=== PATIENT | male | born 1950 | race Hispanic/Latino ===

== ENCOUNTER 2017-11-12 23:36 | Emergency (ER) | payer MEDICAID ==
[2017-11-13 00:55] LABS: Basophils % (Auto) 0.2 % (0.0-1.8); Eosinophils # (Auto) 0.1 K/mm3 (0.0-0.4); Eosinophils % (Auto) 0.5 % (0.0-4.3); Hematocrit 42.4 % (35.5-45.6); Lymphocytes # (Auto) 1.2 K/mm3 (1.2-5.4); Lymphocytes % (Auto) 6.7 % (13.4-35.0); Mean Corpuscular HGB Conc 33 % (32-34); Mean Corpuscular Hemoglobin 28 pg (28-32); Mean Corpuscular Volume 85 fl (84-94); Monocytes # (Auto) 0.8 K/mm3 (0.0-0.8); Monocytes % (Auto) 4.5 % (0.0-7.3); Platelet Count 179 K/mm3 (140-440); Red Blood Count 4.99 M/mm3 (3.65-5.03); Red Cell Distribution Width 16.1 % (13.2-15.2)
[2017-11-13] MEDS ORDERED: PROVENTIL IH ONE (01:08)
[2017-11-13] MEDS ORDERED: ATROVENT IH ONE (01:08)
[2017-11-13] MEDS ORDERED: LASIX IV ONE (01:10)
[2017-11-13] MEDS ORDERED: TORADOL IV ONE (01:11)
[2017-11-13] MEDS ORDERED: ZOFRAN IV ONE (01:11)
[2017-11-13] MEDS ORDERED: MORPHINE IV ONE (01:11)
[2017-11-13 01:19] LABS: Alanine Aminotransferase 33 units/L (7-56); BUN/Creatinine Ratio 18; Blood Urea Nitrogen 22 mg/dL (9-20); Calcium 8.9 mg/dL (8.4-10.2); Hemolysis Index 5
--- NOTE | 2017-11-13 01:57 | XRay Report ---
FINAL REPORT PROCEDURE: XR CHEST 1V AP TECHNIQUE: Chest radiograph anteroposterior view. CPT 76719 HISTORY: sob COMPARISON: No prior studies are available for comparison. FINDINGS: Heart: Normal. Mediastinum/Vessels: Normal. Lungs/Pleural space: There is suboptimal inspiration. There is pulmonary vascular congestion. There are no infiltrates, effusions or pneumothoraces.. Bony thorax: No acute osseous abnormality. Life support devices: Pacemaker lead is in proper position.. IMPRESSION: The heart size is normal. There is suboptimal inspiration. There is pulmonary vascular congestion. There are no infiltrates, effusions or pneumothoraces..
--- NOTE | 2017-11-13 02:17 | Emergency Department Report ---
ED Abdominal Pain HPI - General Chief Complaint: Abdominal Pain Stated Complaint: AVRIL/ABD PAIN Time Seen by Provider: 11/13/17 00:46 Source: patient, family (daughter), EMS Mode of arrival: Stretcher Limitations: Physical Limitation - History of Present Illness Initial Comments: 67 YO MORBIDLY OBESE MALE WITH C/O ACUTE DYSPNEA AND ABDOMINAL PAIN THAT BEGAN AT 11PM 11/12/17. HIS ABDOMINAL PAIN IS RELATED TO A HERNIA AND HIS SURGEON WANTS TO DO AN EXPLORATORY LAP TO DETERMINE WHAT TRULY IS GOING ON IN HIS ABDOMEN. PT IS ON FACE MASK AND IN RESPIRATORY DISTRESS. HE AND H/O MORBID OBESITY, COPD, ABDOMINAL HERNIA,CHF,ARTHRITIS,CVA,HTN,ANXIETY,DEPRESSION,SLEEP APNEA,RENAL DISEASE,PROSTATE, RIGHT KNEE. HE IS ALSO UNABLE TO WALK OR STAND. MD Complaint: abdominal pain -: Sudden Location: diffuse Migration to: no migration Severity scale (0 -10): 8 Consistency: constant Worsens With: movement, other (PALPATION) Associated Symptoms: denies other symptoms - Related Data Home Medications Medication Instructions Recorded Confirmed Last Taken Cholecalciferol (Vitamin D3) 1,000 unit PO 11/13/17 Unknown [Vitamin D3] Docusate Sodium [Colace CAP] 11/13/17 Unknown Ferrous Sulfate [Feosol] 325 mg PO BID 11/13/17 11/13/17 Unknown HYDROcodone/APAP 5-325 [Parker 1 each PO Q6HR PRN 11/13/17 11/13/17 Unknown 5/325] Ibuprofen [Motrin] 800 mg PO Q8HR PRN 11/13/17 11/13/17 Unknown Lisinopril [Zestril TAB] 40 mg PO QDAY 11/13/17 11/13/17 Unknown Loratadine [Allergy Relief] 10 mg PO 11/13/17 Unknown Norvasc 11/13/17 Unknown Polyethylene Glycol 3350 [Clearlax] 11/13/17 Unknown Sertraline [Zoloft] 11/13/17 Unknown Vitamin C 11/13/17 Unknown Allergies Allergy/AdvReac Type Severity Reaction Status Date / Time No Known Allergies Allergy Unverified 11/13/17 00:30 ED Review of Systems ROS: Stated complaint: AVRIL/ABD PAIN Other details as noted in HPI Constitutional: denies: chills, fever Eyes: denies: eye pain, eye discharge, vision change ENT: denies: ear pain, throat pain Respiratory: shortness of breath. denies: cough, wheezing Cardiovascular: denies: chest pain, palpitations Endocrine: no symptoms reported Gastrointestinal: denies: abdominal pain, nausea, diarrhea Genitourinary: denies: urgency, dysuria Musculoskeletal: denies: back pain, joint swelling, arthralgia Skin: denies: rash, lesions Neurological: denies: headache, weakness, paresthesias Psychiatric: denies: anxiety, depression Hematological/Lymphatic: denies: easy bleeding, easy bruising ED Past Medical Hx - Past Medical History Previous Medical History?: Yes Hx Hypertension: Yes Hx CVA: Yes Hx Congestive Heart Failure: Yes Hx Arthritis: Yes Hx Psychiatric Treatment: Yes (anxiety, depression) Hx COPD: Yes Additional medical history: Sleep apnea, Kidney disease, Prostate disease - Surgical History Past Surgical History?: Yes Additional Surgical History: Right knee - Social History Smoking Status: Former Smoker Substance Use Type: None - Medications Home Medications: Home Medications Medication Instructions Recorded Confirmed Last Taken Type Cholecalciferol (Vitamin D3) 1,000 unit PO 11/13/17 Unknown History [Vitamin D3] Docusate Sodium [Colace CAP] 11/13/17 Unknown History Ferrous Sulfate [Feosol] 325 mg PO BID 11/13/17 11/13/17 Unknown History HYDROcodone/APAP 5-325 [Parker 1 each PO Q6HR PRN 11/13/17 11/13/17 Unknown History 5/325] Ibuprofen [Motrin] 800 mg PO Q8HR PRN 11/13/17 11/13/17 Unknown History Lisinopril [Zestril TAB] 40 mg PO QDAY 11/13/17 11/13/17 Unknown History Loratadine [Allergy Relief] 10 mg PO 11/13/17 Unknown History Norvasc 11/13/17 Unknown History Polyethylene Glycol 3350 [Clearlax] 11/13/17 Unknown History Sertraline [Zoloft] 11/13/17 Unknown History Vitamin C 11/13/17 Unknown History ED Physical Exam - General Limitations: Physical Limitation (PT IS MORBIDLY OBESE THUS PHYSICAL EXAM IS LIMITED) General appearance: alert, in distress (ERSPIRATORY) - Head Head exam: Present: atraumatic, normocephalic - Eye Eye exam: Present: normal appearance, EOMI - ENT ENT exam: Present: mucous membranes moist - Neck Neck exam: Present: normal inspection, full ROM - Respiratory Respiratory exam: Present: wheezes (BILATERAL), accessory muscle use - Cardiovascular Cardiovascular Exam: Present: regular rate, normal rhythm - GI/Abdominal GI/Abdominal exam: Present: soft, tenderness (DIFFUSE) - Rectal Rectal exam: Present: deferred - External exam: Present: normal external exam - Extremities Exam Extremities exam: Present: pedal edema, other - Back Exam Back exam: Present: normal inspection, full ROM - Neurological Exam Neurological exam: Present: alert, oriented X3, CN II-XII intact - Psychiatric Psychiatric exam: Present: normal affect, normal mood - Skin Skin exam: Present: warm, dry, intact, normal color ED Course Vital Signs 11/13/17 11/13/17 11/13/17 00:24 01:24 01:30 Temperature 98.7 F Pulse Rate 97 H 108 H Pulse Rate [ Bilateral] Respiratory 21 20 31 H Rate Respiratory Rate [Bilateral ] Blood Pressure 144/100 145/77 O2 Sat by Pulse 92 94 Oximetry 11/13/17 11/13/17 01:39 05:06 Temperature Pulse Rate 88 Pulse Rate [ 104 H Bilateral] Respiratory 20 Rate Respiratory 25 H Rate [Bilateral ] Blood Pressure 97/46 O2 Sat by Pulse 94 Oximetry - Reevaluation(s) Reevaluation #1: 11/13/17 07:[address] SCAN. WE NEED MANY PEOPLE TO LIFT HIM INTO THE SCANNER , WELL THE SLOWNESS OF GETTING CT'S DONE TONIGHT. HE IS HAVING CRAMPS IN HIS HANDS Reevaluation #2: 11/13/17 07:[address] OF ABD/PELVIS Reevaluation #3: 11/13/17 07:56 PLEASE DO NOT GIVE 30ML/KG OF FLUID, HE IS A CHF PT AND I DO NOT WANT HIM OVERLOADED ED Medical Decision Making - Lab Data Result diagrams: 11/13/17 00:43 11/13/17 00:43 - Radiology Data Radiology results: report reviewed (CXR: PULMONARY VASCULAR CONGESTION) - Medical Decision Making PT IS STILL WAITING FOR CT OF ABDOMEN TO BE DONE. CT ORDERED AT O1:11 AND STILL NOT DONE. PT IS NOT HAVING MUSCLE CRAMPS IN HIS HANDS AND HIS PRESSURE IS DROPPING A LITTLE. WILL BOLUS. PT CANNOT WALK OR STAND FOR ABDOMINAL XRAY BECAUSE OF HIS MORBID OBESITY AND LEG AND FOOT PROBLEMS 0752 PT IS NOW IN THE SCANNER. HIS CARE HAS BEEN TURNED OVER TO DR WELLS WHO WILL FOLLOW UP ON THE CT OF ABDOMENT AND IF THE CT IS NEGATIVE , HE WILL ADMIT THE PT TO THE HOSPITAL FOR UTI,COPD. Critical care attestation.: If time is entered above; I have spent that time in minutes in the direct care of this critically ill patient, excluding procedure time. ED Disposition Clinical Impression: Acute exacerbation of COPD with asthma UTI (urinary tract infection) Qualifiers: Urinary tract infection type: acute cystitis Hematuria presence: with hematuria Qualified Code(s): N30.01 - Acute cystitis with hematuria Abdominal pain Qualifiers: Abdominal location: unspecified location Qualified Code(s): R10.9 - Unspecified abdominal pain Disposition: 09 OP ADMIT IP TO THIS HOSP Is pt being admited?: Yes Does the pt Need Aspirin: No Condition: Critical Instructions: Asthma (ED) Referrals: PASQUALE DOBBINS MD [Primary Care Provider] - 3-5 Days Time of Disposition: 07:49 (DR WELLS WILL FOLLOW )
[2017-11-13 02:24] LABS: Creatine Kinase MB 1.2 ng/mL (0.0-4.0)
[2017-11-13 03:24] LABS: Amorphous Crystals,Urine Few; Bacteria,Urine 1+ /HPF (Negative); Bilirubin,Urine NEG (Negative); Blood,Urine NEG (Negative); Color,Urine Yellow (Yellow); Mucus,Urine FEW /HPF; Nitrite,Urine NEG (Negative); Protein,Urine <15 mg/dL mg/dL (Negative)
[2017-11-13] MEDS ORDERED: NACL ONE (04:54)
[2017-11-13] MEDS ORDERED: NACL 0.9% 250ML 250 ML IV ONE (06:39)
[2017-11-13] MEDS ORDERED: LEVAQUIN 750MG/150ML 750 MG/150 ML BAG IV ONE (06:39)
[2017-11-13] MEDS ORDERED: NACL 0.9% 500 ML 500 ML ONE (06:40)
[2017-11-13] MEDS ORDERED: NACL 0.9% 1000 ML 1,000 ML IV ONE (06:54)
[2017-11-13] MEDS ORDERED: VITAMIN B-1 200 MG in NACL 0.9% 50 ML IV ONE (07:53)
--- NOTE | 2017-11-13 08:30 | Cat Scan Report ---
FINAL REPORT EXAM: CT ABDOMEN PELVIS W CON HISTORY: abd pain TECHNIQUE: CT abdomen and pelvis performed. Images extend from diaphragm to pubic symphysis. Images were obtained after the administration of IV contrast. No oral contrast was administered. Coronal and sagittal reformatted images were obtained. PRIORS: None. FINDINGS: Note that the patient is high obliques in the scanner. Patient's abdominal pannus extends towards the right side and is partially excluded from the field of view. This includes portions of the right colon . There is an elongated calculus in the proximal right ureter measuring 21 x 9 x 7 mm. This causes [id number] right hydronephrosis. There are multiple additional right intrarenal calculi on the right, most are also very oblong in shape. There is a small left intrarenal calculus. There is fatty infiltration of the liver. There is splenomegaly measuring 18 cm largest dimension. There are aortoiliac atherosclerotic calcifications. There is no abdominal aortic aneurysm. There is no evidence of intestinal obstruction. The appendix is normal. There is no free intraperitoneal air. There are no abnormal fluid collections seen. There is a Harding catheter in the bladder. There are small inguinal hernias bilaterally which contain only fat. IMPRESSION: There is an elongated obstructing calculus in proximal right ureter measuring 21 x 9 x 7 mm. This causes mild to moderate right hydronephrosis. There are additional nonobstructing similar oblong right intrarenal calculi. There is a small nonobstructing left intrarenal calculus. Fatty liver. Patient's abdominal pannus extends to the right side and is partially excluded from field of view.
[2017-11-13 08:57] LABS: Calcium 8.7 mg/dL (8.4-10.2)
[2017-11-13] MEDS ORDERED: SUBLIMAZE IV ONE ×2 (10:44→11:00)
--- NOTE | 2017-11-13 11:09 | Emergency Department Report ---
Blank Doc - Documentation Documentation: I was asked by my colleague, Dr. Craig, to follow-up on the patient's CT scan results. The plan was going to be that the patient would require admission anyways for a COPD exacerbation but if there is something on the CT scan of the abdomen and pelvis that needs intervention, then I would take care of it. The CT results came back showing a 2 cm right proximal ureter stone with mild-to- moderate hydronephrosis. On top of that, the patient had repeat metabolic panel showing that there is now some renal insufficiency and mild hyperkalemia. It is possible that the acute kidney injury may be secondary to medications given during his ED stay, but it is also possible that it is secondary to his large kidney stone. The issue at hand is that we do not have urology correction officer today and the patient may need stenting or some type of acute intervention. If it was just the COPD exacerbation, the patient would be kept at our facility. I spoke with [facility]. First I spoke with the urologist, Dr. Wells, who agrees that the patient needs urological consultation and possibly a stent placed either today or tomorrow. Since the patient has the COPD exacerbation, he will not be admitted to the urology service and will need medicine or the hospitalist service. The patient also may need stepdown unit or ICU for his COPD as he is currently on BiPAP. However it has been set up so that the patient will go ER to ER to [place] [facility]. Both Dr. Craig's chart and my note, as well as all the patient's labs and imaging will be sent with the patient. The patient is aware of the lab and imaging results as well as the plan for transfer and he understands and agrees.
[2017-11-13] MEDS ORDERED: ASCORBIC ACID 1,500 MG in NACL 0.9% 50 ML IV SCH (12:00)
--- NOTE | 2017-11-13 13:10 | Emergency Department Report ---
HPI - General Chief Complaint: Abdominal Pain Time Seen by Provider: 11/13/17 00:46 - HPI HPI: This is a 67-year-old male presents to the emergency department from his [facility] via EMS with complaint of shortness of breath and abdominal pain that started last night. He has a past medical history of COPD, abdominal hernia, CVA, hypertension, obstructive sleep apnea, renal insufficiency, CHF. He presented via EMS from home with a nonrebreather on secondary to some hypoxia. His abdominal pain is lower to mid abdomen and bilateral. He had some nausea and vomiting last night but denies any current nausea. He denies any fever, back pain, dysuria or discharge.. The patient has morbid obesity and is nonambulatory at baseline. He is not oxygen dependent at home. This patient was originally signed out to me to follow the CT scan results and if negative, to admit him for UTI and COPD exacerbation. However CT scan results came back showing a large right-sided obstructive kidney stone in the ureter that will need a urology consult, which we do not have. On top of that, the patient has required attention regarding his COPD exacerbation and placed on BiPAP and titration of settings. ED Past Medical Hx - Past Medical History Previous Medical History?: Yes Hx Hypertension: Yes Hx CVA: Yes Hx Congestive Heart Failure: Yes Hx Arthritis: Yes Hx Psychiatric Treatment: Yes (anxiety, depression) Hx COPD: Yes Additional medical history: Sleep apnea, Kidney disease, Prostate disease - Surgical History Past Surgical History?: Yes Additional Surgical History: Right knee - Social History Smoking Status: Former Smoker Substance Use Type: None - Medications Home Medications: Home Medications Medication Instructions Recorded Confirmed Last Taken Type Cholecalciferol (Vitamin D3) 1,000 unit PO 11/13/17 Unknown History [Vitamin D3] Docusate Sodium [Colace CAP] 11/13/17 Unknown History Ferrous Sulfate [Feosol] 325 mg PO BID 11/13/17 11/13/17 Unknown History HYDROcodone/APAP 5-325 [[place] 1 each PO Q6HR PRN 11/13/17 11/13/17 Unknown History 5/325] Ibuprofen [Motrin] 800 mg PO Q8HR PRN 11/13/17 11/13/17 Unknown History Lisinopril [Zestril TAB] 40 mg PO QDAY 11/13/17 11/13/17 Unknown History Loratadine [Allergy Relief] 10 mg PO 11/13/17 Unknown History Norvasc 11/13/17 Unknown History Polyethylene Glycol 3350 [Clearlax] 11/13/17 Unknown History Sertraline [Zoloft] 11/13/17 Unknown History Vitamin C 11/13/17 Unknown History ED Review of Systems ROS: Stated complaint: AVRIL/ABD PAIN Other details as noted in HPI Constitutional: denies: chills, fever Eyes: denies: eye pain, eye discharge, vision change ENT: denies: ear pain, throat pain Respiratory: shortness of breath. denies: cough, wheezing Cardiovascular: denies: chest pain, palpitations Endocrine: no symptoms reported Gastrointestinal: abdominal pain, nausea, vomiting Genitourinary: denies: urgency, dysuria Musculoskeletal: denies: back pain, joint swelling, arthralgia Skin: denies: rash, lesions Neurological: denies: headache, weakness, paresthesias Psychiatric: denies: anxiety, depression Hematological/Lymphatic: denies: easy bleeding, easy bruising Physical Exam - Physical Exam Vital Signs: Vital Signs 11/13/17 11/13/17 11/13/17 00:24 01:24 01:30 Temperature 98.7 F Pulse Rate 97 H 108 H Pulse Rate [ Bilateral] Respiratory 21 20 31 H Rate Respiratory Rate [Bilateral ] Blood Pressure 144/100 145/77 Blood Pressure [Left] O2 Sat by Pulse 92 94 Oximetry 11/13/17 11/13/17 11/13/17 01:39 03:23 03:30 Temperature Pulse Rate 103 H 105 H Pulse Rate [ 104 H Bilateral] Respiratory 26 H 28 H Rate Respiratory 25 H Rate [Bilateral ] Blood Pressure 116/51 116/51 Blood Pressure [Left] O2 Sat by Pulse 95 93 Oximetry 11/13/17 11/13/17 11/13/17 03:45 04:00 04:15 Temperature Pulse Rate 101 H 98 H 96 H Pulse Rate [ Bilateral] Respiratory 27 H 24 21 Rate Respiratory Rate [Bilateral ] Blood Pressure 108/45 108/45 95/50 Blood Pressure [Left] O2 Sat by Pulse 93 93 94 Oximetry 11/13/17 11/13/17 11/13/17 04:30 04:45 05:00 Temperature Pulse Rate 92 H 93 H 90 Pulse Rate [ Bilateral] Respiratory 23 25 H 25 H Rate Respiratory Rate [Bilateral ] Blood Pressure 95/50 99/52 105/48 Blood Pressure [Left] O2 Sat by Pulse 93 96 93 Oximetry 11/13/17 11/13/17 11/13/17 05:06 05:15 05:30 Temperature Pulse Rate 88 87 87 Pulse Rate [ Bilateral] Respiratory 20 24 12 Rate Respiratory Rate [Bilateral ] Blood Pressure 97/46 95/45 95/45 Blood Pressure [Left] O2 Sat by Pulse 94 94 93 Oximetry 11/13/17 11/13/17 11/13/17 05:45 06:00 06:16 Temperature Pulse Rate 85 82 83 Pulse Rate [ Bilateral] Respiratory 13 22 22 Rate Respiratory Rate [Bilateral ] Blood Pressure 84/42 84/42 86/39 Blood Pressure [Left] O2 Sat by Pulse 92 91 93 Oximetry 11/13/17 11/13/17 11/13/17 07:23 07:30 10:15 Temperature 100.7 F H Pulse Rate 82 78 76 Pulse Rate [ Bilateral] Respiratory 9 L 17 20 Rate Respiratory Rate [Bilateral ] Blood Pressure 84/29 104/40 Blood Pressure 110/48 [Left] O2 Sat by Pulse 94 92 88 Oximetry 11/13/17 11/13/17 10:16 12:19 Temperature Pulse Rate 77 Pulse Rate [ Bilateral] Respiratory 24 23 Rate Respiratory Rate [Bilateral ] Blood Pressure 128/61 Blood Pressure [Left] O2 Sat by Pulse 91 94 Oximetry Physical Exam: GENERAL: The patient is well-developed well-nourished. HENT: Normocephalic. Atraumatic. Patient has moist mucous membranes. EYES: Extraocular motions are intact. Pupils equal reactive to light bilaterally. NECK: Supple. Trachea is midline. CHEST/LUNGS: coarse breath sounds. There is tachypnea with some accessory muscle use. This improves on bipap. HEART/CARDIOVASCULAR: Regular. There is mild tachycardia. There is no murmur. ABDOMEN: Abdomen is soft. There is some lower abdominal tenderness to palpation. No guarding rebound tenderness. Patient has normal bowel sounds. Morbidly obese habitus. SKIN: Skin is warm and dry. NEURO: The patient is awake, alert, and oriented. The patient is cooperative. The patient has no focal neurologic deficits. The patient has normal speech. MUSCULOSKELETAL: There is no tenderness or deformity. There is no evidence of acute injury. ED Course Vital Signs 11/13/17 11/13/17 11/13/17 00:24 01:24 01:30 Temperature 98.7 F Pulse Rate 97 H 108 H Pulse Rate [ Bilateral] Respiratory 21 20 31 H Rate Respiratory Rate [Bilateral ] Blood Pressure 144/100 145/77 Blood Pressure [Left] O2 Sat by Pulse 92 94 Oximetry 11/13/17 11/13/17 11/13/17 01:39 03:23 03:30 Temperature Pulse Rate 103 H 105 H Pulse Rate [ 104 H Bilateral] Respiratory 26 H 28 H Rate Respiratory 25 H Rate [Bilateral ] Blood Pressure 116/51 116/51 Blood Pressure [Left] O2 Sat by Pulse 95 93 Oximetry 11/13/17 11/13/17 11/13/17 03:45 04:00 04:15 Temperature Pulse Rate 101 H 98 H 96 H Pulse Rate [ Bilateral] Respiratory 27 H 24 21 Rate Respiratory Rate [Bilateral ] Blood Pressure 108/45 108/45 95/50 Blood Pressure [Left] O2 Sat by Pulse 93 93 94 Oximetry 11/13/17 11/13/17 11/13/17 04:30 04:45 05:00 Temperature Pulse Rate 92 H 93 H 90 Pulse Rate [ Bilateral] Respiratory 23 25 H 25 H Rate Respiratory Rate [Bilateral ] Blood Pressure 95/50 99/52 105/48 Blood Pressure [Left] O2 Sat by Pulse 93 96 93 Oximetry 11/13/17 11/13/17 11/13/17 05:06 05:15 05:30 Temperature Pulse Rate 88 87 87 Pulse Rate [ Bilateral] Respiratory 20 24 12 Rate Respiratory Rate [Bilateral ] Blood Pressure 97/46 95/45 95/45 Blood Pressure [Left] O2 Sat by Pulse 94 94 93 Oximetry 11/13/17 11/13/17 11/13/17 05:45 06:00 06:16 Temperature Pulse Rate 85 82 83 Pulse Rate [ Bilateral] Respiratory 13 22 22 Rate Respiratory Rate [Bilateral ] Blood Pressure 84/42 84/42 86/39 Blood Pressure [Left] O2 Sat by Pulse 92 91 93 Oximetry 11/13/17 11/13/17 11/13/17 07:23 07:30 10:15 Temperature 100.7 F H Pulse Rate 82 78 76 Pulse Rate [ Bilateral] Respiratory 9 L 17 20 Rate Respiratory Rate [Bilateral ] Blood Pressure 84/29 104/40 Blood Pressure 110/48 [Left] O2 Sat by Pulse 94 92 88 Oximetry 11/13/17 11/13/17 10:16 12:19 Temperature Pulse Rate 77 Pulse Rate [ Bilateral] Respiratory 24 23 Rate Respiratory Rate [Bilateral ] Blood Pressure 128/61 Blood Pressure [Left] O2 Sat by Pulse 91 94 Oximetry - ABG Interpretation Ph: [phone] PCO2: 58 PO2: 118 Bicarbonate: 29 Interpretation: respiratory acidosis - EJ/Peripheral Line Arm L Time Out Performed: Yes Indications: nurses unable to establis Skin Cleansed in Sterile Fashion: Yes Size: 20 Dressing Placed: Tegaderm, tape Patient Tolerated Procedure: well ED Medical Decision Making - Lab Data Result diagrams: 11/13/17 00:43 11/13/17 08:27 - EKG Data -: EKG Interpreted by Me EKG shows normal: sinus rhythm, axis, intervals, QRS complexes, ST-T waves Rate: normal - EKG Data When compared to previous EKG there are: previous EKG unavailable Interpretation: normal EKG - Radiology Data Radiology results: report reviewed, image reviewed interpreted by me: Chest x-ray shows some mild cardiomegaly and pulmonary vascular congestion. No overt pleural effusions. No obvious pneumonia. EXAM: CT ABDOMEN PELVIS W CON HISTORY: abd pain TECHNIQUE: CT abdomen and pelvis performed. Images extend from diaphragm to pubic symphysis. Images were obtained after the administration of IV contrast. No oral contrast was administered. Coronal and sagittal reformatted images were obtained. PRIORS: None. FINDINGS: Note that the patient is high obliques in the scanner. Patient's abdominal pannus extends towards the right side and is partially excluded from the field of view. This includes portions of the right colon . There is an elongated calculus in the proximal right ureter measuring 21 x 9 x 7 mm. This causes [id number] right hydronephrosis. There are multiple additional right intrarenal calculi on the right, most are also very oblong in shape. There is a small left intrarenal calculus. There is fatty infiltration of the liver. There is splenomegaly measuring 18 cm largest dimension. There are aortoiliac atherosclerotic calcifications. There is no abdominal aortic aneurysm. There is no evidence of intestinal obstruction. The appendix is normal. There is no free intraperitoneal air. There are no abnormal fluid collections seen. There is a Harding catheter in the bladder. There are small inguinal hernias bilaterally which contain only fat. IMPRESSION: There is an elongated obstructing calculus in proximal right ureter measuring 21 x 9 x 7 mm. This causes mild to moderate right hydronephrosis. There are additional nonobstructing similar oblong right intrarenal calculi. There is a small nonobstructing left intrarenal calculus. Fatty liver. Patient's abdominal pannus extends to the right side and is partially excluded from field of view. Transcribed By: SHELBY Dictated By: DURGA WHITTINGTON MD Electronically Authenticated By: DURGA WHITTINGTON MD Signed Date/Time: 11/13/17 0427 - Medical Decision Making Patient presents with shortness of breath and abdominal pain. Regarding the shortness of breath, it appears to be COPD exacerbation. He has hypercapnia on ABG. This patient was originally signed out to me so I responded to the third ABG that was obtained. It still showed a PCO2 of 57 and the patient was on nonrebreather. He was placed on BiPAP and this was titrated to help blow off some carbon dioxide. While on the BiPAP, he had decreased work of breathing and appeared more stable. Chest x-ray did not show any pneumonia. There may be some pulmonary vascular congestion. Regarding patient's abdominal pain, he has a mild urinary tract infection. Also CT of the abdomen and pelvis with IV contrast came back showing a 2 cm right proximal ureteral stone with [id number] hydronephrosis. For this reason, the patient needed transfer to another facility as we do not have urology today. I spoke with Dr. Wells, urologist at [facility], who agrees that the patient appears to need urology consultation and possibly intervention for this large kidney stone. However secondary to his COPD and/or respiratory distress, the patient will need to go to the medicine service. Being that he is on BiPAP , they consider that he needs either ICU or a stepdown unit. However he will go to the emergency department of [facility] first for further evaluation. I was told by the transfer center that I did not need to do a physician to physician report to the ER doctor who was accepting. All of the labs, charts, imaging, EKG were copied and sent with the patient. - Differential Diagnosis COPD, asthma, PE, nephrolithiasis, appendicitis, cholecystitis Critical Care Time: No ED Disposition Clinical Impression: Acute exacerbation of COPD with asthma, Right nephrolithiasis, Acute kidney injury, Respiratory distress UTI (urinary tract infection) Qualifiers: Urinary tract infection type: acute cystitis Hematuria presence: with hematuria Qualified Code(s): N30.01 - Acute cystitis with hematuria Abdominal pain Qualifiers: Abdominal location: unspecified location Qualified Code(s): R10.9 - Unspecified abdominal pain Hydronephrosis Qualifiers: Hydronephrosis type: with ureteral calculous obstruction Qualified Code(s): N13.2 - Hydronephrosis with renal and ureteral calculous obstruction Leukocytosis Qualifiers: Leukocytosis type: unspecified Qualified Code(s): D72.829 - Elevated white blood cell count, unspecified Disposition: DC/TX-70 ANOTHER TYPE HLTHCARE Is pt being admited?: No Condition: Fair Referrals: PASQUALE DOBBINS MD [Primary Care Provider] - 3-5 Days Time of Disposition: 13:39
[2017-11-13 13:19] VITALS: BP 134/74
[2017-11-13] MEDS ORDERED: FLAGYL 500 MG/100 ML 500 MG/100 ML BAG IV SCH (14:00)
[2017-11-13] MEDS ORDERED: ZOSYN/NS 4.5GM/100ML 4.5 GM/100 ML VIAL IV SCH (14:00)
== END 2017-11-13 13:10 | disposition other institution (70) ==
LOC: ED 23:36
DX: J44.1 Chronic obstructive pulmonary disease with (acute) exacerbation (principal); N39.0 Urinary tract infection, site not specified; I11.0 Hypertensive heart disease with heart failure; I50.9 Heart failure, unspecified; M19.90 Unspecified osteoarthritis, unspecified site; Z86.73 Personal history of transient ischemic attack (TIA), and cerebral infarction without residual deficits; Z87.891 Personal history of nicotine dependence
CPT/HCPCS: 36415; 36556; 71045; 74177; 80048; 80053; 81001; 82140; 82550; 82553; 82803; 83880; 84484; 85025; 85379; 86850; 86900; 86901; 87040; 87086; 87186; 93005; 93010; 96361; 96365; 96375; 99285; J1885; J1940; J1956; J2270; J2405; J2930; J3010; J3411; J7040; Q9967; J2543

== ENCOUNTER 2018-03-29 21:07 | Inpatient (IN) | payer MEDICARE ==
--- NOTE | 2018-03-29 21:30 | Emergency Department Report ---
ED Shortness of Breath HPI - General Chief Complaint: Dyspnea/Respdistress Stated Complaint: AVRIL Time Seen by Provider: 03/29/18 21:23 Source: EMS Mode of arrival: Stretcher Limitations: No Limitations - History of Present Illness Initial Comments: 67-year-old man with chronic comorbidities of morbid obesity, obstructive sleep apnea, COPD secondary to tobacco abuse, inactive tobacco abuse, presents with progressive shortness of breath over the past couple of days. He has not had any fever or chills or diaphoresis, no cough or congestion, but has noticed that his been more difficult to breathe or to perform any of his routine activities. Patient was treated here in October 2017 for similar symptoms, treated with BiPAP, stabilized, but also had a significant kidney stone, and was transferred to [facility] for further care at that time. Patient on BiPAP at time of initial examination, vital signs are stable, blood pressure is 142/66, heart rate 88, respirations are 20, and oxygen saturation 100% on BiPAP. He shows no acute distress, but is tachypneic. Onset/Timin -: days(s) Pain Scale: 0 Known History Of: COPD, congestive heart failure, other Associated Symptoms: denies other symptoms (obstructive sleep apnea, morbid obesity) - Related Data Home Medications Medication Instructions Recorded Confirmed Last Taken Cholecalciferol (Vitamin D3) 1,000 unit PO 11/13/17 Unknown [Vitamin D3] Docusate Sodium [Colace CAP] 11/13/17 Unknown Ferrous Sulfate [Feosol] 325 mg PO BID 11/13/17 11/13/17 Unknown HYDROcodone/APAP 5-325 [[place] 1 each PO Q6HR PRN 11/13/17 11/13/17 Unknown 5/325] Ibuprofen [Motrin] 800 mg PO Q8HR PRN 11/13/17 11/13/17 Unknown Lisinopril [Zestril TAB] 40 mg PO QDAY 11/13/17 11/13/17 Unknown Loratadine [Allergy Relief] 10 mg PO 11/13/17 Unknown Norvasc 11/13/17 Unknown Polyethylene Glycol 3350 [Clearlax] 11/13/17 Unknown Sertraline [Zoloft] 11/13/17 Unknown Vitamin C 11/13/17 Unknown Allergies Allergy/AdvReac Type Severity Reaction Status Date / Time No Known Allergies Allergy Unverified 11/13/17 00:30 ED Review of Systems ROS: Stated complaint: AVRIL Other details as noted in HPI Comment: All other systems reviewed and negative Constitutional: denies: chills, diaphoresis, fever, malaise ENT: denies: ear pain, throat pain Respiratory: shortness of breath, SOB with exertion Cardiovascular: dyspnea on exertion. denies: chest pain, palpitations Endocrine: no symptoms reported Gastrointestinal: denies: abdominal pain, nausea, diarrhea Genitourinary: denies: urgency, dysuria Musculoskeletal: denies: back pain, joint swelling, arthralgia Skin: denies: rash, lesions Neurological: denies: headache, weakness, paresthesias Psychiatric: denies: anxiety, depression Hematological/Lymphatic: denies: easy bleeding, easy bruising ED Past Medical Hx - Past Medical History Hx Hypertension: Yes Hx CVA: Yes Hx Congestive Heart Failure: Yes Hx Arthritis: Yes Hx Psychiatric Treatment: Yes (anxiety, depression) Hx COPD: Yes Additional medical history: Sleep apnea, Kidney disease, Prostate disease - Surgical History Additional Surgical History: Right knee - Social History Smoking Status: Never Smoker - Medications Home Medications: Home Medications Medication Instructions Recorded Confirmed Last Taken Type Cholecalciferol (Vitamin D3) 1,000 unit PO 11/13/17 Unknown History [Vitamin D3] Docusate Sodium [Colace CAP] 11/13/17 Unknown History Ferrous Sulfate [Feosol] 325 mg PO BID 11/13/17 11/13/17 Unknown History HYDROcodone/APAP 5-325 [[place] 1 each PO Q6HR PRN 11/13/17 11/13/17 Unknown History 5/325] Ibuprofen [Motrin] 800 mg PO Q8HR PRN 11/13/17 11/13/17 Unknown History Lisinopril [Zestril TAB] 40 mg PO QDAY 11/13/17 11/13/17 Unknown History Loratadine [Allergy Relief] 10 mg PO 11/13/17 Unknown History Norvasc 11/13/17 Unknown History Polyethylene Glycol 3350 [Clearlax] 11/13/17 Unknown History Sertraline [Zoloft] 11/13/17 Unknown History Vitamin C 11/13/17 Unknown History ED Physical Exam - General Limitations: No Limitations General appearance: lethargic (awake but somewhat lethargic, speaks slowly, but fully appropriate, gives good history), obese - Head Head exam: Present: atraumatic - Eye Eye exam: Present: PERRL, EOMI - ENT ENT exam: Present: normal exam - Neck Neck exam: Present: other (obese, no JVD). Absent: tenderness - Respiratory Respiratory exam: Present: respiratory distress (on BiPAP for ventilatory support, posterior crackles, otherwise relatively clear), rales (primarily posteriorly, but essentially clear), other (poor respiratory effort, requires BiPAP). Absent: wheezes, rhonchi, chest wall tenderness - Cardiovascular Cardiovascular Exam: Present: regular rate. Absent: systolic murmur, diastolic murmur - GI/Abdominal GI/Abdominal exam: Present: soft, other (morbidly obese). Absent: tenderness, guarding, rebound - Rectal Rectal exam: Present: deferred - Extremities Exam Extremities exam: Present: normal inspection. Absent: pedal edema - Neurological Exam Neurological exam: Present: oriented X3, CN II-XII intact. Absent: motor sensory deficit - Psychiatric Psychiatric exam: Present: normal affect, normal mood - Skin Skin exam: Present: warm, dry. Absent: cyanosis, diaphoretic ED Course Vital Signs 03/29/18 03/29/18 03/29/18 21:12 21:16 21:25 Temperature 98.3 F Pulse Rate 87 92 H Pulse Rate [ Bilateral Throughout] Respiratory 22 26 H 26 H Rate Respiratory Rate [Bilateral Throughout] Blood Pressure 141/74 139/69 Blood Pressure [Right] O2 Sat by Pulse 99 Oximetry 03/29/18 03/29/18 03/29/18 22:18 22:22 22:42 Temperature Pulse Rate 3 L Pulse Rate [ 91 H 91 H Bilateral Throughout] Respiratory 3 L Rate Respiratory 24 24 Rate [Bilateral Throughout] Blood Pressure 158/86 Blood Pressure [Right] O2 Sat by Pulse 98 Oximetry 03/29/18 03/29/18 03/30/18 23:07 23:53 00:26 Temperature Pulse Rate 91 H Pulse Rate [ 91 H 86 Bilateral Throughout] Respiratory 18 Rate Respiratory 24 24 Rate [Bilateral Throughout] Blood Pressure Blood Pressure 134/77 [Right] O2 Sat by Pulse Oximetry - Reevaluation(s) Reevaluation #1: 03/30/18 03:44 Patient is napping comfortably at recheck, and is warm and diaphoretic, but temperature check is stable at 98.5 Fahrenheit orally. Blood pressure is 136/71 , pulse rate is 84, oxygen saturation is 97% on BiPAP, at 60% FiO2, 13 cm and 8 cm support. ED Medical Decision Making - Lab Data Result diagrams: 03/29/18 21:25 03/29/18 21:47 - EKG Data EKG shows normal: sinus rhythm, axis (normal QRS axis 49), intervals (normal [place] interval, 171 ms, normal QRS interval, 102 ms, normal QT interval 412 ms corrected.), QRS complexes (normal QRS complex), ST-T waves (normal ST segments and T waves, no significant elevations or depressions) Rate: normal - Radiology Data Radiology results: report reviewed (CT angiography of the chest performed for possible pulmonary embolism, but radiology report shows no central pulmonary emboli, but there appears to be right lower lobe atelectasis, or more likely pneumonia. Incidental note is made of a minor 2.8 cm ascending aortic aneurysm. ) - Medical Decision Making Patient is stable at recheck, but he has been feverish with diaphoresis and warm skin, although last temperature check was stable at 98.5. Nonetheless, with findings on CT scan suggestive of a pneumonia, patient will be treated for an acute right lower lobe pneumonia, but he is stable, does not meet sepsis criteria, as lactic acid is normal at 0.9, vital signs are stable as well. And patient is breathing comfortably, resting comfortably, napping, on BiPAP, at 13 cm and 8 cm, at 60%, with resulting 97% oxygenation. Critical care time in (mins) excluding proc time.: 60 Critical care attestation.: If time is entered above; I have spent that time in minutes in the direct care of this critically ill patient, excluding procedure time. Critical Care Time: 60 minutes of critical care time provided exclusive of any billable procedures, of which there were none ED Disposition Clinical Impression: COPD exacerbation, Morbid obesity Pneumonia Qualifiers: Pneumonia type: due to unspecified organism Laterality: right Lung location: lower lobe of lung Qualified Code(s): J18.1 - Lobar pneumonia, unspecified organism Disposition: OP ADMIT IP TO THIS HOSP Is pt being admited?: Yes Does the pt Need Aspirin: No Condition: Stable Instructions: Bacterial Pneumonia (ED), Chronic Obstructive Pulmonary Disease ( ED) Referrals: PRIMARY CARE, [Primary Care Provider] - 3-5 Days Time of Disposition: 04:29
[2018-03-29] MEDS ORDERED: LASIX IV ONE (21:31)
[2018-03-29 21:41] LABS: Basophils # (Auto) 0.1 K/mm3 (0.0-0.1); Basophils % (Auto) 0.5 % (0.0-1.8); Eosinophils # (Auto) 0.2 K/mm3 (0.0-0.4); Eosinophils % (Auto) 1.4 % (0.0-4.3); Hematocrit 39.9 % (35.5-45.6); Hemoglobin 13.6 gm/dl (11.8-15.2); Lymphocytes # (Auto) 2.1 K/mm3 (1.2-5.4); Lymphocytes % (Auto) 12.7 % (13.4-35.0); Mean Corpuscular HGB Conc 34 % (32-34); Mean Corpuscular Hemoglobin 28 pg (28-32); Mean Corpuscular Volume 81 fl (84-94); Monocytes # (Auto) 1.2 K/mm3 (0.0-0.8); Monocytes % (Auto) 7.4 % (0.0-7.3); Platelet Count 198 K/mm3 (140-440); Red Blood Count 4.91 M/mm3 (3.65-5.03); Red Cell Distribution Width 16.3 % (13.2-15.2)
[2018-03-29] MEDS: PROVENTIL IH ONE ×2 (21:46→23:53)
[2018-03-29] MEDS: ATROVENT IH ONE ×2 (21:46→23:53)
--- NOTE | 2018-03-29 21:59 | XRay Report ---
FINAL REPORT EXAM: XR CHEST 1V AP HISTORY: Shortness of breath TECHNIQUE: upright single view chest PRIORS: Comparison is November 13, 2017 FINDINGS: Cardiac and mediastinal contours are unremarkable. No focal pulmonary infiltrate is identified. No pleural fluid collection seen. Pulmonary vasculature is unremarkable. Pacemaker is present. Lead wires intact. IMPRESSION: Pacemaker. No acute abnormality.
[2018-03-29 22:06] LABS: INR 1.02 (0.87-1.13)
[2018-03-29 22:13] LABS: Creatine Kinase MB < 1.0 ng/mL (0.0-4.0)
[2018-03-29 22:21] LABS: Alanine Aminotransferase 17 units/L (7-56); Albumin 3.7 g/dL (3.9-5); BUN/Creatinine Ratio 16; Blood Urea Nitrogen 16 mg/dL (9-20); Calcium 8.9 mg/dL (8.4-10.2); Hemolysis Index 2
[2018-03-29] MEDS ORDERED: PROVENTIL IH ONE (22:30)
[2018-03-29] MEDS ORDERED: ATROVENT IH ONE (22:30)
[2018-03-30 02:23] LABS: Amorphous Crystals,Urine Few; Bilirubin,Urine NEG (Negative); Blood,Urine NEG (Negative); Color,Urine Straw (Yellow); Hyaline Casts,Urine 3 /LPF; Mucus,Urine FEW /HPF; Protein,Urine <15 mg/dL mg/dL (Negative); RBC,Urine < 1.0 /HPF (0.0-6.0); Urobilinogen,Urine < 2.0 mg/dL (<2.0); WBC,Urine < 1.0 /HPF (0.0-6.0)
--- NOTE | 2018-03-30 02:35 | Cat Scan Report ---
FINAL REPORT EXAM: CT ANGIO CHEST HISTORY: resp distress, elevated d dimer COMPARISON: Chest x-ray from March 29, 2018. TECHNIQUE: Contiguous axial images were obtained. Additional sagittal and coronal reformatted images were obtained. Administration of IV contrast given per institution protocol. Images submitted for interpretation. 100 cc Omnipaque 350. Max intensity projection images. FINDINGS: Mild cardiac enlargement. Prominent pericardial fat pad. Moderate severe coronary artery calcifications. Ascending thoracic aorta measures up to 4 centimeters in diameter borderline dilated. Descending thoracic aorta measures 2.8 centimeters. No acute dissection or rupture. Dilatation of main pulmonary arteries compatible with pulmonary arterial hypertension. Main pulmonary arteries measure up to 3 centimeters. No central pulmonary embolus. Respiratory motion limits evaluation of distal segmental branches. No pathologically enlarged intrathoracic or axillary lymph nodes. Airspace consolidation volume loss right lower lobe concerning for combination of atelectasis and possible pneumonia. No obstructive lesion identified within central tracheobronchial tree. Smaller consolidation medial margin of the left lower lobe. Tiny hiatal hernia. Right adrenal nodule measuring 1.5 x 1.3 centimeters. Internal Hounsfield units 7 compatible with benign adenoma. Fatty infiltration of the liver. IMPRESSION: No central pulmonary embolus. Borderline aneurysmal dilatation of the ascending thoracic aorta. No acute dissection or rupture. Dilatation of main pulmonary arteries compatible with pulmonary arterial hypertension. Airspace consolidation volume loss bilateral lower lobes greater on the right concerning for combination of atelectasis and possible pneumonia. No obstructive lesion identified centrally within the tracheobronchial tree. Benign right adrenal adenoma.
[2018-03-30] MEDS ORDERED: ROCEPHIN/NS 1 GM/50 ML 1 GM/50 ML BAG IV ONE (03:39)
[2018-03-30] MEDS ORDERED: cefTRIAXone 1 GM in NACL 0.9% 20 ML IV ONE (04:00)
[2018-03-30] MEDS ORDERED: ZITHROMAX 500 MG in NACL 0.9% 250ML 250 ML IV ONE (05:00)
[2018-03-30] MEDS ORDERED: ZOFRAN IV PRN (05:09)
[2018-03-30] MEDS ORDERED: TYLENOL PO PRN (05:09)
[2018-03-30] MEDS ORDERED: SODIUM CHLORIDE FLUSH SYRINGE 10 ML IV PRN (05:09)
--- NOTE | 2018-03-30 05:24 | History and Physical Report ---
History of Present Illness Date of examination: 03/30/18 History of present illness: 67-year-old man history of hypertension, COPD, CHF, anxiety, depression, sleep apnea, stroke with right-sided weakness was sent form the [facility] to the emergency room for evaluation of shortness of breath. He also complained of cough productive of white phlegm Review of systems Constitutional: no weight loss, chills Ears, eyes, nose, mouth and throat: no nasal congestion, no nasal discharge, no sinus pressure, no vision change, no red eye. Neck: No neck pain or rigidity. Cardiovascular: no chest pain, palpitations Respiratory+ cough, shortness of breath Gastrointestinal: no abdominal pain, hematochezia Genitourinary : no dysuria, frequency , no hematuria Musculoskeletal: no joint swelling or muscle ache Integumentary: no rash, no pruritis Neurological: no parathesias, no numbness, no focal weakness Endocrine: no cold or heat intolerance, no polyuria or polydipsia Hematologic/Lymphatic: no easy bruising, no easy bleeding, no gland swelling Allergic/Immunologic: no urticaria, no angioedema. PAST MEDICAL HISTORY:hypertension, COPD, CHF, anxiety, depression, sleep apnea, stroke with right-sided weakness PAST SURGICAL HISTORY: Right knee, AICD SOCIAL HISTORY: Denies alcohol, tobacco temperature FAMILY HISTORY: Hypertension Medications and Allergies Allergies Allergy/AdvReac Type Severity Reaction Status Date / Time No Known Allergies Allergy Unverified 11/13/17 00:30 Home Medications Medication Instructions Recorded Confirmed Last Taken Type Cholecalciferol (Vitamin D3) 1,000 unit PO 11/13/17 Unknown History [Vitamin D3] Docusate Sodium [Colace CAP] 11/13/17 Unknown History Ferrous Sulfate [Feosol] 325 mg PO BID 11/13/17 11/13/17 Unknown History HYDROcodone/APAP 5-325 [[place] 1 each PO Q6HR PRN 11/13/17 11/13/17 Unknown History 5/325] Ibuprofen [Motrin] 800 mg PO Q8HR PRN 11/13/17 11/13/17 Unknown History Lisinopril [Zestril TAB] 40 mg PO QDAY 11/13/17 11/13/17 Unknown History Loratadine [Allergy Relief] 10 mg PO 11/13/17 Unknown History Norvasc 11/13/17 Unknown History Polyethylene Glycol 3350 [Clearlax] 11/13/17 Unknown History Sertraline [Zoloft] 11/13/17 Unknown History Vitamin C 11/13/17 Unknown History Active Meds: Active Medications Acetaminophen (Tylenol) 650 mg PO Q4H PRN PRN Reason: Pain MILD(1-3)/Fever >100.5/SANCHEZ Albuterol (Proventil) 2.5 mg IH Q4HRT PRN PRN Reason: Shortness Of Breath Enoxaparin Sodium (Lovenox) 30 mg SUB-Q QDAY YOLY Azithromycin 500 mg/ Sodium (Chloride) 250 mls @ 250 mls/hr IV ONCE ONE Stop: 03/30/18 05:59 Levofloxacin/Dextrose (Levaquin 750mg/150ml) 750 mg in 150 mls @ 100 mls/hr IV Q24H YOLY Ondansetron HCl (Zofran) 4 mg IV Q8H PRN PRN Reason: Nausea And Vomiting Sodium Chloride (Sodium Chloride Flush Syringe 10 Ml) 10 ml IV BID YOLY Sodium Chloride (Sodium Chloride Flush Syringe 10 Ml) 10 ml IV PRN PRN PRN Reason: LINE FLUSH Exam - Physical Exam Narrative exam: Gen. appearance: Patient lying in bed, no apparent distress HEENT: Normocephalic, atraumatic, pupils equally round and reactive to light, extraocular movement intact, and no sclericterus,. No JVD or thyromegaly or nodule,neck supple, no carotid bruit ,mucous membranes moist, no exudate or erythema Heart: S1, S2, regular rate and rhythm Lungs: Decreased breath sounds at bases bilaterally, breathing comfortable Abdomen: Positive bowel sounds, nontender, nondistended, no organomegaly Extremity: No edema, cyanosis, clubbing Skin: No rash, nodules, warm, dry Neuro: Oriented 3, cranial nerves II-12 intact, speech is fluent, motor and sensory intact - Constitutional Vitals: Temp Pulse Resp BP Pulse Ox 98.3 F 77 24 150/79 96 03/29/18 21:16 03/30/18 03:26 03/30/18 03:26 03/30/18 03:26 03/30/18 03:26 Results - Labs CBC & Chem 7: 03/29/18 21:25 03/29/18 21:47 Labs: Abnormal lab results 03/29/18 03/29/18 03/29/18 Range/Units 21:25 21:47 21:47 WBC 16.8 H (4.5-11.0) K/mm3 MCV 81 L (84-94) fl RDW 16.3 H (13.2-15.2) % Lymph % (Auto) 12.7 L (13.4-35.0) % [place] % (Auto) 7.4 H (0.0-7.3) % [place] # 1.2 H (0.0-0.8) K/mm3 Seg Neutrophils % 78.0 H (40.0-70.0) % Seg Neutrophils # 13.1 H (1.8-7.7) K/mm3 D-Dimer 315.75 H (0-234) ng/mlDDU Sodium 136 L (137-145) mmol/L Chloride 93.2 L (98-107) mmol/L Glucose 143 H (75-100) mg/dL Total Creatine Kinase (55-170) units/L Albumin 3.7 L (3.9-5) g/dL 03/29/18 Range/Units 21:47 WBC (4.5-11.0) K/mm3 MCV (84-94) fl RDW (13.2-15.2) % Lymph % (Auto) (13.4-35.0) % [place] % (Auto) (0.0-7.3) % [place] # (0.0-0.8) K/mm3 Seg Neutrophils % (40.0-70.0) % Seg Neutrophils # (1.8-7.7) K/mm3 D-Dimer (0-234) ng/mlDDU Sodium (137-145) mmol/L Chloride (98-107) mmol/L Glucose (75-100) mg/dL Total Creatine Kinase 37 L (55-170) units/L Albumin (3.9-5) g/dL - Imaging and Cardiology EKG: image reviewed Chest x-ray: report reviewed CT scan - chest: report reviewed Assessment and Plan Assessment Community-acquired pneumonia hypertension COPD CHF, stable, anxiety depression sleep apnea stroke with right-sided weakness Plan Admit to medicine, continue BiPAP Start IV Levaquin, follow cultures Continue appropriate outpatient medications DVT prophylaxis
[2018-03-30] MEDS ORDERED: MORPHINE IV PRN (09:58)
[2018-03-30] MEDS: PROVENTIL IH PRN (09:59)
[2018-03-30] MEDS: SODIUM CHLORIDE FLUSH SYRINGE 10 ML IV SCH ×2 (12:11→22:03)
[2018-03-30] MEDS: LOVENOX SUB-Q SCH (12:11)
[2018-03-30] MEDS: DUONEB *Not for PRN Use IH SCH ×4 (13:24→22:19)
--- NOTE | 2018-03-30 14:04 | Event Note ---
Date: 03/30/18 Patient was seen and evaluated this morning, patient is admitted for COPD exacerbation, obesity. Patient does complain shortness of breath and Solu- Medrol and every 4 hours DuoNeb's will follow. Continue treatment per H&P
[2018-03-30] MEDS: HumaLOG SUB-Q SCH (23:30)
[2018-03-31] MEDS: PROVENTIL IH PRN (01:09)
[2018-03-31] MEDS: DUONEB *Not for PRN Use IH SCH ×6 (01:10→21:44)
[2018-03-31] MEDS: LEVAQUIN 750MG/150ML 750 MG/150 ML BAG IV SCH (06:02)
[2018-03-31 07:25] LABS: Basophils % (Auto) 0.1 % (0.0-1.8); Hematocrit 42.5 % (35.5-45.6); Lymphocytes # (Auto) 1.4 K/mm3 (1.2-5.4); Lymphocytes % (Auto) 8.7 % (13.4-35.0); Mean Corpuscular HGB Conc 33 % (32-34); Mean Corpuscular Hemoglobin 27 pg (28-32); Mean Corpuscular Volume 82 fl (84-94); Monocytes # (Auto) 0.4 K/mm3 (0.0-0.8); Monocytes % (Auto) 2.6 % (0.0-7.3); Platelet Count 270 K/mm3 (140-440); Red Blood Count 5.16 M/mm3 (3.65-5.03)
[2018-03-31 07:44] LABS: BUN/Creatinine Ratio 29; Blood Urea Nitrogen 32 mg/dL (9-20); Hemolysis Index 38
[2018-03-31] MEDS: HumaLOG SUB-Q SCH ×4 (08:00→22:51)
[2018-03-31] MEDS: LOVENOX SUB-Q SCH (10:11)
--- NOTE | 2018-03-31 18:03 | Progress Note ---
Assessment and Plan Assessment and plan: 67-year-old man history of hypertension, COPD, CHF, anxiety, depression, sleep apnea, stroke with right-sided weakness was [facility] form the [facility] to the emergency room for evaluation of shortness of breath. He also complained of cough productive of white phlegm. Sepsis, due to bilateral pneumonia, COPD exacerbation - Patient was treated with IV antibiotic, blood culture pending - Still has leukocytosis COPD exacerbation - Patient is on IV Solu-Medrol, antibiotic, no malaise of treatment, oxygen support Sleep apnea - O/P f/u CHF, anxiety, depression, history of stroke - Continue home medications DVT prophylaxis - On heparin Disposition - Continue inpatient care History Interval history: Patient was seen and evaluated this morning, shortness of breath is getting better, still complaining cough. Hospitalist Physical - Physical exam Narrative exam: Not in cardiopulmonary distress. The patient is morbidly obese. Vital signs as documented. Head exam is unremarkable. No scleral icterus . Neck is without jugular venous distension, thyromegaly, or carotid bruits. Lungs are clear to auscultation. Cardiac exam reveals regular rate and Rhythm. First and second heart sounds normal. No murmurs, rubs or gallops. Abdominal exam reveals normal bowel sounds, no masses, no organomegaly and no aortic enlargement. Extremities are nonedematous and both femoral and pedal pulses are normal. BENCH INSPECTOR: Alert and oriented 3. No focal weakness. - Constitutional Vitals: Temp Pulse Resp BP Pulse Ox 97.9 F 69 18 121/49 91 03/31/18 17:00 03/31/18 17:00 03/31/18 17:00 03/31/18 17:00 03/31/18 17:00 Results - Labs CBC & Chem 7: 03/31/18 06:33 03/31/18 06:33 Labs: Laboratory Last Values WBC 16.3 K/mm3 (4.5-11.0) H 03/31/18 06:33 RBC 5.16 M/mm3 (3.65-5.03) H 03/31/18 06:33 Hgb 14.0 gm/dl (11.8-15.2) 03/31/18 06:33 Hct 42.5 % (35.5-45.6) 03/31/18 06:33 MCV 82 fl (84-94) L 03/31/18 06:33 MCH 27 pg (28-32) L 03/31/18 06:33 MCHC 33 % (32-34) 03/31/18 06:33 RDW 16.0 % (13.2-15.2) H 03/31/18 06:33 Plt Count 270 K/mm3 (140-440) 03/31/18 06:33 Lymph % (Auto) 8.7 % (13.4-35.0) L 03/31/18 06:33 [place] % (Auto) 2.6 % (0.0-7.3) 03/31/18 06:33 Eos % (Auto) 0.0 % (0.0-4.3) 03/31/18 06:33 Baso % (Auto) 0.1 % (0.0-1.8) 03/31/18 06:33 Lymph # 1.4 K/mm3 (1.2-5.4) 03/31/18 06:33 [place] # 0.4 K/mm3 (0.0-0.8) 03/31/18 06:33 Eos # 0.0 K/mm3 (0.0-0.4) 03/31/18 06:33 Baso # 0.0 K/mm3 (0.0-0.1) 03/31/18 06:33 Seg Neutrophils % 88.6 % (40.0-70.0) H 03/31/18 06:33 Seg Neutrophils # 14.4 K/mm3 (1.8-7.7) H 03/31/18 06:33 PT 13.9 Sec. (12.2-14.9) 03/29/18 21:47 INR 1.02 (0.87-1.13) 03/29/18 21:47 D-Dimer 315.75 ng/mlDDU (0-234) H 03/29/18 21:47 POC ABG pH 7.370 (7.35-7.45) 03/29/18 22:18 POC ABG pCO2 51.0 (35-45) H 03/29/18 22:18 POC ABG pO2 88 (80-105) 03/29/18 22:18 POC ABG HCO3 29.5 03/29/18 22:18 POC ABG Total CO2 31 03/29/18 22:18 POC ABG O2 Sat 96 03/29/18 22:18 POC ABG Base Excess 4 03/29/18 22:18 FiO2 60 % 03/29/18 22:18 Sodium 140 mmol/L (137-145) 03/31/18 06:33 Potassium 4.4 mmol/L (3.6-5.0) 03/31/18 06:33 Chloride 96.2 mmol/L (98-107) L 03/31/18 06:33 Carbon Dioxide 27 mmol/L (22-30) 03/31/18 06:33 Anion Gap 21 mmol/L 03/31/18 06:33 BUN 32 mg/dL (9-20) H 03/31/18 06:33 Creatinine 1.1 mg/dL (0.8-1.5) 03/31/18 06:33 Estimated GFR > 60 ml/min 03/31/18 06:33 BUN/Creatinine Ratio 29 % 03/31/18 06:33 Glucose 212 mg/dL (75-100) H 03/31/18 06:33 POC Glucose 216 (70-105) H 03/31/18 16:51 Lactic Acid 0.90 mmol/L (0.7-2.0) 03/29/18 21:47 Calcium 9.0 mg/dL (8.4-10.2) 03/31/18 06:33 Magnesium 1.90 mg/dL (1.7-2.3) 03/29/18 21:47 Total Bilirubin 0.80 mg/dL (0.1-1.2) 03/29/18 21:47 AST 16 units/L (5-40) 03/29/18 21:47 ALT 17 units/L (7-56) 03/29/18 21:47 Alkaline Phosphatase 76 units/L (35-129) 03/29/18 21:47 Total Creatine Kinase 37 units/L (55-170) L 03/29/18 21:47 CK-MB (CK-2) < 1.0 ng/mL (0.0-4.0) 03/29/18 21:47 CK-MB (CK-2) Rel Index 2.7 (0-4) 03/29/18 21:47 Troponin T < 0.010 ng/mL (0.00-0.029) 03/29/18 21:47 NT-Pro-B Natriuret Pep 121.4 pg/mL (0-900) 03/29/18 21:47 Total Protein 7.5 g/dL (6.3-8.2) 03/29/18 21:47 Albumin 3.7 g/dL (3.9-5) L 03/29/18 21:47 Albumin/Globulin Ratio 1.0 % 03/29/18 21:47 Urine Color Straw (Yellow) 03/29/18 01:47 Urine Turbidity Clear (Clear) 03/29/18 01:47 Urine pH 5.0 (5.0-7.0) 03/29/18 01:47 Ur Specific [place] 1.006 (1.003-1.030) 03/29/18 01:47 Urine Protein <15 mg/dl mg/dL (Negative) 03/29/18 01:47 Urine Glucose (UA) Neg mg/dL (Negative) 03/29/18 01:47 Urine Ketones Neg mg/dL (Negative) 03/29/18 01:47 Urine Blood Neg (Negative) 03/29/18 01:47 Urine Nitrite Neg (Negative) 03/29/18 01:47 Urine Bilirubin Neg (Negative) 03/29/18 01:47 Urine Urobilinogen < 2.0 mg/dL (<2.0) 03/29/18 01:47 Ur Leukocyte Esterase Neg (Negative) 03/29/18 01:47 Urine WBC (Auto) < 1.0 /HPF (0.0-6.0) 03/29/18 01:47 Urine RBC (Auto) < 1.0 /HPF (0.0-6.0) 03/29/18 01:47 U Epithel Cells (Auto) < 1.0 /HPF (0-13.0) 03/29/18 01:47 Amorphous Crystals Few 03/29/18 01:47 Hyaline Casts 3 /LPF 03/29/18 01:47 Urine Mucus Few /HPF 03/29/18 01:47
[2018-03-31] MEDS ORDERED: HEPARIN SUB-Q SCH (22:00)
[2018-03-31] MEDS: LANTUS SUB-Q SCH (22:53)
[2018-04-01] MEDS: ROBITUSSIN AC PO PRN ×3 (00:48→10:27)
[2018-04-01] MEDS: DUONEB *Not for PRN Use IH SCH ×6 (01:02→20:58)
[2018-04-01] MEDS: LEVAQUIN 750MG/150ML 750 MG/150 ML BAG IV SCH (06:34)
[2018-04-01] MEDS: HumaLOG SUB-Q SCH ×4 (08:00→22:49)
[2018-04-01 09:00] LABS: Hematocrit 40.4 % (35.5-45.6); Hemoglobin 13.8 gm/dl (11.8-15.2); Mean Corpuscular HGB Conc 34 % (32-34); Mean Corpuscular Hemoglobin 28 pg (28-32); Mean Corpuscular Volume 81 fl (84-94); Platelet Count 288 K/mm3 (140-440); Red Cell Distribution Width 15.8 % (13.2-15.2)
[2018-04-01 09:20] LABS: BUN/Creatinine Ratio 40; Blood Urea Nitrogen 44 mg/dL (9-20); Calcium 9.2 mg/dL (8.4-10.2); Hemolysis Index 10
[2018-04-01] MEDS: LOVENOX SUB-Q SCH (09:50)
[2018-04-01] MEDS ORDERED: TUMS PO PRN (10:00)
[2018-04-01 13:17] LABS: Basophils % (Manual) 0 % (0.0-1.8); Eosinophils % (Manual) 0 % (0.0-4.3); Total Cells Counted 100
[2018-04-01] MEDS ORDERED: D50W (25GM) Syringe IV PRN (16:10)
--- NOTE | 2018-04-01 16:12 | Progress Note ---
Assessment and Plan Assessment and plan: 67-year-old man history of hypertension, COPD, CHF, anxiety, depression, sleep apnea, stroke with right-sided weakness was sent form the assisted to the emergency room for evaluation of shortness of breath. He also complained of cough productive of white phlegm. Sepsis, due to bilateral pneumonia, COPD exacerbation - Patient was treated with IV antibiotic, blood culture pending - Still has leukocytosis COPD exacerbation - Patient is on IV Solu-Medrol, antibiotic, no malaise of treatment, oxygen support Sleep apnea - O/P f/u CHF, anxiety, depression, history of stroke - Continue home medications DM type 2 - on lantus and SSI DVT prophylaxis - On heparin Disposition - Continue inpatient care History Interval history: Patient was seen and evaluated this morning, shortness of breath is getting better. Hospitalist Physical - Physical exam Narrative exam: Not in cardiopulmonary distress. The patient is morbidly obese. Vital signs as documented. Head exam is unremarkable. No scleral icterus . Neck is without jugular venous distension, thyromegaly, or carotid bruits. Lungs are clear to auscultation. Cardiac exam reveals regular rate and Rhythm. First and second heart sounds normal. No murmurs, rubs or gallops. Abdominal exam reveals normal bowel sounds, no masses, no organomegaly and no aortic enlargement. Extremities are nonedematous and both femoral and pedal pulses are normal. HYDROLOGY PROFESSOR: Alert and oriented 3. No focal weakness. - Constitutional Vitals: Temp Pulse Resp BP Pulse Ox 98.0 F 67 20 116/66 94 04/01/18 12:55 04/01/18 14:54 04/01/18 14:54 04/01/18 12:55 04/01/18 12:55 Results - Labs CBC & Chem 7: 04/01/18 08:42 04/01/18 08:42 Labs: Laboratory Last Values WBC 18.6 K/mm3 (4.5-11.0) H 04/01/18 08:42 RBC 5.00 M/mm3 (3.65-5.03) 04/01/18 08:42 Hgb 13.8 gm/dl (11.8-15.2) 04/01/18 08:42 Hct 40.4 % (35.5-45.6) 04/01/18 08:42 MCV 81 fl (84-94) L 04/01/18 08:42 MCH 28 pg (28-32) 04/01/18 08:42 MCHC 34 % (32-34) 04/01/18 08:42 RDW 15.8 % (13.2-15.2) H 04/01/18 08:42 Plt Count 288 K/mm3 (140-440) 04/01/18 08:42 Lymph % (Auto) 8.7 % (13.4-35.0) L 03/31/18 06:33 [place] % (Auto) 2.6 % (0.0-7.3) 03/31/18 06:33 Eos % (Auto) 0.0 % (0.0-4.3) 03/31/18 06:33 Baso % (Auto) 0.1 % (0.0-1.8) 03/31/18 06:33 Lymph # 1.4 K/mm3 (1.2-5.4) 03/31/18 06:33 [place] # 0.4 K/mm3 (0.0-0.8) 03/31/18 06:33 Eos # 0.0 K/mm3 (0.0-0.4) 03/31/18 06:33 Baso # 0.0 K/mm3 (0.0-0.1) 03/31/18 06:33 Add Manual Diff Complete 04/01/18 08:42 Total Counted 100 04/01/18 08:42 Seg Neutrophils % Drilling Plant Operator 04/01/18 08:42 Seg Neuts % (Manual) 86.0 % (40.0-70.0) H 04/01/18 08:42 Band Neutrophils % 0 % 04/01/18 08:42 Lymphocytes % (Manual) 11.0 % (13.4-35.0) L 04/01/18 08:42 Reactive Lymphs % (Man) 0 % 04/01/18 08:42 Monocytes % (Manual) 3.0 % (0.0-7.3) 04/01/18 08:42 Eosinophils % (Manual) 0 % (0.0-4.3) 04/01/18 08:42 Basophils % (Manual) 0 % (0.0-1.8) 04/01/18 08:42 Metamyelocytes % 0 % 04/01/18 08:42 Myelocytes % 0 % 04/01/18 08:42 Promyelocytes % 0 % 04/01/18 08:42 Blast Cells % 0 % 04/01/18 08:42 Nucleated RBC % Not Reportable 04/01/18 08:42 Seg Neutrophils # 14.4 K/mm3 (1.8-7.7) H 03/31/18 06:33 Seg Neutrophils # Man 16.0 K/mm3 (1.8-7.7) H 04/01/18 08:42 Band Neutrophils # 0.0 K/mm3 04/01/18 08:42 Lymphocytes # (Manual) 2.0 K/mm3 (1.2-5.4) 04/01/18 08:42 Abs React Lymphs (Man) 0.0 K/mm3 04/01/18 08:42 Monocytes # (Manual) 0.6 K/mm3 (0.0-0.8) 04/01/18 08:42 Eosinophils # (Manual) 0.0 K/mm3 (0.0-0.4) 04/01/18 08:42 Basophils # (Manual) 0.0 K/mm3 (0.0-0.1) 04/01/18 08:42 Metamyelocytes # 0.0 K/mm3 04/01/18 08:42 Myelocytes # 0.0 K/mm3 04/01/18 08:42 Promyelocytes # 0.0 K/mm3 04/01/18 08:42 Blast Cells # 0.0 K/mm3 04/01/18 08:42 WBC Morphology Not Reportable 04/01/18 08:42 Hypersegmented Neuts Not Reportable 04/01/18 08:42 Hyposegmented Neuts Not Reportable 04/01/18 08:42 Hypogranular Neuts Not Reportable 04/01/18 08:42 Smudge Cells Not Reportable 04/01/18 08:42 Toxic Granulation Not Reportable 04/01/18 08:42 Toxic Vacuolation Not Reportable 04/01/18 08:42 Dohle Bodies Not Reportable 04/01/18 08:42 Pelger-Huet Anomaly Not Reportable 04/01/18 08:42 Rosenda Rods Not Reportable 04/01/18 08:42 Platelet Estimate Appears normal 04/01/18 08:42 Clumped Platelets Not Reportable 04/01/18 08:42 Plt Clumps, EDTA Not Reportable 04/01/18 08:42 Large Platelets Not Reportable 04/01/18 08:42 Giant Platelets Not Reportable 04/01/18 08:42 Platelet Satelliting Not Reportable 04/01/18 08:42 Plt Morphology Comment Not Reportable 04/01/18 08:42 RBC Morphology Not Reportable 04/01/18 08:42 Dimorphic RBCs Not Reportable 04/01/18 08:42 Polychromasia Not Reportable 04/01/18 08:42 Hypochromasia Not Reportable 04/01/18 08:42 Poikilocytosis Not Reportable 04/01/18 08:42 Anisocytosis Not Reportable 04/01/18 08:42 Microcytosis Not Reportable 04/01/18 08:42 Macrocytosis Not Reportable 04/01/18 08:42 Spherocytes Not Reportable 04/01/18 08:42 Pappenheimer Bodies Not Reportable 04/01/18 08:42 Sickle Cells Not Reportable 04/01/18 08:42 Target Cells Not Reportable 04/01/18 08:42 Tear Drop Cells Not Reportable 04/01/18 08:42 Ovalocytes Not Reportable 04/01/18 08:42 Helmet Cells Not Reportable 04/01/18 08:42 Fiore-Beverly Bodies Not Reportable 04/01/18 08:42 Closplint Rings Not Reportable 04/01/18 08:42 Leslie Cells Not Reportable 04/01/18 08:42 Bite Cells Not Reportable 04/01/18 08:42 Crenated Cell Not Reportable 04/01/18 08:42 Elliptocytes Not Reportable 04/01/18 08:42 Acanthocytes (Spur) Not Reportable 04/01/18 08:42 Rouleaux Not Reportable 04/01/18 08:42 Hemoglobin C Crystals Not Reportable 04/01/18 08:42 Schistocytes Not Reportable 04/01/18 08:42 Malaria parasites Not Reportable 04/01/18 08:42 Benny Bodies Not Reportable 04/01/18 08:42 Hem Pathologist Commnt No 04/01/18 08:42 PT 13.9 Sec. (12.2-14.9) 03/29/18 21:47 INR 1.02 (0.87-1.13) 03/29/18 21:47 D-Dimer 315.75 ng/mlDDU (0-234) H 03/29/18 21:47 POC ABG pH 7.370 (7.35-7.45) 03/29/18 22:18 POC ABG pCO2 51.0 (35-45) H 03/29/18 22:18 POC ABG pO2 88 (80-105) 03/29/18 22:18 POC ABG HCO3 29.5 03/29/18 22:18 POC ABG Total CO2 31 03/29/18 22:18 POC ABG O2 Sat 96 03/29/18 22:18 POC ABG Base Excess 4 03/29/18 22:18 FiO2 60 % 03/29/18 22:18 Sodium 134 mmol/L (137-145) L 04/01/18 08:42 Potassium 4.3 mmol/L (3.6-5.0) 04/01/18 08:42 Chloride 95.2 mmol/L (98-107) L 04/01/18 08:42 Carbon Dioxide 26 mmol/L (22-30) 04/01/18 08:42 Anion Gap 17 mmol/L 04/01/18 08:42 BUN 44 mg/dL (9-20) H 04/01/18 08:42 Creatinine 1.1 mg/dL (0.8-1.5) 04/01/18 08:42 Estimated GFR > 60 ml/min 04/01/18 08:42 BUN/Creatinine Ratio 40 % 04/01/18 08:42 Glucose 186 mg/dL (75-100) H 04/01/18 08:42 POC Glucose 180 (70-105) H 04/01/18 06:00 Lactic Acid 0.90 mmol/L (0.7-2.0) 03/29/18 21:47 Calcium 9.2 mg/dL (8.4-10.2) 04/01/18 08:42 Magnesium 1.90 mg/dL (1.7-2.3) 03/29/18 21:47 Total Bilirubin 0.80 mg/dL (0.1-1.2) 03/29/18 21:47 AST 16 units/L (5-40) 03/29/18 21:47 ALT 17 units/L (7-56) 03/29/18 21:47 Alkaline Phosphatase 76 units/L (35-129) 03/29/18 21:47 Total Creatine Kinase 37 units/L (55-170) L 03/29/18 21:47 CK-MB (CK-2) < 1.0 ng/mL (0.0-4.0) 03/29/18 21:47 CK-MB (CK-2) Rel Index 2.7 (0-4) 03/29/18 21:47 Troponin T < 0.010 ng/mL (0.00-0.029) 03/29/18 21:47 NT-Pro-B Natriuret Pep 121.4 pg/mL (0-900) 03/29/18 21:47 Total Protein 7.5 g/dL (6.3-8.2) 03/29/18 21:47 Albumin 3.7 g/dL (3.9-5) L 03/29/18 21:47 Albumin/Globulin Ratio 1.0 % 03/29/18 21:47 Urine Color Straw (Yellow) 03/29/18 01:47 Urine Turbidity Clear (Clear) 03/29/18 01:47 Urine pH 5.0 (5.0-7.0) 03/29/18 01:47 Ur Specific [place] 1.006 (1.003-1.030) 03/29/18 01:47 Urine Protein <15 mg/dl mg/dL (Negative) 03/29/18 01:47 Urine Glucose (UA) Neg mg/dL (Negative) 03/29/18 01:47 Urine Ketones Neg mg/dL (Negative) 03/29/18 01:47 Urine Blood Neg (Negative) 03/29/18 01:47 Urine Nitrite Neg (Negative) 03/29/18 01:47 Urine Bilirubin Neg (Negative) 03/29/18 01:47 Urine Urobilinogen < 2.0 mg/dL (<2.0) 03/29/18 01:47 Ur Leukocyte Esterase Neg (Negative) 03/29/18 01:47 Urine WBC (Auto) < 1.0 /HPF (0.0-6.0) 03/29/18 01:47 Urine RBC (Auto) < 1.0 /HPF (0.0-6.0) 03/29/18 01:47 U Epithel Cells (Auto) < 1.0 /HPF (0-13.0) 03/29/18 01:47 Amorphous Crystals Few 03/29/18 01:47 Hyaline Casts 3 /LPF 03/29/18 01:47 Urine Mucus Few /HPF 03/29/18 01:47
[2018-04-01] MEDS: LANTUS SUB-Q SCH (22:48)
[2018-04-01] MEDS: SODIUM CHLORIDE FLUSH SYRINGE 10 ML IV SCH (22:51)
[2018-04-02] MEDS: DUONEB *Not for PRN Use IH SCH ×2 (01:51→08:48)
[2018-04-02] MEDS: LEVAQUIN 750MG/150ML 750 MG/150 ML BAG IV SCH (05:44)
[2018-04-02 08:07] LABS: Hematocrit 39.1 % (35.5-45.6); Hemoglobin 13.4 gm/dl (11.8-15.2); Mean Corpuscular HGB Conc 34 % (32-34); Mean Corpuscular Hemoglobin 28 pg (28-32); Mean Corpuscular Volume 81 fl (84-94); Platelet Count 293 K/mm3 (140-440); Red Blood Count 4.83 M/mm3 (3.65-5.03); Red Cell Distribution Width 15.9 % (13.2-15.2)
[2018-04-02] MEDS: HumaLOG SUB-Q SCH ×2 (08:30→12:00)
[2018-04-02 08:35] LABS: BUN/Creatinine Ratio 41; Blood Urea Nitrogen 45 mg/dL (9-20); Calcium 9.1 mg/dL (8.4-10.2); Hemolysis Index 24
[2018-04-02] MEDS: LOVENOX SUB-Q SCH (09:08)
[2018-04-02 09:59] LABS: Band Neutrophils # (Manual) 1.5 K/mm3; Basophils % (Manual) 0 % (0.0-1.8); Eosinophils % (Manual) 0 % (0.0-4.3); Total Cells Counted 100
[2018-04-02 10:00] LABS: Platelet Estimate Consistent w Auto; RBC Morphology Normal
[2018-04-02] MEDS ORDERED: LEVAQUIN PO SCH (10:00)
--- NOTE | 2018-04-02 10:52 | Discharge Summary ---
Providers - Providers Date of Admission: 03/30/18 05:17 Attending physician: NARDA PONCE MD 04/01/18 09:20 Physical Therapy Evaluation and Treat [CONS] Routine Comment: Reason For Exam: deconditioning Primary care physician: MULTILITH OPERATOR Hospitalization Reason for admission: Acute respiratory failure Condition: Stable Disposition: DC/[place]-03 [facility] Time spent for discharge: 32 minutes - Discharge Diagnoses (1) COPD exacerbation Status: Acute (2) Morbid obesity Status: Chronic (3) Pneumonia Status: Acute Qualifiers: Pneumonia type: due to unspecified organism Laterality: right Lung location: lower lobe of lung Qualified Code(s): J18.1 - Lobar pneumonia, unspecified organism Core Measure Documentation - Palliative Care Palliative Care/ Comfort Measures: Not Applicable - Core Measures Any of the following diagnoses?: none Exam - Physical Exam Narrative exam: Not in cardiopulmonary distress. The patient is morbidly obese. Vital signs as documented. Head exam is unremarkable. No scleral icterus . Neck is without jugular venous distension, thyromegaly, or carotid bruits. Lungs are clear to auscultation. Cardiac exam reveals regular rate and Rhythm. First and second heart sounds normal. No murmurs, rubs or gallops. Abdominal exam reveals normal bowel sounds, no masses, no organomegaly and no aortic enlargement. Extremities are nonedematous and both femoral and pedal pulses are normal. RESEARCH DIRECTOR: Alert and oriented 3. right side d weakness - Constitutional Vitals: Temp Pulse Resp BP Pulse Ox 97.6 F 60 18 132/63 93 04/02/18 04:19 04/02/18 08:55 04/02/18 08:55 04/02/18 04:19 04/02/18 08:57 Plan Activity: advance as tolerated Weight Bearing Status: Weight Bear as Tolerated Diet: low cholesterol, low salt, diabetic Special Instructions: physical therapy Additional Instructions: Follow @[facility] 1-2 weeks Follow up with: PRIMARY CARE, [Primary Care Provider] - 7 Days Prescriptions: Levofloxacin [Levaquin] 750 mg PO QDAY #7 tablet Prednisone [predniSONE 10 mg (6-Day Pack, 21 Tabs)] 10 mg PO .TAPER #1 tab.ds.pk
[2018-04-02 13:25] VITALS: BP 133/67
== END 2018-04-02 12:30 | disposition home or self-care (01) | DRG 871 ==
LOC: ED 21:07 → 4A 03-30 05:17
PROVIDERS: ADMIT Internal Medicine; ATTEND Internal Medicine
PROC: 4A033R1 Measurement of Arterial Saturation, Peripheral, Percutaneous Approach (ICD-10-PCS; principal; 2018-03-29)
PROC: 5A09457 Assistance with Respiratory Ventilation, 24-96 Consecutive Hours, Continuous Positive Airway Pressure (ICD-10-PCS; 2018-03-29)
DX: A41.9 Sepsis, unspecified organism (principal); J18.9 Pneumonia, unspecified organism; J44.1 Chronic obstructive pulmonary disease with (acute) exacerbation; Z68.41 Body mass index [BMI] 40.0-44.9, adult; I69.351 Hemiplegia and hemiparesis following cerebral infarction affecting right dominant side; E66.01 Morbid (severe) obesity due to excess calories; G47.33 Obstructive sleep apnea (adult) (pediatric); F17.200 Nicotine dependence, unspecified, uncomplicated; I11.0 Hypertensive heart disease with heart failure; I50.9 Heart failure, unspecified; M19.90 Unspecified osteoarthritis, unspecified site; F41.9 Anxiety disorder, unspecified; F32.9 Major depressive disorder, single episode, unspecified; Z95.810 Presence of automatic (implantable) cardiac defibrillator; Z87.442 Personal history of urinary calculi; Z79.899 Other long term (current) drug therapy; Z82.49 Family history of ischemic heart disease and other diseases of the circulatory system
CPT/HCPCS: 36415; 71045; 71275; 80048; 80053; 81001; 82140; 82550; 82553; 82803; 82962; 83735; 83880; 84484; 85007; 85025; 85379; 85610; 87040; 93005; 93010; 93306; 94640; 94644; 94660; 94760; J0456; J0696; J1644; J1650; J1815; J1940; J1956; J2930; J7050; Q9967

== ENCOUNTER 2018-04-25 23:44 | Emergency (ER) | payer MEDICARE ==
[2018-04-26] MEDS ORDERED: PROVENTIL IH ONE (00:14)
[2018-04-26] MEDS ORDERED: MAGNESIUM SULFATE 2GM/50ML 2 GM/50 ML BAG IV ONE (00:14)
[2018-04-26] MEDS ORDERED: ATROVENT IH ONE (00:14)
--- NOTE | 2018-04-26 00:15 | Emergency Department Report ---
ED General Adult HPI - General Chief complaint: Dyspnea/Respdistress Stated complaint: SOB Time Seen by Provider: 04/26/18 00:05 Source: patient, EMS (ems notes not available at time of chart dictation), RN notes reviewed, old records reviewed Mode of arrival: Stretcher Limitations: Physical Limitation - History of Present Illness Initial comments: This is a 67-year-old patient who is unknown to this provider previously. Past medical history includes hypertension, COPD, congestive heart failure, anxiety, depression, sleep apnea, stroke, right-sided weakness. The patient was admitted to the hospital March 30 for similar symptoms. He was found to have a COPD exacerbation possible pneumonia, had a CT scan of the chest which was negative for pulmonary embolus. Patient today complains of cough, wheezing, mucus production, shortness of breath. Patient's symptoms are constant. They do not radiate anywhere. He indicates no exacerbating or relieving factors. His mucus is yellow and white. He is not having pain. -: Gradual Consistency: constant Improves with: none Worsens with: none Associated Symptoms: cough, shortness of breath. denies: confusion, chest pain - Related Data Home Medications Medication Instructions Recorded Confirmed Last Taken Amlodipine Besylate [Norvasc] 2.5 mg PO DAILY 11/13/17 03/30/18 Unknown Ascorbic Acid [Vitamin C] 500 mg PO DAILY 11/13/17 03/30/18 Unknown Cholecalciferol (Vitamin D3) 1,000 unit PO DAILY 11/13/17 03/30/18 Unknown [Vitamin D3] Docusate Sodium [Colace CAP] 100 mg PO DAILY 11/13/17 03/30/18 Unknown Ferrous Sulfate [Feosol 325 MG tab] 325 mg PO BID 11/13/17 03/30/18 Unknown Lisinopril [Zestril TAB] 40 mg PO QDAY 11/13/17 03/30/18 1 Day Ago ~03/29/18 Loratadine [Allergy Relief] 10 mg PO DAILY 11/13/17 03/30/18 1 Day Ago ~03/29/18 Sertraline [Zoloft] 100 mg PO DAILY 11/13/17 03/30/18 Unknown Previous Rx's Medication Instructions Recorded Last Taken Type Insulin Glargine [Lantus VIAL] 10 units SUB-Q QHS units 04/02/18 Unknown Rx Levofloxacin [Levaquin] 750 mg PO QDAY #7 tablet 04/02/18 Unknown Rx Lispro Insulin [Humalog] 0 unit SUB-Q ACHS units 04/02/18 Unknown Rx Prednisone [predniSONE 10 mg 10 mg PO .TAPER #1 tab.ds.pk 04/02/18 Unknown Rx (6-Day Pack, 21 Tabs)] Albuterol Sulfate [Proair 90 mcg IH Q4HR PRN #2 aer.pow.ba 04/26/18 Unknown Rx Respiclick] Azithromycin 250 mg PO QDAY #4 tablet 04/26/18 Unknown Rx Ipratropium [place] [Atrovent Hfa] 12.9 gm IH Q4HR #2 hfa.aer.ad 04/26/18 Unknown Rx predniSONE [Deltasone] 40 mg PO QDAY #8 tab 04/26/18 Unknown Rx Allergies Allergy/AdvReac Type Severity Reaction Status Date / Time No Known Allergies Allergy Unverified 11/13/17 00:30 ED Review of Systems ROS: Stated complaint: SOB Other details as noted in HPI Comment: All other systems reviewed and negative Constitutional: denies: fever Respiratory: cough, shortness of breath, wheezing Cardiovascular: denies: chest pain Gastrointestinal: denies: abdominal pain Genitourinary: denies: dysuria ED Past Medical Hx - Past Medical History Previous Medical History?: Yes Hx Hypertension: Yes Hx CVA: Yes Hx Congestive Heart Failure: Yes Hx Arthritis: Yes Hx Psychiatric Treatment: Yes (anxiety, depression) Hx COPD: Yes Additional medical history: Sleep apnea, Kidney disease, Prostate disease, right side paraplegic - Surgical History Past Surgical History?: Yes Hx Internal Defibrillator: Yes Additional Surgical History: Right knee - Social History Smoking Status: Former Smoker Substance Use Type: None - Medications Home Medications: Home Medications Medication Instructions Recorded Confirmed Last Taken Type Amlodipine Besylate [Norvasc] 2.5 mg PO DAILY 11/13/17 03/30/18 Unknown History Ascorbic Acid [Vitamin C] 500 mg PO DAILY 11/13/17 03/30/18 Unknown History Cholecalciferol (Vitamin D3) 1,000 unit PO DAILY 11/13/17 03/30/18 Unknown History [Vitamin D3] Docusate Sodium [Colace CAP] 100 mg PO DAILY 11/13/17 03/30/18 Unknown History Ferrous Sulfate [Feosol 325 MG tab] 325 mg PO BID 11/13/17 03/30/18 Unknown History Lisinopril [Zestril TAB] 40 mg PO QDAY 11/13/17 03/30/18 1 Day Ago History ~03/29/18 Loratadine [Allergy Relief] 10 mg PO DAILY 11/13/17 03/30/18 1 Day Ago History ~03/29/18 Sertraline [Zoloft] 100 mg PO DAILY 11/13/17 03/30/18 Unknown History Insulin Glargine [Lantus VIAL] 10 units SUB-Q QHS units 04/02/18 Unknown Rx Levofloxacin [Levaquin] 750 mg PO QDAY #7 tablet 04/02/18 Unknown Rx Lispro Insulin [Humalog] 0 unit SUB-Q ACHS units 04/02/18 Unknown Rx Prednisone [predniSONE 10 mg 10 mg PO .TAPER #1 tab.ds.pk 04/02/18 Unknown Rx (6-Day Pack, 21 Tabs)] Albuterol Sulfate [Proair 90 mcg IH Q4HR PRN #2 aer.pow.ba 04/26/18 Unknown Rx Respiclick] Azithromycin 250 mg PO QDAY #4 tablet 04/26/18 Unknown Rx Ipratropium [place] [Atrovent Hfa] 12.9 gm IH Q4HR #2 hfa.aer.ad 04/26/18 Unknown Rx predniSONE [Deltasone] 40 mg PO QDAY #8 tab 04/26/18 Unknown Rx ED Physical Exam - General Limitations: Physical Limitation General appearance: alert, in no apparent distress - Head Head exam: Present: atraumatic, normocephalic - Eye Eye exam: Present: normal appearance, EOMI. Absent: conjunctival injection - ENT ENT exam: Present: normal exam, normal orophraynx, mucous membranes moist, normal external ear exam - Neck Neck exam: Present: normal inspection, full ROM - Respiratory Respiratory exam: Present: wheezes, rhonchi. Absent: respiratory distress - Cardiovascular Cardiovascular Exam: Present: regular rate, normal rhythm, normal heart sounds. Absent: bradycardia, tachycardia, irregular rhythm, systolic murmur, diastolic murmur, rubs, gallop - GI/Abdominal GI/Abdominal exam: Present: soft, normal bowel sounds. Absent: distended, tenderness, guarding, rebound, rigid, pulsatile mass - Rectal Rectal exam: Present: deferred - Extremities Exam Extremities exam: Present: normal inspection. Absent: tenderness, pedal edema, calf tenderness - Back Exam Back exam: Present: normal inspection, full ROM. Absent: tenderness, CVA tenderness (R), paraspinal tenderness, vertebral tenderness - Neurological Exam Neurological exam: Present: alert, motor sensory deficit (weakness and right upper extremity, right lower extremity.), other (sensation intact to light touch left upper, left lower extremity, 5 out of 5 strength left upper, left lower extremity) - Psychiatric Psychiatric exam: Present: normal affect, normal mood - Skin Skin exam: Present: warm, dry, intact, normal color. Absent: rash ED Course Vital Signs 04/26/18 04/26/18 04/26/18 00:00 00:01 01:01 Temperature 97.7 F Pulse Rate 83 85 77 Pulse Rate [ Anterior Bilateral Throughout] Respiratory 24 32 H 28 H Rate Respiratory Rate [Anterior Bilateral Throughout] Blood Pressure 136/65 140/64 140/64 Blood Pressure 136/65 [Left] O2 Sat by Pulse 94 94 93 Oximetry 04/26/18 04/26/18 04/26/18 01:11 02:00 03:00 Temperature Pulse Rate 95 H Pulse Rate [ 83 Anterior Bilateral Throughout] Respiratory 24 Rate Respiratory 28 H Rate [Anterior Bilateral Throughout] Blood Pressure 126/65 Blood Pressure 125/68 [Left] O2 Sat by Pulse 97 95 Oximetry ED Medical Decision Making - Lab Data Result diagrams: 04/26/18 00:33 04/26/18 00:33 Vital Signs - 24 hr 04/26/18 04/26/18 00:00 01:11 Temperature 97.7 F Pulse Rate 83 Pulse Rate [ 83 Anterior Bilateral Throughout] Respiratory 24 Rate Respiratory 28 H Rate [Anterior Bilateral Throughout] Blood Pressure 136/65 Blood Pressure 136/65 [Left] O2 Sat by Pulse 94 Oximetry Lab Results 04/26/18 04/26/18 04/26/18 Range/Units 00:33 00:33 00:33 WBC 8.7 (4.5-11.0) K/mm3 RBC 4.67 (3.65-5.03) M/mm3 Hgb 12.8 (11.8-15.2) gm/dl Hct 38.4 (35.5-45.6) % MCV 82 L (84-94) fl MCH 27 L (28-32) pg MCHC 33 (32-34) % RDW 17.2 H (13.2-15.2) % Plt Count 166 (140-440) K/mm3 Lymph % (Auto) 27.4 (13.4-35.0) % [place] % (Auto) 10.2 H (0.0-7.3) % Eos % (Auto) 4.9 H (0.0-4.3) % Baso % (Auto) 0.5 (0.0-1.8) % Lymph # 2.4 (1.2-5.4) K/mm3 [place] # 0.9 H (0.0-0.8) K/mm3 Eos # 0.4 (0.0-0.4) K/mm3 Baso # 0.0 (0.0-0.1) K/mm3 Seg Neutrophils % 57.0 (40.0-70.0) % Seg Neutrophils # 4.9 (1.8-7.7) K/mm3 PT 13.0 (12.2-14.9) Sec. INR 0.94 (0.87-1.13) Sodium 141 (137-145) mmol/L Potassium 4.3 (3.6-5.0) mmol/L Chloride 102.1 (98-107) mmol/L Carbon Dioxide 28 (22-30) mmol/L Anion Gap 15 mmol/L BUN 13 (9-20) mg/dL Creatinine 0.9 (0.8-1.5) mg/dL Estimated GFR > 60 ml/min BUN/Creatinine Ratio 14 % Glucose 157 H (75-100) mg/dL Calcium 9.1 (8.4-10.2) mg/dL Magnesium (1.7-2.3) mg/dL Total Creatine Kinase (55-170) units/L NT-Pro-B Natriuret Pep (0-900) pg/mL 04/26/18 Range/Units 00:33 WBC (4.5-11.0) K/mm3 RBC (3.65-5.03) M/mm3 Hgb (11.8-15.2) gm/dl Hct (35.5-45.6) % MCV (84-94) fl MCH (28-32) pg MCHC (32-34) % RDW (13.2-15.2) % Plt Count (140-440) K/mm3 Lymph % (Auto) (13.4-35.0) % [place] % (Auto) (0.0-7.3) % Eos % (Auto) (0.0-4.3) % Baso % (Auto) (0.0-1.8) % Lymph # (1.2-5.4) K/mm3 [place] # (0.0-0.8) K/mm3 Eos # (0.0-0.4) K/mm3 Baso # (0.0-0.1) K/mm3 Seg Neutrophils % (40.0-70.0) % Seg Neutrophils # (1.8-7.7) K/mm3 PT (12.2-14.9) Sec. INR (0.87-1.13) Sodium (137-145) mmol/L Potassium (3.6-5.0) mmol/L Chloride (98-107) mmol/L Carbon Dioxide (22-30) mmol/L Anion Gap mmol/L BUN (9-20) mg/dL Creatinine (0.8-1.5) mg/dL Estimated GFR ml/min BUN/Creatinine Ratio % Glucose (75-100) mg/dL Calcium (8.4-10.2) mg/dL Magnesium 1.70 (1.7-2.3) mg/dL Total Creatine Kinase 28 L (55-170) units/L NT-Pro-B Natriuret Pep 182.2 (0-900) pg/mL - EKG Data -: EKG Interpreted by Ca - EKG Data 04/26/18 03:02 Motion artifact, sinus, 84 bpm, normal axis, premature ventricular contractions , abnormal EKG, Not a STEMI - Radiology Data Radiology results: report reviewed, image reviewed X-ray of the chest is negative for acute disease, chronic findings noted, left- sided cardiac devices noted - Medical Decision Making Differential diagnosis, including but not limited to: Pneumonia, COPD exacerbation, bronchitis Assessment and plan: 67-year-old male with Known history of COPD, presenting with a complaint of cough, wheezing, mucus production. He has no pain. He is most likely had a bronchitis or COPD exacerbation. He is afebrile with reassuring vital signs and speaking in full sentences. He was given steroids, nebulizers, magnesium, wheezing was unchanged , but he felt improved, and was in no distress. This is most likely an acute exacerbation of his chronic underlying COPD, he can be given nebulized therapy at his retirement, and be treated and observed over there. Patient was recently admitted to this hospital, had an echocardiogram which demonstrated an appropriate ejection fraction and was ruled out for pulmonary embolus as well. In addition, based on the current history and physical, I do not suspect pneumonia. The patient will be discharged at this time, return precautions were reviewed. Critical care attestation.: If time is entered above; I have spent that time in minutes in the direct care of this critically ill patient, excluding procedure time. ED Disposition Clinical Impression: COPD exacerbation Disposition: DC- TO HOME OR SELFCARE Is pt being admited?: No Does the pt Need Aspirin: No Condition: Stable Instructions: Chronic Obstructive Pulmonary Disease (ED) Additional Instructions: Take medications as needed/directed. Follow up with the primary care doctor or wolf hunter within the next 3-5 days for repeat checkup/evaluation. Return to the ER right away with new pain, worsening pain, migration of pain, fevers, chills, lethargy, irritability, projectile vomiting, change in mental status, confusion, inability to tolerate liquid feeds. Referrals: NE HADLEY MD [Primary Care Provider] - 3-5 Days JASON GARSIA MD [Staff Physician] - 3-5 Days
--- NOTE | 2018-04-26 00:46 | XRay Report ---
FINAL REPORT EXAM: XRAY CHEST SINGLE VIEW HISTORY: SOB TECHNIQUE: AP portable view of the chest. PRIORS: 03/29/2018 FINDINGS: There is a left-sided AICD that appears adequately positioned. The cardiomediastinal silhouette appears normal. The lungs are hypo aerated and the lung bases are not well evaluated. Visualized lung jha are clear. The bones and soft tissues are unremarkable. IMPRESSION: Hypo aerated lungs. No evidence of acute cardiopulmonary disease.
[2018-04-26 00:53] LABS: Basophils % (Auto) 0.5 % (0.0-1.8); Eosinophils # (Auto) 0.4 K/mm3 (0.0-0.4); Eosinophils % (Auto) 4.9 % (0.0-4.3); Hematocrit 38.4 % (35.5-45.6); Hemoglobin 12.8 gm/dl (11.8-15.2); Lymphocytes # (Auto) 2.4 K/mm3 (1.2-5.4); Lymphocytes % (Auto) 27.4 % (13.4-35.0); Mean Corpuscular HGB Conc 33 % (32-34); Mean Corpuscular Hemoglobin 27 pg (28-32); Mean Corpuscular Volume 82 fl (84-94); Monocytes # (Auto) 0.9 K/mm3 (0.0-0.8); Monocytes % (Auto) 10.2 % (0.0-7.3); Platelet Count 166 K/mm3 (140-440); Red Blood Count 4.67 M/mm3 (3.65-5.03); Red Cell Distribution Width 17.2 % (13.2-15.2)
[2018-04-26 01:04] LABS: BUN/Creatinine Ratio 14; Blood Urea Nitrogen 13 mg/dL (9-20); Calcium 9.1 mg/dL (8.4-10.2); Hemolysis Index 3
[2018-04-26 01:07] LABS: INR 0.94 (0.87-1.13)
[2018-04-26 03:00] VITALS: BP 125/68
[2018-04-26] MEDS ORDERED: ZITHROMAX PO ONE (03:06)
== END 2018-04-26 04:48 | disposition home or self-care (01) ==
LOC: ED 23:44
DX: J44.1 Chronic obstructive pulmonary disease with (acute) exacerbation (principal); I10 Essential (primary) hypertension; I50.9 Heart failure, unspecified; M19.90 Unspecified osteoarthritis, unspecified site; F41.9 Anxiety disorder, unspecified; F32.9 Major depressive disorder, single episode, unspecified; Z87.891 Personal history of nicotine dependence; Z86.73 Personal history of transient ischemic attack (TIA), and cerebral infarction without residual deficits
CPT/HCPCS: 36415; 71045; 80048; 82550; 83735; 83880; 85025; 85610; 93005; 93010; 94644; 96365; 96375; 99285; J2930; J3475

== ENCOUNTER 2018-11-25 21:51 | Inpatient (IN) | payer MEDICARE ==
[2018-11-25] MEDS ORDERED: MORPHINE IV ONE (22:54)
[2018-11-25] MEDS ORDERED: ZOFRAN IV ONE (22:54)
[2018-11-25] MEDS ORDERED: ASPIRIN PO ONE (22:54)
[2018-11-25 23:23] LABS: Basophils # (Auto) 0.1 K/mm3 (0.0-0.1); Basophils % (Auto) 0.7 % (0.0-1.8); Eosinophils # (Auto) 0.2 K/mm3 (0.0-0.4); Eosinophils % (Auto) 1.7 % (0.0-4.3); Hematocrit 42.8 % (35.5-45.6); Hemoglobin 14.7 gm/dl (11.8-15.2); Lymphocytes # (Auto) 2.9 K/mm3 (1.2-5.4); Lymphocytes % (Auto) 20.1 % (13.4-35.0); Mean Corpuscular HGB Conc 34 % (32-34); Mean Corpuscular Volume 80 fl (84-94); Monocytes # (Auto) 1.1 K/mm3 (0.0-0.8); Monocytes % (Auto) 7.6 % (0.0-7.3); Platelet Count 197 K/mm3 (140-440); Red Blood Count 5.35 M/mm3 (3.65-5.03); Red Cell Distribution Width 16.6 % (13.2-15.2)
--- NOTE | 2018-11-25 23:28 | XRay Report ---
FINAL REPORT EXAM: XR CHEST 1V AP HISTORY: Chest Pain COMPARISON: April 2018 FINDINGS: Frontal view(s) of the chest obtained. Mild cardiac enlargement. Left-sided cardiac defibrillator is in place. Shallow inspiration with crowding of bronchovascular markings. No gross focal consolidation or effusion. No pneumothorax. IMPRESSION: Shallow inspiration. No gross focal consolidation or effusion. Stable cardiac enlargement.
[2018-11-25 23:36] LABS: INR 0.96 (0.87-1.13)
[2018-11-25 23:37] LABS: Partial Thromboplastin Time 25.3 Sec. (24.2-36.6)
[2018-11-25 23:43] LABS: BUN/Creatinine Ratio 20; Blood Urea Nitrogen 16 mg/dL (9-20); Calcium 9.3 mg/dL (8.4-10.2); Hemolysis Index 40
--- NOTE | 2018-11-26 00:19 | Emergency Department Report ---
ED Chest Pain HPI - General Chief Complaint: Arrhythmia/Palpitations Stated Complaint: DEFIBRILLATOR FIRING/CHEST PAIN Time Seen by Provider: 11/25/18 22:53 Source: patient, EMS Mode of arrival: Stretcher Limitations: No Limitations - History of Present Illness Initial Comments: Patient is a 68-year-old male with past history of hypertension stroke and defibrillator that has been intense for the past several years. Patient is coming in secondary to feeling as though his defibrillator fired between 45 times at his [facility]. Patient states felt like a horse kicked him in the chest that he had some brief shortness of breath afterwards. Patient states symptoms are worse when is lying on his left side. Patient denies any nausea vomiting or diaphoresis. Patient still feels some soreness in the chest as a 6 out of 10 in severity. Severity scale (0 -10): 7 - Related Data Home Medications Medication Instructions Recorded Confirmed Last Taken Amlodipine Besylate [Norvasc] 2.5 mg PO DAILY 11/13/17 03/30/18 Unknown Ascorbic Acid [Vitamin C] 500 mg PO DAILY 11/13/17 03/30/18 Unknown Cholecalciferol (Vitamin D3) 1,000 unit PO DAILY 11/13/17 03/30/18 Unknown [Vitamin D3] Docusate Sodium [Colace CAP] 100 mg PO DAILY 11/13/17 03/30/18 Unknown Ferrous Sulfate [Feosol 325 MG tab] 325 mg PO BID 11/13/17 03/30/18 Unknown Lisinopril [Zestril TAB] 40 mg PO QDAY 11/13/17 03/30/18 1 Day Ago ~03/29/18 Loratadine [Allergy Relief] 10 mg PO DAILY 11/13/17 03/30/18 1 Day Ago ~03/29/18 Sertraline [Zoloft] 100 mg PO DAILY 11/13/17 03/30/18 Unknown Previous Rx's Medication Instructions Recorded Last Taken Type Insulin Glargine [Lantus VIAL] 10 units SUB-Q QHS units 04/02/18 Unknown Rx Lispro Insulin [Humalog] 0 unit SUB-Q ACHS units 04/02/18 Unknown Rx Prednisone [predniSONE 10 mg 10 mg PO .TAPER #1 tab.ds.pk 04/02/18 Unknown Rx (6-Day Pack, 21 Tabs)] levoFLOXacin [Levaquin] 750 mg PO QDAY #7 tablet 04/02/18 Unknown Rx Albuterol Sulfate [Proair 90 mcg IH Q4HR PRN #2 aer.pow.ba 04/26/18 Unknown Rx Respiclick] Azithromycin 250 mg PO QDAY #4 tablet 04/26/18 Unknown Rx Ipratropium [place] [Atrovent Hfa] 12.9 gm IH Q4HR #2 hfa.aer.ad 04/26/18 Unknown Rx predniSONE [Deltasone] 40 mg PO QDAY #8 tab 04/26/18 Unknown Rx Allergies Allergy/AdvReac Type Severity Reaction Status Date / Time No Known Allergies Allergy Unverified 11/13/17 00:30 Heart Score - HEART Score History: Moderately suspicious EKG: Non-specific Age: > 65 Risk factors: 1-2 risk factors Troponin: < normal limit HEART Score: 5 ED Review of Systems ROS: Stated complaint: DEFIBRILLATOR FIRING/CHEST PAIN Other details as noted in HPI Comment: All other systems reviewed and negative ED Past Medical Hx - Past Medical History Hx Hypertension: Yes Hx CVA: Yes Hx Congestive Heart Failure: Yes Hx Arthritis: Yes Hx Psychiatric Treatment: Yes (anxiety, depression) Hx COPD: Yes Additional medical history: Sleep apnea, Kidney disease, Prostate disease, right side paraplegic - Surgical History Hx Internal Defibrillator: Yes Additional Surgical History: Right knee - Social History Smoking Status: Never Smoker Substance Use Type: Prescribed - Medications Home Medications: Home Medications Medication Instructions Recorded Confirmed Last Taken Type Amlodipine Besylate [Norvasc] 2.5 mg PO DAILY 11/13/17 03/30/18 Unknown History Ascorbic Acid [Vitamin C] 500 mg PO DAILY 11/13/17 03/30/18 Unknown History Cholecalciferol (Vitamin D3) 1,000 unit PO DAILY 11/13/17 03/30/18 Unknown History [Vitamin D3] Docusate Sodium [Colace CAP] 100 mg PO DAILY 11/13/17 03/30/18 Unknown History Ferrous Sulfate [Feosol 325 MG tab] 325 mg PO BID 11/13/17 03/30/18 Unknown History Lisinopril [Zestril TAB] 40 mg PO QDAY 11/13/17 03/30/18 1 Day Ago History ~03/29/18 Loratadine [Allergy Relief] 10 mg PO DAILY 11/13/17 03/30/18 1 Day Ago History ~03/29/18 Sertraline [Zoloft] 100 mg PO DAILY 11/13/17 03/30/18 Unknown History Insulin Glargine [Lantus VIAL] 10 units SUB-Q QHS units 04/02/18 Unknown Rx Lispro Insulin [Humalog] 0 unit SUB-Q ACHS units 04/02/18 Unknown Rx Prednisone [predniSONE 10 mg 10 mg PO .TAPER #1 tab.ds.pk 04/02/18 Unknown Rx (6-Day Pack, 21 Tabs)] levoFLOXacin [Levaquin] 750 mg PO QDAY #7 tablet 04/02/18 Unknown Rx Albuterol Sulfate [Proair 90 mcg IH Q4HR PRN #2 aer.pow.ba 04/26/18 Unknown Rx Respiclick] Azithromycin 250 mg PO QDAY #4 tablet 04/26/18 Unknown Rx Ipratropium [place] [Atrovent Hfa] 12.9 gm IH Q4HR #2 hfa.aer.ad 04/26/18 Unknown Rx predniSONE [Deltasone] 40 mg PO QDAY #8 tab 04/26/18 Unknown Rx ED Physical Exam - General Limitations: No Limitations General appearance: alert, in no apparent distress - Head Head exam: Present: atraumatic, normocephalic - Eye Eye exam: Present: normal appearance - ENT ENT exam: Present: mucous membranes moist - Neck Neck exam: Present: normal inspection - Respiratory Respiratory exam: Present: normal lung sounds bilaterally. Absent: respiratory distress, wheezes, rales, rhonchi - Cardiovascular Cardiovascular Exam: Present: regular rate, normal rhythm. Absent: systolic murmur, diastolic murmur, rubs, gallop - GI/Abdominal GI/Abdominal exam: Present: soft, normal bowel sounds. Absent: distended, tenderness, guarding, rebound - Rectal Rectal exam: Present: deferred - Extremities Exam Extremities exam: Present: normal inspection - Back Exam Back exam: Present: normal inspection - Neurological Exam Neurological exam: Present: alert, oriented X3 - Psychiatric Psychiatric exam: Present: normal affect, normal mood - Skin Skin exam: Present: warm, dry, intact, normal color. Absent: rash ED Medical Decision Making - Lab Data Result diagrams: 11/25/18 23:04 11/25/18 23:04 Labs 0111/25/18 11/25/18 23:04 23:04 23:04 WBC 14.3 H RBC 5.35 H Hgb 14.7 Hct 42.8 MCV 80 L MCH 28 MCHC 34 RDW 16.6 H Plt Count 197 Lymph % (Auto) 20.1 [place] % (Auto) 7.6 H Eos % (Auto) 1.7 Baso % (Auto) 0.7 Lymph # 2.9 [place] # 1.1 H Eos # 0.2 Baso # 0.1 Seg Neutrophils % 69.9 Seg Neutrophils # 10.0 H PT 13.2 INR 0.96 APTT 25.3 Sodium 138 Potassium 4.8 Chloride 97.3 L Carbon Dioxide 30 Anion Gap 16 BUN 16 Creatinine 0.8 Estimated GFR > 60 BUN/Creatinine Ratio 20 Glucose 142 H Calcium 9.3 Magnesium Troponin T < 0.010 11/25/18 23:04 WBC RBC Hgb Hct MCV MCH MCHC RDW Plt Count Lymph % (Auto) [place] % (Auto) Eos % (Auto) Baso % (Auto) Lymph # [place] # Eos # Baso # Seg Neutrophils % Seg Neutrophils # PT INR APTT Sodium Potassium Chloride Carbon Dioxide Anion Gap BUN Creatinine Estimated GFR BUN/Creatinine Ratio Glucose Calcium Magnesium 2.00 Troponin T - EKG Data -: EKG Interpreted by Me - EKG Data 11/26/18 00:15 EKG shows sinus rhythm with a rate of 80 the axes normal intervals and normal. No ST segment elevations or depressions time of interpretation is 2256 - Radiology Data Radiology results: image reviewed interpreted by me: Chest x-ray is within normal limits - Medical Decision Making Patient is a 68-year-old male who is coming in secondary to his defibrillator firing potentially inappropriately. Did speak with Dr. Oliva with [facility] will see the patient in the morning. Patient is being admitted to the hospitalist service at this time. No elective abnormalities. Found that would explain the patient's defibrillator firing Critical care attestation.: If time is entered above; I have spent that time in minutes in the direct care of this critically ill patient, excluding procedure time. ED Disposition Clinical Impression: Defibrillator discharge Disposition: -09 OP ADMIT IP TO THIS HOSP Is pt being admited?: Yes Does the pt Need Aspirin: No Condition: Stable Referrals: NE HADLEY MD [Primary Care Provider] - 3-5 Days Time of Disposition: 00:19
[2018-11-26] MEDS ORDERED: TYLENOL PO PRN (01:53)
[2018-11-26] MEDS ORDERED: SODIUM CHLORIDE FLUSH SYRINGE 10 ML IV PRN ×2 (01:53)
[2018-11-26] MEDS ORDERED: ZOFRAN IV PRN (01:53)
[2018-11-26] MEDS ORDERED: MORPHINE IV PRN (01:53)
[2018-11-26] MEDS ORDERED: MILK OF MAGNESIA PO PRN (01:53)
[2018-11-26] MEDS ORDERED: NON-FORMULARY (Albuterol Sulfate [Proair Respiclick] 90 MCG) IH PRN (02:29)
[2018-11-26] MEDS ORDERED: PROVENTIL IH PRN (02:39)
--- NOTE | 2018-11-26 03:01 | History and Physical Report ---
History of Present Illness Date of examination: 11/26/18 Date of admission: 11/26/2018 Chief complaint: chest pain, defibrillator discharged History of present illness: Pt is a 68 y/o WM with PMHx of HTN, CHF s/p defibrillator, DM type 2, COPD, LUZ, CVA with left sided hemiplegia, obesity who presents to the ER with c/o defibrillator fired and chest pain. Patient resides in a [facility] nursing facility and states that around 5 pm today, he felt a sharp pain in his chest, it feels like an electrical shock, he denies prior episodes of AICD discharged. He states that the pain continues and repeated several times, its worse when he lyes on the left sides. Pt states that he reported that to the nursing staff who called EMS and he was taking to the ER. Pt states that he has his defibrillator for 5 years, he never experienced this pain before. Pt denies prior VA, he states that the pain was associated with palpitation and SOB, he denies pain when taking a deep breath, denies syncope, denies nausea or vomiting . Pt also reports that he uses 2-3 liters of O2 daily at the skilled nursing. He was evaluated in the ER, his cardiology was consulted and he is admitted for further evaluation and treatment. Past History Past Medical History: acute VA, anemia, CAD, COPD, diabetes, heart failure, hypertension, hyperlipidemia Past Surgical History: Other (AICD implant) Social history: no significant social history, other (livrd in SNF) Family history: no significant family history Medications and Allergies Allergies Allergy/AdvReac Type Severity Reaction Status Date / Time No Known Allergies Allergy Unverified 11/13/17 00:30 Home Medications Medication Instructions Recorded Confirmed Last Taken Type Amlodipine Besylate [Norvasc] 2.5 mg PO DAILY 11/13/17 03/30/18 Unknown History Ascorbic Acid [Vitamin C] 500 mg PO DAILY 11/13/17 03/30/18 Unknown History Cholecalciferol (Vitamin D3) 1,000 unit PO DAILY 11/13/17 03/30/18 Unknown History [Vitamin D3] Docusate Sodium [Colace CAP] 100 mg PO DAILY 11/13/17 03/30/18 Unknown History Ferrous Sulfate [Feosol 325 MG tab] 325 mg PO BID 11/13/17 03/30/18 Unknown History Lisinopril [Zestril TAB] 40 mg PO QDAY 11/13/17 03/30/18 1 Day Ago History ~03/29/18 Loratadine [Allergy Relief] 10 mg PO DAILY 11/13/17 03/30/18 1 Day Ago History ~03/29/18 Sertraline [Zoloft] 100 mg PO DAILY 11/13/17 03/30/18 Unknown History Insulin Glargine [Lantus VIAL] 10 units SUB-Q QHS units 04/02/18 Unknown Rx Lispro Insulin [Humalog] 0 unit SUB-Q ACHS units 04/02/18 Unknown Rx Prednisone [predniSONE 10 mg 10 mg PO .TAPER #1 tab.ds.pk 04/02/18 Unknown Rx (6-Day Pack, 21 Tabs)] levoFLOXacin [Levaquin] 750 mg PO QDAY #7 tablet 04/02/18 Unknown Rx Albuterol Sulfate [Proair 90 mcg IH Q4HR PRN #2 aer.pow.ba 04/26/18 Unknown Rx Respiclick] Azithromycin 250 mg PO QDAY #4 tablet 04/26/18 Unknown Rx Ipratropium [place] [Atrovent Hfa] 12.9 gm IH Q4HR #2 hfa.aer.ad 04/26/18 Unknown Rx predniSONE [Deltasone] 40 mg PO QDAY #8 tab 04/26/18 Unknown Rx Active Meds: Active Medications Acetaminophen (Tylenol) 650 mg PO Q4H PRN PRN Reason: Pain MILD(1-3)/Fever >100.5/SANCHEZ Albuterol (Proventil) 2.5 mg IH Q4HRT PRN PRN Reason: Shortness Of Breath Amlodipine Besylate (Norvasc) 2.5 mg PO DAILY [facility] Ascorbic Acid (Vitamin C) 500 mg PO DAILY [facility] Aspirin (Ecotrin) 325 mg PO QDAY [facility] Atorvastatin Calcium (Lipitor) 40 mg PO QHS [facility] Cholecalciferol (Vitamin D3) 1,000 unit PO DAILY [facility] Docusate Sodium (Colace) 100 mg PO DAILY [facility] Enoxaparin Sodium (Lovenox) 40 mg SUB-Q QDAY [facility] Ferrous Sulfate (Feosol) 325 mg PO BID [facility] Furosemide (Lasix) 40 mg PO QDAY [facility] Insulin Glargine (Lantus) 10 units SUB-Q QHS [facility] Insulin Human Regular (Humulin R) 0 units SUB-Q ACHS YOLY; Protocol Magnesium Hydroxide (Milk Of Magnesia) 30 ml PO Q4H PRN PRN Reason: Constipation Morphine Sulfate (Morphine) 2 mg IV Q4H PRN PRN Reason: Pain, Moderate (4-6) Ondansetron HCl (Zofran) 4 mg IV Q8H PRN PRN Reason: Nausea And Vomiting Sodium Chloride (Sodium Chloride Flush Syringe 10 Ml) 10 ml IV BID YOLY Sodium Chloride (Sodium Chloride Flush Syringe 10 Ml) 10 ml IV PRN PRN PRN Reason: LINE FLUSH Spironolactone (Aldactone) 25 mg PO QDAY [facility] Review of Systems Cardiovascular: chest pain Respiratory: shortness of breath, dyspnea on exertion Exam - Constitutional General appearance: Present: mild distress - EENT Eyes: Present: EOM intact ENT: hearing intact - Neck Neck: Present: normal ROM - Respiratory Respiratory effort: labored Respiratory: bilateral: diminished - Cardiovascular Rhythm: regular (tachycardia) Heart Sounds: Present: S1 & S2 - Extremities Extremities: Full ROM Extremity abnormal: edema (1+edema) Peripheral Pulses: within normal limits - Abdominal General gastrointestinal: Present: non-tender, other (firm, obese) Male genitourinary: Present: deferred - Rectal Rectal Exam: deferred - Integumentary Integumentary: Present: warm, dry - Musculoskeletal Musculoskeletal: generalized weakness - Psychiatric Psychiatric: cooperative - Neurologic Neurologic: moves all extremities, other (left sided weakness) Results - Labs CBC & Chem 7: 11/26/18 03:05 11/26/18 03:05 Labs: Laboratory Last Values WBC 14.3 K/mm3 (4.5-11.0) H 11/25/18 23:04 RBC 5.35 M/mm3 (3.65-5.03) H 11/25/18 23:04 Hgb 14.7 gm/dl (11.8-15.2) 11/25/18 23:04 Hct 42.8 % (35.5-45.6) 11/25/18 23:04 MCV 80 fl (84-94) L 11/25/18 23:04 MCH 28 pg (28-32) 11/25/18 23:04 MCHC 34 % (32-34) 11/25/18 23:04 RDW 16.6 % (13.2-15.2) H 11/25/18 23:04 Plt Count 197 K/mm3 (140-440) 11/25/18 23:04 Lymph % (Auto) 20.1 % (13.4-35.0) 11/25/18 23:04 [place] % (Auto) 7.6 % (0.0-7.3) H 11/25/18 23:04 Eos % (Auto) 1.7 % (0.0-4.3) 11/25/18 23:04 Baso % (Auto) 0.7 % (0.0-1.8) 11/25/18 23:04 Lymph # 2.9 K/mm3 (1.2-5.4) 11/25/18 23:04 [place] # 1.1 K/mm3 (0.0-0.8) H 11/25/18 23:04 Eos # 0.2 K/mm3 (0.0-0.4) 11/25/18 23:04 Baso # 0.1 K/mm3 (0.0-0.1) 11/25/18 23:04 Seg Neutrophils % 69.9 % (40.0-70.0) 11/25/18 23:04 Seg Neutrophils # 10.0 K/mm3 (1.8-7.7) H 11/25/18 23:04 PT 13.2 Sec. (12.2-14.9) 11/25/18 23:04 INR 0.96 (0.87-1.13) 11/25/18 23:04 APTT 25.3 Sec. (24.2-36.6) 11/25/18 23:04 Sodium 138 mmol/L (137-145) 11/25/18 23:04 Potassium 4.8 mmol/L (3.6-5.0) 11/25/18 23:04 Chloride 97.3 mmol/L (98-107) L 11/25/18 23:04 Carbon Dioxide 30 mmol/L (22-30) 11/25/18 23:04 Anion Gap 16 mmol/L 11/25/18 23:04 BUN 16 mg/dL (9-20) 11/25/18 23:04 Creatinine 0.8 mg/dL (0.8-1.5) 11/25/18 23:04 Estimated GFR > 60 ml/min 11/25/18 23:04 BUN/Creatinine Ratio 20 % 11/25/18 23:04 Glucose 142 mg/dL (75-100) H 11/25/18 23:04 Calcium 9.3 mg/dL (8.4-10.2) 11/25/18 23:04 Magnesium 2.00 mg/dL (1.7-2.3) 11/25/18 23:04 Troponin T < 0.010 ng/mL (0.00-0.029) 11/25/18 23:04 Assessment and Plan Assessment and plan: 1. Defibrillator discharged r/o 2. Chest pain r/o ACS 3. CHF s/p defibrillator, EF unknown 4. DM type 2 5. Peripheral neuropathy (due to diabetes) 6. CVA with left hemiplegia 7. LUZ (On CPAP) at night 8. Hypertension 9. Hyperlipidemia 10. Obesity Plan: Admit to [facility] for defibrillator discharged ( chest pain Continue CE Q6hr x2 more Nitro PRN for chest pain Repeat EKG in am Morphine PRN for chest pain Ativan PRN for anxiety/restlessness Resume home meds Consult cardiology for evaluation of defibrilator Stress test in am Further plan per hospital course Pt's condition and plan of care discussed with Advance Directives: Yes VTE prophylaxis?: Chemical Plan of care discussed with patient/family: Yes
[2018-11-26 03:17] LABS: Basophils # (Auto) 0.1 K/mm3 (0.0-0.1); Basophils % (Auto) 0.4 % (0.0-1.8); Eosinophils # (Auto) 0.2 K/mm3 (0.0-0.4); Eosinophils % (Auto) 1.7 % (0.0-4.3); Hematocrit 43.1 % (35.5-45.6); Hemoglobin 14.2 gm/dl (11.8-15.2); Lymphocytes # (Auto) 3.2 K/mm3 (1.2-5.4); Lymphocytes % (Auto) 22.9 % (13.4-35.0); Mean Corpuscular HGB Conc 33 % (32-34); Mean Corpuscular Volume 82 fl (84-94); Monocytes # (Auto) 1.1 K/mm3 (0.0-0.8); Monocytes % (Auto) 7.8 % (0.0-7.3); Platelet Count 181 K/mm3 (140-440); Red Blood Count 5.29 M/mm3 (3.65-5.03); Red Cell Distribution Width 16.8 % (13.2-15.2)
[2018-11-26 03:40] LABS: BUN/Creatinine Ratio 17; Blood Urea Nitrogen 15 mg/dL (9-20); Hemolysis Index 11
[2018-11-26] MEDS: HumuLIN R SUB-Q SCH ×4 (07:57→22:19)
[2018-11-26] MEDS: LOVENOX SUB-Q SCH (11:32)
[2018-11-26] MEDS: VITAMIN C PO SCH (11:32)
[2018-11-26] MEDS: VITAMIN D3 PO SCH (11:32)
[2018-11-26] MEDS: FEOSOL PO SCH ×2 (11:32→22:21)
[2018-11-26] MEDS: COLACE PO SCH (11:32)
[2018-11-26] MEDS: LASIX PO SCH (11:32)
[2018-11-26] MEDS: ALDACTONE PO SCH (11:32)
[2018-11-26] MEDS: NORVASC PO SCH (11:32)
[2018-11-26] MEDS: SODIUM CHLORIDE FLUSH SYRINGE 10 ML IV SCH ×2 (11:38→22:21)
--- NOTE | 2018-11-26 17:03 | Event Note ---
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
[2018-11-26] MEDS ORDERED: NON-FORMULARY (Ipratropium Bromide [Atrovent Hfa] 12.9 GM) IH SCH (18:00)
[2018-11-26] MEDS ORDERED: PNEUMOVAX 23 IM ONE (18:01)
[2018-11-26] MEDS: ZESTRIL PO SCH (18:28)
[2018-11-26] MEDS: HumaLOG SUB-Q SCH (22:18)
[2018-11-26] MEDS: LANTUS SUB-Q SCH (22:20)
[2018-11-27] MEDS: ATROVENT IH SCH ×6 (00:37→21:01)
[2018-11-27] MEDS: HumaLOG SUB-Q SCH ×4 (07:46→22:09)
[2018-11-27] MEDS: HumuLIN R SUB-Q SCH (09:27)
[2018-11-27] MEDS ORDERED: [UNRECOGNIZED DRUG - REMARK] PO SCH (10:00)
[2018-11-27] MEDS: FEOSOL PO SCH ×2 (10:23→22:09)
[2018-11-27] MEDS: ECOTRIN PO SCH (10:23)
[2018-11-27] MEDS: ALDACTONE PO SCH (10:23)
[2018-11-27] MEDS: LASIX PO SCH (10:23)
[2018-11-27] MEDS: VITAMIN D3 PO SCH (10:24)
[2018-11-27] MEDS: CLARITIN PO SCH (10:24)
[2018-11-27] MEDS: VITAMIN C PO SCH (10:24)
[2018-11-27] MEDS: NORVASC PO SCH (10:24)
[2018-11-27] MEDS: ZESTRIL PO SCH (10:24)
[2018-11-27] MEDS: ZOLOFT PO SCH (10:24)
[2018-11-27] MEDS: SODIUM CHLORIDE FLUSH SYRINGE 10 ML IV SCH ×2 (10:24→22:09)
[2018-11-27] MEDS: COLACE PO SCH (10:25)
[2018-11-27] MEDS: LOVENOX SUB-Q SCH (10:25)
--- NOTE | 2018-11-27 14:45 | Consultation ---
Addendum entered and electronically signed by RAKAN VICENTE MD 11/27/18 17:53: 68-year-old man with an indwelling cardiac defibrillator, indication is document ed to be a history of nonischemic cardiomyopathy. [facility], following a CVA and was transported to the emergency room following a reported sensation of foreign ICD discharge. There is no chest pain, no unusual shortness of breath and no palpitations. Echocardiogram here reports left ventricle systolic function well preserved, with ejection fraction of 50-55%, suggesting a resolved cardiomyopathy. Most significantly, ICD interrogation shows no evidence of cardiac tachyarrhythmia or ICD discharge. Recommendations: There is no ICD discharge, no further cardiac workup is indicated, patient is stable for cardiac discharge. Original Note: History of Present Illness Consult date: 11/27/18 Consult reason: other (AICD discharge) History of present illness: Mr Negrete is a 68 year old male with a prior CVA with left side residual. He has a history of dilated nonischemic cardiomyopathy and has a single chamber cardiac defibrillator insitu. Routine interrogations has revealed a normal function device. Follow up echocardiograms has revealed a resolving cardiomyopathy, normal left ventricular systolic function ejection fraction 60-65%. Patient was sent to this hospital with reports of AICD discharge. Cardiac consul tation was requested. Patient denies palpitations, unusual shortness of breath and diaphoresis. There was no syncope. An ICD interrogation today reveals no appropriate or inappropriate discharge. Normal functioning device. Past History Past Surgical History: Other (AICD implant) Social history: other (livrd in SNF) Family history: no significant family history Medications and Allergies Allergies Allergy/AdvReac Type Severity Reaction Status Date / Time No Known Allergies Allergy Unverified 11/13/17 00:30 Home Medications Medication Instructions Recorded Confirmed Last Taken Type Amlodipine Besylate [Norvasc] 2.5 mg PO DAILY 11/13/17 11/26/18 Unknown History Ascorbic Acid [Vitamin C] 500 mg PO DAILY 11/13/17 11/26/18 Unknown History Cholecalciferol (Vitamin D3) 1,000 unit PO DAILY 11/13/17 11/26/18 Unknown H istory [Vitamin D3] Docusate Sodium [Colace CAP] 100 mg PO DAILY 11/13/17 11/26/18 Unknown History Ferrous Sulfate [Feosol 325 MG tab] 325 mg PO BID 11/13/17 11/26/18 Unknown History Lisinopril [Zestril TAB] 40 mg PO QDAY 11/13/17 11/26/18 1 Day Ago History ~03/29/18 Loratadine [Allergy Relief] 10 mg PO DAILY 11/13/17 11/26/18 1 Day Ago History ~03/29/18 Sertraline [Zoloft] 100 mg PO DAILY 11/13/17 11/26/18 Unknown History Insulin Glargine [Lantus VIAL] 10 units SUB-Q QHS units 04/02/18 11/26/18 Unknown Rx Lispro Insulin [Humalog] 0 unit SUB-Q ACHS units 04/02/18 11/26/18 Unknown Rx Prednisone [predniSONE 10 mg 10 mg PO .TAPER #1 tab.ds.pk 04/02/18 11/26/18 Unknown Rx (6-Day Pack, 21 Tabs)] levoFLOXacin [Levaquin] 750 mg PO QDAY #7 tablet 04/02/18 11/26/18 Unknown Rx Albuterol Sulfate [Proair 90 mcg IH Q4HR PRN #2 aer.pow.ba 04/26/18 11/26/18 Unknown Rx Respiclick] Azithromycin 250 mg PO QDAY #4 tablet 04/26/18 11/26/18 Unknown Rx Ipratropium [place] [Atrovent Hfa] 12.9 gm IH Q4HR #2 hfa.aer.ad 04/26/18 11/26/18 Unknown Rx predniSONE [Deltasone] 40 mg PO QDAY #8 tab 04/26/18 11/26/18 Unknown Rx Active Meds: Active Medications Acetaminophen (Tylenol) 650 mg PO Q4H PRN PRN Reason: Pain MILD(1-3)/Fever >100.5/SANCHEZ Albuterol (Proventil) 2.5 mg IH Q4HRT PRN PRN Reason: Shortness Of Breath Amlodipine Besylate (Norvasc) 2.5 mg PO DAILY [facility] Last Admin: 11/27/18 10:24 Dose: 2.5 mg Documented by: Ascorbic Acid (Vitamin C) 500 mg PO DAILY [facility] Last Admin: 11/27/18 10:24 Dose: 500 mg Documented by: Aspirin (Ecotrin) 325 mg PO QDAY [facility] Last Admin: 11/27/18 10:23 Dose: 325 mg Documented by: Atorvastatin Calcium (Lipitor) 40 mg PO QHS [facility] Last Admin: 11/26/18 22:21 Dose: 40 mg Documented by: Cholecalciferol (Vitamin D3) 1,000 unit PO DAILY [facility] Last Admin: 11/27/18 10:24 Dose: 1,000 unit Documented by: Docusate Sodium (Colace) 100 mg PO DAILY [facility] Last Admin: 11/27/18 10:25 Dose: 100 mg Documented by: Enoxaparin Sodium (Lovenox) 40 mg SUB-Q QDAY [facility] Last Admin: 11/27/18 10:25 Dose: 40 mg Documented by: Ferrous Sulfate (Feosol) 325 mg PO BID [facility] Last Admin: 11/27/18 10:23 Dose: 325 mg Documented by: Furosemide (Lasix) 40 mg PO QDAY [facility] Last Admin: 11/27/18 10:23 Dose: 40 mg Documented by: Insulin Glargine (Lantus) 10 units SUB-Q [facility] Last Admin: 11/26/18 22:20 Dose: Not Given Documented by: Insulin Human Lispro (Humalog) 0 unit SUB-Q [facility]; Protocol Last Admin: 11/27/18 12:55 Dose: Not Given Documented by: Ipratropium [place] (Atrovent) 0.5 mg IH Q4HRT [facility] Last Admin: 11/27/18 11:06 Dose: 0.5 mg Documented by: Lisinopril (Zestril) 40 mg PO QDAY [facility] Last Admin: 11/27/18 10:24 Dose: 40 mg Documented by: Loratadine (Claritin) 10 mg PO DAILY [facility] Last Admin: 11/27/18 10:24 Dose: 10 mg Documented by: Magnesium Hydroxide (Milk Of Magnesia) 30 ml PO Q4H PRN PRN Reason: Constipation Morphine Sulfate (Morphine) 2 mg IV Q4H PRN PRN Reason: Pain, Moderate (4-6) Ondansetron HCl (Zofran) 4 mg IV Q8H PRN PRN Reason: Nausea And Vomiting Sertraline HCl (Zoloft) 100 mg PO DAILY [facility] Last Admin: 11/27/18 10:24 Dose: 100 mg Documented by: Sodium Chloride (Sodium Chloride Flush Syringe 10 Ml) 10 ml IV BID [facility] Last Admin: 11/27/18 10:24 Dose: 10 ml Documented by: Sodium Chloride (Sodium Chloride Flush Syringe 10 Ml) 10 ml IV PRN PRN PRN Reason: LINE FLUSH Spironolactone (Aldactone) 25 mg PO QDAY [facility] Last Admin: 11/27/18 10:23 Dose: 25 mg Documented by: Physical Examination Vital Signs BP 107/50 11/26/18 03:31 General appearance: no acute distress HEENT: Positive: PERRL Cardiac: Positive: Reg Rate and Rhythm Lungs: Positive: Decreased Breath Sounds Results 11/26/18 03:05 11/26/18 03:05 Assessment and Plan - Patient Problems (1) Defibrillator discharge Current Visit: Yes Status: Acute Plan to address problem: Suspected AICD discharge An ICD interrogation today reveals no appropriate or inappropriate discharge. Normal functioning device. No further cardiac workup indicated. Stable cardiac tomlinson for discharge today.
--- NOTE | 2018-11-27 16:15 | Progress Note ---
Assessment and Plan Assessment and plan: Pt is a 68 y/o WM from [facility] with a plethora of co-morbidities including chronic hypoxic respiratory failure on 3 liters of O2, HTN, CHF s/p defibrillator, DM type 2, COPD, LUZ, CVA with left sided hemiplegia and obesity who presents to the ER with c/o defibrillator firing and chest pain. . -Defibrillator discharged; await interrogation -Chest pain r/o ACS; stress test pending, consulted Cardiology -CHF s/p defibrillator, chronic systolic heart failure -DM type 2: ada diet, ssi, -Peripheral neuropathy (due to diabetes) -CVA with left hemiplegia - LUZ (On CPAP) at night -Hypertension: continue antihypertensives -Hyperlipidemia; statin -Obesity: legal counsel on weight reduction The nuclear stress test was cancelled per Emmanuel Beth, because the patient's defibrillator has not been interrogated yet. [facility] is consulted for this patient. The status of the exam was relayed to Louise, the attending RN. History Interval history: Patient was seen and examined. Follow-up on current diagnosis of chest pain and icd firing, resolved currently. Overnight uneventful. Patient denies any chest pain, shortness breath, nausea/vomiting or severe headaches. Imaging, nursing note, chart, labs and old chart reviewed. Discussed with patient. Hospitalist Physical - Physical exam Narrative exam: Gen: WDWN, NAD, Awake, Alert, Orientated HEENT: NCAT, EOMI, PERRL, OP Clear Neck: supple, no adenopathy, no thyromegaly, no JVD CVS/Heart: RRR, normal S1S2, pulses present bilaterally Chest/Lungs: CTA B, Symmetrical chest expansion, good air entry bilaterally GI/Abdomen: soft, NTND, good bowel sounds, no guarding or rebound /Bladder: no suprapubic tenderness, no CVA or paraspinal tenderness Extermity/Skin: no c/c/e, no obvious rash MSK: FROM x 4 Neuro: CN 2-12 grossly intact, no new focal deficits Psych: calm - Constitutional Vitals: Temp Pulse Resp BP Pulse Ox 97.3 F L 62 20 116/58 88 11/27/18 15:48 11/27/18 15:48 11/27/18 15:48 11/27/18 15:48 11/27/18 15:48 General appearance: Present: no acute distress Results - Labs CBC & Chem 7: 11/26/18 03:05 11/26/18 03:05 Labs: Laboratory Last Values WBC 14.0 K/mm3 (4.5-11.0) H 11/26/18 03:05 RBC 5.29 M/mm3 (3.65-5.03) H 11/26/18 03:05 Hgb 14.2 gm/dl (11.8-15.2) 11/26/18 03:05 Hct 43.1 % (35.5-45.6) 11/26/18 03:05 MCV 82 fl (84-94) L 11/26/18 03:05 MCH 27 pg (28-32) L 11/26/18 03:05 MCHC 33 % (32-34) 11/26/18 03:05 RDW 16.8 % (13.2-15.2) H 11/26/18 03:05 Plt Count 181 K/mm3 (140-440) 11/26/18 03:05 Lymph % (Auto) 22.9 % (13.4-35.0) 11/26/18 03:05 [place] % (Auto) 7.8 % (0.0-7.3) H 11/26/18 03:05 Eos % (Auto) 1.7 % (0.0-4.3) 11/26/18 03:05 Baso % (Auto) 0.4 % (0.0-1.8) 11/26/18 03:05 Lymph # 3.2 K/mm3 (1.2-5.4) 11/26/18 03:05 [place] # 1.1 K/mm3 (0.0-0.8) H 11/26/18 03:05 Eos # 0.2 K/mm3 (0.0-0.4) 11/26/18 03:05 Baso # 0.1 K/mm3 (0.0-0.1) 11/26/18 03:05 Seg Neutrophils % 67.2 % (40.0-70.0) 11/26/18 03:05 Seg Neutrophils # 9.4 K/mm3 (1.8-7.7) H 11/26/18 03:05 PT 13.2 Sec. (12.2-14.9) 11/25/18 23:04 INR 0.96 (0.87-1.13) 11/25/18 23:04 APTT 25.3 Sec. (24.2-36.6) 11/25/18 23:04 Sodium 138 mmol/L (137-145) 11/26/18 03:05 Potassium 4.6 mmol/L (3.6-5.0) 11/26/18 03:05 Chloride 98.7 mmol/L (98-107) 11/26/18 03:05 Carbon Dioxide 30 mmol/L (22-30) 11/26/18 03:05 Anion Gap 14 mmol/L 11/26/18 03:05 BUN 15 mg/dL (9-20) 11/26/18 03:05 Creatinine 0.9 mg/dL (0.8-1.5) 11/26/18 03:05 Estimated GFR > 60 ml/min 11/26/18 03:05 BUN/Creatinine Ratio 17 % 11/26/18 03:05 Glucose 138 mg/dL (75-100) H 11/26/18 03:05 POC Glucose 143 (70-105) H 11/27/18 12:51 Calcium 9.0 mg/dL (8.4-10.2) 11/26/18 03:05 Magnesium 2.00 mg/dL (1.7-2.3) 11/25/18 23:04 Troponin T < 0.010 ng/mL (0.00-0.029) 11/26/18 16:48
[2018-11-27] MEDS: LANTUS SUB-Q SCH (22:09)
[2018-11-28] MEDS: ATROVENT IH SCH ×5 (03:23→17:58)
[2018-11-28 06:55] LABS: Hematocrit 41.8 % (35.5-45.6); Hemoglobin 14.3 gm/dl (11.8-15.2); Mean Corpuscular HGB Conc 34 % (32-34); Mean Corpuscular Volume 81 fl (84-94); Platelet Count 174 K/mm3 (140-440); Red Blood Count 5.16 M/mm3 (3.65-5.03); Red Cell Distribution Width 16.4 % (13.2-15.2)
[2018-11-28] MEDS: HumaLOG SUB-Q SCH ×3 (07:30→16:30)
[2018-11-28 07:40] LABS: BUN/Creatinine Ratio 23; Blood Urea Nitrogen 23 mg/dL (9-20); Calcium 9.4 mg/dL (8.4-10.2); Hemolysis Index 105
[2018-11-28] MEDS: FEOSOL PO SCH (09:41)
[2018-11-28] MEDS: COLACE PO SCH (09:41)
[2018-11-28] MEDS: ECOTRIN PO SCH (09:42)
[2018-11-28] MEDS: ZOLOFT PO SCH (09:42)
[2018-11-28] MEDS: VITAMIN C PO SCH (09:42)
[2018-11-28] MEDS: CLARITIN PO SCH (09:42)
[2018-11-28] MEDS: VITAMIN D3 PO SCH (09:42)
[2018-11-28] MEDS: LOVENOX SUB-Q SCH (09:43)
[2018-11-28] MEDS: ALDACTONE PO SCH (09:52)
[2018-11-28] MEDS: LASIX PO SCH (09:53)
[2018-11-28] MEDS: NORVASC PO SCH (09:53)
[2018-11-28] MEDS: SODIUM CHLORIDE FLUSH SYRINGE 10 ML IV SCH (09:54)
[2018-11-28] MEDS: ZESTRIL PO SCH (09:54)
--- NOTE | 2018-11-28 10:53 | Progress Note ---
Assessment and Plan Resolving NICMP, LVEF 50-55% s/p AICD Interrogation reveals no arrhythmias or shocks Systemic Hypertension - controlled Morbid obesity Leukocytosis/no fever Recommendations: Continue current management No further cardiac work-up is needed Will sign off Subjective Date of service: 11/28/18 Principal diagnosis: AICD discharge Interval history: No cardiac events overnight Patient is requesting to go home Objective Vital Signs Temp Pulse Pulse Pulse Pulse Resp Resp 11/28/18 09:55 97.8 F 54 L 22 11/28/18 09:54 54 L 11/28/18 09:53 54 L 11/28/18 09:52 54 L 11/28/18 07:00 78 11/28/18 03:26 68 20 11/28/18 03:15 70 20 11/28/18 00:23 98.1 F 75 17 11/27/18 23:29 74 20 11/27/18 22:00 60 18 11/27/18 21:01 70 20 11/27/18 20:50 68 22 11/27/18 20:23 97.8 F 18 11/27/18 16:19 74 69 18 11/27/18 15:48 97.3 F L 62 20 11/27/18 12:52 64 11/27/18 11:09 80 71 20 Resp BP BP Pulse Ox 11/28/18 09:55 102/42 94 11/28/18 09:54 102/42 11/28/18 09:53 102/42 11/28/18 09:52 102/42 11/28/18 07:00 11/28/18 03:26 11/28/18 03:15 11/28/18 00:23 93/58 87 11/27/18 23:29 93 11/27/18 22:00 11/27/18 21:01 11/27/18 20:50 90 11/27/18 20:23 113/53 11/27/18 16:19 18 11/27/18 15:48 116/58 88 11/27/18 12:52 111/59 84 11/27/18 11:09 20 - Physical Examination HEENT: Positive: PERRL Neck: Positive: neck supple Cardiac: Positive: Reg Rate and Rhythm Lungs: Positive: Decreased Breath Sounds Abdomen: Positive: Soft Extremities: Present: +1 Edema - Labs and Meds CBC 11/28/18 Range/Units 06:20 WBC 16.4 H (4.5-11.0) K/mm3 RBC 5.16 H (3.65-5.03) M/mm3 Hgb 14.3 (11.8-15.2) gm/dl Hct 41.8 (35.5-45.6) % Plt Count 174 (140-440) K/mm3 Comprehensive Metabolic Panel 11/28/18 Range/Units 06:20 Sodium 138 (137-145) mmol/L Potassium 4.5 (3.6-5.0) mmol/L Chloride 95.9 L (98-107) mmol/L Carbon Dioxide 27 (22-30) mmol/L BUN 23 H (9-20) mg/dL Creatinine 1.0 (0.8-1.5) mg/dL Glucose 150 H (75-100) mg/dL Calcium 9.4 (8.4-10.2) mg/dL
--- NOTE | 2018-11-28 14:15 | Discharge Summary ---
Providers - Providers Date of Admission: 11/26/18 01:54 Date of discharge: 11/28/18 Attending physician: CAMERON PALACIOS 11/26/18 Consult to Cardiac Rehabilitation [CONS] Routine Reason For Exam: Phase I Primary care physician: NE HADLEY Hospitalization Condition: Stable Hospital course: Pt is a 68 y/o WM from [facility] with a plethora of co-morbidities including chronic hypoxic respiratory failure on 3 liters of O2, HTN, CHF s/p defibrillator, DM type 2, COPD, LUZ, CVA with left sided hemiplegia and obesity who presents to the ER with c/o defibrillator firing and chest pain. 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 Disposition: DC-01 TO HOME OR SELFCARE Time spent for discharge: 37 minutes Core Measure Documentation - Palliative Care Palliative Care/ Comfort Measures: Not Applicable - Core Measures Any of the following diagnoses?: none - VTE Discharge Requirements Deep Vein Thrombosis/Pulmonary Embolism Present on Admission: No Has pt received <5 days of overlap therapy or INR<2.0: No Anticoagulant overlap therapy prescribed at discharge: No Contraindication No Overlap Therapy order at DC: Not Indicated Exam - Physical Exam Narrative exam: Gen: WDWN, NAD, Awake, Alert, Orientated HEENT: NCAT, EOMI, PERRL, OP Clear Neck: supple, no adenopathy, no thyromegaly, no JVD CVS/Heart: RRR, normal S1S2, pulses present bilaterally Chest/Lungs: CTA B, Symmetrical chest expansion, good air entry bilaterally GI/Abdomen: soft, NTND, good bowel sounds, no guarding or rebound /Bladder: no suprapubic tenderness, no CVA or paraspinal tenderness Extermity/Skin: no c/c/e, no obvious rash MSK: FROM x 4 Neuro: CN 2-12 grossly intact, no new focal deficits Psych: calm - Constitutional Vitals: Temp Pulse Resp BP Pulse Ox 97.8 F 68 20 102/42 96 11/28/18 09:55 11/28/18 11:11 11/28/18 11:11 11/28/18 09:55 11/28/18 11:13 Plan Activity: other (no strenous activity until cleared by PCP) Diet: low salt Follow up with: NE HADLEY MD [Primary Care Provider] - 3-5 Days RAKAN VICENTE MD [Staff Physician] - 7 Days Prescriptions: AtorvaSTATin [Lipitor] 40 mg PO QHS #30 tablet Furosemide [Lasix TAB] 40 mg PO QDAY #30 tablet Spironolactone [Aldactone] 25 mg PO QDAY #30 tablet
[2018-11-28 17:45] VITALS: BP 110/56
--- NOTE | 2018-12-03 13:25 | Query- Dyspnea ---
Arabella Marks Wise Date: 12/03/18 [employer]/CDS: [place] Phone#:[phone] Exercise your independent professional judgment when responding to query. Questions asked do not imply a particular answer is desired or expected. We greatly appreciate your clarification on this issue. Clinical Documentation States: Pt is a 68 y/o WM with PMHx of HTN, CHF s/p defibrillator, DM type 2, COPD, LUZ, CVA with left sided hemiplegia, obesity who presents to the ER with c/o defibrillator fired and chest pain. Pt denies prior OH, he states that the pain was associated with palpitation and SOB, he denies pain when taking a deep breath, denies syncope, denies nausea or vomiting . Pt also reports that he uses 2-3 liters of O2 daily at the [facility]. Assessment and plan: Defibrillator discharged r/o Chest pain r/o ACS LUZ (On CPAP) at night Clinical Findings Show: 11/26/18 RR 26 O2 Delivery Nasal canula, NIV/Bi PAP O2 flow 3L O2 sats 90, 84 Please clarify if the patient had any of the following conditions based on the above clinical findings: [ ] Respiratory Failure [x] Acute [ ] Acute on Chronic [ ] Chronic [ ] Respiratory failure due to trauma [ ] Acute Respiratory Distress Syndrome [ ] Other: [ ] Unable to determine [ ] Comment/Explanation: Present on Admission: [x] Yes (Y) [ ] Clinically undeterminable (W) [ ] No (N) Please also document response in your Progress Notes and/or Discharge Summary and indicate if the condition was present on admission. DALE
== END 2018-11-28 17:10 | DRG 205 ==
LOC: ED 21:51 → 4A 11-26 01:54
PROVIDERS: ADMIT Internal Medicine; ATTEND Internal Medicine
PROC: 4B02XTZ Measurement of Cardiac Defibrillator, External Approach (ICD-10-PCS; principal; 2018-11-27)
PROC: 5A09357 Assistance with Respiratory Ventilation, Less than 24 Consecutive Hours, Continuous Positive Airway Pressure (ICD-10-PCS; 2018-11-27)
DX: M94.0 Chondrocostal junction syndrome [Tietze] (principal); J96.00 Acute respiratory failure, unspecified whether with hypoxia or hypercapnia; I50.22 Chronic systolic (congestive) heart failure; I69.354 Hemiplegia and hemiparesis following cerebral infarction affecting left non-dominant side; I42.9 Cardiomyopathy, unspecified; J96.11 Chronic respiratory failure with hypoxia; E78.5 Hyperlipidemia, unspecified; I11.0 Hypertensive heart disease with heart failure; E11.42 Type 2 diabetes mellitus with diabetic polyneuropathy; E66.01 Morbid (severe) obesity due to excess calories; J44.9 Chronic obstructive pulmonary disease, unspecified; G47.33 Obstructive sleep apnea (adult) (pediatric); Z68.36 Body mass index [BMI] 36.0-36.9, adult; Z79.51 Long term (current) use of inhaled steroids; Z79.899 Other long term (current) drug therapy; Z79.4 Long term (current) use of insulin; Z71.3 Dietary counseling and surveillance; Z99.81 Dependence on supplemental oxygen
CPT/HCPCS: 36415; 71045; 80048; 82962; 83735; 84484; 85025; 85027; 85610; 85730; 90732; 93005; 93010; 93306; 94640; 94660; 94760; 96374; 96375; 99285; G0378; A9270-GY; J1650; J1815; J2270; J2405

== ENCOUNTER 2019-12-13 01:25 | Inpatient (IN) | payer MEDICARE ==
[2019-12-13] MEDS ORDERED: ALBUTEROL 2.5 MG/3 ML NEBU IH ONE (01:34)
[2019-12-13] MEDS ORDERED: IPRATROPIUM 0.02% NEBU 2.5 ML IH ONE (01:34)
[2019-12-13] MEDS ORDERED: SODIUM CHLORIDE 0.9% 1000 ML IV SOLN IV ONE (01:44)
[2019-12-13] MEDS ORDERED: CEFEPIME/NS 2 GM/100 ML 2 GM/100 ML BAG IV ONE (01:47)
--- NOTE | 2019-12-13 01:48 | Emergency Department Report ---
ED General Adult HPI - General Chief complaint: Dyspnea/Respdistress Stated complaint: SOB,FLU LIKE SYMPTOMS Time Seen by Provider: 12/13/19 01:32 Source: patient, EMS Mode of arrival: Stretcher Limitations: Physical Limitation - History of Present Illness Initial comments: Patient presents from a local shelter for hypotension, fever, low oxygen le vels. Patient states that he feels ill but cannot give any specifics. Per the shelter the patient's temperature was greater than 101 and he had a blood pressure of 80/50 approximately. Patient denies chest pain, abdominal pain, or headache. -: unknown Severity scale (0 -10): 0 Consistency: constant Improves with: none Worsens with: none Associated Symptoms: denies other symptoms Treatments Prior to Arrival: none - Related Data Home Medications Medication Instructions Recorded Confirmed Last Taken Amlodipine Besylate [Norvasc] 2.5 mg PO DAILY 11/13/17 12/13/19 Unknown Ascorbic Acid [Vitamin C] 500 mg PO DAILY 11/13/17 12/13/19 Unknown Ferrous Sulfate [Feosol 325 MG tab] 325 mg PO BID 11/13/17 12/13/19 Unknown Sertraline [Zoloft] 25 mg PO DAILY 11/13/17 12/13/19 Unknown lisinopriL [Zestril TAB] 40 mg PO QDAY PRN 11/13/17 12/13/19 1 Day Ago ~03/29/18 Acetaminophen [Mapap] 2 tab PO Q12H PRN 12/13/19 12/13/19 Unknown Albuterol Sulfate [Proair 90 mcg IH Q4H PRN 12/13/19 12/13/19 Unknown Respiclick] Aspirin [Aspirin BABY CHEW TAB] 81 mg PO DAILY 12/13/19 12/13/19 Unknown AtorvaSTATin [Lipitor] 40 mg PO QHS 12/13/19 12/13/19 Unknown Cholecalciferol Vit D3 [Vitamin D3 1,000 unit PO QDAY 12/13/19 12/13/19 Unknown 1,000 UNIT TAB] Docusate Sodium [Colace] 100 mg PO BID PRN 12/13/19 12/13/19 Unknown Fluticasone Propionate [Flovent 50 mcg IH Q24H PRN 12/13/19 12/13/19 Unknown Diskus] Furosemide [Lasix] 20 mg PO BID 12/13/19 12/13/19 Unknown Furosemide [Lasix] 20 mg PO QDAY 12/13/19 12/13/19 Unknown Gabapentin [Neurontin] 300 mg PO BID 12/13/19 12/13/19 Unknown Insulin Glargine [Lantus VIAL] 10 unit SUB-Q QHS 12/13/19 12/13/19 Unknown Insulin Lispro [Humalog 100 0 units SQ AC 12/13/19 12/13/19 Unknown UNITS/ML Kwikpen] Ipratropium [Atrovent] 0.5 mg IH Q6HRT PRN 12/13/19 12/13/19 Unknown Polyethylene Glycol 3350 [Miralax 17 gm PO Q24H PRN 12/13/19 12/13/19 Unknown 3350] Sennosides [Senna] 8.6 mg PO HS PRN 12/13/19 12/13/19 Unknown clonazePAM 0.5 mg PO HS 12/13/19 12/13/19 Unknown guaiFENesin [Robitussin] 100 mg PO Q6H PRN 12/13/19 12/13/19 Unknown metFORMIN [Glucophage] 500 mg PO BID 12/13/19 12/13/19 Unknown predniSONE [Deltasone] 20 mg PO QDAY 12/13/19 12/13/19 Unknown traMADoL [Ultram] 50 mg PO Q6HR PRN 12/13/19 12/13/19 Unknown Previous Rx's Medication Instructions Recorded Last Taken Type Acetaminophen [Acetaminophen TAB] 650 mg PO Q4H PRN #15 tablet 11/28/18 Unknown Rx Spironolactone [Aldactone] 25 mg PO QDAY #30 tablet 11/28/18 Unknown Rx Allergies Allergy/AdvReac Type Severity Reaction Status Date / Time No Known Allergies Allergy Unverified 11/13/17 00:30 ED Review of Systems ROS: Stated complaint: SOB,FLU LIKE SYMPTOMS Other details as noted in HPI Comment: All other systems reviewed and negative Constitutional: denies: chills, fever Eyes: denies: eye pain, eye discharge, vision change ENT: denies: ear pain, throat pain Respiratory: denies: cough, shortness of breath, wheezing Cardiovascular: denies: chest pain, palpitations Endocrine: no symptoms reported Gastrointestinal: denies: abdominal pain, nausea, diarrhea Genitourinary: denies: urgency, dysuria Musculoskeletal: denies: back pain, joint swelling, arthralgia Skin: denies: rash, lesions Neurological: denies: headache, weakness, paresthesias Psychiatric: denies: anxiety, depression Hematological/Lymphatic: denies: easy bleeding, easy bruising ED Past Medical Hx - Past Medical History Previous Medical History?: Yes Hx Hypertension: Yes Hx CVA: Yes Hx Congestive Heart Failure: Yes Hx Arthritis: Yes Hx Psychiatric Treatment: Yes (anxiety, depression) Hx COPD: Yes Additional medical history: Sleep apnea, Kidney disease, Prostate disease, right side paraplegic - Surgical History Past Surgical History?: Yes Hx Internal Defibrillator: Yes Additional Surgical History: Right knee - Social History Smoking Status: Former Smoker Substance Use Type: None - Medications Home Medications: Home Medications Medication Instructions Recorded Confirmed Last Taken Type Amlodipine Besylate [Norvasc] 2.5 mg PO DAILY 11/13/17 12/13/19 Unknown History Ascorbic Acid [Vitamin C] 500 mg PO DAILY 11/13/17 12/13/19 Unknown History Ferrous Sulfate [Feosol 325 MG tab] 325 mg PO BID 11/13/17 12/13/19 Unknown History Sertraline [Zoloft] 25 mg PO DAILY 11/13/17 12/13/19 Unknown History lisinopriL [Zestril TAB] 40 mg PO QDAY PRN 11/13/17 12/13/19 1 Day Ago History ~03/29/18 Acetaminophen [Acetaminophen TAB] 650 mg PO Q4H PRN #15 tablet 11/28/18 12/13/19 Unknown Rx Spironolactone [Aldactone] 25 mg PO QDAY #30 tablet 11/28/18 12/13/19 Unknown Rx Acetaminophen [Mapap] 2 tab PO Q12H PRN 12/13/19 12/13/19 Unknown History Albuterol Sulfate [Proair 90 mcg IH Q4H PRN 12/13/19 12/13/19 Unknown History Respiclick] Aspirin [Aspirin BABY CHEW TAB] 81 mg PO DAILY 12/13/19 12/13/19 Unknown History AtorvaSTATin [Lipitor] 40 mg PO QHS 12/13/19 12/13/19 Unknown History Cholecalciferol Vit D3 [Vitamin D3 1,000 unit PO QDAY 12/13/19 12/13/19 Unknown History 1,000 UNIT TAB] Docusate Sodium [Colace] 100 mg PO BID PRN 12/13/19 12/13/19 Unknown History Fluticasone Propionate [Flovent 50 mcg IH Q24H PRN 12/13/19 12/13/19 Unknown History Diskus] Furosemide [Lasix] 20 mg PO BID 12/13/19 12/13/19 Unknown History Furosemide [Lasix] 20 mg PO QDAY 12/13/19 12/13/19 Unknown History Gabapentin [Neurontin] 300 mg PO BID 12/13/19 12/13/19 Unknown History Insulin Glargine [Lantus VIAL] 10 unit SUB-Q QHS 12/13/19 12/13/19 Unknown History Insulin Lispro [Humalog 100 0 units SQ AC 12/13/19 12/13/19 Unknown History UNITS/ML Kwikpen] Ipratropium [Atrovent] 0.5 mg IH Q6HRT PRN 12/13/19 12/13/19 Unknown History Polyethylene Glycol 3350 [Miralax 17 gm PO Q24H PRN 12/13/19 12/13/19 Unknown History 3350] Sennosides [Senna] 8.6 mg PO HS PRN 12/13/19 12/13/19 Unknown History clonazePAM 0.5 mg PO HS 12/13/19 12/13/19 Unknown History guaiFENesin [Robitussin] 100 mg PO Q6H PRN 12/13/19 12/13/19 Unknown History metFORMIN [Glucophage] 500 mg PO BID 12/13/19 12/13/19 Unknown History predniSONE [Deltasone] 20 mg PO QDAY 12/13/19 12/13/19 Unknown History traMADoL [Ultram] 50 mg PO Q6HR PRN 12/13/19 12/13/19 Unknown History ED Physical Exam - General Limitations: Physical Limitation General appearance: alert, in no apparent distress - Head Head exam: Present: atraumatic, normocephalic - Eye Eye exam: Present: normal appearance, PERRL, EOMI - ENT ENT exam: Present: mucous membranes moist - Neck Neck exam: Present: normal inspection - Respiratory Respiratory exam: Present: normal lung sounds bilaterally. Absent: respiratory distress - Cardiovascular Cardiovascular Exam: Present: normal rhythm, tachycardia. Absent: systolic murmur, diastolic murmur, rubs, gallop - GI/Abdominal GI/Abdominal exam: Present: soft, normal bowel sounds. Absent: distended, tenderness - Rectal Rectal exam: Present: deferred - Extremities Exam Extremities exam: Present: normal inspection - Back Exam Back exam: Present: normal inspection - Neurological Exam Neurological exam: Present: alert, oriented X3, CN II-XII intact. Absent: motor sensory deficit - Psychiatric Psychiatric exam: Present: normal affect, normal mood - Skin Skin exam: Present: warm, dry, intact, normal color. Absent: rash ED Course Vital Signs 12/13/19 12/13/19 12/13/19 01:30 01:31 01:32 Temperature 99.8 F H 99.8 F H Pulse Rate 123 H 125 H 125 H Pulse Rate [ Bilateral Throughout] Respiratory 44 H 37 H 37 H Rate Respiratory Rate [Bilateral Throughout] Blood Pressure 96/49 84/42 Blood Pressure 84/42 [Left] O2 Sat by Pulse 93 89 89 Oximetry 12/13/19 12/13/19 12/13/19 01:41 02:00 02:17 Temperature Pulse Rate 124 H Pulse Rate [ 125 H Bilateral Throughout] Respiratory 41 H Rate Respiratory 38 H Rate [Bilateral Throughout] Blood Pressure 96/49 Blood Pressure [Left] O2 Sat by Pulse 92 95 Oximetry 12/13/19 12/13/19 12/13/19 02:31 03:00 03:31 Temperature Pulse Rate 114 H 106 H 103 H Pulse Rate [ Bilateral Throughout] Respiratory 32 H 20 17 Rate Respiratory Rate [Bilateral Throughout] Blood Pressure 96/49 74/23 81/21 Blood Pressure [Left] O2 Sat by Pulse 90 91 94 Oximetry - Central Line Placement Left Femoral Consent Obtained: emergent situation Time Out Performed: Yes Patient Placed on Monitor/Pulse Ox: Yes MD Prep: mask, gown, gloves Central Line Prep: Chlorhexidine scrub Local Anesthesia Used: Lidocaine 1% Amount of Anesthesia Used (mls): 5 Ultrasound Used for Placement: No Central Line Lumen Inserted: triple Bloods Obtained for Lab: No Central Line Position: good blood return, all ports aspirated, flus, sutured in place with 2-0 Dressing Applied: Tegaderm Patient Tolerated Procedure: well Complications: none ED Medical Decision Making - Lab Data Result diagrams: 12/13/19 02:21 12/13/19 02:21 Lab Results 12/13/19 12/13/19 12/13/19 Range/Units 02:21 02:21 02:21 WBC 28.4 H (4.5-11.0) K/mm3 RBC 3.84 (3.65-5.03) M/mm3 Hgb 11.2 L (11.8-15.2) gm/dl Hct 33.8 L (35.5-45.6) % MCV 88 (84-94) fl MCH 29 (28-32) pg MCHC 33 (32-34) % RDW 14.3 (13.2-15.2) % Plt Count 316 (140-440) K/mm3 Add Manual Diff Complete Total Counted 100 Seg Neuts % (Manual) 88.0 H (40.0-70.0) % Band Neutrophils % 0 % Lymphocytes % (Manual) 8.0 L (13.4-35.0) % Reactive Lymphs % (Man) 0 % Monocytes % (Manual) 4.0 (0.0-7.3) % Eosinophils % (Manual) 0 (0.0-4.3) % Basophils % (Manual) 0 (0.0-1.8) % Metamyelocytes % 0 % Myelocytes % 0 % Promyelocytes % 0 % Blast Cells % 0 % Nucleated RBC % Not Reportable Seg Neutrophils # Man 25.0 H (1.8-7.7) K/mm3 Band Neutrophils # 0.0 K/mm3 Lymphocytes # (Manual) 2.3 (1.2-5.4) K/mm3 Abs React Lymphs (Man) 0.0 K/mm3 Monocytes # (Manual) 1.1 H (0.0-0.8) K/mm3 Eosinophils # (Manual) 0.0 (0.0-0.4) K/mm3 Basophils # (Manual) 0.0 (0.0-0.1) K/mm3 Metamyelocytes # 0.0 K/mm3 Myelocytes # 0.0 K/mm3 Promyelocytes # 0.0 K/mm3 Blast Cells # 0.0 K/mm3 WBC Morphology Not Reportable Hypersegmented Neuts Not Reportable Hyposegmented Neuts Not Reportable Hypogranular Neuts Not Reportable Smudge Cells Not Reportable Toxic Granulation Not Reportable Toxic Vacuolation Not Reportable Dohle Bodies Not Reportable Pelger-Huet Anomaly Not Reportable Rosenda Rods Not Reportable Platelet Estimate Consistent w auto Clumped Platelets Not Reportable Plt Clumps, EDTA Not Reportable Large Platelets Not Reportable Giant Platelets Not Reportable Platelet Satelliting Not Reportable Plt Morphology Comment Not Reportable RBC Morphology Not Reportable Dimorphic RBCs Not Reportable Polychromasia Not Reportable Hypochromasia Not Reportable Poikilocytosis Not Reportable Anisocytosis Not Reportable Microcytosis Not Reportable Macrocytosis Not Reportable Spherocytes Not Reportable Pappenheimer Bodies Not Reportable Sickle Cells Not Reportable Target Cells Not Reportable Tear Drop Cells Not Reportable Ovalocytes Not Reportable Helmet Cells Not Reportable [place] [address] Addition Bodies Not Reportable [place] Rings Not Reportable [place] Cells Not Reportable Bite Cells Not Reportable Crenated Cell Not Reportable Elliptocytes Not Reportable Acanthocytes (Spur) Not Reportable Rouleaux Not Reportable Hemoglobin C Crystals Not Reportable Schistocytes Not Reportable Malaria parasites Not Reportable Benny Bodies Not Reportable Hem Pathologist Commnt No APTT 28.6 (24.2-36.6) Sec. ABG pH (7.350-7.450) pH Units ABG pCO2 mm Hg ABG pO2 (80.0-90.0) mm Hg ABG HCO3 (20.0-26.0) mmol/L ABG O2 Saturation (95.0-99.0) % ABG O2 Content (0.0-44) ABG Base Excess (-2.0-3.0) mmol/L ABG Hemoglobin (14.0-18.0) gm/dl ABG Carboxyhemoglobin (0.0-5.0) % ABG Methemoglobin (0.0-1.5) % Oxyhemoglobin (95.0-99.0) % FiO2 % Sodium 135 L (137-145) mmol/L Potassium 6.2 H* (3.6-5.0) mmol/L Chloride 100.9 (98-107) mmol/L Carbon Dioxide 20 L (22-30) mmol/L Anion Gap 20 mmol/L BUN 48 H (9-20) mg/dL Creatinine 2.1 H (0.8-1.5) mg/dL Estimated GFR 31 ml/min BUN/Creatinine Ratio 23 % Glucose 188 H (75-100) mg/dL Lactic Acid (0.7-2.0) mmol/L Calcium 9.0 (8.4-10.2) mg/dL Total Bilirubin 0.30 (0.1-1.2) mg/dL AST 14 (5-40) units/L ALT 13 (7-56) units/L Alkaline Phosphatase 76 (35-129) units/L NT-Pro-B Natriuret Pep (0-900) pg/mL Total Protein 7.5 (6.3-8.2) g/dL Albumin 4.3 (3.9-5) g/dL Albumin/Globulin Ratio 1.3 % 12/13/19 12/13/19 12/13/19 Range/Units 02:21 02:21 04:04 WBC (4.5-11.0) K/mm3 RBC (3.65-5.03) M/mm3 Hgb (11.8-15.2) gm/dl Hct (35.5-45.6) % MCV (84-94) fl MCH (28-32) pg MCHC (32-34) % RDW (13.2-15.2) % Plt Count (140-440) K/mm3 Add Manual Diff Total Counted Seg Neuts % (Manual) (40.0-70.0) % Band Neutrophils % % Lymphocytes % (Manual) (13.4-35.0) % Reactive Lymphs % (Man) % Monocytes % (Manual) (0.0-7.3) % Eosinophils % (Manual) (0.0-4.3) % Basophils % (Manual) (0.0-1.8) % Metamyelocytes % % Myelocytes % % Promyelocytes % % Blast Cells % % Nucleated RBC % Seg Neutrophils # Man (1.8-7.7) K/mm3 Band Neutrophils # K/mm3 Lymphocytes # (Manual) (1.2-5.4) K/mm3 Abs React Lymphs (Man) K/mm3 Monocytes # (Manual) (0.0-0.8) K/mm3 Eosinophils # (Manual) (0.0-0.4) K/mm3 Basophils # (Manual) (0.0-0.1) K/mm3 Metamyelocytes # K/mm3 Myelocytes # K/mm3 Promyelocytes # K/mm3 Blast Cells # K/mm3 WBC Morphology Hypersegmented Neuts Hyposegmented Neuts Hypogranular Neuts Smudge Cells Toxic Granulation Toxic Vacuolation Dohle Bodies Pelger-Huet Anomaly Rosenda Rods Platelet Estimate Clumped Platelets Plt Clumps, EDTA Large Platelets Giant Platelets Platelet Satelliting Plt Morphology Comment RBC Morphology Dimorphic RBCs Polychromasia Hypochromasia Poikilocytosis Anisocytosis Microcytosis Macrocytosis Spherocytes Pappenheimer Bodies Sickle Cells Target Cells Tear Drop Cells Ovalocytes Helmet Cells [address] Addition Bodies [place] Rings [place] Cells Bite Cells Crenated Cell Elliptocytes Acanthocytes (Spur) Rouleaux Hemoglobin C Crystals Schistocytes Malaria parasites Benny Bodies Hem Pathologist Commnt APTT (24.2-36.6) Sec. ABG pH (7.350-7.450) pH Units ABG pCO2 mm Hg ABG pO2 (80.0-90.0) mm Hg ABG HCO3 (20.0-26.0) mmol/L ABG O2 Saturation (95.0-99.0) % ABG O2 Content (0.0-44) ABG Base Excess (-2.0-3.0) mmol/L ABG Hemoglobin (14.0-18.0) gm/dl ABG Carboxyhemoglobin (0.0-5.0) % ABG Methemoglobin (0.0-1.5) % Oxyhemoglobin (95.0-99.0) % FiO2 % Sodium (137-145) mmol/L Potassium 5.8 H (3.6-5.0) mmol/L Chloride (98-107) mmol/L Carbon Dioxide (22-30) mmol/L Anion Gap mmol/L BUN (9-20) mg/dL Creatinine (0.8-1.5) mg/dL Estimated GFR ml/min BUN/Creatinine Ratio % Glucose (75-100) mg/dL Lactic Acid 1.90 (0.7-2.0) mmol/L Calcium (8.4-10.2) mg/dL Total Bilirubin (0.1-1.2) mg/dL AST (5-40) units/L ALT (7-56) units/L Alkaline Phosphatase (35-129) units/L NT-Pro-B Natriuret Pep 482.3 (0-900) pg/mL Total Protein (6.3-8.2) g/dL Albumin (3.9-5) g/dL Albumin/Globulin Ratio % 12/13/19 Range/Units 04:07 WBC (4.5-11.0) K/mm3 RBC (3.65-5.03) M/mm3 Hgb (11.8-15.2) gm/dl Hct (35.5-45.6) % MCV (84-94) fl MCH (28-32) pg MCHC (32-34) % RDW (13.2-15.2) % Plt Count (140-440) K/mm3 Add Manual Diff Total Counted Seg Neuts % (Manual) (40.0-70.0) % Band Neutrophils % % Lymphocytes % (Manual) (13.4-35.0) % Reactive Lymphs % (Man) % Monocytes % (Manual) (0.0-7.3) % Eosinophils % (Manual) (0.0-4.3) % Basophils % (Manual) (0.0-1.8) % Metamyelocytes % % Myelocytes % % Promyelocytes % % Blast Cells % % Nucleated RBC % Seg Neutrophils # Man (1.8-7.7) K/mm3 Band Neutrophils # K/mm3 Lymphocytes # (Manual) (1.2-5.4) K/mm3 Abs React Lymphs (Man) K/mm3 Monocytes # (Manual) (0.0-0.8) K/mm3 Eosinophils # (Manual) (0.0-0.4) K/mm3 Basophils # (Manual) (0.0-0.1) K/mm3 Metamyelocytes # K/mm3 Myelocytes # K/mm3 Promyelocytes # K/mm3 Blast Cells # K/mm3 WBC Morphology Hypersegmented Neuts Hyposegmented Neuts Hypogranular Neuts Smudge Cells Toxic Granulation Toxic Vacuolation Dohle Bodies Pelger-Huet Anomaly Rosenda Rods Platelet Estimate Clumped Platelets Plt Clumps, EDTA Large Platelets Giant Platelets Platelet Satelliting Plt Morphology Comment RBC Morphology Dimorphic RBCs Polychromasia Hypochromasia Poikilocytosis Anisocytosis Microcytosis Macrocytosis Spherocytes Pappenheimer Bodies Sickle Cells Target Cells Tear Drop Cells Ovalocytes Helmet Cells [address] Addition Bodies [place] Rings [place] Cells Bite Cells Crenated Cell Elliptocytes Acanthocytes (Spur) Rouleaux Hemoglobin C Crystals Schistocytes Malaria parasites Benny Bodies Hem Pathologist Commnt APTT (24.2-36.6) Sec. ABG pH 7.325 L (7.350-7.450) pH Units ABG pCO2 40.9 mm Hg ABG pO2 85.5 (80.0-90.0) mm Hg ABG HCO3 20.8 (20.0-26.0) mmol/L ABG O2 Saturation 96.6 (95.0-99.0) % ABG O2 Content 12.9 (0.0-44) ABG Base Excess -4.8 L (-2.0-3.0) mmol/L ABG Hemoglobin 9.6 L (14.0-18.0) gm/dl ABG Carboxyhemoglobin 1.6 (0.0-5.0) % ABG Methemoglobin 0.7 (0.0-1.5) % Oxyhemoglobin 94.5 L (95.0-99.0) % FiO2 36 % Sodium (137-145) mmol/L Potassium (3.6-5.0) mmol/L Chloride (98-107) mmol/L Carbon Dioxide (22-30) mmol/L Anion Gap mmol/L BUN (9-20) mg/dL Creatinine (0.8-1.5) mg/dL Estimated GFR ml/min BUN/Creatinine Ratio % Glucose (75-100) mg/dL Lactic Acid (0.7-2.0) mmol/L Calcium (8.4-10.2) mg/dL Total Bilirubin (0.1-1.2) mg/dL AST (5-40) units/L ALT (7-56) units/L Alkaline Phosphatase (35-129) units/L NT-Pro-B Natriuret Pep (0-900) pg/mL Total Protein (6.3-8.2) g/dL Albumin (3.9-5) g/dL Albumin/Globulin Ratio % - EKG Data -: EKG Interpreted by Tn EKG shows normal: sinus rhythm Rate: normal - Radiology Data Radiology results: report reviewed - Medical Decision Making Septic protocol was initiated with IV antibiotics and fluid bolus Patient's blood pressure was approximately 70/13 initially After IV fluid bolus of 30 mL/kg the blood pressure increased to approximately 80/40 At this time since Debby was placed and Levophed was started Initially a left IJ was tried underneath ultrasound guidance to no avail Chest x-ray will be obtained to evaluate for pneumothorax Critical Care Time: Yes Critical care time in (mins) excluding proc time.: 45 Critical care attestation.: If time is entered above; I have spent that time in minutes in the direct care of this critically ill patient, excluding procedure time. ED Disposition Clinical Impression: Sepsis Disposition: [id number] OP ADMIT IP TO THIS HOSP Is pt being admited?: Yes Does the pt Need Aspirin: No Condition: Fair
--- NOTE | 2019-12-13 02:34 | XRay Report ---
CHEST 1 VIEW INDICATION / CLINICAL INFORMATION: hypotensive. COMPARISON: 11/25/2018 FINDINGS: Patient is rotated SUPPORT DEVICES: AICD appears unchanged HEART / MEDIASTINUM: Unchanged LUNGS / PLEURA: There are low lung volumes bilaterally. No focal infiltrate is seen. No pneumothorax is seen.. No significant pleural effusion is seen ADDITIONAL FINDINGS: No significant additional findings. IMPRESSION: 1. No acute findings. Signer Name: Telly Douglass MD Signed: 12/13/2019 2:30 AM Workstation Name: [id number]
[2019-12-13 02:36] LABS: Hematocrit 33.8 % (35.5-45.6); Hemoglobin 11.2 gm/dl (11.8-15.2); Mean Corpuscular HGB Conc 33 % (32-34); Mean Corpuscular Volume 88 fl (84-94); Platelet Count 316 K/mm3 (140-440); Red Blood Count 3.84 M/mm3 (3.65-5.03); Red Cell Distribution Width 14.3 % (13.2-15.2)
[2019-12-13 02:54] LABS: Albumin 4.3 g/dL (3.9-5)
[2019-12-13] MEDS ORDERED: VANCOMYCIN/NS 1 GM/250 ML 1 GM/250 ML BAG IV ONE (02:54)
[2019-12-13] MEDS ORDERED: VANCOMYCIN 2,000 MG in SODIUM CHLORIDE 0.9% 500 ML 500 ML IV ONE (03:00)
[2019-12-13] MEDS ORDERED: CALCIUM CHLORIDE 1,000 MG/10 ML SYRINGE IV ONE (03:01)
[2019-12-13] MEDS ORDERED: LIDOCAINE (2%) 20 MG/1 ML VIAL 20 ML MDV INFILTRATI ONE ×2 (04:10→04:14)
[2019-12-13 04:13] LABS: ABG Base Excess -4.8 mmol/L (-2.0-3.0); ABG HCO3 20.8 mmol/L (20.0-26.0); ABG Methemoglobin 0.7 % (0.0-1.5); ABG Oxygen Saturation 96.6 % (95.0-99.0); ABG PCO2 40.9 mm Hg; ABG PH 7.325 pH Units (7.350-7.450); ABG PO2 85.5 mm Hg (80.0-90.0)
[2019-12-13 04:30] LABS: Basophils % (Manual) 0 % (0.0-1.8); Eosinophils % (Manual) 0 % (0.0-4.3); Total Cells Counted 100
[2019-12-13 04:31] LABS: Platelet Estimate Consistent w Auto
[2019-12-13] MEDS ORDERED: INSULIN REGULAR, HUMAN 100 UNITS/1 ML IV ONE (04:57)
[2019-12-13] MEDS ORDERED: SODIUM POLYSTYRENE 15 GM/60 ML ORAL LIQD PR ONE (04:57)
[2019-12-13] MEDS ORDERED: SODIUM BICARBONATE 50 MEQ in SODIUM CHLORIDE 0.9% 1000 ML 1,000 ML IV ONE (04:58)
[2019-12-13] MEDS ORDERED: NORepinephrine/NS 4 MG-250 ML 4 MG/250 ML BAG IV SCH ×2 (05:00→14:42)
--- NOTE | 2019-12-13 05:35 | XRay Report ---
CHEST 1 VIEW INDICATION / CLINICAL INFORMATION: central attempt. COMPARISON: None available. FINDINGS: Patient is rotated SUPPORT DEVICES: AICD is noted HEART / MEDIASTINUM: Unchanged LUNGS / PLEURA: The lungs are unchanged in appearance.. No pneumothorax. ADDITIONAL FINDINGS: No significant additional findings. IMPRESSION: 1. No significant change. Signer Name: Telly Douglass MD Signed: 12/13/2019 5:30 AM Workstation Name: [id number]
[2019-12-13] MEDS ORDERED: ACETAMINOPHEN 650 MG RECT SUPP PR PRN (05:49)
[2019-12-13] MEDS ORDERED: ONDANSETRON 4 MG/2 ML INJ IV PRN (05:49)
--- NOTE | 2019-12-13 05:56 | History and Physical Report ---
History of Present Illness History of present illness: 69-year-old man history of hypertension, COPD, CHF, diabetes, hyperlipidemia, BPH,anxiety, depression, sleep apnea, stroke with right-sided weakness was sent form the half-way to the emergency room for evaluation of hypotension and fever. Here in the emergency room he has not been febrile. Patient was given IV fluid without significant improvement in his blood pressure, he was then started on Levophed drip, given vancomycin and cefepime. Patient is unable to give a history stated he does not know why he is here in the hospital, review of system is unobtainable. Old chart reviewed PAST MEDICAL HISTORY:hypertension, COPD, CHF, anxiety, depression, sleep apnea, stroke with right-sided weakness, PAST SURGICAL HISTORY: Right knee, AICD SOCIAL HISTORY: Denies alcohol, tobacco, drugs FAMILY HISTORY: Hypertension Medications and Allergies Allergies Allergy/AdvReac Type Severity Reaction Status Date / Time No Known Allergies Allergy Unverified 11/13/17 00:30 Home Medications Medication Instructions Recorded Confirmed Last Taken Type Amlodipine Besylate [Norvasc] 2.5 mg PO DAILY 11/13/17 12/13/19 Unknown History Ascorbic Acid [Vitamin C] 500 mg PO DAILY 11/13/17 12/13/19 Unknown History Ferrous Sulfate [Feosol 325 MG tab] 325 mg PO BID 11/13/17 12/13/19 Unknown History Sertraline [Zoloft] 25 mg PO DAILY 11/13/17 12/13/19 Unknown History lisinopriL [Zestril TAB] 40 mg PO QDAY PRN 11/13/17 12/13/19 1 Day Ago History ~03/29/18 Acetaminophen [Acetaminophen TAB] 650 mg PO Q4H PRN #15 tablet 11/28/18 12/13/19 Unknown Rx Spironolactone [Aldactone] 25 mg PO QDAY #30 tablet 11/28/18 12/13/19 Unknown Rx Acetaminophen [Mapap] 2 tab PO Q12H PRN 12/13/19 12/13/19 Unknown History Albuterol Sulfate [Proair 90 mcg IH Q4H PRN 12/13/19 12/13/19 Unknown History Respiclick] Aspirin [Aspirin BABY CHEW TAB] 81 mg PO DAILY 12/13/19 12/13/19 Unknown History AtorvaSTATin [Lipitor] 40 mg PO QHS 12/13/19 12/13/19 Unknown History Cholecalciferol Vit D3 [Vitamin D3 1,000 unit PO QDAY 12/13/19 12/13/19 Unknown History 1,000 UNIT TAB] Docusate Sodium [Colace] 100 mg PO BID PRN 12/13/19 12/13/19 Unknown History Fluticasone Propionate [Flovent 50 mcg IH Q24H PRN 12/13/19 12/13/19 Unknown History Diskus] Furosemide [Lasix] 20 mg PO BID 12/13/19 12/13/19 Unknown History Furosemide [Lasix] 20 mg PO QDAY 12/13/19 12/13/19 Unknown History Gabapentin [Neurontin] 300 mg PO BID 12/13/19 12/13/19 Unknown History Insulin Glargine [Lantus VIAL] 10 unit SUB-Q QHS 12/13/19 12/13/19 Unknown History Insulin Lispro [Humalog 100 0 units SQ AC 12/13/19 12/13/19 Unknown History UNITS/ML Kwikpen] Ipratropium [Atrovent] 0.5 mg IH Q6HRT PRN 12/13/19 12/13/19 Unknown History Polyethylene Glycol 3350 [Miralax 17 gm PO Q24H PRN 12/13/19 12/13/19 Unknown History 3350] Sennosides [Senna] 8.6 mg PO HS PRN 12/13/19 12/13/19 Unknown History clonazePAM 0.5 mg PO HS 12/13/19 12/13/19 Unknown History guaiFENesin [Robitussin] 100 mg PO Q6H PRN 12/13/19 12/13/19 Unknown History metFORMIN [Glucophage] 500 mg PO BID 12/13/19 12/13/19 Unknown History predniSONE [Deltasone] 20 mg PO QDAY 12/13/19 12/13/19 Unknown History traMADoL [Ultram] 50 mg PO Q6HR PRN 12/13/19 12/13/19 Unknown History Active Meds: Active Medications Acetaminophen (Tylenol) 650 mg PO Q4H PRN PRN Reason: Pain MILD(1-3)/Fever >100.5/SANCHEZ Acetaminophen (Tylenol) 650 mg AL Q4H PRN PRN Reason: Pain MILD(1-3)/Fever >100.5/SANCHEZ Enoxaparin Sodium (Enoxaparin) 30 mg SUB-Q QDAY YOLY Norepinephrine (Levophed Drip 4 Mg/Ns 250 Ml) 4 mg in 250 mls @ 7.5 mls/hr IV TITR YOLY; Protocol Last Titration: 12/13/19 05:50 Dose: 4 mcg/min, 15 mls/hr Documented by: Sodium Bicarbonate 50 meq/ (Sodium Chloride) 1,050 mls @ 100 mls/hr IV DIRECT ONE Stop: 12/13/19 15:27 Ondansetron HCl (Zofran) 4 mg IV Q8H PRN PRN Reason: Nausea And Vomiting Sodium Chloride (Sodium Chloride Flush Syringe 10 Ml) 10 ml IV BID YOLY Sodium Chloride (Sodium Chloride Flush Syringe 10 Ml) 10 ml IV PRN PRN PRN Reason: LINE FLUSH Exam - Physical Exam Narrative exam: Gen. appearance: Patient lying in bed, no apparent distress HEENT: Normocephalic, atraumatic, pupils equally round and reactive to light, extraocular movement intact, and no sclericterus,. No JVD or thyromegaly or nodule,neck supple, no carotid bruit ,mucous membranes moist, no exudate or erythema Heart: S1, S2, regular rate and rhythm Lungs: Clear anteriorly bases bilaterally, breathing comfortable Abdomen: Positive bowel sounds, nontender, nondistended, no organomegaly Extremity: No edema, cyanosis, clubbing Skin: No rash, nodules, warm, dry Neuro: difficult to assess, awakes quickly falls back to sleep Stool: heme negative - Constitutional Vitals: Temp Pulse Resp BP Pulse Ox 99.8 F H 80 27 H 102/35 92 12/13/19 01:32 12/13/19 05:31 12/13/19 05:31 12/13/19 05:31 12/13/19 05:31 Results - Labs CBC & Chem 7: 12/13/19 02:21 12/13/19 04:04 Labs: Abnormal lab results 12/13/19 12/13/19 12/13/19 Range/Units 02:21 02:21 04:04 WBC 28.4 H (4.5-11.0) K/mm3 Hgb 11.2 L (11.8-15.2) gm/dl Hct 33.8 L (35.5-45.6) % Seg Neuts % (Manual) 88.0 H (40.0-70.0) % Lymphocytes % (Manual) 8.0 L (13.4-35.0) % Seg Neutrophils # Man 25.0 H (1.8-7.7) K/mm3 Monocytes # (Manual) 1.1 H (0.0-0.8) K/mm3 ABG pH (7.350-7.450) pH Units ABG Base Excess (-2.0-3.0) mmol/L ABG Hemoglobin (14.0-18.0) gm/dl Oxyhemoglobin (95.0-99.0) % Sodium 135 L (137-145) mmol/L Potassium 6.2 H* 5.8 H (3.6-5.0) mmol/L Carbon Dioxide 20 L (22-30) mmol/L BUN 48 H (9-20) mg/dL Creatinine 2.1 H (0.8-1.5) mg/dL Glucose 188 H (75-100) mg/dL POC Glucose (70-105) 12/13/19 12/13/19 Range/Units 04:07 05:42 WBC (4.5-11.0) K/mm3 Hgb (11.8-15.2) gm/dl Hct (35.5-45.6) % Seg Neuts % (Manual) (40.0-70.0) % Lymphocytes % (Manual) (13.4-35.0) % Seg Neutrophils # Man (1.8-7.7) K/mm3 Monocytes # (Manual) (0.0-0.8) K/mm3 ABG pH 7.325 L (7.350-7.450) pH Units ABG Base Excess -4.8 L (-2.0-3.0) mmol/L ABG Hemoglobin 9.6 L (14.0-18.0) gm/dl Oxyhemoglobin 94.5 L (95.0-99.0) % Sodium (137-145) mmol/L Potassium (3.6-5.0) mmol/L Carbon Dioxide (22-30) mmol/L BUN (9-20) mg/dL Creatinine (0.8-1.5) mg/dL Glucose (75-100) mg/dL POC Glucose 150 H (70-105) - Imaging and Cardiology Chest x-ray: report reviewed Assessment and Plan Assessment Hypotension, rule out sepsis s/p IV fluid, vancomycin and cefepime Start zosyn, Follow cultures Check Ct chest, cardiac enzymes Start gentle IV fluid, continue levophed Acute renal failure Start gentle IV fluid, consult renal Hold nephrotoxic agernts - diuretics, ACEI Lethargy check CT head COPD, stable Diabetes Check fingersticks, start insulin sliding scale CHF, stable, chronic, diastolic anxiety depression sleep apnea stroke with right-sided weakness Continue appropriate outpatient medications DVT prophylaxis
[2019-12-13] MEDS ORDERED: PIPERACIL-TAZO 2.25 GM/50 ML 2.25 GM/50 ML BAG IV SCH (06:30)
[2019-12-13] MEDS: SODIUM CHLORIDE 0.45% 1000 ML 1,000 ML IV SCH (06:51)
[2019-12-13 06:52] LABS: Creatine Kinase MB < 1.0 ng/mL (0.0-4.0)
[2019-12-13] MEDS ORDERED: SODIUM CHLORIDE 0.45% 1000 ML 1,000 ML IV ONE (06:52)
[2019-12-13] MEDS: PIPERACIL-TAZO 2.25 GM/50 ML 2.25 GM/50 ML BAG IV SCH ×3 (07:00→20:14)
--- NOTE | 2019-12-13 07:12 | Cat Scan Report ---
CT head without contrast / CT head/brain wo con INDICATION : eval for bleed. Altered mental status. TECHNIQUE: Axial CT imaging performed through the brain. Sagittal and coronal reformatted images als o reviewed. All CT scans at this location are performed using CT dose reduction for ALARA by means o f automated exposure control. COMPARISON: None. FINDINGS: Noncontrast head CT demonstrates symmetric, age-appropriate ventricles. Mild to moderate pe riventricular hypodense small vessel ischemic disease and sulcal enlargement with prominent bifrontal extra-axial CSF spaces measuring up to approximately 1 cm as on axial series 2, image 27. No definit e acute infarct, hemorrhage, mass effect or midline shift. Grossly unremarkable posterior fossa, thou gh exam slightly limited due to patient's head tilt/positioning. Preserved basilar cisterns. Bilateral cataract surgery. Mild bilateral ethmoid and sphenoid sinus mucosal thickening. Clear remai nder imaged paranasal sinuses and mastoid air cells. Intact calvarium. Normal scalp. Edentulous jaw. Atherosclerotic ICA and vertebral artery calcifications. IMPRESSION: No acute intracranial CT abnormality with atrophy, microvascular changes, sinusitis and f ew other incidental findings, as above. Please correlate. Thank you for the opportunity to participate in this patient's care. Signer Name: Jonah Morales Signed: 12/13/2019 7:07 AM Workstation Name: [id number]
--- NOTE | 2019-12-13 07:40 | Cat Scan Report ---
CT chest without contrast / CT chest wo con INDICATION : MAIN: SOB, hypotension, fever. TECHNIQUE: Axial CT imaging performed through the chest. Sagittal and coronal reformatted images als o reviewed. All CT scans at this location are performed using CT dose reduction for ALARA by means o f automated exposure control. COMPARISON: 03/30/[address] FINDINGS: Chest CT performed without IV contrast demonstrates normal heart size with grossly stable c ardiomediastinal silhouette, slightly exaggerated due to prominent pericardial fat pad. Coronary calc ifications and streak artifact from a left upper chest wall AICD with a single ventricular lead again noted. Assessment of the great vessels and for detecting subtle lymphadenopathy limited due to lack of IV contrast. Subtle ascending aortic aneurysm versus artifactual due to obliquity may again be not ed with caliber estimated at 4.4 x 3.7 cm as on axial series 3, image 206. Borderline pulmonary arter ial hypertension. Patent central airway. No size significant axillary lymphadenopathy. Grossly normal imaged thyroid. Increased AP chest diameter again noted as also smaller right lung volume relative to the left. Right hemidiaphragm approximately 4-5 cm higher than the left. Right mid to lower lung airspace consolidat ion again noted as on axial images 185-375 with the largest confluent area approximately 16 x 5 cm as on axial image 230. Mild density now remains at the left lung base as on axial images 330-415, possi shy scarring/atelectasis and overall improved since the prior exam. Imaged upper abdomen demonstrates a partially imaged 0.9 cm right renal calculus inferiorly, axial im age 89 with prominent right renal pelvis. Right hepatic lobe approximately 20 cm in midclavicular le ngth. Splenic length estimated at 14.3 cm. Approximately 1.3 cm right adrenal adenoma may again be no harlan. Right hemiabdominal wall pannus/flank and underlying structures as bowel partially excluded from the field of view. Multilevel spinal degenerative changes with greatest mid to lower thoracic right-sided spurring again noted. IMPRESSION: 1. Right greater than left basilar opacity/airspace consolidation again noted, grossly unchanged on t he right while improved on the left, as detailed above. These findings appear chronic in this patient with right lung volume loss again noted. Possible COPD. 2. No other acute significant chest CT abnormality on this limited, unenhanced exam with various othe r findings as stable left AICD, right adrenal adenoma, right renal calculus (right proximal ureteral calculus with mild to moderate right hydronephrosis also reported on 11/13/[address]), hepatosplenomegaly, possible abdominal pannus and few bony degenerative changes, amongst others, as detailed above. Thank you for the opportunity to participate in this patient's care. Signer Name: Jonah Morales Signed: 12/13/2019 7:35 AM Workstation Name: [id number]
[2019-12-13 09:40] LABS: Bacteria,Urine 4+ /HPF (Negative); Bilirubin,Urine NEG (Negative); Blood,Urine NEG (Negative); Color,Urine Yellow (Yellow); Mucus,Urine FEW /HPF; Protein,Urine <15 mg/dL mg/dL (Negative); Urobilinogen,Urine < 2.0 mg/dL (<2.0)
[2019-12-13] MEDS ORDERED: ENOXAPARIN 30 MG/0.3 ML INJ SUB-Q SCH (10:00)
[2019-12-13 10:43] LABS: Calcium 8.8 mg/dL (8.4-10.2)
[2019-12-13] MEDS ORDERED: ENOXAPARIN 40 MG/0.4 ML INJ SUB-Q ONE (11:03)
[2019-12-13] MEDS: ENOXAPARIN 40 MG/0.4 ML INJ SUB-Q SCH (11:06)
[2019-12-13] MEDS ORDERED: NORepinephrine/NS 4 MG-250 ML 4 MG/250 ML BAG IV ONE (12:36)
--- NOTE | 2019-12-13 13:32 | Event Note ---
Date: 12/13/19 Patient seen and examined 69-year-old man history of hypertension, COPD, CHF, diabetes, hyperlipidemia, BPH,anxiety, depression, sleep apnea, stroke with right-sided weakness was sent form the intermediate to the emergency room for evaluation of hypotension and fever. cont current Mx and plan, start on diet
[2019-12-13] MEDS ORDERED: SODIUM BICARB 8.4% 50 MEQ/50 ML SYRINGE IV ONE ×2 (13:34→15:05)
--- NOTE | 2019-12-13 13:44 | Ultrasound Report ---
US renal BILAT INDICATION: HANNAH. COMPARISON: 11/13/2017 CT . FINDINGS: Renal sonography somewhat technically limited due to patient's body habitus, though suggest s grossly normal renal cortical echogenicity and preserved contours. No hydronephrosis. RIGHT KIDNEY 12.5 cm in length with cortical thickness of 1.3 cm. LEFT KIDNEY estimated at 10.4 cm in length with cortical thickness of 1.5 cm. URINARY BLADDER suboptimally distended and assessed. IMPRESSION: No acute renal sonographic abnormality in this patient with previous known bilateral nep hrolithiasis, as described. Thank you for the opportunity to participate in this patient's care. Signer Name: Jonah Morales Signed: 12/13/2019 1:40 PM Workstation Name: [id number]
[2019-12-13] MEDS ORDERED: CALCIUM GLUCONATE 2,000 MG in SODIUM CHLORIDE 0.9% 100 ML IV ONE (14:00)
--- NOTE | 2019-12-13 15:14 | Consultation ---
History of Present Illness - Reason for Consult acute renal failure - History of Present Illness 69 y/o male, care home resident, with PMHx significant for HTN, DM, CHF, h/o AICD placement, anxiety, BPH, presented to the ED secondary to AMS and fevers at care home. Found to be persistently hypotensive in the ER, for which he was eventually placed on levophed gtt. UA is concerning for a UTI, and in this setting of sepsis patient has suffered an HANNAH for which nephrology was consulted. Past History Past Medical History: COPD, diabetes, heart failure, hypertension, hyperlipidemia Past Surgical History: CABG, Other (AICD) Social history: other (lives at care home ) Family history: hypertension Medications and Allergies Allergies Allergy/AdvReac Type Severity Reaction Status Date / Time No Known Allergies Allergy Unverified 11/13/17 00:30 Home Medications Medication Instructions Recorded Confirmed Last Taken Type Amlodipine Besylate [Norvasc] 2.5 mg PO DAILY 11/13/17 12/13/19 Unknown History Ascorbic Acid [Vitamin C] 500 mg PO DAILY 11/13/17 12/13/19 Unknown History Ferrous Sulfate [Feosol 325 MG tab] 325 mg PO BID 11/13/17 12/13/19 Unknown History Sertraline [Zoloft] 25 mg PO DAILY 11/13/17 12/13/19 Unknown History lisinopriL [Zestril TAB] 40 mg PO QDAY PRN 11/13/17 12/13/19 1 Day Ago History ~03/29/18 Acetaminophen [Acetaminophen TAB] 650 mg PO Q4H PRN #15 tablet 11/28/18 12/13/19 Unknown Rx Spironolactone [Aldactone] 25 mg PO QDAY #30 tablet 11/28/18 12/13/19 Unknown Rx Acetaminophen [Mapap] 2 tab PO Q12H PRN 12/13/19 12/13/19 Unknown History Albuterol Sulfate [Proair 90 mcg IH Q4H PRN 12/13/19 12/13/19 Unknown History Respiclick] Aspirin [Aspirin BABY CHEW TAB] 81 mg PO DAILY 12/13/19 12/13/19 Unknown History AtorvaSTATin [Lipitor] 40 mg PO QHS 12/13/19 12/13/19 Unknown History Cholecalciferol Vit D3 [Vitamin D3 1,000 unit PO QDAY 12/13/19 12/13/19 Unknown History 1,000 UNIT TAB] Docusate Sodium [Colace] 100 mg PO BID PRN 12/13/19 12/13/19 Unknown History Fluticasone Propionate [Flovent 50 mcg IH Q24H PRN 12/13/19 12/13/19 Unknown History Diskus] Furosemide [Lasix] 20 mg PO BID 12/13/19 12/13/19 Unknown History Furosemide [Lasix] 20 mg PO QDAY 12/13/19 12/13/19 Unknown History Gabapentin [Neurontin] 300 mg PO BID 12/13/19 12/13/19 Unknown History Insulin Glargine [Lantus VIAL] 10 unit SUB-Q QHS 12/13/19 12/13/19 Unknown History Insulin Lispro [Humalog 100 0 units SQ AC 12/13/19 12/13/19 Unknown History UNITS/ML Kwikpen] Ipratropium [Atrovent] 0.5 mg IH Q6HRT PRN 12/13/19 12/13/19 Unknown History Polyethylene Glycol 3350 [Miralax 17 gm PO Q24H PRN 12/13/19 12/13/19 Unknown History 3350] Sennosides [Senna] 8.6 mg PO HS PRN 12/13/19 12/13/19 Unknown History clonazePAM 0.5 mg PO HS 12/13/19 12/13/19 Unknown History guaiFENesin [Robitussin] 100 mg PO Q6H PRN 12/13/19 12/13/19 Unknown History metFORMIN [Glucophage] 500 mg PO BID 12/13/19 12/13/19 Unknown History predniSONE [Deltasone] 20 mg PO QDAY 12/13/19 12/13/19 Unknown History traMADoL [Ultram] 50 mg PO Q6HR PRN 12/13/19 12/13/19 Unknown History Active Meds: Active Medications Acetaminophen (Tylenol) 650 mg PO Q4H PRN PRN Reason: Pain MILD(1-3)/Fever >100.5/SANCHEZ Acetaminophen (Tylenol) 650 mg GA Q4H PRN PRN Reason: Pain MILD(1-3)/Fever >100.5/SANCHEZ Enoxaparin Sodium (Enoxaparin) 40 mg SUB-Q QDAY@1000 YOLY Last Admin: 12/13/19 11:06 Dose: 40 mg Documented by: Sodium Bicarbonate 50 meq/ (Sodium Chloride) 1,050 mls @ 100 mls/hr IV DIRECT ONE Stop: 12/13/19 15:27 Last Admin: 12/13/19 06:00 Dose: 100 mls/hr Documented by: Sodium Chloride (Nacl 0.45% 1000 Ml) 1,000 mls @ 50 mls/hr IV DIRECT YOLY Last Admin: 12/13/19 06:51 Dose: 50 mls/hr Documented by: Piperacillin Sod/Tazobactam Sod (Zosyn/Ns 2.25 Gm/50ml) 2.25 gm in 50 mls @ 100 mls/hr IV Q6HR REPLACED BY [facility]; Protocol Last Admin: 12/13/19 14:43 Dose: 100 mls/hr Documented by: Norepinephrine (Levophed Drip 4 Mg/Ns 250 Ml) 4 mg in 250 mls @ 7.5 mls/hr IV TITR REPLACED BY [facility]; Protocol Last Admin: 12/13/19 14:44 Dose: 6 mcg/min, 22.5 mls/hr Documented by: Ondansetron HCl (Zofran) 4 mg IV Q8H PRN PRN Reason: Nausea And Vomiting Sodium Chloride (Sodium Chloride Flush Syringe 10 Ml) 10 ml IV BID REPLACED BY [facility] Last Admin: 12/13/19 11:00 Dose: 10 ml Documented by: Sodium Chloride (Sodium Chloride Flush Syringe 10 Ml) 10 ml IV PRN PRN PRN Reason: LINE FLUSH Review of Systems All systems: negative Constitutional: fatigue, weakness Exam - Vital Signs Vital signs: Vital Signs Pulse Resp BP Pulse Ox 123 H 44 H 96/49 93 12/13/19 01:30 12/13/19 01:30 12/13/19 01:30 12/13/19 01:30 - General Appearance General appearance: obese, chronically ill, fatigue EENT: ATNC, PERRL Neck: Present: neck supple Respiratory: Clear to Ascultation Heart: regular, normal heart rate, S1S2 Gastrointestinal: Present: normal Integumentary: no rash, warm and dry Neurologic: no focal deficit Psychiatric: cooperative Results - Lab Results 12/13/19 02:21 12/13/19 10:02 Most recent lab results ABG pH 7.325 pH Units (7.350-7.450) L 12/13/19 04:07 ABG pCO2 40.9 mm Hg 12/13/19 04:07 ABG pO2 85.5 mm Hg (80.0-90.0) 12/13/19 04:07 ABG HCO3 20.8 mmol/L (20.0-26.0) 12/13/19 04:07 ABG O2 Saturation 96.6 % (95.0-99.0) 12/13/19 04:07 Calcium 8.8 mg/dL (8.4-10.2) 12/13/19 10:02 Phosphorus 3.10 mg/dL (2.5-4.5) 12/13/19 06:00 Magnesium 1.80 mg/dL (1.7-2.3) 12/13/19 06:00 - Image Kidney/bladder ultrasound: report reviewed Assessment and Plan - Patient Problems (1) Acute renal failure Current Visit: Yes Status: Acute Plan to address problem: Likely pre-renal injury in the setting of sepsis, with repeat labs showing slow improvement. Continue measures to stabilize overall hemodynamics including gentle IVF hydrati on given h/o CHF, and pressors to maintain MAP > 65mmHg. Avoid nephrotoxins. Renal US reviewed without any acute abnormalities. Will closely monitor. (2) Altered mental status Current Visit: Yes Status: Acute Plan to address problem: Possibly in the setting of UTI/sepsis. Mentation improved when I was examining him in the afternoon compared to when he first presented to the ED though he remains fairly lethargic. CT head reviewed without any acute abnormalities. Will continue to monitor but anticipate that with appropriate treatment of underlying infection his overall mentation should improve. (3) Hyperkalemia Current Visit: Yes Status: Acute Plan to address problem: In the setting of HANNAH. Medical management and appropriate fluid hydration. Will monitor closely. no acute EKG changes noted but he did receive appropriate Calcium gluconate therapy. Pending insulin/D50. (4) Sepsis Current Visit: Yes Status: Acute Plan to address problem: Likely in the setting of UTI. Patient on appropriate pressor therapy to maintain adequate MAP >65, to wean per protocol. Broad spectrum antibiotics started, urine/blood cultures are pending. Please ensure that antibiotics are dosed appropriately for renal function. (5) Pneumonia Current Visit: No Status: Acute Qualifiers: Pneumonia type: due to unspecified organism Laterality: right Lung location: lower lobe of lung Plan to address problem: In the setting of COPD. Management per primary attending. Please ensure that antibiotics are dosed based on decreased renal function. (6) Hypertensive chronic kidney disease with stage 1 through stage 4 chronic kidney disease, or unspecified chronic kidney disease Current Visit: Yes Status: Chronic Plan to address problem: in the setting of current hemodynamic instability, agree with holding off on all antihypertensives and closely monitoring.
[2019-12-13 15:19] LABS: Creatine Kinase MB 1.4 ng/mL (0.0-4.0)
[2019-12-13] MEDS ORDERED: PIPERACIL-TAZO 2.25 GM/50 ML 2.25 GM/50 ML BAG IV ONE (19:52)
[2019-12-14] MEDS ORDERED: BENZONATATE 100 MG CAP PO ONE (00:25)
[2019-12-14] MEDS: PIPERACIL-TAZO 2.25 GM/50 ML 2.25 GM/50 ML BAG IV SCH ×4 (01:08→18:07)
[2019-12-14 04:55] LABS: Hematocrit 28.1 % (35.5-45.6); Hemoglobin 9.1 gm/dl (11.8-15.2); Mean Corpuscular HGB Conc 33 % (32-34); Mean Corpuscular Volume 89 fl (84-94); Platelet Count 257 K/mm3 (140-440); Red Blood Count 3.17 M/mm3 (3.65-5.03)
[2019-12-14] MEDS: SODIUM CHLORIDE 0.45% 1000 ML 1,000 ML IV SCH (05:06)
[2019-12-14 05:16] LABS: Calcium 8.8 mg/dL (8.4-10.2)
[2019-12-14 07:08] LABS: Band Neutrophils # (Manual) 0.1 K/mm3; Basophils % (Manual) 0 % (0.0-1.8); Total Cells Counted 100
[2019-12-14 07:10] LABS: Anisocytosis Few; Platelet Estimate Consistent w Auto
[2019-12-14] MEDS ORDERED: SODIUM POLYSTYRENE 15 GM/60 ML ORAL LIQD PO ONE (07:54)
[2019-12-14] MEDS ORDERED: INSULIN REGULAR, HUMAN 100 UNITS/1 ML IV STA (07:56)
[2019-12-14] MEDS ORDERED: DEXTROSE 50% IN WATER (25GM) 50 ML VIAL IV STA (07:57)
--- NOTE | 2019-12-14 09:57 | Progress Note ---
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 Start gentle IV fluid, consult renal Hold nephrotoxic agernts - diuretics, ACEI Bibasilar opacities on CT Will follow Hyperkalemia Give more kayexalate Lethargy check CT head:neg COPD, stable Diabetes mellitus type 2 Check fingersticks, start insulin sliding scale CHF, stable, chronic, diastolic anxiety depression sleep apnea stroke with right-sided weakness Continue appropriate outpatient medications Full code status History Interval history: Sent from SNF for fever and Hypotension Hospitalist Physical - Physical exam Narrative exam: GEN: Not in acute distress, lying in bed, morbidly obese HEENT: Normocephalic, atraumatic, Neck: supple, No JVD Lungs: Clear to auscultation bilat, no wheeze, heart;S1 and S2 reg, no murmurs, rubs or gallop Abd:soft, non tender, non distended, normal bowel sounds Ext: No edema, no clubbing, no cyanosis Neuro: Awake,alert,right sided weakness from previous stroke - Constitutional Vitals: Temp Pulse Resp BP Pulse Ox 97.5 F L 55 L 22 110/51 94 12/14/19 05:24 12/14/19 05:24 12/14/19 05:24 12/14/19 05:24 12/14/19 08:28 Results - Labs CBC & Chem 7: 12/14/19 04:29 12/14/19 04:29 Labs: Laboratory Last Values WBC 12.5 K/mm3 (4.5-11.0) H 12/14/19 04:29 RBC 3.17 M/mm3 (3.65-5.03) L 12/14/19 04:29 Hgb 9.1 gm/dl (11.8-15.2) L 12/14/19 04:29 Hct 28.1 % (35.5-45.6) L 12/14/19 04:29 MCV 89 fl (84-94) 12/14/19 04:29 MCH 29 pg (28-32) 12/14/19 04:29 MCHC 33 % (32-34) 12/14/19 04:29 RDW 15.0 % (13.2-15.2) 12/14/19 04:29 Plt Count 257 K/mm3 (140-440) 12/14/19 04:29 Add Manual Diff Complete 12/14/19 04:29 Total Counted 100 12/14/19 04:29 Seg Neuts % (Manual) 66.0 % (40.0-70.0) 12/14/19 04:29 Band Neutrophils % 1.0 % 12/14/19 04:29 Lymphocytes % (Manual) 20.0 % (13.4-35.0) 12/14/19 04:29 Reactive Lymphs % (Man) 0 % 12/14/19 04:29 Monocytes % (Manual) 10.0 % (0.0-7.3) H 12/14/19 04:29 Eosinophils % (Manual) 1.0 % (0.0-4.3) 12/14/19 04:29 Basophils % (Manual) 0 % (0.0-1.8) 12/14/19 04:29 Metamyelocytes % 2.0 % 12/14/19 04:29 Myelocytes % 0 % 12/14/19 04:29 Promyelocytes % 0 % 12/14/19 04:29 Blast Cells % 0 % 12/14/19 04:29 Nucleated RBC % Not Reportable 12/14/19 04:29 Seg Neutrophils # Man 8.3 K/mm3 (1.8-7.7) H 12/14/19 04:29 Band Neutrophils # 0.1 K/mm3 12/14/19 04:29 Lymphocytes # (Manual) 2.5 K/mm3 (1.2-5.4) 12/14/19 04:29 Abs React Lymphs (Man) 0.0 K/mm3 12/14/19 04:29 Monocytes # (Manual) 1.3 K/mm3 (0.0-0.8) H 12/14/19 04:29 Eosinophils # (Manual) 0.1 K/mm3 (0.0-0.4) 12/14/19 04:29 Basophils # (Manual) 0.0 K/mm3 (0.0-0.1) 12/14/19 04:29 Metamyelocytes # 0.3 K/mm3 12/14/19 04:29 Myelocytes # 0.0 K/mm3 12/14/19 04:29 Promyelocytes # 0.0 K/mm3 12/14/19 04:29 Blast Cells # 0.0 K/mm3 12/14/19 04:29 WBC Morphology Not Reportable 12/14/19 04:29 Hypersegmented Neuts Not Reportable 12/14/19 04:29 Hyposegmented Neuts Not Reportable 12/14/19 04:29 Hypogranular Neuts Not Reportable 12/14/19 04:29 Smudge Cells Not Reportable 12/14/19 04:29 Toxic Granulation Not Reportable 12/14/19 04:29 Toxic Vacuolation Not Reportable 12/14/19 04:29 Dohle Bodies Not Reportable 12/14/19 04:29 Pelger-Huet Anomaly Not Reportable 12/14/19 04:29 Rosenda Rods Not Reportable 12/14/19 04:29 Platelet Estimate Consistent w auto 12/14/19 04:29 Clumped Platelets Not Reportable 12/14/19 04:29 Plt Clumps, EDTA Not Reportable 12/14/19 04:29 Large Platelets Not Reportable 12/14/19 04:29 Giant Platelets Not Reportable 12/14/19 04:29 Platelet Satelliting Not Reportable 12/14/19 04:29 Plt Morphology Comment Not Reportable 12/14/19 04:29 RBC Morphology Not Reportable 12/14/19 04:29 Dimorphic RBCs Not Reportable 12/14/19 04:29 Polychromasia Not Reportable 12/14/19 04:29 Hypochromasia Not Reportable 12/14/19 04:29 Poikilocytosis Not Reportable 12/14/19 04:29 Anisocytosis Few 12/14/19 04:29 Microcytosis Not Reportable 12/14/19 04:29 Macrocytosis Not Reportable 12/14/19 04:29 Spherocytes Not Reportable 12/14/19 04:29 Pappenheimer Bodies Not Reportable 12/14/19 04:29 Sickle Cells Not Reportable 12/14/19 04:29 Target Cells Not Reportable 12/14/19 04:29 Tear Drop Cells Not Reportable 12/14/19 04:29 Ovalocytes Not Reportable 12/14/19 04:29 Helmet Cells Not Reportable 12/14/19 04:29 [place] Bodies Not Reportable 12/14/19 04:29 [place] Rings Not Reportable 12/14/19 04:29 [place]ente Cells Not Reportable 12/14/19 04:29 Bite Cells Not Reportable 12/14/19 04:29 Crenated Cell Not Reportable 12/14/19 04:29 Elliptocytes Not Reportable 12/14/19 04:29 Acanthocytes (Spur) Not Reportable 12/14/19 04:29 Rouleaux Not Reportable 12/14/19 04:29 Hemoglobin C Crystals Not Reportable 12/14/19 04:29 Schistocytes Not Reportable 12/14/19 04:29 Malaria parasites Not Reportable 12/14/19 04:29 Benny Bodies Not Reportable 12/14/19 04:29 Hem Pathologist Commnt No 12/14/19 04:29 APTT 28.6 Sec. (24.2-36.6) 12/13/19 02:21 ABG pH 7.325 pH Units (7.350-7.450) L 12/13/19 04:07 ABG pCO2 40.9 mm Hg 12/13/19 04:07 ABG pO2 85.5 mm Hg (80.0-90.0) 12/13/19 04:07 ABG HCO3 20.8 mmol/L (20.0-26.0) 12/13/19 04:07 ABG O2 Saturation 96.6 % (95.0-99.0) 12/13/19 04:07 ABG O2 Content 12.9 (0.0-44) 12/13/19 04:07 ABG Base Excess -4.8 mmol/L (-2.0-3.0) L 12/13/19 04:07 ABG Hemoglobin 9.6 gm/dl (14.0-18.0) L 12/13/19 04:07 ABG Carboxyhemoglobin 1.6 % (0.0-5.0) 12/13/19 04:07 ABG Methemoglobin 0.7 % (0.0-1.5) 12/13/19 04:07 Oxyhemoglobin 94.5 % (95.0-99.0) L 12/13/19 04:07 FiO2 36 % 12/13/19 04:07 Sodium 142 mmol/L (137-145) 12/14/19 04:29 Potassium 5.2 mmol/L (3.6-5.0) H 12/14/19 04:29 Chloride 109.0 mmol/L (98-107) H 12/14/19 04:29 Carbon Dioxide 20 mmol/L (22-30) L 12/14/19 04:29 Anion Gap 18 mmol/L 12/14/19 04:29 BUN 29 mg/dL (9-20) H 12/14/19 04:29 Creatinine 1.4 mg/dL (0.8-1.5) 12/14/19 04:29 Estimated GFR 50 ml/min 12/14/19 04:29 BUN/Creatinine Ratio 21 % 12/14/19 04:29 Glucose 110 mg/dL (75-100) H 12/14/19 04:29 POC Glucose 98 (70-105) 12/14/19 08:50 Lactic Acid 1.60 mmol/L (0.7-2.0) 12/13/19 04:04 Calcium 8.8 mg/dL (8.4-10.2) 12/14/19 04:29 Phosphorus 3.10 mg/dL (2.5-4.5) 12/13/19 06:00 Magnesium 1.80 mg/dL (1.7-2.3) 12/13/19 06:00 Total Bilirubin 0.30 mg/dL (0.1-1.2) 12/13/19 02:21 AST 14 units/L (5-40) 12/13/19 02:21 ALT 13 units/L (7-56) 12/13/19 02:21 Alkaline Phosphatase 76 units/L (35-129) 12/13/19 02:21 Total Creatine Kinase 25 units/L (55-170) L 12/13/19 14:25 CK-MB (CK-2) 1.4 ng/mL (0.0-4.0) 12/13/19 14:25 CK-MB (CK-2) Rel Index 5.6 (0-4) H 12/13/19 14:25 Troponin T < 0.010 ng/mL (0.00-0.029) 12/13/19 14:25 NT-Pro-B Natriuret Pep 482.3 pg/mL (0-900) 12/13/19 02:21 Total Protein 7.5 g/dL (6.3-8.2) 12/13/19 02:21 Albumin 4.3 g/dL (3.9-5) 12/13/19 02:21 Albumin/Globulin Ratio 1.3 % 12/13/19 02:21 Urine Color Yellow (Yellow) 12/13/19 09:03 Urine Turbidity Slightly-cloudy (Clear) 12/13/19 09:03 Urine pH 5.0 (5.0-7.0) 12/13/19 09:03 Ur Specific [place] 1.014 (1.003-1.030) 12/13/19 09:03 Urine Protein <15 mg/dl mg/dL (Negative) 12/13/19 09:03 Urine Glucose (UA) Neg mg/dL (Negative) 12/13/19 09:03 Urine Ketones Neg mg/dL (Negative) 12/13/19 09:03 Urine Blood Neg (Negative) 12/13/19 09:03 Urine Nitrite Neg (Negative) 12/13/19 09:03 Urine Bilirubin Neg (Negative) 12/13/19 09:03 Urine Urobilinogen < 2.0 mg/dL (<2.0) 12/13/19 09:03 Ur Leukocyte Esterase Lg (Negative) 12/13/19 09:03 Urine WBC (Auto) 58.0 /HPF (0.0-6.0) H 12/13/19 09:03 Urine RBC (Auto) 6.0 /HPF (0.0-6.0) 12/13/19 09:03 Urine Bacteria (Auto) 4+ /HPF (Negative) 12/13/19 09:03 Urine Mucus Few /HPF 12/13/19 09:03 Active Medications - Current Medications Current Medications: Generic Name Dose Route Start Last Admin Trade Name Freq PRN Reason Stop Dose Admin Acetaminophen 650 mg 12/13/19 05:49 Tylenol PO Q4H PRN Pain MILD(1-3)/Fever >100.5/SANCHEZ Acetaminophen 650 mg 12/13/19 05:49 Tylenol AR Q4H PRN Pain MILD(1-3)/Fever >100.5/SANCHEZ Benzonatate 100 mg 12/14/19 00:20 Tessalon Perles PO Q6H PRN Cough Enoxaparin Sodium 40 mg 12/13/19 10:00 12/13/19 11:06 Enoxaparin SUB-Q 40 mg QDAY@1000 YOLY Administration Sodium Chloride 1,000 mls @ 50 mls/hr 12/13/19 06:30 12/14/19 05:06 Nacl 0.45% 1000 Ml IV 50 mls/hr DIRECT YOLY Administration Piperacillin Sod/Tazobactam Sod 2.25 gm in 50 mls @ 100 mls/hr 12/13/19 06:30 12/14/19 05:06 Zosyn/Ns 2.25 Gm/50ml IV 12/17/19 23:59 100 mls/hr Q6HR YOLY Administration Protocol Ondansetron HCl 4 mg 12/13/19 05:49 Zofran IV Q8H PRN Nausea And Vomiting Sodium Chloride 10 ml 12/13/19 10:00 12/14/19 01:21 Sodium Chloride Flush Syringe 10 Ml IV 10 ml BID YOLY Administration Sodium Chloride 10 ml 12/13/19 05:49 Sodium Chloride Flush Syringe 10 Ml IV PRN PRN LINE FLUSH
[2019-12-14] MEDS: ENOXAPARIN 40 MG/0.4 ML INJ SUB-Q SCH (10:31)
--- NOTE | 2019-12-14 12:07 | Progress Note ---
Assessment and Plan - Patient Problems (1) Other acute kidney failure Current Visit: Yes Status: Acute Plan to address problem: Acute kidney injury probably prerenal azotemia secondary to sepsis/hypotension. Kidney function improving. Hyperkalemia resolved. Follow-up electrolytes and renal function (2) Chronic heart failure Current Visit: Yes Status: Acute Plan to address problem: Stable volume status now. Monitor closely (3) Type 2 diabetes mellitus with diabetic nephropathy Current Visit: Yes Status: Acute Plan to address problem: Blood sugar management by primary attending (4) Nephrolithiasis Current Visit: Yes Status: Acute Plan to address problem: No obstruction. Management of nephrolithiasis as an outpatient. (5) Altered mental status Current Visit: Yes Status: Acute Plan to address problem: Resolved toxic encephalopathy. Mental status back to baseline (6) Hypertensive chronic kidney disease with stage 1 through stage 4 chronic kidney disease, or unspecified chronic kidney disease Current Visit: Yes Status: Chronic Plan to address problem: Blood pressure improved though still low normal. Continue to hold hypotensive medications and follow-up (7) Sepsis with hypotension Current Visit: Yes Status: Acute Plan to address problem: Presumed urinary tract infection. Cultures negative so far. Continue empiric antibiotics and follow-up cultures Subjective Date of service: 12/14/19 Principal diagnosis: sepsis, hypotension, acute kidney injury Interval history: Patient seen lying in bed. No new complaints. Denies chest pain, shortness of breath, nausea or vomiting. REVIEWED SHOWED NEPHROLITHIASIS BUT NO HYDRONEPHROSIS OR MASS Objective - Exam Narrative Exam: Morbidly obese elderly male lying in bed in no acute distress HEENT: NCAT, pink oral mucous membrane Neck: Supple, no venous distention CVS: S1S2 RRR with no murmur, rub or gallop Chest: Clear to auscultation with decreased breath sounds in lower zones Abdomen: Obese, soft, nontender, no organomegaly, bowel sounds are present Extremities: No edema Neuro: Awake, alert no focal deficits - Vital Signs Vital signs: Vital Signs - 12hr 12/14/19 12/14/19 12/14/19 00:17 00:30 01:00 Temperature Pulse Rate 60 55 L 56 L Respiratory 26 H 22 20 Rate Blood Pressure 117/60 119/57 117/62 O2 Sat by Pulse 96 97 97 Oximetry 12/14/19 12/14/19 12/14/19 01:30 02:00 02:07 Temperature Pulse Rate 60 64 62 Respiratory 27 H 22 20 Rate Blood Pressure 118/62 111/51 111/51 O2 Sat by Pulse 95 93 95 Oximetry 12/14/19 12/14/19 12/14/19 02:08 03:31 05:24 Temperature 98.2 F 97.5 F L Pulse Rate 58 L 55 L Respiratory 22 Rate Blood Pressure 110/51 O2 Sat by Pulse 95 Oximetry 12/14/19 12/14/19 12/14/19 08:28 09:33 11:51 Temperature 97.2 F L 98.3 F Pulse Rate 56 L 61 Respiratory 18 18 Rate Blood Pressure 125/56 108/48 O2 Sat by Pulse 94 94 92 Oximetry - Lab 12/14/19 04:29 12/14/19 04:29 Most recent lab results ABG pH 7.325 pH Units (7.350-7.450) L 12/13/19 04:07 ABG pCO2 40.9 mm Hg 12/13/19 04:07 ABG pO2 85.5 mm Hg (80.0-90.0) 12/13/19 04:07 ABG HCO3 20.8 mmol/L (20.0-26.0) 12/13/19 04:07 ABG O2 Saturation 96.6 % (95.0-99.0) 12/13/19 04:07 Calcium 8.8 mg/dL (8.4-10.2) 12/14/19 04:29 Phosphorus 3.10 mg/dL (2.5-4.5) 12/13/19 06:00 Magnesium 1.80 mg/dL (1.7-2.3) 12/13/19 06:00 Medications & Allergies - Medications Allergies/Adverse Reactions: Allergies No Known Allergies Allergy (Unverified 11/13/17 00:30) Home Medications: Home Medications Medication Instructions Recorded Confirmed Last Taken Type Amlodipine Besylate [Norvasc] 2.5 mg PO DAILY 11/13/17 12/13/19 Unknown History Ascorbic Acid [Vitamin C] 500 mg PO DAILY 11/13/17 12/13/19 Unknown History Ferrous Sulfate [Feosol 325 MG tab] 325 mg PO BID 11/13/17 12/13/19 Unknown History Sertraline [Zoloft] 25 mg PO DAILY 11/13/17 12/13/19 Unknown History lisinopriL [Zestril TAB] 40 mg PO QDAY PRN 11/13/17 12/13/19 1 Day Ago History ~03/29/18 Acetaminophen [Acetaminophen TAB] 650 mg PO Q4H PRN #15 tablet 11/28/18 12/13/19 Unknown Rx Spironolactone [Aldactone] 25 mg PO QDAY #30 tablet 11/28/18 12/13/19 Unknown Rx Acetaminophen [Mapap] 2 tab PO Q12H PRN 12/13/19 12/13/19 Unknown History Albuterol Sulfate [Proair 90 mcg IH Q4H PRN 12/13/19 12/13/19 Unknown History Respiclick] Aspirin [Aspirin BABY CHEW TAB] 81 mg PO DAILY 12/13/19 12/13/19 Unknown History AtorvaSTATin [Lipitor] 40 mg PO QHS 12/13/19 12/13/19 Unknown History Cholecalciferol Vit D3 [Vitamin D3 1,000 unit PO QDAY 12/13/19 12/13/19 Unknown History 1,000 UNIT TAB] Docusate Sodium [Colace] 100 mg PO BID PRN 12/13/19 12/13/19 Unknown History Fluticasone Propionate [Flovent 50 mcg IH Q24H PRN 12/13/19 12/13/19 Unknown History Diskus] Furosemide [Lasix] 20 mg PO BID 12/13/19 12/13/19 Unknown History Furosemide [Lasix] 20 mg PO QDAY 12/13/19 12/13/19 Unknown History Gabapentin [Neurontin] 300 mg PO BID 12/13/19 12/13/19 Unknown History Insulin Glargine [Lantus VIAL] 10 unit SUB-Q QHS 12/13/19 12/13/19 Unknown Hi story Insulin Lispro [Humalog 100 0 units SQ AC 12/13/19 12/13/19 Unknown History UNITS/ML Kwikpen] Ipratropium [Atrovent] 0.5 mg IH Q6HRT PRN 12/13/19 12/13/19 Unknown History Polyethylene Glycol 3350 [Miralax 17 gm PO Q24H PRN 12/13/19 12/13/19 Unknown History 3350] Sennosides [Senna] 8.6 mg PO HS PRN 12/13/19 12/13/19 Unknown History clonazePAM 0.5 mg PO HS 12/13/19 12/13/19 Unknown History guaiFENesin [Robitussin] 100 mg PO Q6H PRN 12/13/19 12/13/19 Unknown History metFORMIN [Glucophage] 500 mg PO BID 12/13/19 12/13/19 Unknown History predniSONE [Deltasone] 20 mg PO QDAY 12/13/19 12/13/19 Unknown History traMADoL [Ultram] 50 mg PO Q6HR PRN 12/13/19 12/13/19 Unknown History Active Medications: Generic Name Dose Route Start Last Admin Trade Name Freq PRN Reason Stop Dose Admin Acetaminophen 650 mg 12/13/19 05:49 Tylenol PO Q4H PRN Pain MILD(1-3)/Fever >100.5/SANCHEZ Acetaminophen 650 mg 12/13/19 05:49 Tylenol NE Q4H PRN Pain MILD(1-3)/Fever >100.5/SANCHEZ Benzonatate 100 mg 12/14/19 00:20 Tessalon Perles PO Q6H PRN Cough Enoxaparin Sodium 40 mg 12/13/19 10:00 12/14/19 10:31 Enoxaparin SUB-Q 40 mg QDAY@1000 YOLY Administration Sodium Chloride 1,000 mls @ 50 mls/hr 12/13/19 06:30 12/14/19 05:06 Nacl 0.45% 1000 Ml IV 50 mls/hr DIRECT YOLY Administration Piperacillin Sod/Tazobactam Sod 2.25 gm in 50 mls @ 100 mls/hr 12/13/19 06:30 12/14/19 05:06 Zosyn/Ns 2.25 Gm/50ml IV 12/17/19 23:59 100 mls/hr Q6HR YOLY Administration Protocol Ondansetron HCl 4 mg 12/13/19 05:49 Zofran IV Q8H PRN Nausea And Vomiting Sodium Chloride 10 ml 12/13/19 10:00 12/14/19 01:21 Sodium Chloride Flush Syringe 10 Ml IV 10 ml BID YOLY Administration Sodium Chloride 10 ml 12/13/19 05:49 Sodium Chloride Flush Syringe 10 Ml IV PRN PRN LINE FLUSH
[2019-12-14] MEDS: BENZONATATE 100 MG CAP PO PRN (21:55)
[2019-12-14] MEDS: ACETAMINOPHEN 325 MG TAB PO PRN (21:55)
[2019-12-14] MEDS ORDERED: clonazePAM 0.5 MG TAB PO PRN (22:05)
[2019-12-15] MEDS: PIPERACIL-TAZO 2.25 GM/50 ML 2.25 GM/50 ML BAG IV SCH ×2 (00:02→05:35)
[2019-12-15] MEDS: BENZONATATE 100 MG CAP PO PRN ×2 (03:33→17:43)
[2019-12-15] MEDS: SODIUM CHLORIDE 0.45% 1000 ML 1,000 ML IV SCH (03:34)
[2019-12-15 06:22] LABS: Hematocrit 26.4 % (35.5-45.6); Hemoglobin 8.9 gm/dl (11.8-15.2); Mean Corpuscular HGB Conc 34 % (32-34); Mean Corpuscular Volume 88 fl (84-94); Platelet Count 271 K/mm3 (140-440); Red Cell Distribution Width 14.7 % (13.2-15.2)
[2019-12-15 06:38] LABS: Calcium 9.1 mg/dL (8.4-10.2)
--- NOTE | 2019-12-15 10:08 | Progress Note ---
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 Bibasilar opacities on CT Consulted ID Hyperkalemia Now resolved UTI Lethargy check CT head:neg COPD, stable Diabetes mellitus type 2 Check fingersticks, start insulin sliding scale CHF, stable, chronic, diastolic anxiety depression sleep apnea stroke with right-sided weakness Continue appropriate outpatient medications Full code status History Interval history: Sent from SNF for fever and Hypotension feels better Hospitalist Physical - Physical exam Narrative exam: GEN: Not in acute distress, lying in bed, morbidly obese HEENT: Normocephalic, atraumatic, Neck: supple, No JVD Lungs: Clear to auscultation bilat, no wheeze, heart;S1 and S2 reg, no murmurs, rubs or gallop Abd:soft, non tender, non distended, normal bowel sounds Ext: No edema, no clubbing, no cyanosis Neuro: Awake,alert,right sided weakness from previous stroke - Constitutional Vitals: Temp Pulse Resp BP Pulse Ox 99.1 F 69 20 139/62 97 12/15/19 03:48 12/15/19 08:56 12/15/19 03:48 12/15/19 03:48 12/15/19 03:48 Results - Labs CBC & Chem 7: 12/15/19 04:57 12/15/19 04:57 Labs: Laboratory Last Values WBC 11.9 K/mm3 (4.5-11.0) H 12/15/19 04:57 RBC 3.00 M/mm3 (3.65-5.03) L 12/15/19 04:57 Hgb 8.9 gm/dl (11.8-15.2) L 12/15/19 04:57 Hct 26.4 % (35.5-45.6) L 12/15/19 04:57 MCV 88 fl (84-94) 12/15/19 04:57 MCH 30 pg (28-32) 12/15/19 04:57 MCHC 34 % (32-34) 12/15/19 04:57 RDW 14.7 % (13.2-15.2) 12/15/19 04:57 Plt Count 271 K/mm3 (140-440) 12/15/19 04:57 Add Manual Diff Complete 12/14/19 04:29 Total Counted 100 12/14/19 04:29 Seg Neuts % (Manual) 66.0 % (40.0-70.0) 12/14/19 04:29 Band Neutrophils % 1.0 % 12/14/19 04:29 Lymphocytes % (Manual) 20.0 % (13.4-35.0) 12/14/19 04:29 Reactive Lymphs % (Man) 0 % 12/14/19 04:29 Monocytes % (Manual) 10.0 % (0.0-7.3) H 12/14/19 04:29 Eosinophils % (Manual) 1.0 % (0.0-4.3) 12/14/19 04:29 Basophils % (Manual) 0 % (0.0-1.8) 12/14/19 04:29 Metamyelocytes % 2.0 % 12/14/19 04:29 Myelocytes % 0 % 12/14/19 04:29 Promyelocytes % 0 % 12/14/19 04:29 Blast Cells % 0 % 12/14/19 04:29 Nucleated RBC % Not Reportable 12/14/19 04:29 Seg Neutrophils # Man 8.3 K/mm3 (1.8-7.7) H 12/14/19 04:29 Band Neutrophils # 0.1 K/mm3 12/14/19 04:29 Lymphocytes # (Manual) 2.5 K/mm3 (1.2-5.4) 12/14/19 04:29 Abs React Lymphs (Man) 0.0 K/mm3 12/14/19 04:29 Monocytes # (Manual) 1.3 K/mm3 (0.0-0.8) H 12/14/19 04:29 Eosinophils # (Manual) 0.1 K/mm3 (0.0-0.4) 12/14/19 04:29 Basophils # (Manual) 0.0 K/mm3 (0.0-0.1) 12/14/19 04:29 Metamyelocytes # 0.3 K/mm3 12/14/19 04:29 Myelocytes # 0.0 K/mm3 12/14/19 04:29 Promyelocytes # 0.0 K/mm3 12/14/19 04:29 Blast Cells # 0.0 K/mm3 12/14/19 04:29 WBC Morphology Not Reportable 12/14/19 04:29 Hypersegmented Neuts Not Reportable 12/14/19 04:29 Hyposegmented Neuts Not Reportable 12/14/19 04:29 Hypogranular Neuts Not Reportable 12/14/19 04:29 Smudge Cells Not Reportable 12/14/19 04:29 Toxic Granulation Not Reportable 12/14/19 04:29 Toxic Vacuolation Not Reportable 12/14/19 04:29 Dohle Bodies Not Reportable 12/14/19 04:29 Pelger-Huet Anomaly Not Reportable 12/14/19 04:29 Rosenda Rods Not Reportable 12/14/19 04:29 Platelet Estimate Consistent w auto 12/14/19 04:29 Clumped Platelets Not Reportable 12/14/19 04:29 Plt Clumps, EDTA Not Reportable 12/14/19 04:29 Large Platelets Not Reportable 12/14/19 04:29 Giant Platelets Not Reportable 12/14/19 04:29 Platelet Satelliting Not Reportable 12/14/19 04:29 Plt Morphology Comment Not Reportable 12/14/19 04:29 RBC Morphology Not Reportable 12/14/19 04:29 Dimorphic RBCs Not Reportable 12/14/19 04:29 Polychromasia Not Reportable 12/14/19 04:29 Hypochromasia Not Reportable 12/14/19 04:29 Poikilocytosis Not Reportable 12/14/19 04:29 Anisocytosis Few 12/14/19 04:29 Microcytosis Not Reportable 12/14/19 04:29 Macrocytosis Not Reportable 12/14/19 04:29 Spherocytes Not Reportable 12/14/19 04:29 Pappenheimer Bodies Not Reportable 12/14/19 04:29 Sickle Cells Not Reportable 12/14/19 04:29 Target Cells Not Reportable 12/14/19 04:29 Tear Drop Cells Not Reportable 12/14/19 04:29 Ovalocytes Not Reportable 12/14/19 04:29 Helmet Cells Not Reportable 12/14/19 04:29 [place] Bodies Not Reportable 12/14/19 04:29 [place] Rings Not Reportable 12/14/19 04:29 [place] Cells Not Reportable 12/14/19 04:29 Bite Cells Not Reportable 12/14/19 04:29 Crenated Cell Not Reportable 12/14/19 04:29 Elliptocytes Not Reportable 12/14/19 04:29 Acanthocytes (Spur) Not Reportable 12/14/19 04:29 Rouleaux Not Reportable 12/14/19 04:29 Hemoglobin C Crystals Not Reportable 12/14/19 04:29 Schistocytes Not Reportable 12/14/19 04:29 Malaria parasites Not Reportable 12/14/19 04:29 Benny Bodies Not Reportable 12/14/19 04:29 Hem Pathologist Commnt No 12/14/19 04:29 APTT 28.6 Sec. (24.2-36.6) 12/13/19 02:21 ABG pH 7.325 pH Units (7.350-7.450) L 12/13/19 04:07 ABG pCO2 40.9 mm Hg 12/13/19 04:07 ABG pO2 85.5 mm Hg (80.0-90.0) 12/13/19 04:07 ABG HCO3 20.8 mmol/L (20.0-26.0) 12/13/19 04:07 ABG O2 Saturation 96.6 % (95.0-99.0) 12/13/19 04:07 ABG O2 Content 12.9 (0.0-44) 12/13/19 04:07 ABG Base Excess -4.8 mmol/L (-2.0-3.0) L 12/13/19 04:07 ABG Hemoglobin 9.6 gm/dl (14.0-18.0) L 12/13/19 04:07 ABG Carboxyhemoglobin 1.6 % (0.0-5.0) 12/13/19 04:07 ABG Methemoglobin 0.7 % (0.0-1.5) 12/13/19 04:07 Oxyhemoglobin 94.5 % (95.0-99.0) L 12/13/19 04:07 FiO2 36 % 12/13/19 04:07 Sodium 143 mmol/L (137-145) 12/15/19 04:57 Potassium 4.3 mmol/L (3.6-5.0) 12/15/19 04:57 Chloride 108.2 mmol/L (98-107) H 12/15/19 04:57 Carbon Dioxide 21 mmol/L (22-30) L 12/15/19 04:57 Anion Gap 18 mmol/L 12/15/19 04:57 BUN 22 mg/dL (9-20) H 12/15/19 04:57 Creatinine 1.2 mg/dL (0.8-1.5) 12/15/19 04:57 Estimated GFR 60 ml/min 12/15/19 04:57 BUN/Creatinine Ratio 18 % 12/15/19 04:57 Glucose 124 mg/dL (75-100) H 12/15/19 04:57 POC Glucose 104 (70-105) 12/15/19 08:08 Lactic Acid 1.60 mmol/L (0.7-2.0) 12/13/19 04:04 Calcium 9.1 mg/dL (8.4-10.2) 12/15/19 04:57 Phosphorus 3.10 mg/dL (2.5-4.5) 12/13/19 06:00 Magnesium 1.80 mg/dL (1.7-2.3) 12/13/19 06:00 Total Bilirubin 0.30 mg/dL (0.1-1.2) 12/13/19 02:21 AST 14 units/L (5-40) 12/13/19 02:21 ALT 13 units/L (7-56) 12/13/19 02:21 Alkaline Phosphatase 76 units/L (35-129) 12/13/19 02:21 Total Creatine Kinase 25 units/L (55-170) L 12/13/19 14:25 CK-MB (CK-2) 1.4 ng/mL (0.0-4.0) 12/13/19 14:25 CK-MB (CK-2) Rel Index 5.6 (0-4) H 12/13/19 14:25 Troponin T < 0.010 ng/mL (0.00-0.029) 12/13/19 14:25 NT-Pro-B Natriuret Pep 482.3 pg/mL (0-900) 12/13/19 02:21 Total Protein 7.5 g/dL (6.3-8.2) 12/13/19 02:21 Albumin 4.3 g/dL (3.9-5) 12/13/19 02:21 Albumin/Globulin Ratio 1.3 % 12/13/19 02:21 Urine Color Yellow (Yellow) 12/13/19 09:03 Urine Turbidity Slightly-cloudy (Clear) 12/13/19 09:03 Urine pH 5.0 (5.0-7.0) 12/13/19 09:03 Ur Specific [place] 1.014 (1.003-1.030) 12/13/19 09:03 Urine Protein <15 mg/dl mg/dL (Negative) 12/13/19 09:03 Urine Glucose (UA) Neg mg/dL (Negative) 12/13/19 09:03 Urine Ketones Neg mg/dL (Negative) 12/13/19 09:03 Urine Blood Neg (Negative) 12/13/19 09:03 Urine Nitrite Neg (Negative) 12/13/19 09:03 Urine Bilirubin Neg (Negative) 12/13/19 09:03 Urine Urobilinogen < 2.0 mg/dL (<2.0) 12/13/19 09:03 Ur Leukocyte Esterase Lg (Negative) 12/13/19 09:03 Urine WBC (Auto) 58.0 /HPF (0.0-6.0) H 12/13/19 09:03 Urine RBC (Auto) 6.0 /HPF (0.0-6.0) 12/13/19 09:03 Urine Bacteria (Auto) 4+ /HPF (Negative) 12/13/19 09:03 Urine Mucus Few /HPF 12/13/19 09:03 Active Medications - Current Medications Current Medications: Generic Name Dose Route Start Last Admin Trade Name Freq PRN Reason Stop Dose Admin Acetaminophen 650 mg 12/13/19 05:49 12/14/19 21:55 Tylenol PO 650 mg Q4H PRN Administration Pain MILD(1-3)/Fever >100.5/SANCHEZ Acetaminophen 650 mg 12/13/19 05:49 Tylenol UT Q4H PRN Pain MILD(1-3)/Fever >100.5/SANCHEZ Benzonatate 100 mg 12/14/19 00:20 12/15/19 03:33 Tessalon Perles PO 100 mg Q6H PRN Administration Cough Clonazepam 0.5 mg 12/14/19 22:05 12/15/19 02:08 Klonopin PO 0.5 mg QHS PRN Administration Anxiety Enoxaparin Sodium 40 mg 12/13/19 10:00 12/14/19 10:31 Enoxaparin SUB-Q 40 mg QDAY@1000 YOLY Administration Sodium Chloride 1,000 mls @ 50 mls/hr 12/13/19 06:30 12/15/19 03:34 Nacl 0.45% 1000 Ml IV 50 mls/hr DIRECT YOLY Administration Piperacillin Sod/Tazobactam Sod 2.25 gm in 50 mls @ 100 mls/hr 12/13/19 06:30 12/15/19 05:35 Zosyn/Ns 2.25 Gm/50ml IV 12/17/19 23:59 100 mls/hr Q6HR YOLY Administration Protocol Ondansetron HCl 4 mg 12/13/19 05:49 Zofran IV Q8H PRN Nausea And Vomiting Sodium Chloride 10 ml 12/13/19 10:00 12/14/19 23:05 Sodium Chloride Flush Syringe 10 Ml IV Not Given BID YOLY Sodium Chloride 10 ml 12/13/19 05:49 Sodium Chloride Flush Syringe 10 Ml IV PRN PRN LINE FLUSH
[2019-12-15] MEDS: ENOXAPARIN 40 MG/0.4 ML INJ SUB-Q SCH (10:48)
--- NOTE | 2019-12-15 11:07 | Progress Note ---
Subjective Date of service: 12/15/19 Principal diagnosis: sepsis, hypotension, acute kidney injury Interval history: 69 yo M PMHx HTN, COPD, DM2, CVA with R sided defect [facility] and fever. Patient is a very poor historian and reports that he does not know why he is in the hospital and does not elaborate further. He was found to be hypotensive in the ER and did not immediately respond to IV fluids and required a levophed drip. He was started on empiric antibiotics due to leukocytosis and hypotension. Objective - Constitutional Vitals: Vital Signs Temp Pulse Resp BP Pulse Ox 99.1 F 69 20 139/62 93 12/15/19 03:48 12/15/19 08:56 12/15/19 03:48 12/15/19 03:48 12/15/19 10:23 Temperature -Last 24 Hours Temperature 99.1 F Temperature 98.0 F Temperature 98.1 F Temperature 98.0 F Temperature 98.3 F - Labs CBC & Chem 7: 12/15/19 04:57 12/15/19 04:57 Labs: Abnormal lab results 12/14/19 12/14/19 12/14/19 Range/Units 11:59 18:46 21:41 WBC (4.5-11.0) K/mm3 RBC (3.65-5.03) M/mm3 Hgb (11.8-15.2) gm/dl Hct (35.5-45.6) % Chloride (98-107) mmol/L Carbon Dioxide (22-30) mmol/L BUN (9-20) mg/dL Glucose (75-100) mg/dL POC Glucose 113 H 146 H 120 H (70-105) 12/15/19 12/15/19 12/15/19 Range/Units 03:23 04:57 04:57 WBC 11.9 H (4.5-11.0) K/mm3 RBC 3.00 L (3.65-5.03) M/mm3 Hgb 8.9 L (11.8-15.2) gm/dl Hct 26.4 L (35.5-45.6) % Chloride 108.2 H (98-107) mmol/L Carbon Dioxide 21 L (22-30) mmol/L BUN 22 H (9-20) mg/dL Glucose 124 H (75-100) mg/dL POC Glucose 129 H (70-105)
--- NOTE | 2019-12-15 11:14 | Consultation ---
History of Present Illness - Reason for Consult Consult date: 12/15/19 - History of Present Illness 69 yo M PMHx HTN, COPD, DM2, CVA with R sided defect admitted to the hospital from his longterm due to hypotension and fever. Patient is a very poor historian and reports that he does not know why he is in the hospital and does not elaborate further. He was found to be hypotensive in the ER and did not immediately respond to IV fluids and required a levophed drip. He was started on empiric antibiotics due to leukocytosis and hypotension. He was admitted two weeks ago for chest pain after his defibrillator fired. Afebrile since admission with a white count that has improved from 28 to 12. Currently receiving Zosyn. Blood cultures are pending, urine cultures are negative. Imaging personally reviewed: CT chest: R>L basilar opacity. Review of Systems: Bold if positive, otherwise negative General: fevers, chills, rigors HEENT: visual disturbance, diplopia, eye pain Respiratory: cough, sputum, hemoptysis, shortness of breath Cardiovascular: chest pain, syncope Gastrointestinal: nausea, vomiting, diarrhea, abdominal pain Genitourinary: dysuria, hematuria, flank pain Musculoskeletal: neck pain, back pain, joint pain, edema Neurologic: headaches, seizures Hematologic: easy bruising or bleeding Endocrine: night sweats, acute weight loss Skin: rash, jaundice, redness Psychiatric: suicidal, homicidal ideation Past History Past Medical History: COPD, diabetes, heart failure, hypertension, hyperlipidemia Past Surgical History: CABG, Other (AICD) Social history: other (lives at longterm ) Family history: hypertension Medications and Allergies Allergies Allergy/AdvReac Type Severity Reaction Status Date / Time No Known Allergies Allergy Unverified 11/13/17 00:30 Home Medications Medication Instructions Recorded Confirmed Last Taken Type Amlodipine Besylate [Norvasc] 2.5 mg PO DAILY 11/13/17 12/13/19 Unknown History Ascorbic Acid [Vitamin C] 500 mg PO DAILY 11/13/17 12/13/19 Unknown History Ferrous Sulfate [Feosol 325 MG tab] 325 mg PO BID 11/13/17 12/13/19 Unknown History Sertraline [Zoloft] 100 mg PO DAILY 11/13/17 12/14/19 Unknown History lisinopriL [Zestril TAB] 40 mg PO QDAY PRN 11/13/17 12/13/19 1 Day Ago History ~03/29/18 Acetaminophen [Acetaminophen TAB] 650 mg PO Q4H PRN #15 tablet 11/28/18 12/13/19 Unknown Rx Spironolactone [Aldactone] 25 mg PO QDAY #30 tablet 11/28/18 12/13/19 Unknown Rx Acetaminophen [Mapap] 2 tab PO Q12H PRN 12/13/19 12/13/19 Unknown History Albuterol Sulfate [Proair 90 mcg IH Q4H PRN 12/13/19 12/13/19 Unknown History Respiclick] Aspirin [Aspirin BABY CHEW TAB] 81 mg PO DAILY 12/13/19 12/13/19 Unknown History AtorvaSTATin [Lipitor] 40 mg PO QHS 12/13/19 12/13/19 Unknown History Cholecalciferol Vit D3 [Vitamin D3 1,000 unit PO QDAY 12/13/19 12/13/19 Unknown History 1,000 UNIT TAB] Docusate Sodium [Colace] 100 mg PO BID PRN 12/13/19 12/13/19 Unknown History Fluticasone Propionate [Flovent 50 mcg IH Q24H PRN 12/13/19 12/13/19 Unknown History Diskus] Furosemide [Lasix] 20 mg PO BID 12/13/19 12/13/19 Unknown History Furosemide [Lasix] 20 mg PO QDAY 12/13/19 12/13/19 Unknown History Gabapentin [Neurontin] 300 mg PO BID 12/13/19 12/13/19 Unknown History Insulin Glargine [Lantus VIAL] 10 unit SUB-Q QHS 12/13/19 12/13/19 Unknown H istory Insulin Lispro [Humalog 100 0 units SQ AC 12/13/19 12/13/19 Unknown History UNITS/ML Kwikpen] Ipratropium [Atrovent] 0.5 mg IH Q6HRT PRN 12/13/19 12/13/19 Unknown History Polyethylene Glycol 3350 [Miralax 17 gm PO Q24H PRN 12/13/19 12/13/19 Unknown History 3350] Sennosides [Senna] 8.6 mg PO HS PRN 12/13/19 12/13/19 Unknown History clonazePAM 0.5 mg PO HS 12/13/19 12/13/19 Unknown History guaiFENesin [Robitussin] 100 mg PO Q6H PRN 12/13/19 12/13/19 Unknown History metFORMIN [Glucophage] 500 mg PO BID 12/13/19 12/13/19 Unknown History predniSONE [Deltasone] 20 mg PO QDAY 12/13/19 12/13/19 Unknown History traMADoL [Ultram] 50 mg PO Q6HR PRN 12/13/19 12/13/19 Unknown History Active Meds: Active Medications Acetaminophen (Tylenol) 650 mg PO Q4H PRN PRN Reason: Pain MILD(1-3)/Fever >100.5/SANCHEZ Last Admin: 12/14/19 21:55 Dose: 650 mg Documented by: Acetaminophen (Tylenol) 650 mg [place] Q4H PRN PRN Reason: Pain MILD(1-3)/Fever >100.5/SANCHEZ Benzonatate (Tessalon Perles) 100 mg PO Q6H PRN PRN Reason: Cough Last Admin: 12/15/19 03:33 Dose: 100 mg Documented by: Clonazepam (Klonopin) 0.5 mg PO QHS PRN PRN Reason: Anxiety Last Admin: 12/15/19 02:08 Dose: 0.5 mg Documented by: Enoxaparin Sodium (Enoxaparin) 40 mg SUB-Q QDAY@1000 YOLY Last Admin: 12/15/19 10:48 Dose: 40 mg Documented by: Sodium Chloride (Nacl 0.45% 1000 Ml) 1,000 mls @ 50 mls/hr IV DIRECT YOLY Last Admin: 12/15/19 03:34 Dose: 50 mls/hr Documented by: Piperacillin Sod/Tazobactam Sod (Zosyn/Ns 2.25 Gm/50ml) 2.25 gm in 50 mls @ 100 mls/hr IV Q6HR [facility]; Protocol Stop: 12/17/19 23:59 Last Admin: 12/15/19 05:35 Dose: 100 mls/hr Documented by: Ondansetron HCl (Zofran) 4 mg IV Q8H PRN PRN Reason: Nausea And Vomiting Sodium Chloride (Sodium Chloride Flush Syringe 10 Ml) 10 ml IV BID [facility] Last Admin: 12/14/19 23:05 Dose: Not Given Documented by: Sodium Chloride (Sodium Chloride Flush Syringe 10 Ml) 10 ml IV PRN PRN PRN Reason: LINE FLUSH Physical Examination - Physical Exam Narrative exam: Constitutional: Alert, cooperative. No acute distress, obese Head, Ears, Nose: Normocephalic, atraumatic. External ears, nose normal Eyes: Conjunctivae/corneas clear. No icterus. No ptosis. Neck: Supple, no meningeal signs Oral: dentition fair, no thrush Cardiovascular: S1, S2 normal. Respiratory: Good air entry, clear to auscultation bilaterally GI: Soft, non-tender; bowel sounds normal. No peritoneal signs. Musculoskeletal: No pedal edema, no cyanosis. Skin: No rash or abscess Hem/Lymphatic: No palpable cervical or supraclavicular nodes. No lymphangitis Psych: Mood ok. Affect normal Neurological: Awake, alert, oriented. No gross abnormality - Constitutional Vitals: Vital Signs Temp Pulse Resp BP Pulse Ox 99.1 F 69 20 139/62 93 12/15/19 03:48 12/15/19 08:56 12/15/19 03:48 12/15/19 03:48 12/15/19 10:23 Temperature -Last 24 Hours Temperature 99.1 F Temperature 98.0 F Temperature 98.1 F Temperature 98.0 F Temperature 98.3 F Results - Labs CBC & Chem 7: 12/15/19 04:57 12/15/19 04:57 Labs: Abnormal lab results 12/14/19 12/14/19 12/14/19 Range/Units 11:59 18:46 21:41 WBC (4.5-11.0) K/mm3 RBC (3.65-5.03) M/mm3 Hgb (11.8-15.2) gm/dl Hct (35.5-45.6) % Chloride (98-107) mmol/L Carbon Dioxide (22-30) mmol/L BUN (9-20) mg/dL Glucose (75-100) mg/dL POC Glucose 113 H 146 H 120 H (70-105) 12/15/19 12/15/19 12/15/19 Range/Units 03:23 04:57 04:57 WBC 11.9 H (4.5-11.0) K/mm3 RBC 3.00 L (3.65-5.03) M/mm3 Hgb 8.9 L (11.8-15.2) gm/dl Hct 26.4 L (35.5-45.6) % Chloride 108.2 H (98-107) mmol/L Carbon Dioxide 21 L (22-30) mmol/L BUN 22 H (9-20) mg/dL Glucose 124 H (75-100) mg/dL POC Glucose 129 H (70-105) Assessment and Plan Cultures: 12/13/2019 blood cultures: pending 12/13/2019 urine cultures: negative A&P: 69 yo M PMHx HTN, COPD, DM2, CVA with R sided defect admitted with altered mental status and leukocytosis. #Leukocytosis: secondary to UTI vs PNA. Urine cultures negative, persistent opacities seen on CT of the chest. Patient not able to well explain any symptoms, though confusion more often associated with UTI. #AMS: Patient likely has decreased reserves based on history of stroke. Possibly due to UTI vs PNA. Improved #PNA: persistent opacities seen on CT. #UTI: cultures negative #HANNAH: improved. Recommendations: - agree with Zosyn for now. Increase dose to 3.375g q8h due to improved renal function - plan on 7 day course of antibiotics based on recent hospital exposure. - Ordered sputum cultures Thank you for the consult, we will continue to follow. MD Pedro [facility] ([facility] M: [phone] O: [phone] F: [phone]
[2019-12-15] MEDS: PIPERACIL/TAZOBACTA 4.5/NS 100 4.5 GM/100 ML VIAL IV SCH ×2 (13:44→17:44)
[2019-12-15] MEDS ORDERED: PIPERACILLIN/TAZOBACTAM 3.375 3.375 GM/50 ML BAG IV SCH (14:00)
--- NOTE | 2019-12-15 15:37 | Progress Note ---
Assessment and Plan - Patient Problems (1) Other acute kidney failure Current Visit: Yes Status: Acute Plan to address problem: Acute kidney injury probably prerenal azotemia secondary to sepsis/hypotension. Kidney function is still improving. Hyperkalemia resolved. Follow-up electrolytes and renal function (2) Chronic heart failure Current Visit: Yes Status: Acute Plan to address problem: Stable volume status now. Monitor closely (3) Type 2 diabetes mellitus with diabetic nephropathy Current Visit: Yes Status: Acute Plan to address problem: Blood sugar management by primary attending (4) Nephrolithiasis Current Visit: Yes Status: Acute Plan to address problem: No obstruction. Management of nephrolithiasis as an outpatient. (5) Altered mental status Current Visit: Yes Status: Acute Plan to address problem: Resolved toxic encephalopathy. Mental status back to baseline (6) Hypertensive chronic kidney disease with stage 1 through stage 4 chronic kidney disease, or unspecified chronic kidney disease Current Visit: Yes Status: Chronic Plan to address problem: Blood pressure improved and is normal. Continue to hold hypotensive medications and follow-up (7) Sepsis with hypotension Current Visit: Yes Status: Acute Plan to address problem: Presumed urinary tract infection. Cultures negative so far. Continue empiric antibiotics and follow-up cultures Subjective Date of service: 12/15/19 Principal diagnosis: sepsis, hypotension, acute kidney injury Interval history: Patient seen lying in bed. Complains of pain in his foot. Denies chest pain, shortness of breath, nausea or vomiting. Objective - Exam Narrative Exam: Morbidly obese elderly male lying in bed in no acute distress HEENT: NCAT, pink oral mucous membrane Neck: Supple, no venous distention CVS: S1S2 RRR with no murmur, rub or gallop Chest: Clear to auscultation with decreased breath sounds in lower zones Abdomen: Obese, soft, nontender, no organomegaly, bowel sounds are present Extremities: No edema Neuro: Awake, alert no focal deficits - Vital Signs Vital signs: Vital Signs - 12hr 12/15/19 12/15/19 12/15/19 03:48 08:56 10:23 Temperature 99.1 F Pulse Rate 69 69 Respiratory 20 Rate Blood Pressure 139/62 O2 Sat by Pulse 97 93 Oximetry 12/15/19 10:24 Temperature Pulse Rate Respiratory 24 Rate Blood Pressure O2 Sat by Pulse 97 Oximetry - Lab 12/15/19 04:57 12/15/19 04:57 Most recent lab results ABG pH 7.325 pH Units (7.350-7.450) L 12/13/19 04:07 ABG pCO2 40.9 mm Hg 12/13/19 04:07 ABG pO2 85.5 mm Hg (80.0-90.0) 12/13/19 04:07 ABG HCO3 20.8 mmol/L (20.0-26.0) 12/13/19 04:07 ABG O2 Saturation 96.6 % (95.0-99.0) 12/13/19 04:07 Calcium 9.1 mg/dL (8.4-10.2) 12/15/19 04:57 Phosphorus 3.10 mg/dL (2.5-4.5) 12/13/19 06:00 Magnesium 1.80 mg/dL (1.7-2.3) 12/13/19 06:00 Medications & Allergies - Medications Allergies/Adverse Reactions: Allergies No Known Allergies Allergy (Unverified 11/13/17 00:30) Home Medications: Home Medications Medication Instructions Recorded Confirmed Last Taken Type Amlodipine Besylate [Norvasc] 2.5 mg PO DAILY 11/13/17 12/13/19 Unknown History Ascorbic Acid [Vitamin C] 500 mg PO DAILY 11/13/17 12/13/19 Unknown History Ferrous Sulfate [Feosol 325 MG tab] 325 mg PO BID 11/13/17 12/13/19 Unknown History Sertraline [Zoloft] 100 mg PO DAILY 11/13/17 12/14/19 Unknown History lisinopriL [Zestril TAB] 40 mg PO QDAY PRN 11/13/17 12/13/19 1 Day Ago History ~03/29/18 Acetaminophen [Acetaminophen TAB] 650 mg PO Q4H PRN #15 tablet 11/28/18 12/13/19 Unknown Rx Spironolactone [Aldactone] 25 mg PO QDAY #30 tablet 11/28/18 12/13/19 Unknown Rx Acetaminophen [Mapap] 2 tab PO Q12H PRN 12/13/19 12/13/19 Unknown History Albuterol Sulfate [Proair 90 mcg IH Q4H PRN 12/13/19 12/13/19 Unknown History Respiclick] Aspirin [Aspirin BABY CHEW TAB] 81 mg PO DAILY 12/13/19 12/13/19 Unknown History AtorvaSTATin [Lipitor] 40 mg PO QHS 12/13/19 12/13/19 Unknown History Cholecalciferol Vit D3 [Vitamin D3 1,000 unit PO QDAY 12/13/19 12/13/19 Unknown History 1,000 UNIT TAB] Docusate Sodium [Colace] 100 mg PO BID PRN 12/13/19 12/13/19 Unknown History Fluticasone Propionate [Flovent 50 mcg IH Q24H PRN 12/13/19 12/13/19 Unknown History Diskus] Furosemide [Lasix] 20 mg PO BID 12/13/19 12/13/19 Unknown History Furosemide [Lasix] 20 mg PO QDAY 12/13/19 12/13/19 Unknown History Gabapentin [Neurontin] 300 mg PO BID 12/13/19 12/13/19 Unknown History Insulin Glargine [Lantus VIAL] 10 unit SUB-Q QHS 12/13/19 12/13/19 Unknown History Insulin Lispro [Humalog 100 0 units SQ AC 12/13/19 12/13/19 Unknown History UNITS/ML Kwikpen] Ipratropium [Atrovent] 0.5 mg IH Q6HRT PRN 12/13/19 12/13/19 Unknown History Polyethylene Glycol 3350 [Miralax 17 gm PO Q24H PRN 12/13/19 12/13/19 Unknown History 3350] Sennosides [Senna] 8.6 mg PO HS PRN 12/13/19 12/13/19 Unknown History clonazePAM 0.5 mg PO HS 12/13/19 12/13/19 Unknown History guaiFENesin [Robitussin] 100 mg PO Q6H PRN 12/13/19 12/13/19 Unknown History metFORMIN [Glucophage] 500 mg PO BID 12/13/19 12/13/19 Unknown History predniSONE [Deltasone] 20 mg PO QDAY 12/13/19 12/13/19 Unknown History traMADoL [Ultram] 50 mg PO Q6HR PRN 12/13/19 12/13/19 Unknown History Active Medications: Generic Name Dose Route Start Last Admin Trade Name Freq PRN Reason Stop Dose Admin Acetaminophen 650 mg 12/13/19 05:49 12/14/19 21:55 Tylenol PO 650 mg Q4H PRN Administration Pain MILD(1-3)/Fever >100.5/SANCHEZ Acetaminophen 650 mg 12/13/19 05:49 Tylenol [place] Q4H PRN Pain MILD(1-3)/Fever >100.5/SANCHEZ Benzonatate 100 mg 12/14/19 00:20 12/15/19 03:33 Tessalon Perles PO 100 mg Q6H PRN Administration Cough Clonazepam 0.5 mg 12/14/19 22:05 12/15/19 02:08 Klonopin PO 0.5 mg QHS PRN Administration Anxiety Enoxaparin Sodium 40 mg 12/13/19 10:00 12/15/19 10:48 Enoxaparin SUB-Q 40 mg QDAY@1000 YOLY Administration Sodium Chloride 1,000 mls @ 50 mls/hr 12/13/19 06:30 12/15/19 03:34 Nacl 0.45% 1000 Ml IV 50 mls/hr DIRECT YOLY Administration Piperacillin Sod/Tazobactam Sod 4.5 gm in 100 mls @ 100 mls/hr 12/15/19 12:00 Zosyn/Ns 4.5gm/100ml IV Q6HR YOLY Ondansetron HCl 4 mg 12/13/19 05:49 Zofran IV Q8H PRN Nausea And Vomiting Sodium Chloride 10 ml 12/13/19 10:00 12/14/19 23:05 Sodium Chloride Flush Syringe 10 Ml IV Not Given BID YOLY Sodium Chloride 10 ml 12/13/19 05:49 Sodium Chloride Flush Syringe 10 Ml IV PRN PRN LINE FLUSH
[2019-12-15] MEDS: ACETAMINOPHEN 325 MG TAB PO PRN (17:43)
[2019-12-16] MEDS: PIPERACIL/TAZOBACTA 4.5/NS 100 4.5 GM/100 ML VIAL IV SCH ×2 (02:48→06:13)
[2019-12-16 05:07] LABS: Hematocrit 26.5 % (35.5-45.6); Hemoglobin 8.9 gm/dl (11.8-15.2); Mean Corpuscular HGB Conc 33 % (32-34); Mean Corpuscular Volume 88 fl (84-94); Platelet Count 253 K/mm3 (140-440); Red Blood Count 3.02 M/mm3 (3.65-5.03); Red Cell Distribution Width 14.2 % (13.2-15.2)
[2019-12-16 05:29] LABS: Calcium 8.4 mg/dL (8.4-10.2)
[2019-12-16 09:13] VITALS: BP 134/56
[2019-12-16] MEDS: ENOXAPARIN 40 MG/0.4 ML INJ SUB-Q SCH (10:32)
[2019-12-16] MEDS: BENZONATATE 100 MG CAP PO PRN (10:35)
--- NOTE | 2019-12-16 11:12 | Progress Note ---
Assessment and Plan - Patient Problems (1) Acute renal failure Current Visit: Yes Status: Acute Plan to address problem: Acute kidney injury probably prerenal azotemia secondary to sepsis/hypotension. Kidney function is still improving. Hyperkalemia resolved. Follow-up electrolytes and renal function (2) Chronic heart failure Current Visit: Yes Status: Acute Plan to address problem: Stable volume status now. Monitor closely (3) Type 2 diabetes mellitus with diabetic nephropathy Current Visit: Yes Status: Acute Plan to address problem: Blood sugar management by primary attending (4) Nephrolithiasis Current Visit: Yes Status: Acute Plan to address problem: No obstruction. Management of nephrolithiasis as an outpatient. (5) Altered mental status Current Visit: Yes Status: Acute Plan to address problem: Resolved toxic encephalopathy. Mental status back to baseline (6) Sepsis Current Visit: Yes Status: Acute Plan to address problem: Presumed urinary tract infection. Cultures negative so far. Continue empiric antibiotics and follow-up cultures (7) Hypertensive chronic kidney disease with stage 1 through stage 4 chronic kidney disease, or unspecified chronic kidney disease Current Visit: Yes Status: Chronic Plan to address problem: Blood pressure improved and is normal. Continue to hold hypotensive medications and follow-up Subjective Date of service: 12/16/19 Principal diagnosis: sepsis, hypotension, acute kidney injury Interval history: Pt awake, alert, in no acute distress Objective - Vital Signs Vital signs: Vital Signs - 12hr 12/15/19 12/16/19 12/16/19 23:25 06:00 07:24 Temperature 98.0 F 98.0 F 98.4 F Pulse Rate 69 63 Respiratory 18 18 26 H Rate Blood Pressure 132/52 132/50 134/56 O2 Sat by Pulse 93 94 Oximetry - General Appearance General appearance: well-developed, well-nourished, appears stated age EENT: ATNC, PERRL, mucous membranes moist Neck: no JVD Respiratory: Present: Clear to Ascultation Cardiology: regular, S1S2 Gastrointestinal: normoactive bowel sounds Integumentary: no rash Neurologic: no focal deficit, alert and oriented x3, strength 5/5, CN 3-12 intact Psychiatric: mood/affect appropriate, cooperative - Lab 12/16/19 04:36 12/16/19 04:36 Most recent lab results ABG pH 7.325 pH Units (7.350-7.450) L 12/13/19 04:07 ABG pCO2 40.9 mm Hg 12/13/19 04:07 ABG pO2 85.5 mm Hg (80.0-90.0) 12/13/19 04:07 ABG HCO3 20.8 mmol/L (20.0-26.0) 12/13/19 04:07 ABG O2 Saturation 96.6 % (95.0-99.0) 12/13/19 04:07 Calcium 8.4 mg/dL (8.4-10.2) 12/16/19 04:36 Phosphorus 3.10 mg/dL (2.5-4.5) 12/13/19 06:00 Magnesium 1.80 mg/dL (1.7-2.3) 12/13/19 06:00 Medications & Allergies - Medications Allergies/Adverse Reactions: Allergies No Known Allergies Allergy (Unverified 11/13/17 00:30) Home Medications: Home Medications Medication Instructions Recorded Confirmed Last Taken Type Amlodipine Besylate [Norvasc] 2.5 mg PO DAILY 11/13/17 12/13/19 Unknown History Ascorbic Acid [Vitamin C] 500 mg PO DAILY 11/13/17 12/13/19 Unknown History Ferrous Sulfate [Feosol 325 MG tab] 325 mg PO BID 11/13/17 12/13/19 Unknown History Sertraline [Zoloft] 100 mg PO DAILY 11/13/17 12/14/19 Unknown History lisinopriL [Zestril TAB] 40 mg PO QDAY PRN 11/13/17 12/13/19 1 Day Ago History ~03/29/18 Acetaminophen [Acetaminophen TAB] 650 mg PO Q4H PRN #15 tablet 11/28/18 12/13/19 Unknown Rx Spironolactone [Aldactone] 25 mg PO QDAY #30 tablet 11/28/18 12/13/19 Unknown Rx Acetaminophen [Mapap] 2 tab PO Q12H PRN 12/13/19 12/13/19 Unknown History Albuterol Sulfate [Proair 90 mcg IH Q4H PRN 12/13/19 12/13/19 Unknown History Respiclick] Aspirin [Aspirin BABY CHEW TAB] 81 mg PO DAILY 12/13/19 12/13/19 Unknown History AtorvaSTATin [Lipitor] 40 mg PO QHS 12/13/19 12/13/19 Unknown History Cholecalciferol Vit D3 [Vitamin D3 1,000 unit PO QDAY 12/13/19 12/13/19 Unknown History 1,000 UNIT TAB] Docusate Sodium [Colace] 100 mg PO BID PRN 12/13/19 12/13/19 Unknown History Fluticasone Propionate [Flovent 50 mcg IH Q24H PRN 12/13/19 12/13/19 Unknown History Diskus] Furosemide [Lasix] 20 mg PO BID 12/13/19 12/13/19 Unknown History Furosemide [Lasix] 20 mg PO QDAY 12/13/19 12/13/19 Unknown History Gabapentin [Neurontin] 300 mg PO BID 12/13/19 12/13/19 Unknown History Insulin Glargine [Lantus VIAL] 10 unit SUB-Q QHS 12/13/19 12/13/19 Unknown History Insulin Lispro [Humalog 100 0 units SQ AC 12/13/19 12/13/19 Unknown History UNITS/ML Kwikpen] Ipratropium [Atrovent] 0.5 mg IH Q6HRT PRN 12/13/19 12/13/19 Unknown History Polyethylene Glycol 3350 [Miralax 17 gm PO Q24H PRN 12/13/19 12/13/19 Unknown History 3350] Sennosides [Senna] 8.6 mg PO HS PRN 12/13/19 12/13/19 Unknown History clonazePAM 0.5 mg PO HS 12/13/19 12/13/19 Unknown History guaiFENesin [Robitussin] 100 mg PO Q6H PRN 12/13/19 12/13/19 Unknown History metFORMIN [Glucophage] 500 mg PO BID 12/13/19 12/13/19 Unknown History predniSONE [Deltasone] 20 mg PO QDAY 12/13/19 12/13/19 Unknown History traMADoL [Ultram] 50 mg PO Q6HR PRN 12/13/19 12/13/19 Unknown History Active Medications: Generic Name Dose Route Start Last Admin Trade Name Freq PRN Reason Stop Dose Admin Acetaminophen 650 mg 12/13/19 05:49 12/15/19 17:43 Tylenol PO 650 mg Q4H PRN Administration Pain MILD(1-3)/Fever >100.5/SANCHEZ Acetaminophen 650 mg 12/13/19 05:49 Tylenol [place] Q4H PRN Pain MILD(1-3)/Fever >100.5/SANCHEZ Benzonatate 100 mg 12/14/19 00:20 12/16/19 10:35 Tessalon Perles PO 100 mg Q6H PRN Administration Cough Clonazepam 0.5 mg 12/14/19 22:05 12/15/19 02:08 Klonopin PO 0.5 mg QHS PRN Administration Anxiety Enoxaparin Sodium 40 mg 12/13/19 10:00 12/16/19 10:32 Enoxaparin SUB-Q 40 mg QDAY@1000 YOLY Administration Sodium Chloride 1,000 mls @ 50 mls/hr 12/13/19 06:30 12/15/19 03:34 Nacl 0.45% 1000 Ml IV 50 mls/hr DIRECT YOLY Administration Piperacillin Sod/Tazobactam Sod 4.5 gm in 100 mls @ 100 mls/hr 12/15/19 12:00 12/16/19 06:13 Zosyn/Ns 4.5gm/100ml IV 100 mls/hr Q6HR YOLY Administration Ondansetron HCl 4 mg 12/13/19 05:49 Zofran IV Q8H PRN Nausea And Vomiting Sodium Chloride 10 ml 12/13/19 10:00 12/15/19 22:09 Sodium Chloride Flush Syringe 10 Ml IV Not Given BID YOLY Sodium Chloride 10 ml 12/13/19 05:49 Sodium Chloride Flush Syringe 10 Ml IV PRN PRN LINE FLUSH
[2019-12-16] MEDS ORDERED: PIPERACILLIN/TAZOBACTAM 3.375 3.375 GM/50 ML BAG IV SCH (14:00)
--- NOTE | 2019-12-16 14:41 | Progress Note ---
Assessment and Plan Cultures: 12/13/2019 blood cultures: pending 12/13/2019 urine cultures: negative A&P: 69 yo M PMHx HTN, COPD, DM2, CVA with R sided defect admitted with altered mental status and leukocytosis. #Leukocytosis: secondary to UTI vs PNA. Urine cultures negative, persistent opacities seen on CT of the chest. Patient not able to well explain any symptoms, though confusion more often associated with UTI. #AMS: Patient likely has decreased reserves based on history of stroke. Possibly due to UTI vs PNA. Improved #PNA: persistent opacities seen on CT. #UTI: cultures negative #HANNAH: improved. Recommendations: - agree with Zosyn for now. Increase dose to 3.375g q8h due to improved renal function - plan on 7 day course of antibiotics based on recent hospital exposure. - Ordered sputum cultures - Ok for discharge from ID perspective on Augmentin 875/125mg q12h to complete 7 days (stop date: 12/21/2019) Thank you for the consult, we will sign off. Sharonda Franco MD [facility] ([facility] M: [phone] O: [phone] F: [phone] Subjective Date of service: 12/16/19 Principal diagnosis: sepsis, hypotension, acute kidney injury Interval history: Afebrile, feeling improved. Objective - Exam Narrative Exam: Constitutional: Alert, cooperative. No acute distress, obese Head, Ears, Nose: Normocephalic, atraumatic. External ears, nose normal Oral: dentition fair, no thrush Cardiovascular: S1, S2 normal. Respiratory: Good air entry, clear to auscultation bilaterally GI: Soft, non-tender; bowel sounds normal. No peritoneal signs. Musculoskeletal: No pedal edema, no cyanosis. Skin: No rash or abscess Hem/Lymphatic: No palpable cervical or supraclavicular nodes. No lymphangitis Psych: Mood ok. Affect normal Neurological: Awake, alert, oriented. No gross abnormality - Constitutional Vitals: Vital Signs Temp Pulse Resp BP Pulse Ox 98.4 F 63 22 134/56 96 12/16/19 07:24 12/16/19 10:00 12/16/19 10:00 12/16/19 07:24 12/16/19 10:00 Temperature -Last 24 Hours Temperature 98.4 F Temperature 98.0 F Temperature 98.0 F Temperature 98.0 F Temperature 98.6 F - Labs CBC & Chem 7: 12/16/19 04:36 12/16/19 04:36 Labs: Abnormal lab results 12/15/19 12/16/19 12/16/19 Range/Units 16:33 04:36 04:36 WBC 11.7 H (4.5-11.0) K/mm3 RBC 3.02 L (3.65-5.03) M/mm3 Hgb 8.9 L (11.8-15.2) gm/dl Hct 26.5 L (35.5-45.6) % Carbon Dioxide 21 L (22-30) mmol/L Glucose 143 H (75-100) mg/dL POC Glucose 121 H (70-105) 12/16/19 12/16/19 Range/Units 09:30 12:31 WBC (4.5-11.0) K/mm3 RBC (3.65-5.03) M/mm3 Hgb (11.8-15.2) gm/dl Hct (35.5-45.6) % Carbon Dioxide (22-30) mmol/L Glucose (75-100) mg/dL POC Glucose 127 H 128 H (70-105)
--- NOTE | 2019-12-16 14:49 | Discharge Summary ---
Providers - Providers Date of Admission: 12/13/19 06:05 Date of discharge: 12/16/19 Attending physician: PASQUALE MARES 12/13/19 05:52 Consult to Physician [CONS] Routine Comment: spoke with Dr. Sandy @ [phone] Consulting Provider: RAHEL CRAWFORD Physician Instructions: Reason For Exam: arf 12/14/19 10:23 Consult to Physician [CONS] Routine Comment: Consulting Provider: JULIETA MOSES Physician Instructions: Reason For Exam: Sepsis, leukocytosis, UTI Primary care physician: NE HADLEY Hospitalization Condition: Fair Disposition: DC/[place]-03 SNF [facility] CERT Core Measure Documentation - Palliative Care Palliative Care/ Comfort Measures: Not Applicable - Core Measures Any of the following diagnoses?: none Exam - Constitutional Vitals: Temp Pulse Resp BP Pulse Ox 98.4 F 63 22 134/56 96 12/16/19 07:24 12/16/19 10:00 12/16/19 10:00 12/16/19 07:24 12/16/19 10:00 Plan Activity: advance as tolerated Diet: low fat, low cholesterol, low salt Plan of Treatment: 1.Follow up with Physician at SNF in 1 week Follow up with: NE HADLEY MD [Primary Care Provider] - 3-5 Days
== END 2019-12-16 17:10 | DRG 871 ==
LOC: ED 01:25 → CC1 06:05 → 4A 12-14 00:55
PROVIDERS: ADMIT Internal Medicine; ATTEND Internal Medicine
PROC: 4A033R1 Measurement of Arterial Saturation, Peripheral, Percutaneous Approach (ICD-10-PCS; principal; 2019-12-13)
PROC: 5A09357 Assistance with Respiratory Ventilation, Less than 24 Consecutive Hours, Continuous Positive Airway Pressure (ICD-10-PCS; 2019-12-13)
PROC: 5A09357 Assistance with Respiratory Ventilation, Less than 24 Consecutive Hours, Continuous Positive Airway Pressure (ICD-10-PCS; 2019-12-14)
PROC: 5A09357 Assistance with Respiratory Ventilation, Less than 24 Consecutive Hours, Continuous Positive Airway Pressure (ICD-10-PCS; 2019-12-15)
DX: A41.9 Sepsis, unspecified organism (principal); N17.0 Acute kidney failure with tubular necrosis; J18.9 Pneumonia, unspecified organism; N39.0 Urinary tract infection, site not specified; I13.0 Hypertensive heart and chronic kidney disease with heart failure and stage 1 through stage 4 chronic kidney disease, or unspecified chronic kidney disease; I50.32 Chronic diastolic (congestive) heart failure; J44.9 Chronic obstructive pulmonary disease, unspecified; E11.21 Type 2 diabetes mellitus with diabetic nephropathy; N18.9 Chronic kidney disease, unspecified; E11.22 Type 2 diabetes mellitus with diabetic chronic kidney disease; N20.0 Calculus of kidney; I95.9 Hypotension, unspecified; E87.5 Hyperkalemia; G47.30 Sleep apnea, unspecified; F41.8 Other specified anxiety disorders; E78.5 Hyperlipidemia, unspecified; R53.83 Other fatigue; R41.82 Altered mental status, unspecified; N40.0 Benign prostatic hyperplasia without lower urinary tract symptoms; Z86.73 Personal history of transient ischemic attack (TIA), and cerebral infarction without residual deficits; Z82.49 Family history of ischemic heart disease and other diseases of the circulatory system; Z95.1 Presence of aortocoronary bypass graft; Z79.4 Long term (current) use of insulin; Z79.899 Other long term (current) drug therapy; Z87.891 Personal history of nicotine dependence
CPT/HCPCS: 36415; 70450; 71045; 71250; 76770; 80048; 80053; 81001; 82140; 82550; 82553; 82803; 82962; 83735; 83880; 84100; 84132; 84484; 85007; 85025; 85027; 85730; 87040; 87086; 93005; 93010; 94640; 94644; 94660; 94760; G0378; J0610; J0692; J1650; J1815; J2543; J3370; J7030; J7040

== ENCOUNTER 2020-03-18 21:36 | Observation (INO) | payer MEDICARE ==
--- NOTE | 2020-03-18 21:59 | Emergency Department Report ---
HPI - General Chief Complaint: Arrhythmia/Palpitations PUI?: No Time Seen by Provider: 03/18/20 21:41 - HPI HPI: Room 22 The patient is a 69-year-old male present with a chief complaint of AICD firing. The patient is a resident at [facility] and states he was laying in his bed at rest when suddenly his AICD fired. Patient denied having any preceding symptoms including chest pain, shortness of breath or palpitations. Patient states he was in his usual state of health when the device fired. He states the AICD fired a total of approximately 7-8 times with 4 of them being in the ambulance while he was being transported to the ED. When asked how he is feeling currently the patient replies he feels all right. ED Past Medical Hx - Past Medical History Hx Hypertension: Yes Hx CVA: Yes Hx Congestive Heart Failure: Yes Hx Diabetes: Yes Hx Arthritis: Yes Hx Psychiatric Treatment: Yes (anxiety, depression) Hx COPD: Yes Additional medical history: Sleep apnea, Kidney disease, Prostate disease, right side paraplegic, Defibrillator - Surgical History Hx Internal Defibrillator: Yes Additional Surgical History: Right knee - Family History Family history: no significant - Social History Smoking Status: Never Smoker Substance Use Type: None - Medications Home Medications: Home Medications Medication Instructions Recorded Confirmed Last Taken Type Ascorbic Acid [Vitamin C] 500 mg PO DAILY 11/13/17 12/13/19 Unknown History Ferrous Sulfate [Feosol 325 MG tab] 325 mg PO BID 11/13/17 12/13/19 Unknown History Sertraline [Zoloft] 100 mg PO DAILY 11/13/17 12/14/19 Unknown History Acetaminophen [Acetaminophen TAB] 650 mg PO Q4H PRN #15 tablet 11/28/18 12/13/19 Unknown Rx Spironolactone [Aldactone] 25 mg PO QDAY #30 tablet 11/28/18 12/13/19 Unknown Rx Acetaminophen [Mapap] 2 tab PO Q12H PRN 12/13/19 12/13/19 Unknown History Albuterol Sulfate [Proair 90 mcg IH Q4H PRN 12/13/19 12/13/19 Unknown History Respiclick] Aspirin [Aspirin BABY CHEW TAB] 81 mg PO DAILY 12/13/19 12/13/19 Unknown History AtorvaSTATin [Lipitor] 40 mg PO QHS 12/13/19 12/13/19 Unknown History Cholecalciferol Vit D3 [Vitamin D3 1,000 unit PO QDAY 12/13/19 12/13/19 Unknown History 1,000 UNIT TAB] Docusate Sodium [Colace CAP] 100 mg PO BID PRN 12/13/19 12/13/19 Unknown History Fluticasone Propionate [Flovent 50 mcg IH Q24H PRN 12/13/19 12/13/19 Unknown History Diskus] Furosemide [Lasix TAB] 20 mg PO BID 12/13/19 12/13/19 Unknown History Furosemide [Lasix TAB] 20 mg PO QDAY 12/13/19 12/13/19 Unknown History Gabapentin 300 mg PO BID 12/13/19 12/13/19 Unknown History Insulin Glargine [Lantus VIAL] 10 unit SUB-Q QHS 12/13/19 12/13/19 Unknown History Insulin Lispro [Humalog 100 0 units SQ AC 12/13/19 12/13/19 Unknown History UNITS/ML Kwikpen] Ipratropium [Atrovent NEB] 0.5 mg IH Q6HRT PRN 12/13/19 12/13/19 Unknown History Sennosides [Senna] 8.6 mg PO HS PRN 12/13/19 12/13/19 Unknown History clonazePAM 0.5 mg PO HS 12/13/19 12/13/19 Unknown History guaiFENesin [Robitussin] 100 mg PO Q6H PRN 12/13/19 12/13/19 Unknown History metFORMIN [Glucophage] 500 mg PO BID 12/13/19 12/13/19 Unknown History polyethylene glycoL 3350 [Miralax 17 gm PO Q24H PRN 12/13/19 12/13/19 Unknown History 3350] predniSONE [Deltasone] 20 mg PO QDAY 12/13/19 12/13/19 Unknown History traMADoL [Ultram 50 MG tab] 50 mg PO Q6HR PRN 12/13/19 12/13/19 Unknown History Amoxicillin/Potassium Clav 1 each PO BID 5 Days #10 tablet 12/16/19 Unknown Rx [Augmentin 875-125 Tablet] amLODIPine 5 mg PO DAILY #30 tab 12/16/19 Unknown Rx ED Review of Systems ROS: Stated complaint: DEFIB SHOCKS Other details as noted in HPI Constitutional: no symptoms reported Eyes: denies: eye pain ENT: denies: throat pain Respiratory: no symptoms reported Cardiovascular: denies: chest pain, palpitations Endocrine: no symptoms reported Gastrointestinal: denies: nausea Genitourinary: denies: dysuria Musculoskeletal: denies: back pain Neurological: denies: headache Physical Exam - Physical Exam Vital Signs: Vital Signs 03/18/20 03/18/20 03/18/20 21:41 21:44 21:46 Temperature 99.2 F Pulse Rate 78 72 74 Respiratory 17 27 H 28 H Rate Blood Pressure 132/65 132/65 O2 Sat by Pulse 92 90 Oximetry Physical Exam: GENERAL: The patient is well-developed well-nourished male lying on stretcher not appearing to be in acute distress. [] HEENT: Normocephalic. Atraumatic. Extraocular motions are intact. Patient has moist mucous membranes. NECK: Supple. Trachea midline CHEST/LUNGS: Clear to auscultation. There is no respiratory distress noted. HEART/CARDIOVASCULAR: Regular. There is no tachycardia. There is no gallop rub or murmur. ABDOMEN: Abdomen is soft, nontender. Patient has normal bowel sounds. There is no abdominal distention. SKIN: There is no rash. There is no diaphoresis. NEURO: The patient is awake, alert, and oriented. The patient is cooperative. The patient has normal speech MUSCULOSKELETAL: There is no evidence of acute injury. ED Course Vital Signs 03/18/20 03/18/20 03/18/20 21:41 21:44 21:46 Temperature 99.2 F Pulse Rate 78 72 74 Respiratory 17 27 H 28 H Rate Blood Pressure 132/65 132/65 O2 Sat by Pulse 92 90 Oximetry - Reevaluation(s) Reevaluation #1: 03/18/20 22:53 AICD discharged 21: 54 and 22: 31. Patient appears to be in normal sinus rhythm prior to the shock. Shock appears inappropriate. Nursing instructed to place a magnet over the AICD - Consultations Consultation #1: 03/18/20 22:29 Case discussed with [employer] rep. States he will come to the ED as soon as he can which will be in at least 3 hours ED Medical Decision Making - Lab Data Result diagrams: 03/18/20 21:57 03/18/20 21:57 Laboratory Tests 03/18/20 03/18/2003/18/20 21:57 21:57 21:57 WBC 12.9 H RBC 4.68 Hgb 13.0 Hct 39.1 MCV 84 MCH 28 MCHC 33 RDW 16.7 H Plt Count 213 Lymph % (Auto) 26.1 [place] % (Auto) 5.3 Eos % (Auto) 2.5 Baso % (Auto) 0.9 Lymph # 3.4 [place] # 0.7 Eos # 0.3 Baso # 0.1 Seg Neutrophils % 65.2 Seg Neutrophils # 8.4 H PT 13.3 INR 1.00 APTT 25.8 Sodium 139 Potassium 4.5 Chloride 97.2 L Carbon Dioxide 26 Anion Gap 20 BUN 28 H Creatinine 1.2 Estimated GFR 60 BUN/Creatinine Ratio 23 Glucose 164 H Calcium 9.5 Magnesium 2.00 Total Creatine Kinase 38 L CK-MB (CK-2) 2.4 CK-MB (CK-2) Rel Index 6.3 H Troponin T 0.011 TSH Free T4 03/18/20 21:57 WBC RBC Hgb Hct MCV MCH MCHC RDW Plt Count Lymph % (Auto) [place] % (Auto) Eos % (Auto) Baso % (Auto) Lymph # [place] # Eos # Baso # Seg Neutrophils % Seg Neutrophils # PT INR APTT Sodium Potassium Chloride Carbon Dioxide Anion Gap BUN Creatinine Estimated GFR BUN/Creatinine Ratio Glucose Calcium Magnesium Total Creatine Kinase CK-MB (CK-2) CK-MB (CK-2) Rel Index Troponin T TSH 7.580 H Free T4 0.94 - EKG Data -: EKG Interpreted by Me EKG shows normal: sinus rhythm Rate: normal - EKG Data When compared to previous EKG there are: previous EKG unavailable Interpretation: other (No ischemic changes) - Radiology Data Radiology results: report reviewed (Chest x-ray), image reviewed (Chest x-ray) interpreted by me: Chest x-ray-no focal infiltrates, no pneumothorax Findings [facility] [address] [place] [address] XRay Report Signed Patient: LILLY TEMPLE MR#: [id number] : 1950 Acct:[id number] Age/Sex: 69 / M ADM Date: 03/18/20 Loc: ED Attending Dr: Ordering Physician: LELAND PEDERSEN MD Date of Service: 03/18/20 Procedure(s): XR chest 1V ap Accession Number(s): [id number] cc: LELAND PEDERSEN MD Fluoro Time In Minutes: CHEST 1 VIEW INDICATION / CLINICAL INFORMATION: MAIN: Defibrillator fired; pat. presented to ED by [facility] for Defibillator going at the facility and enroute to hospital. Patient alert and Oriented x 4. Respiration ev en and unlabored. Patient placed on the cardiac catheterization technician. . COMPARISON: 12/13/2019 FINDINGS: SUPPORT DEVICES: None. HEART / MEDIASTINUM: No change from 12/13/2019. LUNGS / PLEURA: Mild interstitial edema present. No pleural effusion or pneumothorax. Signer Name: Teo Woodward MD Signed: 03/18/2020 10:15 PM Workstation Name: [id number] Transcribed By: Dictated By: Teo Woodward MD Electronically Authenticated By: Teo Woodward MD Signed Date/Time: 03/18/202214 DD/ 13 TD/TT: - Differential Diagnosis Dysrhythmia, inappropriate shocks Critical care attestation.: If time is entered above; I have spent that time in minutes in the direct care of this critically ill patient, excluding procedure time. ED Disposition Clinical Impression: Defibrillator discharge Disposition: -09 OP ADMIT IP TO THIS HOSP Is pt being admited?: Yes Does the pt Need Aspirin: Yes Condition: Fair Referrals: PRIMARY CARE, [Primary Care Provider] - 3-5 Days Time of Disposition: 22:57 (Hospitalist paged (Dr. Zarina Ulloa))
[2020-03-18] MEDS ORDERED: fentaNYL 100 MCG/2 ML INJ IV ONE (22:02)
[2020-03-18] MEDS ORDERED: ONDANSETRON 4 MG/2 ML INJ IV ONE (22:02)
[2020-03-18 22:08] LABS: Basophils # (Auto) 0.1 K/mm3 (0.0-0.1); Basophils % (Auto) 0.9 % (0.0-1.8); Eosinophils # (Auto) 0.3 K/mm3 (0.0-0.4); Eosinophils % (Auto) 2.5 % (0.0-4.3); Hematocrit 39.1 % (35.5-45.6); Lymphocytes # (Auto) 3.4 K/mm3 (1.2-5.4); Lymphocytes % (Auto) 26.1 % (13.4-35.0); Mean Corpuscular HGB Conc 33 % (32-34); Mean Corpuscular Volume 84 fl (84-94); Monocytes # (Auto) 0.7 K/mm3 (0.0-0.8); Monocytes % (Auto) 5.3 % (0.0-7.3); Platelet Count 213 K/mm3 (140-440); Red Blood Count 4.68 M/mm3 (3.65-5.03); Red Cell Distribution Width 16.7 % (13.2-15.2)
[2020-03-18 22:19] LABS: Partial Thromboplastin Time 25.8 Sec. (24.2-36.6)
--- NOTE | 2020-03-18 22:20 | XRay Report ---
CHEST 1 VIEW INDICATION / CLINICAL INFORMATION: MAIN: Defibrillator fired; pat. presented to ED by [facility] for Defibillator going at the facility and enroute to hospital. Patient alert and Oriented x 4. Respiration even and unlabored. 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 . COMPARISON: 12/13/2019 FINDINGS: SUPPORT DEVICES: None. HEART / MEDIASTINUM: No change from 12/13/2019. LUNGS / PLEURA: Mild interstitial edema present. No pleural effusion or pneumothorax. Signer Name: Teo Woodward MD Signed: 03/18/2020 10:15 PM Workstation Name: [id number]
[2020-03-18 22:24] LABS: Creatine Kinase MB 2.4 ng/mL (0.0-4.0)
[2020-03-18 22:25] LABS: Calcium 9.5 mg/dL (8.4-10.2)
[2020-03-18 22:41] LABS: Free T4 (Free Thyroxine) 0.94 ng/dL (0.76-1.46)
[2020-03-18] MEDS ORDERED: ASPIRIN 325 MG TAB PO ONE (22:58)
--- NOTE | 2020-03-18 23:27 | History and Physical Report ---
History of Present Illness History of present illness: 69-year-old man history of hypertension, COPD, CHF, diabetes, hyperlipidemia, BPH,anxiety, depression, sleep apnea, stroke with right-sided weakness was sent form the retirement to the emergency room for evaluation. Patient stated that his AICD fired 7 times while he was at the retirement, 3 times in the ambulance and twice in the ER. He has been asymptomatic. Patient will be admit harlan for evaluation of AICD discharge Review Of Systems: Constitutional: no weight loss, fever, chills Ears, eyes, nose, mouth and throat: no nasal congestion, no nasal discharge, no sinus pressure, blurry vision, diplopia Neck: No neck pain or rigidity. Cardiovascular: No palpitations, chest pain Respiratory: No shortness of breath, cough Gastrointestinal: No hematochezia, abdominal pain Genitourinary : no dysuria, frequency Musculoskeletal: no muscle ache , joint pain Integumentary: no rash, no pruritis Neurological: no parathesias, focal weakness Endocrine: no cold or heat intolerance, no polyuria or polydipsia Hematologic/Lymphatic: no easy bruising, no easy bleeding, no gland swelling Allergic/Immunologic: no urticaria, no angioedema. PAST MEDICAL HISTORY:hypertension, COPD, CHF, anxiety, depression, sleep apnea, stroke with right-sided weakness, PAST SURGICAL HISTORY: Right knee, AICD SOCIAL HISTORY: Denies alcohol, tobacco, drugs FAMILY HISTORY: Hypertension Medications and Allergies Allergies Allergy/AdvReac Type Severity Reaction Status Date / Time No Known Allergies Allergy Unverified 11/13/17 00:30 Home Medications Medication Instructions Recorded Confirmed Last Taken Type Ascorbic Acid [Vitamin C] 500 mg PO DAILY 11/13/17 03/19/20 Unknown History Ferrous Sulfate [Feosol 325 MG tab] 325 mg PO BID 11/13/17 03/19/20 Unknown History Sertraline [Zoloft] 100 mg PO DAILY 11/13/17 03/19/20 Unknown History Acetaminophen [Acetaminophen TAB] 650 mg PO Q4H PRN #15 tablet 11/28/18 03/19/20 Unknown Rx Spironolactone [Aldactone] 25 mg PO QDAY #30 tablet 11/28/18 03/19/20 Unknown Rx Acetaminophen [Mapap] 2 tab PO Q12H PRN 12/13/19 03/19/20 Unknown History Albuterol Sulfate [Proair 90 mcg IH Q4H PRN 12/13/19 03/19/20 Unknown History Respiclick] Aspirin [Aspirin BABY CHEW TAB] 81 mg PO DAILY 12/13/19 03/19/20 Unknown History AtorvaSTATin [Lipitor] 40 mg PO QHS 12/13/19 03/19/20 Unknown History Cholecalciferol Vit D3 [Vitamin D3 1,000 unit PO QDAY 12/13/19 03/19/20 Unknown History 1,000 UNIT TAB] Docusate Sodium [Colace CAP] 100 mg PO BID PRN 12/13/19 03/19/20 Unknown History Fluticasone Propionate [Flovent 50 mcg IH Q24H PRN 12/13/19 03/19/20 Unknown History Diskus] Furosemide [Lasix TAB] 20 mg PO BID 12/13/19 03/19/20 Unknown History Gabapentin 300 mg PO BID 12/13/19 03/19/20 Unknown History Insulin Glargine [Lantus VIAL] 10 unit SUB-Q QHS 12/13/19 03/19/20 Unknown History Insulin Lispro [Humalog 100 0 units SQ AC 12/13/19 03/19/20 Unknown History UNITS/ML Kwikpen] Ipratropium [Atrovent NEB] 0.5 mg IH Q6HRT PRN 12/13/19 03/19/20 Unknown History Sennosides [Senna] 8.6 mg PO HS PRN 12/13/19 03/19/20 Unknown History clonazePAM 0.5 mg PO HS 12/13/19 03/19/20 Unknown History guaiFENesin [Robitussin] 100 mg PO Q6H PRN 12/13/19 03/19/20 Unknown History metFORMIN [Glucophage] 500 mg PO BID 12/13/19 03/19/20 Unknown History polyethylene glycoL 3350 [Miralax 17 gm PO Q24H PRN 12/13/19 03/19/20 Unknown History 3350] predniSONE [Deltasone] 20 mg PO QDAY 12/13/19 03/19/20 Unknown History traMADoL [Ultram 50 MG tab] 50 mg PO Q6HR PRN 12/13/19 03/19/20 Unknown History amLODIPine 5 mg PO DAILY #30 tab 12/16/19 03/19/20 Unknown Rx Acetaminophen [Acetaminophen TAB] 650 mg PO Q4H PRN tablet 03/20/20 Unknown Rx Lispro Insulin [HumaLOG] 0 unit SUB-Q ACHS units 03/20/20 Unknown Rx Exam - Physical Exam Narrative exam: Gen. appearance: Patient lying in bed, no apparent distress HEENT: Normocephalic, atraumatic, pupils equally round and reactive to light, extraocular movement intact, and no sclericterus,. No JVD or thyromegaly or nodule,neck supple, no carotid bruit ,mucous membranes moist, no exudate or erythema Heart: S1, S2, regular rate and rhythm Lungs: Clear bilaterally, breathing comfortable Abdomen: Positive bowel sounds, nontender, nondistended, no organomegaly Extremity: no edema, cyanosis, clubbing Skin: No rash, nodules, warm, dry Neuro: Cranial nerves II to XII intact, speech is fluent, moves extremities, sensory intact - Constitutional Vitals: Temp Pulse Resp BP Pulse Ox 99.2 F 71 26 H 144/72 97 03/18/20 21:44 03/18/20 23:00 03/18/20 23:00 03/18/20 23:00 03/18/20 23:00 Results - Labs CBC & Chem 7: 03/19/20 04:16 03/19/20 04:16 Labs: Abnormal lab results 03/18/20 03/18/20 03/18/20 Range/Units 21:57 21:57 21:57 WBC 12.9 H (4.5-11.0) K/mm3 RDW 16.7 H (13.2-15.2) % Seg Neutrophils # 8.4 H (1.8-7.7) K/mm3 Chloride 97.2 L (98-107) mmol/L BUN 28 H (9-20) mg/dL Glucose 164 H (75-100) mg/dL Total Creatine Kinase 38 L (55-170) units/L CK-MB (CK-2) Rel Index 6.3 H (0-4) TSH 7.580 H (0.270-4.200) mlU/mL Assessment and Plan Assessment AICD discharge [facility] was contacted to see the patient Check cardiac enzymes, consult cardiology COPD, stable Diabetes Check fingersticks, start insulin sliding scale CHF, stable, chronic, diastolic anxiety/depression, stable sleep apnea stroke with right-sided weakness Continue appropriate outpatient medications DVT prophylaxis
[2020-03-18] MEDS ORDERED: ONDANSETRON 4 MG/2 ML INJ IV PRN (23:40)
[2020-03-18] MEDS ORDERED: ACETAMINOPHEN 325 MG TAB PO PRN (23:40)
[2020-03-18] MEDS ORDERED: DEXTROSE 50% IN WATER (25GM) 50 ML SYRINGE IV PRN (23:46)
[2020-03-18] MEDS ORDERED: oxyCODONE /ACETAMINOPHEN 5-325MG TAB PO PRN (23:47)
[2020-03-18] MEDS ORDERED: ASPIRIN 325 MG TAB ONE (23:56)
[2020-03-19 05:11] LABS: Basophils # (Auto) 0.1 K/mm3 (0.0-0.1); Basophils % (Auto) 0.5 % (0.0-1.8); Eosinophils # (Auto) 0.3 K/mm3 (0.0-0.4); Eosinophils % (Auto) 2.4 % (0.0-4.3); Hematocrit 36.7 % (35.5-45.6); Hemoglobin 12.2 gm/dl (11.8-15.2); Lymphocytes # (Auto) 3.9 K/mm3 (1.2-5.4); Mean Corpuscular HGB Conc 33 % (32-34); Mean Corpuscular Volume 83 fl (84-94); Monocytes # (Auto) 0.8 K/mm3 (0.0-0.8); Monocytes % (Auto) 5.6 % (0.0-7.3); Platelet Count 210 K/mm3 (140-440); Red Blood Count 4.42 M/mm3 (3.65-5.03)
[2020-03-19 05:22] LABS: Calcium 9.4 mg/dL (8.4-10.2)
[2020-03-19] MEDS: ENOXAPARIN 40 MG/0.4 ML INJ SUB-Q SCH (09:34)
[2020-03-19] MEDS: INSULIN LISPRO 100 UNIT/ML SUB-Q SCH ×4 (09:41→23:11)
--- NOTE | 2020-03-19 10:36 | Consultation ---
History of Present Illness Consult date: 03/19/20 Consult reason: other (ICD discharge) History of present illness: This is a 69-year old male man with prior CVA with left sided residual. He has a history of nonischemic cardiomyopathy with an indwelling cardiac defibrillator (Biotronik). A follow up echocardiogram done a year ago revealed resolving cardiomyopathy, normal left ventricle systolic function, with ejection fraction of 50-55%. Patient was sent to this hospital with reports of AICD discharge. Patient denies palpitations, unusual shortness of breath and diaphoresis. There were no report of syncope. TSH is 7.5. Cardiac consultation was requested for further evaluation and recommendations. Medications and Allergies Allergies Allergy/AdvReac Type Severity Reaction Status Date / Time No Known Allergies Allergy Unverified 11/13/17 00:30 Home Medications Medication Instructions Recorded Confirmed Last Taken Type Ascorbic Acid [Vitamin C] 500 mg PO DAILY 11/13/17 03/19/20 Unknown History Ferrous Sulfate [Feosol 325 MG tab] 325 mg PO BID 11/13/17 03/19/20 Unknown History Sertraline [Zoloft] 100 mg PO DAILY 11/13/17 03/19/20 Unknown History Acetaminophen [Acetaminophen TAB] 650 mg PO Q4H PRN #15 tablet 11/28/18 03/19/20 Unknown Rx Spironolactone [Aldactone] 25 mg PO QDAY #30 tablet 11/28/18 03/19/20 Unknown Rx Acetaminophen [Mapap] 2 tab PO Q12H PRN 12/13/19 03/19/20 Unknown History Albuterol Sulfate [Proair 90 mcg IH Q4H PRN 12/13/19 03/19/20 Unknown History Respiclick] Aspirin [Aspirin BABY CHEW TAB] 81 mg PO DAILY 12/13/19 03/19/20 Unknown History AtorvaSTATin [Lipitor] 40 mg PO QHS 12/13/19 03/19/20 Unknown History Cholecalciferol Vit D3 [Vitamin D3 1,000 unit PO QDAY 12/13/19 03/19/20 Unknown History 1,000 UNIT TAB] Docusate Sodium [Colace CAP] 100 mg PO BID PRN 12/13/19 03/19/20 Unknown History Fluticasone Propionate [Flovent 50 mcg IH Q24H PRN 12/13/19 03/19/20 Unknown History Diskus] Furosemide [Lasix TAB] 20 mg PO BID 12/13/19 03/19/20 Unknown History Gabapentin 300 mg PO BID 12/13/19 03/19/20 Unknown History Insulin Glargine [Lantus VIAL] 10 unit SUB-Q QHS 12/13/19 03/19/20 Unknown History Insulin Lispro [Humalog 100 0 units SQ AC 12/13/19 03/19/20 Unknown History UNITS/ML Kwikpen] Ipratropium [Atrovent NEB] 0.5 mg IH Q6HRT PRN 12/13/19 03/19/20 Unknown History Sennosides [Senna] 8.6 mg PO HS PRN 12/13/19 03/19/20 Unknown History clonazePAM 0.5 mg PO HS 12/13/19 03/19/20 Unknown History guaiFENesin [Robitussin] 100 mg PO Q6H PRN 12/13/19 03/19/20 Unknown History metFORMIN [Glucophage] 500 mg PO BID 12/13/19 03/19/20 Unknown History polyethylene glycoL 3350 [Miralax 17 gm PO Q24H PRN 12/13/19 03/19/20 Unknown History 3350] predniSONE [Deltasone] 20 mg PO QDAY 12/13/19 03/19/20 Unknown History traMADoL [Ultram 50 MG tab] 50 mg PO Q6HR PRN 12/13/19 03/19/20 Unknown History Amoxicillin/Potassium Clav 1 each PO BID 5 Days #10 tablet 12/16/19 03/19/20 Unknown Rx [Augmentin 875-125 Tablet] amLODIPine 5 mg PO DAILY #30 tab 12/16/19 03/19/20 Unknown Rx Active Meds: Active Medications Acetaminophen (Tylenol) 650 mg PO Q4H PRN PRN Reason: Pain MILD(1-3)/Fever >100.5/SANCHEZ Dextrose (D50w (25gm) Syringe) 0 ml IV Q30MIN PRN; Protocol PRN Reason: Hypoglycemia Enoxaparin Sodium (Enoxaparin) 40 mg SUB-Q QAM YOLY Last Admin: 03/19/20 09:34 Dose: 40 mg Documented by: Insulin Human Lispro (Humalog) 0 unit SUB-Q [facility]; Protocol Last Admin: 03/19/20 09:41 Dose: 4 unit Documented by: Ondansetron HCl (Zofran) 4 mg IV Q8H PRN PRN Reason: Nausea And Vomiting Oxycodone/Acetaminophen (Percocet 5/325) 1 tab PO Q6H PRN PRN Reason: Pain, Moderate (4-6) Sodium Chloride (Sodium Chloride Flush Syringe 10 Ml) 10 ml IV BID YOLY Last Admin: 03/19/20 09:35 Dose: 10 ml Documented by: Sodium Chloride (Sodium Chloride Flush Syringe 10 Ml) 10 ml IV PRN PRN PRN Reason: LINE FLUSH Physical Examination Vital Signs Pulse Resp Pulse Ox 78 17 92 03/18/20 21:41 03/18/20 21:41 03/18/20 21:41 General appearance: no acute distress HEENT: Positive: PERRL Neck: Positive: trachea midline Cardiac: Positive: Reg Rate and Rhythm Results 03/19/20 04:16 03/19/20 04:16 Cardiac Enzymes 03/18/20 Range/Units 21:57 CK-MB (CK-2) 2.4 (0.0-4.0) ng/mL Coagulation 03/18/20 Range/Units 21:57 PT 13.3 (12.2-14.9) Sec. INR 1.00 (0.87-1.13) APTT 25.8 (24.2-36.6) Sec. CBC 03/18/20 03/19/20 Range/Units 21:57 04:16 WBC 12.9 H 13.5 H (4.5-11.0) K/mm3 RBC 4.68 4.42 (3.65-5.03) M/mm3 Hgb 13.0 12.2 (11.8-15.2) gm/dl Hct 39.1 36.7 (35.5-45.6) % Plt Count 213 210 (140-440) K/mm3 Lymph # 3.4 3.9 (1.2-5.4) K/mm3 [place] # 0.7 0.8 (0.0-0.8) K/mm3 Eos # 0.3 0.3 (0.0-0.4) K/mm3 Baso # 0.1 0.1 (0.0-0.1) K/mm3 Comprehensive Metabolic Panel 03/18/20 03/19/20 Range/Units 21:57 04:16 Sodium 139 139 (137-145) mmol/L Potassium 4.5 4.7 (3.6-5.0) mmol/L Chloride 97.2 L 98.3 (98-107) mmol/L Carbon Dioxide 26 28 (22-30) mmol/L BUN 28 H 27 H (9-20) mg/dL Creatinine 1.2 1.3 (0.8-1.5) mg/dL Glucose 164 H 146 H (75-100) mg/dL Calcium 9.5 9.4 (8.4-10.2) mg/dL Assessment and Plan - Patient Problems (1) Defibrillator discharge Current Visit: Yes Status: Acute Plan to address problem: We will obtain an ICD interrogation
--- NOTE | 2020-03-19 13:39 | Progress Note ---
Assessment and Plan - Patient Problems (1) Defibrillator discharge Current Visit: Yes Status: Acute Plan to address problem: Patient to follow-up with LifeVest and outpatient evaluation for continue a ACID device. Etiology was secondary to fracture lead. (2) Acute renal failure Current Visit: No Status: Acute Plan to address problem: Resolving nonacute. (3) Chronic diastolic (congestive) heart failure Current Visit: No Status: Acute Plan to address problem: Patient now with ejection fraction of 55%. To obtain another echocardiogram today. To see if we in fact still need AICD. If not patient may be just discharged back to nursing facility. Cardiology aware. (4) Type 2 diabetes mellitus with diabetic nephropathy Current Visit: No Status: Acute Plan to address problem: Fair control of blood sugar. Can further titrate in the long-term. This patient does not did need hospitalized for further titration. (5) Hypertensive chronic kidney disease with stage 1 through stage 4 chronic kidney disease, or unspecified chronic kidney disease Current Visit: No Status: Chronic (6) Morbid obesity Current Visit: No Status: Chronic Plan to address problem: Difficulty secondary to limited ambulation and refusal of any dietary recommendations. History Interval history: 69-year-old with a history of hypertension COPD CHF diabetes, depression sleep apnea and a history of CVA. Well-known to myself from nursing facility. Patient presented after firing of AICD device. It happened 7 times prior to admission. It was interrogated this afternoon and found a fracture of the lead. Plan will schedule LifeVest in reevaluation for AICD device. Patient currently hemodynamically stable. Hospitalist Physical - Constitutional Vitals: Temp Pulse Resp BP Pulse Ox 98.3 F 59 L 22 136/71 92 03/19/20 08:24 03/19/20 08:24 03/19/20 08:24 03/19/20 08:24 03/19/20 09:59 General appearance: Present: no acute distress - EENT Eyes: Present: PERRL, EOM intact ENT: hearing intact, clear oral mucosa, dentition normal - Neck Neck: Present: supple, normal ROM - Respiratory Respiratory: bilateral: CTA - Cardiovascular Rhythm: regular - Extremities Extremities: no ischemia, pulses intact, pulses symmetrical, No edema, normal temperature, normal color Peripheral Pulses: within normal limits - Abdominal General gastrointestinal: soft, non-tender, non-distended, normal bowel sounds, other (Obese) - Integumentary Integumentary: Present: clear, warm, dry - Psychiatric Psychiatric: appropriate mood/affect, intact judgment & insight, memory intact - Neurologic Neurologic: CNII-XII intact, focal deficits, moves all extremities Results - Labs CBC & Chem 7: 03/19/20 04:16 03/19/20 04:16 Labs: Laboratory Last Values WBC 13.5 K/mm3 (4.5-11.0) H 03/19/20 04:16 RBC 4.42 M/mm3 (3.65-5.03) 03/19/20 04:16 Hgb 12.2 gm/dl (11.8-15.2) 03/19/20 04:16 Hct 36.7 % (35.5-45.6) 03/19/20 04:16 MCV 83 fl (84-94) L 03/19/20 04:16 MCH 28 pg (28-32) 03/19/20 04:16 MCHC 33 % (32-34) 03/19/20 04:16 RDW 17.0 % (13.2-15.2) H 03/19/20 04:16 Plt Count 210 K/mm3 (140-440) 03/19/20 04:16 Lymph % (Auto) 29.0 % (13.4-35.0) 03/19/20 04:16 [place] % (Auto) 5.6 % (0.0-7.3) 03/19/20 04:16 Eos % (Auto) 2.4 % (0.0-4.3) 03/19/20 04:16 Baso % (Auto) 0.5 % (0.0-1.8) 03/19/20 04:16 Lymph # 3.9 K/mm3 (1.2-5.4) 03/19/20 04:16 [place] # 0.8 K/mm3 (0.0-0.8) 03/19/20 04:16 Eos # 0.3 K/mm3 (0.0-0.4) 03/19/20 04:16 Baso # 0.1 K/mm3 (0.0-0.1) 03/19/20 04:16 Seg Neutrophils % 62.5 % (40.0-70.0) 03/19/20 04:16 Seg Neutrophils # 8.4 K/mm3 (1.8-7.7) H 03/19/20 04:16 PT 13.3 Sec. (12.2-14.9) 03/18/20 21:57 INR 1.00 (0.87-1.13) 03/18/20 21:57 APTT 25.8 Sec. (24.2-36.6) 03/18/20 21:57 Sodium 139 mmol/L (137-145) 03/19/20 04:16 Potassium 4.7 mmol/L (3.6-5.0) 03/19/20 04:16 Chloride 98.3 mmol/L (98-107) 03/19/20 04:16 Carbon Dioxide 28 mmol/L (22-30) 03/19/20 04:16 Anion Gap 17 mmol/L 03/19/20 04:16 BUN 27 mg/dL (9-20) H 03/19/20 04:16 Creatinine 1.3 mg/dL (0.8-1.5) 03/19/20 04:16 Estimated GFR 55 ml/min 03/19/20 04:16 BUN/Creatinine Ratio 21 % 03/19/20 04:16 Glucose 146 mg/dL (75-100) H 03/19/20 04:16 POC Glucose 201 (70-105) H 03/19/20 12:26 Calcium 9.4 mg/dL (8.4-10.2) 03/19/20 04:16 Magnesium 2.00 mg/dL (1.7-2.3) 03/18/20 21:57 Total Creatine Kinase 38 units/L (55-170) L 03/18/20 21:57 CK-MB (CK-2) 2.4 ng/mL (0.0-4.0) 03/18/20 21:57 CK-MB (CK-2) Rel Index 6.3 (0-4) H 03/18/20 21:57 Troponin T 0.011 ng/mL (0.00-0.029) 03/18/20 21:57 TSH 7.580 mlU/mL (0.270-4.200) H 03/18/20 21:57 Free T4 0.94 ng/dL (0.76-1.46) 03/18/20 21:57 Harding/IV: Voiding Method Toilet IV Catheter Type [Left Upper Peripheral IV arm] Active Medications - Current Medications Current Medications: Generic Name Dose Route Start Last Admin Trade Name Freq PRN Reason Stop Dose Admin Acetaminophen 650 mg 03/18/20 23:40 Tylenol PO Q4H PRN Pain MILD(1-3)/Fever >100.5/SANCHEZ Dextrose 0 ml 03/18/20 23:46 D50w (25gm) Syringe IV Q30MIN PRN Hypoglycemia Protocol Enoxaparin Sodium 40 mg 03/19/20 10:00 03/19/20 09:34 Enoxaparin SUB-Q 40 mg QAM YOLY Administration Insulin Human Lispro 0 unit 03/19/20 07:30 03/19/20 12:32 Humalog SUB-Q 4 unit ACHS YOLY Administration Protocol Ondansetron HCl 4 mg 03/18/20 23:40 Zofran IV Q8H PRN Nausea And Vomiting Oxycodone/Acetaminophen 1 tab 03/18/20 23:47 Percocet 5/325 PO Q6H PRN Pain, Moderate (4-6) Sodium Chloride 10 ml 03/19/20 10:00 03/19/20 09:35 Sodium Chloride Flush Syringe 10 Ml IV 10 ml BID YOLY Administration Sodium Chloride 10 ml 03/18/20 23:40 Sodium Chloride Flush Syringe 10 Ml IV PRN PRN LINE FLUSH
[2020-03-20] MEDS: ENOXAPARIN 40 MG/0.4 ML INJ SUB-Q SCH (09:53)
[2020-03-20] MEDS: INSULIN LISPRO 100 UNIT/ML SUB-Q SCH ×3 (09:53→17:49)
--- NOTE | 2020-03-20 09:56 | Progress Note ---
Assessment and Plan - Patient Problems (1) Defibrillator discharge Current Visit: Yes Status: Acute Plan to address problem: ICD discharges an ICD interrogation has revealed the presence of lead fracture. The indication for ICD monitoring was primary prevention for a nonischemic cardiomyopathy. The defibrillator has been recommended to be turned off. LifeVest monitoring has been placed. Patient can discharged for outpatient electrophysiologic follow-up as scheduled. Subjective Date of service: 03/20/20 Interval history: Patient has no complaints. Lifevest has been placed. Objective Vital Signs Temp Pulse Resp BP Pulse Ox 03/20/20 04:03 97.9 F 62 22 121/67 90 03/20/20 00:30 98.6 F 69 22 125/64 89 03/19/20 22:10 75 18 03/19/20 22:07 95 03/19/20 20:58 98.8 F 65 20 136/73 90 03/19/20 20:54 65 03/19/20 16:01 98.2 F 65 22 128/70 94 03/19/20 09:59 92 - Physical Examination General: No Apparent Distress, Other (obese) HEENT: Positive: PERRL Neck: Positive: trachea midline Cardiac: Positive: Reg Rate and Rhythm
--- NOTE | 2020-03-20 10:33 | Discharge Summary ---
Providers - Providers Date of Admission: 03/18/20 23:40 Date of discharge: 03/20/20 Attending physician: NIDHI REECE 03/18/20 23:40 Consult to Physician [CONS] Routine Comment: Consulting Provider: ABIOLA PERALES Physician Instructions: Reason For Exam: aicd d/c Primary care physician: [facility] Hospitalization Condition: Fair Hospital course: Patient presented after several episodes of defibrillator going off.. Patient was found to have a fracture lead on defibrillator after interrogation. Patient had LifeVest placed on and will be discharged for follow-up at [place] for replacement of ACID. Disposition: DC/[place]-03 SNF W [facility] CERT - Discharge Diagnoses (1) Defibrillator discharge Status: Acute Comment: Patient has LifeVest will be scheduled for replacement of defibrillator at [facility]. (2) Acute renal failure Status: Acute Comment: Resolved at baseline. (3) Chronic diastolic (congestive) heart failure Status: Acute Comment: Patient was not in failure well decompensated. (4) Type 2 diabetes mellitus with diabetic nephropathy Status: Acute (5) Hypertensive chronic kidney disease with stage 1 through stage 4 chronic kidney disease, or unspecified chronic kidney disease Status: Chronic (6) Morbid obesity Status: Chronic Core Measure Documentation - Palliative Care Palliative Care/ Comfort Measures: Not Applicable - Core Measures Any of the following diagnoses?: none Exam - Constitutional Vitals: Temp Pulse Resp BP Pulse Ox 98.1 F 77 18 112/60 90 03/20/20 09:13 03/20/20 09:13 03/20/20 09:13 03/20/20 09:13 03/20/20 09:13 General appearance: Present: no acute distress, well-nourished - EENT Eyes: Present: PERRL ENT: hearing intact, clear oral mucosa - Neck Neck: Present: supple, normal ROM - Respiratory Respiratory effort: normal Respiratory: bilateral: CTA - Cardiovascular Heart Sounds: Present: S1 & S2. Absent: rub, click - Extremities Extremities: pulses symmetrical, No edema Peripheral Pulses: within normal limits - Abdominal General gastrointestinal: Present: soft, non-tender, non-distended, normal bowel sounds Male genitourinary: Present: normal - Integumentary Integumentary: Present: clear, warm, dry - Musculoskeletal Musculoskeletal: gait normal, strength equal bilaterally - Psychiatric Psychiatric: appropriate mood/affect, intact judgment & insight - Neurologic Neurologic: CNII-XII intact, moves all extremities Plan Activity: up only with assistance Weight Bearing Status: Weight Bear as Tolerated Diet: low cholesterol, low salt, low carbohydrate Follow up with: PRIMARY CARE, [Primary Care Provider] - 3-5 Days
[2020-03-20 17:38] VITALS: BP 146/72
== END 2020-03-20 18:45 ==
LOC: ED 21:36 → 4A 23:40
PROVIDERS: ADMIT Internal Medicine; ATTEND Internal Medicine
DX: Z45.02 Encounter for adjustment and management of automatic implantable cardiac defibrillator (principal); I13.0 Hypertensive heart and chronic kidney disease with heart failure and stage 1 through stage 4 chronic kidney disease, or unspecified chronic kidney disease; E11.22 Type 2 diabetes mellitus with diabetic chronic kidney disease; E11.21 Type 2 diabetes mellitus with diabetic nephropathy; I50.32 Chronic diastolic (congestive) heart failure; N18.9 Chronic kidney disease, unspecified; N17.9 Acute kidney failure, unspecified; J44.9 Chronic obstructive pulmonary disease, unspecified; E66.01 Morbid (severe) obesity due to excess calories; I42.8 Other cardiomyopathies; I69.354 Hemiplegia and hemiparesis following cerebral infarction affecting left non-dominant side; E78.5 Hyperlipidemia, unspecified; F41.9 Anxiety disorder, unspecified; F32.9 Major depressive disorder, single episode, unspecified; G47.30 Sleep apnea, unspecified; Z95.810 Presence of automatic (implantable) cardiac defibrillator; Z79.4 Long term (current) use of insulin; Z79.82 Long term (current) use of aspirin; Z79.899 Other long term (current) drug therapy
CPT/HCPCS: 36415; 71045; 80048; 82550; 82553; 82962; 83735; 84439; 84443; 84484; 85025; 85610; 85730; 93005; 93306; 94660; 94760; 96372; 96374; 96375; 99285; G0378; J1650; J2405; J3010

== ENCOUNTER 2020-12-16 12:35 | Inpatient (IN) | payer MEDICARE ==
--- NOTE | 2020-12-16 13:29 | Emergency Department Report ---
HPI - General Chief Complaint: Dyspnea/Respdistress Time Seen by Provider: 12/16/20 12:45 - HPI HPI: This is a 70-year-old male presents to the emergency department via EMS from his [facility] for evaluation of the patient "not feeling well." The patient had Covid back in early November. Apparently the patient received his second dose of the COVID-19 vaccination yesterday. Today the patient says that he was having some abdominal pain, that has since resolved, and just generally was not feeling well. Apparently the patient was found to have low oxygen saturation of 81 to 86% at the facility. He has a past medical history of COPD but is not oxygen dependent at home, but the patient does sleep with a CPAP at night. He has a history of CHF, obesity, vay-[id number] diabetes, previous CVA, stage I CKD, sleep apnea, hypertension, depression and anxiety. He received some supplemental oxygen but otherwise did not take anything or receive anything for his symptoms prior to presentation today. His primary care physician is listed as Dr. Jamaal Darby. ED Past Medical Hx - Past Medical History Hx Hypertension: Yes Hx CVA: Yes Hx Congestive Heart Failure: Yes Hx Diabetes: Yes Hx Arthritis: Yes Hx Psychiatric Treatment: Yes (anxiety, depression) Hx COPD: Yes Additional medical history: Sleep apnea, Kidney disease, Prostate disease, right side paraplegic, Defibrillator - Surgical History Hx Internal Defibrillator: Yes Additional Surgical History: Right knee - Social History Smoking Status: Former Smoker Substance Use Type: None - Medications Home Medications: Home Medications Medication Instructions Recorded Confirmed Last Taken Type Ascorbic Acid [Vitamin C] 500 mg PO DAILY 11/13/17 03/19/20 Unknown History Ferrous Sulfate [Feosol 325 MG tab] 325 mg PO BID 11/13/17 03/19/20 Unknown History Sertraline [Zoloft] 100 mg PO DAILY 11/13/17 03/19/20 Unknown History Acetaminophen [Acetaminophen TAB] 650 mg PO Q4H PRN #15 tablet 11/28/18 03/19/20 Unknown Rx Spironolactone [Aldactone] 25 mg PO QDAY #30 tablet 11/28/18 03/19/20 Unknown Rx Acetaminophen [Mapap] 2 tab PO Q12H PRN 12/13/19 03/19/20 Unknown History Albuterol Sulfate [Proair 90 mcg IH Q4H PRN 12/13/19 03/19/20 Unknown History Respiclick] Aspirin [Aspirin BABY CHEW TAB] 81 mg PO DAILY 12/13/19 03/19/20 Unknown History AtorvaSTATin [Lipitor] 40 mg PO QHS 12/13/19 03/19/20 Unknown History Cholecalciferol Vit D3 [Vitamin D3 1,000 unit PO QDAY 12/13/19 03/19/20 Unknown History 1,000 UNIT TAB] Docusate Sodium [Colace CAP] 100 mg PO BID PRN 12/13/19 03/19/20 Unknown History Fluticasone Propionate [Flovent 50 mcg IH Q24H PRN 12/13/19 03/19/20 Unknown History Diskus] Furosemide [Lasix TAB] 20 mg PO BID 12/13/19 03/19/20 Unknown History Gabapentin 300 mg PO BID 12/13/19 03/19/20 Unknown History Insulin Glargine [Lantus VIAL] 10 unit SUB-Q QHS 12/13/19 03/19/20 Unknown Hist ory Insulin Lispro [Humalog 100 0 units SQ AC 12/13/19 03/19/20 Unknown History UNITS/ML Kwikpen] Ipratropium [Atrovent NEB] 0.5 mg IH Q6HRT PRN 12/13/19 03/19/20 Unknown History Sennosides [Senna] 8.6 mg PO HS PRN 12/13/19 03/19/20 Unknown History clonazePAM [clonazePAM Rapdis] 0.5 mg PO HS 12/13/19 03/19/20 Unknown History guaiFENesin [Robitussin] 100 mg PO Q6H PRN 12/13/19 03/19/20 Unknown History metFORMIN [Glucophage] 500 mg PO BID 12/13/19 03/19/20 Unknown History polyethylene glycoL 3350 [Miralax 17 gm PO Q24H PRN 12/13/19 03/19/20 Unknown History 3350] predniSONE [Deltasone] 20 mg PO QDAY 12/13/19 03/19/20 Unknown History traMADoL [Ultram 50 MG tab] 50 mg PO Q6HR PRN 12/13/19 03/19/20 Unknown History amLODIPine 5 mg PO DAILY #30 tab 12/16/19 03/19/20 Unknown Rx Acetaminophen [Acetaminophen TAB] 650 mg PO Q4H PRN tablet 03/20/20 Unknown Rx Lispro Insulin [HumaLOG] 0 unit SUB-Q ACHS units 03/20/20 Unknown Rx ED Review of Systems ROS: Stated complaint: LOW O2 SATS 81-86% Other details as noted in HPI Comment: All other systems reviewed and negative Constitutional: denies: chills, fever Eyes: denies: eye pain, vision change ENT: denies: ear pain, throat pain Respiratory: denies: cough, shortness of breath Cardiovascular: denies: chest pain, edema Gastrointestinal: abdominal pain, nausea. denies: vomiting Genitourinary: denies: dysuria, discharge Musculoskeletal: denies: back pain, arthralgia Skin: denies: rash, lesions Neurological: denies: headache, numbness Physical Exam - Physical Exam Vital Signs: Vital Signs 12/16/20 12/16/20 12:49 12:56 Temperature 98.6 F 98.6 F Pulse Rate 89 89 Respiratory 15 15 Rate Blood Pressure 132/82 Blood Pressure 132/82 [Left] O2 Sat by Pulse 92 94 Oximetry Physical Exam: GENERAL: The patient is well-developed well-nourished. HENT: Normocephalic. Atraumatic. Patient has moist mucous membranes. EYES: Extraocular motions are intact. NECK: Supple. Trachea is midline. CHEST/LUNGS: Clear to auscultation. There is no respiratory distress noted. HEART/CARDIOVASCULAR: Regular. There is no tachycardia. There is no murmur. ABDOMEN: Abdomen is soft, nontender. Patient has normal bowel sounds. Obese habitus. SKIN: Skin is warm and dry. NEURO: The patient is awake, alert. Chronic right-sided hemiplegia. MUSCULOSKELETAL: There is no tenderness or deformity. ED Course Vital Signs 12/16/20 12/16/20 12:49 12:56 Temperature 98.6 F 98.6 F Pulse Rate 89 89 Respiratory 15 15 Rate Blood Pressure 132/82 Blood Pressure 132/82 [Left] O2 Sat by Pulse 92 94 Oximetry - ABG Interpretation Ph: 7.407 PCO2: 45 PO2: 51 Bicarbonate: 28 Interpretation: other (Hypoxemia) ED Medical Decision Making - Lab Data Result diagrams: 12/16/20 13:50 12/16/20 13:50 Lab Results 12/16/20 12/16/20 12/16/20 Range/Units 13:50 13:50 13:50 WBC 13.6 H (4.5-11.0) K/mm3 RBC 4.20 (3.65-5.03) M/mm3 Hgb 11.7 L (11.8-15.2) gm/dl Hct 35.2 L (35.5-45.6) % MCV 84 (84-94) fl MCH 28 (28-32) pg MCHC 33 (32-34) % RDW 16.8 H (13.2-15.2) % Plt Count 228 (140-440) K/mm3 Lymph % (Auto) 17.9 (13.4-35.0) % [place] % (Auto) 6.8 (0.0-7.3) % Eos % (Auto) 1.3 (0.0-4.3) % Baso % (Auto) 0.8 (0.0-1.8) % Lymph # (Auto) 2.4 (1.2-5.4) K/mm3 [place] # (Auto) 0.9 H (0.0-0.8) K/mm3 Eos # (Auto) 0.2 (0.0-0.4) K/mm3 Baso # (Auto) 0.1 (0.0-0.1) K/mm3 Seg Neutrophils % 73.2 H (40.0-70.0) % Seg Neutrophils # 10.0 H (1.8-7.7) K/mm3 D-Dimer (0-234) ng/mlDDU ABG pH (7.350-7.450) pH Units ABG pCO2 mm Hg ABG pO2 (80.0-90.0) mm Hg ABG HCO3 (20.0-26.0) mmol/L ABG O2 Saturation (95.0-99.0) % ABG O2 Content (0.0-44) ABG Base Excess (-2.0-3.0) mmol/L ABG Hemoglobin (14.0-18.0) gm/dl ABG Carboxyhemoglobin (0.0-5.0) % ABG Methemoglobin (0.0-1.5) % Oxyhemoglobin (95.0-99.0) % FiO2 % Sodium 141 (137-145) mmol/L Potassium 5.1 H (3.6-5.0) mmol/L Chloride 101.1 (98-107) mmol/L Carbon Dioxide 26 (22-30) mmol/L Anion Gap 19 mmol/L BUN 39 H (9-20) mg/dL Creatinine 1.4 H (0.8-1.3) mg/dL Estimated GFR 50 ml/min BUN/Creatinine Ratio 28 % Glucose 118 H (75-100) mg/dL Calcium 9.3 (8.4-10.2) mg/dL Total Bilirubin 0.50 (0.1-1.2) mg/dL AST 22 (5-40) units/L ALT 15 (7-56) units/L Alkaline Phosphatase 89 (35-129) units/L Troponin T (0.00-0.029) ng/mL NT-Pro-B Natriuret Pep (0-900) pg/mL Total Protein 6.8 (6.3-8.2) g/dL Albumin 4.1 (3.9-5) g/dL Albumin/Globulin Ratio 1.5 % Triglycerides (2-149) mg/dL Cholesterol (50-199) mg/dL LDL Cholesterol Direct (50-130) mg/dL HDL Cholesterol (40-59) mg/dL Cholesterol/HDL Ratio % Lipase 23 (13-60) units/L Urine Color (Yellow) Urine Turbidity (Clear) Urine pH (5.0-7.0) Ur Specific Calvin (1.003-1.030) Urine Protein (Negative) mg/dL Urine Glucose (UA) (Negative) mg/dL Urine Ketones (Negative) mg/dL Urine Blood (Negative) Urine Nitrite (Negative) Urine Bilirubin (Negative) Urine Urobilinogen (<2.0) mg/dL Ur Leukocyte Esterase (Negative) Urine WBC (Auto) (0.0-6.0) /HPF Urine RBC (Auto) (0.0-6.0) /HPF U Epithel Cells (Auto) (0-13.0) /HPF Hyaline Casts /LPF 12/16/20 12/16/20 12/16/20 Range/Units 13:50 14:08 14:08 WBC (4.5-11.0) K/mm3 RBC (3.65-5.03) M/mm3 Hgb (11.8-15.2) gm/dl Hct (35.5-45.6) % MCV (84-94) fl MCH (28-32) pg MCHC (32-34) % RDW (13.2-15.2) % Plt Count (140-440) K/mm3 Lymph % (Auto) (13.4-35.0) % [place] % (Auto) (0.0-7.3) % Eos % (Auto) (0.0-4.3) % Baso % (Auto) (0.0-1.8) % Lymph # (Auto) (1.2-5.4) K/mm3 [place] # (Auto) (0.0-0.8) K/mm3 Eos # (Auto) (0.0-0.4) K/mm3 Baso # (Auto) (0.0-0.1) K/mm3 Seg Neutrophils % (40.0-70.0) % Seg Neutrophils # (1.8-7.7) K/mm3 D-Dimer 1376.89 H (0-234) ng/mlDDU ABG pH 7.407 (7.350-7.450) pH Units ABG pCO2 45.9 mm Hg ABG pO2 51.2 L (80.0-90.0) mm Hg ABG HCO3 28.3 H (20.0-26.0) mmol/L ABG O2 Saturation 88.0 L (95.0-99.0) % ABG O2 Content 13.9 (0.0-44) ABG Base Excess 3.1 H (-2.0-3.0) mmol/L ABG Hemoglobin 11.5 L (14.0-18.0) gm/dl ABG Carboxyhemoglobin 2.0 (0.0-5.0) % ABG Methemoglobin 0.6 (0.0-1.5) % Oxyhemoglobin 85.7 L (95.0-99.0) % FiO2 21 % Sodium (137-145) mmol/L Potassium (3.6-5.0) mmol/L Chloride (98-107) mmol/L Carbon Dioxide (22-30) mmol/L Anion Gap mmol/L BUN (9-20) mg/dL Creatinine (0.8-1.3) mg/dL Estimated GFR ml/min BUN/Creatinine Ratio % Glucose (75-100) mg/dL Calcium (8.4-10.2) mg/dL Total Bilirubin (0.1-1.2) mg/dL AST (5-40) units/L ALT (7-56) units/L Alkaline Phosphatase (35-129) units/L Troponin T 0.043 H (0.00-0.029) ng/mL NT-Pro-B Natriuret Pep 71.52 (0-900) pg/mL Total Protein (6.3-8.2) g/dL Albumin (3.9-5) g/dL Albumin/Globulin Ratio % Triglycerides 162 H (2-149) mg/dL Cholesterol 120 (50-199) mg/dL LDL Cholesterol Direct 70 (50-130) mg/dL HDL Cholesterol 31 L (40-59) mg/dL Cholesterol/HDL Ratio 3.87 % Lipase (13-60) units/L Urine Color (Yellow) Urine Turbidity (Clear) Urine pH (5.0-7.0) Ur Specific Calvin (1.003-1.030) Urine Protein (Negative) mg/dL Urine Glucose (UA) (Negative) mg/dL Urine Ketones (Negative) mg/dL Urine Blood (Negative) Urine Nitrite (Negative) Urine Bilirubin (Negative) Urine Urobilinogen (<2.0) mg/dL Ur Leukocyte Esterase (Negative) Urine WBC (Auto) (0.0-6.0) /HPF Urine RBC (Auto) (0.0-6.0) /HPF U Epithel Cells (Auto) (0-13.0) /HPF Hyaline Casts /LPF 12/16/20 Range/Units 18:38 WBC (4.5-11.0) K/mm3 RBC (3.65-5.03) M/mm3 Hgb (11.8-15.2) gm/dl Hct (35.5-45.6) % MCV (84-94) fl MCH (28-32) pg MCHC (32-34) % RDW (13.2-15.2) % Plt Count (140-440) K/mm3 Lymph % (Auto) (13.4-35.0) % [place] % (Auto) (0.0-7.3) % Eos % (Auto) (0.0-4.3) % Baso % (Auto) (0.0-1.8) % Lymph # (Auto) (1.2-5.4) K/mm3 [place] # (Auto) (0.0-0.8) K/mm3 Eos # (Auto) (0.0-0.4) K/mm3 Baso # (Auto) (0.0-0.1) K/mm3 Seg Neutrophils % (40.0-70.0) % Seg Neutrophils # (1.8-7.7) K/mm3 D-Dimer (0-234) ng/mlDDU ABG pH (7.350-7.450) pH Units ABG pCO2 mm Hg ABG pO2 (80.0-90.0) mm Hg ABG HCO3 (20.0-26.0) mmol/L ABG O2 Saturation (95.0-99.0) % ABG O2 Content (0.0-44) ABG Base Excess (-2.0-3.0) mmol/L ABG Hemoglobin (14.0-18.0) gm/dl ABG Carboxyhemoglobin (0.0-5.0) % ABG Methemoglobin (0.0-1.5) % Oxyhemoglobin (95.0-99.0) % FiO2 % Sodium (137-145) mmol/L Potassium (3.6-5.0) mmol/L Chloride (98-107) mmol/L Carbon Dioxide (22-30) mmol/L Anion Gap mmol/L BUN (9-20) mg/dL Creatinine (0.8-1.3) mg/dL Estimated GFR ml/min BUN/Creatinine Ratio % Glucose (75-100) mg/dL Calcium (8.4-10.2) mg/dL Total Bilirubin (0.1-1.2) mg/dL AST (5-40) units/L ALT (7-56) units/L Alkaline Phosphatase (35-129) units/L Troponin T (0.00-0.029) ng/mL NT-Pro-B Natriuret Pep (0-900) pg/mL Total Protein (6.3-8.2) g/dL Albumin (3.9-5) g/dL Albumin/Globulin Ratio % Triglycerides (2-149) mg/dL Cholesterol (50-199) mg/dL LDL Cholesterol Direct (50-130) mg/dL HDL Cholesterol (40-59) mg/dL Cholesterol/HDL Ratio % Lipase (13-60) units/L Urine Color Yellow (Yellow) Urine Turbidity Clear (Clear) Urine pH 5.0 (5.0-7.0) Ur Specific Calvin 1.013 (1.003-1.030) Urine Protein <15 mg/dl (Negative) mg/dL Urine Glucose (UA) Neg (Negative) mg/dL Urine Ketones Tr (Negative) mg/dL Urine Blood Neg (Negative) Urine Nitrite Neg (Negative) Urine Bilirubin Neg (Negative) Urine Urobilinogen < 2.0 (<2.0) mg/dL Ur Leukocyte Esterase Neg (Negative) Urine WBC (Auto) < 1.0 (0.0-6.0) /HPF Urine RBC (Auto) 1.0 (0.0-6.0) /HPF U Epithel Cells (Auto) < 1.0 (0-13.0) /HPF Hyaline Casts 1 /LPF - EKG Data -: EKG Interpreted by Me EKG shows normal: sinus rhythm (PVCs), axis, intervals, QRS complexes, ST-T waves Rate: normal - EKG Data When compared to previous EKG there are: no significant change Interpretation: unchanged when compared t (03/18/20) - Radiology Data Radiology results: image reviewed interpreted by me: Chest x-ray does not show any acute process. There are no pleural effusions, obvious pneumonia and there is no pneumothorax. No osseous abnormality. Abdominal x-ray shows nonspecific nonobstructive bowel gas. - Medical Decision Making This [facility] for [facility] illness af ter receiving his second Covid vaccination yesterday. The patient apparently was positive for COVID-19 about 1 month ago. The facility said that the patient had low oxygen saturation of 81 to 86% on room air. The patient confirms that he is not oxygen dependent. An ABG done here does show hypoxemia with a PO2 of 51 and oxygen saturation of 88% on room air. During his ED course there were episodes where the patient did become hypoxemic and required supplemental oxygen. The patient's main complaint from the facility was abdominal pain. He has obesity but the abdomen is soft and there is no significant reproducible abdominal tenderness to palpation. Patient's labs shows a mild leukocytosis, the ABG showing hypoxemia, mild renal insufficiency, and a slightly elevated troponin level. EKG did not have any morphology consistent with ST elevation myocardial infarction. The etiology of the patient's hypoxemia is not definitive at this time. The patient already had Covid about 1 month ago and chest x-ray does not show the bilateral patchy infiltrates usually consistent with a viral or atypical Covid pneumonia. Patient does have a history of COPD and this could be related to a COPD exacerbation, but there is no hypercapnia. The patient did have an elevated D-dimer level and a VQ scan has been ordered. The patient will be admitted to the hospital for further evaluation and tr eatment of his accepted for admission by the hospitalist, Dr Hernandez. Critical Care Time: No Critical care attestation.: If time is entered above; I have spent that time in minutes in the direct care of this critically ill patient, excluding procedure time. ED Disposition Clinical Impression: Hypoxemia, Elevated troponin, COPD exacerbation, Morbid obesity Disposition: OP ADMIT IP TO THIS HOSP Is pt being admited?: Yes Condition: Serious Instructions: Chronic Obstructive Pulmonary Disease (ED) Time of Disposition: 19:16
[2020-12-16 13:56] LABS: ABG Base Excess 3.1 mmol/L (-2.0-3.0); ABG HCO3 28.3 mmol/L (20.0-26.0); ABG Methemoglobin 0.6 % (0.0-1.5); ABG PCO2 45.9 mm Hg; ABG PH 7.407 pH Units (7.350-7.450); ABG PO2 51.2 mm Hg (80.0-90.0)
--- NOTE | 2020-12-16 14:04 | XRay Report ---
ACUTE ABDOMEN SERIES INDICATION / CLINICAL INFORMATION: Abd pain. COMPARISON: None available. FINDINGS: Nonspecific bowel gas pattern. No definite evidence of obstruction or pneumoperitoneum. The accompany ing chest x-ray shows no acute disease Signer Name: Vu Galdamez MD FACR Signed: 12/16/2020 1:59 PM Workstation Name: [id number]
[2020-12-16 14:23] LABS: Basophils # (Auto) 0.1 K/mm3 (0.0-0.1); Basophils % (Auto) 0.8 % (0.0-1.8); Eosinophils # (Auto) 0.2 K/mm3 (0.0-0.4); Eosinophils % (Auto) 1.3 % (0.0-4.3); Hematocrit 35.2 % (35.5-45.6); Hemoglobin 11.7 gm/dl (11.8-15.2); Lymphocytes # (Auto) 2.4 K/mm3 (1.2-5.4); Lymphocytes % (Auto) 17.9 % (13.4-35.0); Mean Corpuscular HGB Conc 33 % (32-34); Mean Corpuscular Volume 84 fl (84-94); Monocytes # (Auto) 0.9 K/mm3 (0.0-0.8); Monocytes % (Auto) 6.8 % (0.0-7.3); Platelet Count 228 K/mm3 (140-440); Red Cell Distribution Width 16.8 % (13.2-15.2)
[2020-12-16 14:41] LABS: Albumin 4.1 g/dL (3.9-5); Calcium 9.3 mg/dL (8.4-10.2)
[2020-12-16 14:56] LABS: Chol/HDL Ratio 3.87 %
--- NOTE | 2020-12-16 17:09 | History and Physical Report ---
History of Present Illness Chief complaint: Im not feeling well History of present illness: 70 YO Male Intermediate Facility Resident at [facility] with COPD, DM, HTN, CHF, HLD, BPH, SOPHIE, LUZ, CVA with RHP, Cardiomyopathy, Depression, Obesity Hypoventilation Syndrome, Coronavirus Infection in 11/2020 who recieved second dose of coronavirus vaccination on 12/15/19 presents to ED for evaluation. Pt states "I am not feeling well". The patient reports abdominal discomfort, malaise, weakness, body aches over the past 1 day with persistent symptoms over the same timeframe. Patient was found to have a pulse oximetry of 81% on room air as per snf facility staff. EMS was notified and upon arrival the patient was found to be in distress and subsequently transported to [facility] for further care and evaluation of the aforementioned symptoms. The patient was seen and evaluated in the emergency department. All lab and imaging studies reviewed. The patient was found to have a pulse oximetry of 84% on room air which is consistent with acute hypoxemic respiratory failure. The patient was also found to have systemic inflammatory response syndrome, acute kidney injury, as well as suspected urinary tract infection. The patient was admitted to the medical floor and initiated on IV antibiotic therapy due to increased risk of worsening symptoms. Patient denies fever, chills, chest pain, palpitations, productive cough, skin rash. Prior admission on 08/27/2020 reviewed. All medication listed at time of admission has been reconciled. Advanced care planning conducted in ED. Past History Past Medical History: COPD, diabetes, heart failure, hypertension, hyperlipidemia, other (See HPI) Past Surgical History: total knee replacement, Other (ICD placement) Medications and Allergies Allergies Allergy/AdvReac Type Severity Reaction Status Date / Time No Known Allergies Allergy Unverified 11/13/17 00:30 Home Medications Medication Instructions Recorded Confirmed Last Taken Type Ascorbic Acid [Vitamin C] 500 mg PO DAILY 11/13/17 03/19/20 Unknown History Ferrous Sulfate [Feosol 325 MG tab] 325 mg PO BID 11/13/17 03/19/20 Unknown History Sertraline [Zoloft] 100 mg PO DAILY 11/13/17 03/19/20 Unknown History Acetaminophen [Acetaminophen TAB] 650 mg PO Q4H PRN #15 tablet 11/28/18 03/19/20 Unknown Rx Spironolactone [Aldactone] 25 mg PO QDAY #30 tablet 11/28/18 03/19/20 Unknown Rx Acetaminophen [Mapap] 2 tab PO Q12H PRN 12/13/19 03/19/20 Unknown History Albuterol Sulfate [Proair 90 mcg IH Q4H PRN 12/13/19 03/19/20 Unknown History Respiclick] Aspirin [Aspirin BABY CHEW TAB] 81 mg PO DAILY 12/13/19 03/19/20 Unknown History AtorvaSTATin [Lipitor] 40 mg PO QHS 12/13/19 03/19/20 Unknown History Cholecalciferol Vit D3 [Vitamin D3 1,000 unit PO QDAY 12/13/19 03/19/20 Unknown History 1,000 UNIT TAB] Docusate Sodium [Colace CAP] 100 mg PO BID PRN 12/13/19 03/19/20 Unknown History Fluticasone Propionate [Flovent 50 mcg IH Q24H PRN 12/13/19 03/19/20 Unknown History Diskus] Furosemide [Lasix TAB] 20 mg PO BID 12/13/19 03/19/20 Unknown History Gabapentin 300 mg PO BID 12/13/19 03/19/20 Unknown History Insulin Glargine [Lantus VIAL] 10 unit SUB-Q QHS 12/13/19 03/19/20 Unknown History Insulin Lispro [Humalog 100 0 units SQ AC 12/13/19 03/19/20 Unknown History UNITS/ML Kwikpen] Ipratropium [Atrovent NEB] 0.5 mg IH Q6HRT PRN 12/13/19 03/19/20 Unknown History Sennosides [Senna] 8.6 mg PO HS PRN 12/13/19 03/19/20 Unknown History clonazePAM [clonazePAM Rapdis] 0.5 mg PO HS 12/13/19 03/19/20 Unknown History guaiFENesin [Robitussin] 100 mg PO Q6H PRN 12/13/19 03/19/20 Unknown History metFORMIN [Glucophage] 500 mg PO BID 12/13/19 03/19/20 Unknown History polyethylene glycoL 3350 [Miralax 17 gm PO Q24H PRN 12/13/19 03/19/20 Unknown History 3350] predniSONE [Deltasone] 20 mg PO QDAY 12/13/19 03/19/20 Unknown History traMADoL [Ultram 50 MG tab] 50 mg PO Q6HR PRN 12/13/19 03/19/20 Unknown History amLODIPine 5 mg PO DAILY #30 tab 12/16/19 03/19/20 Unknown Rx Acetaminophen [Acetaminophen TAB] 650 mg PO Q4H PRN tablet 03/20/20 Unknown Rx Lispro Insulin [HumaLOG] 0 unit SUB-Q ACHS units 03/20/20 Unknown Rx Review of Systems Constitutional: fatigue, weakness, malaise, no weight gain, no fever, no chills Ears, nose, mouth and throat: no ear pain, no ear discharge, no tinnitis, no decreased hearing, no nose pain, no nasal congestion Cardiovascular: no chest pain, no orthopnea, no edema Respiratory: no cough, no cough with sputum, no excessive sputum Gastrointestinal: abdominal pain, no nausea, no vomiting, no diarrhea, no constipation, no coffee ground emesis, no melena, no hematochezia, no loss of appetite, no heartburn Genitourinary Male: no hematuria, no flank pain, no discharge, no urinary frequency, no urinary hesitancy Rectal: no pain, no incontinence, no bleeding Musculoskeletal: no neck stiffness, no neck pain, no arm numbness/tingling, no low back pain, no shooting leg pain Integumentary: no rash, no pruritis, no jaundice Neurological: no head injury, no paralysis, no weakness, no syncope, no tremors Psychiatric: no anxiety, no memory loss, no sleep disturbances, no hypersomnia, no change in appetite, no change in libido, no suicidal ideation Endocrine: no cold intolerance, no polyphagia, no excessive thirst, no polydipsia, no nocturia, no excessive sweating, no flushing Hematologic/Lymphatic: no easy bruising, no easy bleeding, no lymphedema Allergic/Immunologic: no anaphylaxis Exam - Constitutional Vitals: Temp Pulse Resp BP Pulse Ox 98.6 F 93 H 23 84/54 97 12/16/20 12:56 12/16/20 14:41 12/16/20 14:41 12/16/20 14:41 12/16/20 14:41 General appearance: Present: mild distress, obese - EENT Eyes: Present: PERRL ENT: hearing intact, clear oral mucosa - Neck Neck: Present: supple, normal ROM - Respiratory Respiratory effort: normal Respiratory: bilateral: diminished, rhonchi - Cardiovascular Heart Sounds: Present: S1 & S2. Absent: rub, click - Extremities Extremities: pulses symmetrical Extremity abnormal: edema Peripheral Pulses: within normal limits - Abdominal General gastrointestinal: Present: soft, non-tender, non-distended, normal bowel sounds Male genitourinary: Present: normal - Integumentary Integumentary: Present: clear, warm, dry - Musculoskeletal Musculoskeletal: gait normal, strength equal bilaterally - Psychiatric Psychiatric: appropriate mood/affect, intact judgment & insight - Neurologic Neurologic: CNII-XII intact, moves all extremities HEART Score - HEART Score Troponin: Troponin T 0.043 ng/mL (0.00-0.029) H 12/16/20 14:08 Results - Labs CBC & Chem 7: 12/16/20 13:50 12/16/20 13:50 Labs: Abnormal lab results 12/16/20 12/16/20 12/16/20 Range/Units 13:50 13:50 13:50 WBC 13.6 H (4.5-11.0) K/mm3 Hgb 11.7 L (11.8-15.2) gm/dl Hct 35.2 L (35.5-45.6) % RDW 16.8 H (13.2-15.2) % Tate # (Auto) 0.9 H (0.0-0.8) K/mm3 Seg Neutrophils % 73.2 H (40.0-70.0) % Seg Neutrophils # 10.0 H (1.8-7.7) K/mm3 D-Dimer (0-234) ng/mlDDU ABG pO2 51.2 L (80.0-90.0) mm Hg ABG HCO3 28.3 H (20.0-26.0) mmol/L ABG O2 Saturation 88.0 L (95.0-99.0) % ABG Base Excess 3.1 H (-2.0-3.0) mmol/L ABG Hemoglobin 11.5 L (14.0-18.0) gm/dl Oxyhemoglobin 85.7 L (95.0-99.0) % Potassium 5.1 H (3.6-5.0) mmol/L BUN 39 H (9-20) mg/dL Creatinine 1.4 H (0.8-1.3) mg/dL Glucose 118 H (75-100) mg/dL Troponin T (0.00-0.029) ng/mL Triglycerides (2-149) mg/dL HDL Cholesterol (40-59) mg/dL 12/16/20 12/16/20 Range/Units 14:08 14:08 WBC (4.5-11.0) K/mm3 Hgb (11.8-15.2) gm/dl Hct (35.5-45.6) % RDW (13.2-15.2) % Tate # (Auto) (0.0-0.8) K/mm3 Seg Neutrophils % (40.0-70.0) % Seg Neutrophils # (1.8-7.7) K/mm3 D-Dimer 1376.89 H (0-234) ng/mlDDU ABG pO2 (80.0-90.0) mm Hg ABG HCO3 (20.0-26.0) mmol/L ABG O2 Saturation (95.0-99.0) % ABG Base Excess (-2.0-3.0) mmol/L ABG Hemoglobin (14.0-18.0) gm/dl Oxyhemoglobin (95.0-99.0) % Potassium (3.6-5.0) mmol/L BUN (9-20) mg/dL Creatinine (0.8-1.3) mg/dL Glucose (75-100) mg/dL Troponin T 0.043 H (0.00-0.029) ng/mL Triglycerides 162 H (2-149) mg/dL HDL Cholesterol 31 L (40-59) mg/dL Assessment and Plan - Patient Problems (1) Acute hypoxemic respiratory failure Current Visit: Yes Status: Acute Plan to address problem: Chest x-ray, supplemental oxygen, pulse oximetry, nebulizer therapy, VQ scan is ordered and pending at time of admission, pulmonary toilet (2) Systemic inflammatory response syndrome Current Visit: Yes Status: Acute Plan to address problem: CBC, CMP, urinalysis, IV antibiotic therapy, supportive care. (3) Acute kidney injury Current Visit: Yes Status: Acute Plan to address problem: BMP, repeat BMP in a.m. to monitor serum creatinine and GFR, oral free water intake. (4) Volume depletion Current Visit: Yes Status: Acute Plan to address problem: IV fluid resuscitation therapy as clinically indicated, oral free water intake, supportive care. (5) Urinary tract infection Current Visit: Yes Status: Acute Qualifiers: Encounter type: initial encounter Plan to address problem: IV antibiotic therapy, CBC, urinalysis, supportive care. (6) DVT prophylaxis Current Visit: Yes Status: Acute Plan to address problem: SCD to bilateral lower extremities while in bed, patient is ambulatory (7) Advance care planning Current Visit: Yes Status: Acute Plan to address problem: Disease education conducted, prognosis discussed, care plan discussed, patient knowledges understanding and agreement with care plan, +30 minutes.
[2020-12-16] MEDS ORDERED: ONDANSETRON 4 MG/2 ML INJ IV PRN (18:27)
[2020-12-16] MEDS ORDERED: ACETAMINOPHEN 325 MG TAB PO PRN (18:27)
[2020-12-16] MEDS ORDERED: ALBUTEROL 2.5 MG/3 ML NEBU IH PRN (18:27)
[2020-12-16] MEDS: cefTRIAXone/NS 1 GM/50 ML 1 GM/50 ML BAG IV SCH (19:06)
[2020-12-16 19:07] LABS: Bilirubin,Urine NEG (Negative); Blood,Urine NEG (Negative); Color,Urine Yellow (Yellow); Hyaline Casts,Urine 1 /LPF; Protein,Urine <15 mg/dL mg/dL (Negative); Urobilinogen,Urine < 2.0 mg/dL (<2.0); WBC,Urine < 1.0 /HPF (0.0-6.0)
[2020-12-16] MEDS: methylPREDNISolone Sod Succinate 40 MG/1 ML INJ IV SCH (19:53)
[2020-12-17 07:25] LABS: Basophils % (Auto) 0.2 % (0.0-1.8); Eosinophils % (Auto) 0.1 % (0.0-4.3); Hematocrit 35.5 % (35.5-45.6); Lymphocytes # (Auto) 1.3 K/mm3 (1.2-5.4); Lymphocytes % (Auto) 11.4 % (13.4-35.0); Mean Corpuscular HGB Conc 34 % (32-34); Mean Corpuscular Volume 85 fl (84-94); Monocytes # (Auto) 0.4 K/mm3 (0.0-0.8); Monocytes % (Auto) 3.4 % (0.0-7.3); Platelet Count 242 K/mm3 (140-440); Red Cell Distribution Width 16.6 % (13.2-15.2)
[2020-12-17 07:43] LABS: Calcium 9.3 mg/dL (8.4-10.2)
--- NOTE | 2020-12-17 09:19 | Nuclear Medicine Report ---
NUCLEAR MEDICINE PERFUSION ONLY LUNG SCAN History: SOb, elevated dimer Comparison: Chest and abdomen radiographs 12/16/2020 Procedure: The patient was administered 5.1 mCi of technetium 99m labeled MAA intravenously. Findings: No focal segmental defects are seen on perfusion imaging. Impression: Low probability of pulmonary embolism. Signer Name: Andrew Chaparro MD Signed: 12/17/2020 9:14 AM Workstation Name: [id number]
[2020-12-17] MEDS: methylPREDNISolone Sod Succinate 40 MG/1 ML INJ IV SCH ×2 (10:30→21:04)
[2020-12-17] MEDS ORDERED: cefTRIAXone/NS 1 GM/50 ML 1 GM/50 ML BAG IV SCH (19:00)
--- NOTE | 2020-12-17 20:14 | Progress Note ---
Assessment and Plan Assessment and plan: --Acute hypoxemic respiratory failure Current Visit: Yes Status: Acute Plan to address problem: Present on admission due to cardiomyopathy Oxygen titrate O2 sats to more than 90% Supportive care --Elevated D-dimers; evaluate for PE Current Visit: Yes Status: Acute Plan to address problem: VQ scan low probability for PE Check venous Doppler --Non-ST elevation MN/probably type II Current Visit: Yes Status: Acute . Plan to address problem: Serial cardiac enzymes Consider cardiology evaluation if needed. --History of ICD Current Visit: Yes Status: Acute . Plan to address problem: Supportive care Cardiology consult for interrogation if needed -- Systemic inflammatory response syndrome Current Visit: Yes Status: Acute Plan to address problem: Follow clinically , adjust management needed --Acute kidney injury/vasomotor nephropathy Current Visit: Yes Status: Acute Plan to address problem: Present on admission, significantly improved Closely monitor renal function avoid nephrotoxins --Possible urinary tract infection Current Visit: Yes Status: Acute Plan to address problem: Empiric IV antibiotic therapy, CBC, urinalysis, supportive care. --DVT prophylaxis Current Visit: Yes Status: Acute Plan to address problem: SCD to bilateral lower extremities while in bed, patient is ambulatory --Advance care planning Current Visit: Yes Status: Acute Plan to address problem: Full CODE STATUS Plan of care reviewed with the patient and his nurse we will closely monitor the patient and adjust the management as needed Plan of care reviewed with the patient and the nurse History Interval history: I have seen examined the patient this afternoon, patient's chart and medications reviewed Patient feels slightly better, still has some shortness of breath Denies chest pain, vital signs noted Hospitalist Physical - Constitutional Vitals: Temp Pulse Resp BP Pulse Ox 98.6 F 95 H 18 111/61 94 12/17/20 12:07 12/17/20 17:10 12/17/20 12:07 12/17/20 12:07 12/17/20 12:07 General appearance: Present: mild distress, well-nourished, obese (Morbidly obese) - EENT Eyes: Present: PERRL, EOM intact - Neck Neck: Present: supple, normal ROM - Respiratory Respiratory effort: normal Respiratory: bilateral: diminished, rales, negative: rhonchi, wheezing - Cardiovascular Rhythm: regular Heart Sounds: Present: S1 & S2 - Extremities Extremities: no ischemia Extremity abnormal: edema - Abdominal General gastrointestinal: soft, non-tender, non-distended, normal bowel sounds - Integumentary Integumentary: Present: clear, warm - Psychiatric Psychiatric: appropriate mood/affect, cooperative - Neurologic Neurologic: moves all extremities HEART Score - HEART Score Troponin: Troponin T 0.043 ng/mL (0.00-0.029) H 12/16/20 14:08 Results - Labs CBC & Chem 7: 12/17/20 06:49 12/17/20 06:49 Labs: Laboratory Last Values WBC 11.6 K/mm3 (4.5-11.0) H 12/17/20 06:49 RBC 4.20 M/mm3 (3.65-5.03) 12/17/20 06:49 Hgb 12.0 gm/dl (11.8-15.2) 12/17/20 06:49 Hct 35.5 % (35.5-45.6) 12/17/20 06:49 MCV 85 fl (84-94) 12/17/20 06:49 MCH 29 pg (28-32) 12/17/20 06:49 MCHC 34 % (32-34) 12/17/20 06:49 RDW 16.6 % (13.2-15.2) H 12/17/20 06:49 Plt Count 242 K/mm3 (140-440) 12/17/20 06:49 Lymph % (Auto) 11.4 % (13.4-35.0) L 12/17/20 06:49 [place] % (Auto) 3.4 % (0.0-7.3) 12/17/20 06:49 Eos % (Auto) 0.1 % (0.0-4.3) 12/17/20 06:49 Baso % (Auto) 0.2 % (0.0-1.8) 12/17/20 06:49 Lymph # (Auto) 1.3 K/mm3 (1.2-5.4) 12/17/20 06:49 [place] # (Auto) 0.4 K/mm3 (0.0-0.8) 12/17/20 06:49 Eos # (Auto) 0.0 K/mm3 (0.0-0.4) 12/17/20 06:49 Baso # (Auto) 0.0 K/mm3 (0.0-0.1) 12/17/20 06:49 Seg Neutrophils % 84.9 % (40.0-70.0) H 12/17/20 06:49 Seg Neutrophils # 9.9 K/mm3 (1.8-7.7) H 12/17/20 06:49 D-Dimer 1376.89 ng/mlDDU (0-234) H 12/16/20 14:08 ABG pH 7.407 pH Units (7.350-7.450) 12/16/20 13:50 ABG pCO2 45.9 mm Hg 12/16/20 13:50 ABG pO2 51.2 mm Hg (80.0-90.0) L 12/16/20 13:50 ABG HCO3 28.3 mmol/L (20.0-26.0) H 12/16/20 13:50 ABG O2 Saturation 88.0 % (95.0-99.0) L 12/16/20 13:50 ABG O2 Content 13.9 (0.0-44) 12/16/20 13:50 ABG Base Excess 3.1 mmol/L (-2.0-3.0) H 12/16/20 13:50 ABG Hemoglobin 11.5 gm/dl (14.0-18.0) L 12/16/20 13:50 ABG Carboxyhemoglobin 2.0 % (0.0-5.0) 12/16/20 13:50 ABG Methemoglobin 0.6 % (0.0-1.5) 12/16/20 13:50 Oxyhemoglobin 85.7 % (95.0-99.0) L 12/16/20 13:50 FiO2 21 % 12/16/20 13:50 Sodium 141 mmol/L (137-145) 12/17/20 06:49 Potassium 5.0 mmol/L (3.6-5.0) 12/17/20 06:49 Chloride 103.5 mmol/L (98-107) 12/17/20 06:49 Carbon Dioxide 28 mmol/L (22-30) 12/17/20 06:49 Anion Gap 15 mmol/L 12/17/20 06:49 BUN 32 mg/dL (9-20) H 12/17/20 06:49 Creatinine 1.3 mg/dL (0.8-1.3) 12/17/20 06:49 Estimated GFR 54 ml/min 12/17/20 06:49 BUN/Creatinine Ratio 25 % 12/17/20 06:49 Glucose 158 mg/dL (75-100) H 12/17/20 06:49 Calcium 9.3 mg/dL (8.4-10.2) 12/17/20 06:49 Total Bilirubin 0.50 mg/dL (0.1-1.2) 12/16/20 13:50 AST 22 units/L (5-40) 12/16/20 13:50 ALT 15 units/L (7-56) 12/16/20 13:50 Alkaline Phosphatase 89 units/L (35-129) 12/16/20 13:50 Troponin T 0.043 ng/mL (0.00-0.029) H 12/16/20 14:08 NT-Pro-B Natriuret Pep 71.52 pg/mL (0-900) 12/16/20 14:08 Total Protein 6.8 g/dL (6.3-8.2) 12/16/20 13:50 Albumin 4.1 g/dL (3.9-5) 12/16/20 13:50 Albumin/Globulin Ratio 1.5 % 12/16/20 13:50 Triglycerides 162 mg/dL (2-149) H 12/16/20 14:08 Cholesterol 120 mg/dL (50-199) 12/16/20 14:08 LDL Cholesterol Direct 70 mg/dL (50-130) 12/16/20 14:08 HDL Cholesterol 31 mg/dL (40-59) L 12/16/20 14:08 Cholesterol/HDL Ratio 3.87 % 12/16/20 14:08 Lipase 23 units/L (13-60) 12/16/20 13:50 Urine Color Yellow (Yellow) 12/16/20 18:38 Urine Turbidity Clear (Clear) 12/16/20 18:38 Urine pH 5.0 (5.0-7.0) 12/16/20 18:38 Ur Specific [place] 1.013 (1.003-1.030) 12/16/20 18:38 Urine Protein <15 mg/dl mg/dL (Negative) 12/16/20 18:38 Urine Glucose (UA) Neg mg/dL (Negative) 12/16/20 18:38 Urine Ketones Tr mg/dL (Negative) 12/16/20 18:38 Urine Blood Neg (Negative) 12/16/20 18:38 Urine Nitrite Neg (Negative) 12/16/20 18:38 Urine Bilirubin Neg (Negative) 12/16/20 18:38 Urine Urobilinogen < 2.0 mg/dL (<2.0) 12/16/20 18:38 Ur Leukocyte Esterase Neg (Negative) 12/16/20 18:38 Urine WBC (Auto) < 1.0 /HPF (0.0-6.0) 12/16/20 18:38 Urine RBC (Auto) 1.0 /HPF (0.0-6.0) 12/16/20 18:38 U Epithel Cells (Auto) < 1.0 /HPF (0-13.0) 12/16/20 18:38 Hyaline Casts 1 /LPF 12/16/20 18:38 Harding/IV: Voiding Method Incontinent IV Catheter Type [Left Hand] INT / Saline Lock Active Medications - Current Medications Current Medications: Generic Name Dose Route Start Last Admin Trade Name Freq PRN Reason Stop Dose Admin Acetaminophen 650 mg 12/16/20 18:27 Acetaminophen 325 Mg Tab PO Q4H PRN Pain MILD(1-3)/Fever >100.5/SANCHEZ Albuterol 2.5 mg 12/16/20 18:27 Albuterol 2.5 Mg/3 Ml Nebu IH Q4HRT PRN Shortness Of Breath Ceftriaxone Sodium 1 gm in 50 mls @ 100 mls/hr 12/17/20 19:00 Rocephin/Ns 1 Gm/50 Ml IV 12/18/20 18:59 Q24H YOLY Protocol Methylprednisolone Sodium Succinate 40 mg 12/16/20 20:00 12/17/20 10:30 Methylprednisolone Sod Succinate 40 Mg/1 Ml Inj IV 40 mg Q12H YOLY Administration Ondansetron HCl 4 mg 12/16/20 18:27 Ondansetron 4 Mg/2 Ml Inj IV Q8H PRN Nausea And Vomiting Sodium Chloride 10 ml 12/16/20 22:00 12/17/20 10:29 Sodium Chloride 0.9% 10 Ml Flush Syringe IV 10 ml BID YOLY Administration Sodium Chloride 10 ml 12/16/20 18:27 Sodium Chloride 0.9% 10 Ml Flush Syringe IV PRN PRN LINE FLUSH
[2020-12-17] MEDS ORDERED: NON-FORMULARY EACH (Albuterol Sulfate [Proair Respiclick] 90 MCG Aer.Pow.Ba) IH PRN (20:30)
[2020-12-17] MEDS ORDERED: traMADol 50 MG TAB PO PRN (20:31)
[2020-12-17] MEDS: FUROSEMIDE 20 MG TAB PO SCH (21:02)
[2020-12-17] MEDS: GABAPENTIN 300 MG CAP PO SCH (21:03)
[2020-12-17] MEDS: INSULIN LISPRO 100 UNIT/ML SUB-Q SCH (23:09)
[2020-12-18] MEDS: FUROSEMIDE 20 MG TAB PO SCH ×2 (05:15→17:09)
[2020-12-18 07:06] LABS: Creatine Kinase MB 1.5 ng/mL (0.0-4.0)
[2020-12-18 07:10] LABS: BUN/Creatinine Ratio 27; Blood Urea Nitrogen 40 mg/dL (9-20); Calcium 9.1 mg/dL (8.4-10.2); Hemolysis Index 0
--- NOTE | 2020-12-18 08:21 | XRay Report ---
XR chest 1V ap INDICATION / CLINICAL INFORMATION: Shortness of breath COMPARISON: Mar 18 2020 FINDINGS: SUPPORT DEVICES: Left transvenous AICD. HEART / MEDIASTINUM: No significant abnormality. LUNGS / PLEURA: Low lung volumes. Left basilar parenchymal opacities. Right linear basilar peripheral opacity most consistent subsegmental atelectasis.. Costophrenic sulci are sharp. No pneumothorax. ADDITIONAL FINDINGS: No significant additional findings. IMPRESSION: 1. Left lower lung zone parenchymal opacity which could represent airspace disease such as pneumonia or atelectasis. Signer Name: Herminio Khan MD Signed: 12/18/2020 8:17 AM Workstation Name: [id number]
[2020-12-18] MEDS: INSULIN LISPRO 100 UNIT/ML SUB-Q SCH ×4 (09:36→21:15)
[2020-12-18] MEDS: GABAPENTIN 300 MG CAP PO SCH ×2 (09:56→21:13)
[2020-12-18] MEDS: ASPIRIN 81 MG TAB CHEW PO SCH (09:56)
[2020-12-18] MEDS: methylPREDNISolone Sod Succinate 40 MG/1 ML INJ IV SCH ×2 (09:56→21:13)
--- NOTE | 2020-12-18 17:53 | Progress Note ---
Assessment and Plan Assessment and Plan --Acute hypoxemic respiratory failure Current Visit: Yes Status: Acute Plan to address problem: Present on admission due to cardiomyopathy Oxygen titrate O2 sats to more than 90% Supportive care SNF placement --Elevated D-dimers; evaluate for PE Current Visit: Yes Status: Acute Plan to address problem: VQ scan low probability for PE Check venous Doppler --Non-ST elevation AR/probably type II Current Visit: Yes Status: Acute . Plan to address problem: Serial cardiac enzymes Consider cardiology evaluation if needed. --History of ICD Current Visit: Yes Status: Acute . Plan to address problem: Supportive care Cardiology consult for interrogation if needed -- Systemic inflammatory response syndrome Current Visit: Yes Status: Acute Plan to address problem: Follow clinically , adjust management needed --Acute kidney injury/vasomotor nephropathy Current Visit: Yes Status: Acute Plan to address problem: Present on admission, significantly improved Closely monitor renal function avoid nephrotoxins --Possible urinary tract infection Current Visit: Yes Status: Acute Plan to address problem: Empiric IV antibiotic therapy, CBC, urinalysis, supportive care. --DVT prophylaxis Current Visit: Yes Status: Acute Plan to address problem: SCD to bilateral lower extremities while in bed, patient is ambulatory --Advance care planning Current Visit: Yes Status: Acute Plan to address problem: Full CODE STATUS Plan of care reviewed with the patient and his nurse we will closely monitor the patient and adjust the management as needed Plan of care reviewed with the patient and the nurse Subjective Date of service: 12/18/20 Principal diagnosis: Acute respiratory failure with hypoxia Interval history: 70 YO Male Care Home Facility Resident at [facility] with COPD, DM, HTN, CHF, HLD, BPH, SOPHIE, LUZ, CVA with RHP, Cardiomyopathy, Depression, Obesity Hypoventilation Syndrome, Coronavirus Infection in 11/2020 who recieved second dose of coronavirus vaccination on 12/15/19 presents to ED for evaluation. Pt states "I am not feeling well". The patient reports abdominal discomfort, malaise, weakness, body aches over the past 1 day with persistent symptoms over the same timeframe. Patient was found to have a pulse oximetry of 81% on room air as per [facility] facility staff. EMS was notified and upon arrival the patient was found to be in distress and subsequently transported to [facility] for further care and evaluation of the aforementioned symptoms. The patient was seen and evaluated in the emergency department. All lab and imaging studies reviewed. The patient was found to have a pulse oximetry of 84% on room air which is consistent with acute hypoxemic respiratory failure. The patient was also found to have systemic inflammatory response syndrome, acute kidney injury, as well as suspected urina ry tract infection. The patient was admitted to the medical floor and initiated on IV antibiotic therapy due to increased risk of worsening symptoms. Patient denies fever, chills, chest pain, palpitations, productive cough, skin rash. Prior admission on 08/27/2020 reviewed. All medication listed at time of admission has been reconciled. Advanced care planning conducted in ED. I have seen examined the patient this afternoon, patient's chart and medications reviewed Patient feels slightly better, still has some shortness of breath Denies chest pain, vital signs noted 12/18/2020 Patient on 6 L nasal cannula oxygen Trying to taper down Patient is debilitated We will get physical therapy Objective - Constitutional Vitals: Vital Signs - 12hr 12/18/20 12/18/20 12/18/20 08:02 08:05 10:00 Temperature 98.7 F Pulse Rate 75 Respiratory Rate Blood Pressure 87/46 110/55 O2 Sat by Pulse 90 95 Oximetry 12/18/20 11:14 Temperature 97.3 F L Pulse Rate 76 Respiratory 20 Rate Blood Pressure 102/51 O2 Sat by Pulse 95 Oximetry General appearance: Present: mild distress, well-nourished - EENT Eyes: PERRL, EOM intact ENT: hearing intact, clear oral mucosa Ears: bilateral: normal - Neck Neck: supple, normal ROM - Respiratory Respiratory effort: normal Respiratory: bilateral: CTA - Breasts Breasts: normal - Cardiovascular Heart rate: 78 Rhythm: regular Heart Sounds: Present: S1 & S2. Absent: gallop, rub Extremities: pulses intact, No edema, normal color, Full ROM - Gastrointestinal General gastrointestinal: Present: soft, non-tender, non-distended, normal bowel sounds - Genitourinary Male genitourinary: normal - Integumentary Integumentary: clear, warm, dry - Musculoskeletal Musculoskeletal: 1, strength equal bilaterally - Neurologic Neurologic: moves all extremities - Psychiatric Psychiatric: memory intact, appropriate mood/affect, intact judgment & insight - Labs CBC & Chem 7: 12/17/20 06:49 12/18/20 04:34 Labs: Abnormal lab results 12/17/20 12/18/20 12/18/20 Range/Units 20:13 04:34 07:43 BUN 40 H (9-20) mg/dL Creatinine 1.5 H (0.8-1.3) mg/dL Glucose 194 H (75-100) mg/dL POC Glucose 190 H 149 H (70-105) mg/dL Magnesium 2.40 H (1.7-2.3) mg/dL 12/18/20 Range/Units 11:58 BUN (9-20) mg/dL Creatinine (0.8-1.3) mg/dL Glucose (75-100) mg/dL POC Glucose 154 H (70-105) mg/dL Magnesium (1.7-2.3) mg/dL HEART Score - HEART Score Troponin: Troponin T < 0.010 ng/mL (0.00-0.029) 12/18/20 04:34
[2020-12-19] MEDS: FUROSEMIDE 20 MG TAB PO SCH ×2 (06:30→17:26)
[2020-12-19] MEDS: methylPREDNISolone Sod Succinate 40 MG/1 ML INJ IV SCH ×2 (08:59→21:58)
[2020-12-19] MEDS: INSULIN LISPRO 100 UNIT/ML SUB-Q SCH ×4 (08:59→21:59)
[2020-12-19] MEDS: GABAPENTIN 300 MG CAP PO SCH ×2 (09:00→21:57)
[2020-12-19] MEDS: ASPIRIN 81 MG TAB CHEW PO SCH (09:00)
--- NOTE | 2020-12-19 14:48 | Progress Note ---
Assessment and Plan Assessment and Plan --Acute hypoxemic respiratory failure Current Visit: Yes Status: Acute Plan to address problem: Present on admission due to cardiomyopathy Oxygen titrate O2 sats to more than 90% Supportive care Patient on 4 L nasal cannula oxygen --Elevated D-dimers; evaluate for PE Current Visit: Yes Status: Acute Plan to address problem: VQ scan low probability for PE Check venous Doppler --Non-ST elevation OK/probably type II Current Visit: Yes Status: Acute . Plan to address problem: Serial cardiac enzymes Consider cardiology evaluation if needed. --History of ICD Current Visit: Yes Status: Acute . Plan to address problem: Supportive care Cardiology consult for interrogation if needed -- Systemic inflammatory response syndrome Current Visit: Yes Status: Acute Plan to address problem: Follow clinically , adjust management needed --Acute kidney injury/vasomotor nephropathy Current Visit: Yes Status: Acute Plan to address problem: Present on admission, significantly improved Closely monitor renal function avoid nephrotoxins --Possible urinary tract infection Current Visit: Yes Status: Acute Plan to address problem: Empiric IV antibiotic therapy, CBC, urinalysis, supportive care. --DVT prophylaxis Current Visit: Yes Status: Acute Plan to address problem: SCD to bilateral lower extremities while in bed, patient is ambulatory --Advance care planning Current Visit: Yes Status: Acute Plan to address problem: Full CODE STATUS Plan of care reviewed with the patient and his nurse we will closely monitor the patient and adjust the management as needed Plan of care reviewed with the patient and the nurse Subjective Date of service: 12/19/20 Principal diagnosis: Acute respiratory failure with hypoxia Interval history: 70 YO Male Residential Facility Resident at [facility] with COPD, DM, HTN, CHF, HLD, BPH, SOPHIE, LUZ, CVA with RHP, Cardiomyopathy, Depression, Obesity Hypoventilation Syndrome, Coronavirus Infect ion in 11/2020 who recieved second dose of coronavirus vaccination on 12/15/19 presents to ED for evaluation. Pt states "I am not feeling well". The patient reports abdominal discomfort, malaise, weakness, body aches over the past 1 day with persistent symptoms over the same timeframe. Patient was found to have a pulse oximetry of 81% on room air as per senior care facility staff. EMS was notified and upon arrival the patient was found to be in distress and subsequently transported to [facility] for further care and evaluation of the aforementioned symptoms. The patient was seen and evaluated in the emergency department. All lab and imaging studies reviewed. The patient was found to have a pulse oximetry of 84% on room air which is consistent with acute hypoxemic respiratory failure. The patient was also found to have systemic inflammatory response syndrome, acute kidney injury, as well as suspected urinary tract infection. The patient was admitted to the medical floor and initiated on IV antibiotic therapy due to increased risk of worsening symptoms. Patient denies fever, chills, chest pain, palpitations, productive cough, skin rash. Prior admission on 08/27/2020 reviewed. All medication listed at time of admission has been reconciled. Advanced care planning conducted in ED. I have seen examined the patient this afternoon, patient's chart and medications reviewed Patient feels slightly better, still has some shortness of breath Denies chest pain, vital signs noted 12/19/2020 Patient on 6 L nasal cannula oxygen Trying to taper down Patient is debilitated We will get physical therapy Objective - Constitutional Vitals: Vital Signs - 12hr 12/19/20 12/19/20 12/19/20 03:47 04:00 07:20 Temperature 97.9 F Pulse Rate 61 65 62 Respiratory 17 Rate Blood Pressure 135/64 O2 Sat by Pulse 91 Oximetry 12/19/20 12/19/20 07:27 11:17 Temperature 98.2 F 97.9 F Pulse Rate 63 61 Respiratory 18 18 Rate Blood Pressure 115/51 109/55 O2 Sat by Pulse 95 100 Oximetry General appearance: Present: no acute distress, well-nourished - EENT Eyes: PERRL, EOM intact ENT: hearing intact, clear oral mucosa Ears: bilateral: normal - Neck Neck: supple, normal ROM - Respiratory Respiratory effort: normal Respiratory: bilateral: CTA, rhonchi - Breasts Breasts: normal - Cardiovascular Heart rate: 88 Rhythm: regular Heart Sounds: Present: S1 & S2. Absent: gallop, rub Extremities: pulses intact, No edema, normal color, Full ROM - Gastrointestinal General gastrointestinal: Present: soft, non-tender, non-distended, normal bowel sounds - Genitourinary Male genitourinary: normal - Integumentary Integumentary: clear, warm, dry - Musculoskeletal Musculoskeletal: 1, strength equal bilaterally - Neurologic Neurologic: moves all extremities - Psychiatric Psychiatric: memory intact, appropriate mood/affect, intact judgment & insight - Labs CBC & Chem 7: 12/17/20 06:49 12/18/20 04:34 Labs: Abnormal lab results 12/18/20 12/18/20 12/19/20 Range/Units 16:29 20:43 08:40 POC Glucose 250 H 246 H 145 H (70-105) mg/dL HEART Score - HEART Score Troponin: Troponin T < 0.010 ng/mL (0.00-0.029) 12/18/20 04:34
[2020-12-20] MEDS: FUROSEMIDE 20 MG TAB PO SCH ×2 (06:40→17:58)
[2020-12-20] MEDS: cefTRIAXone/NS 1 GM/50 ML 1 GM/50 ML BAG IV SCH (07:40)
[2020-12-20] MEDS: INSULIN LISPRO 100 UNIT/ML SUB-Q SCH ×4 (09:14→22:07)
[2020-12-20] MEDS: GABAPENTIN 300 MG CAP PO SCH ×2 (09:20→21:12)
[2020-12-20] MEDS: ASPIRIN 81 MG TAB CHEW PO SCH (09:20)
[2020-12-20] MEDS: methylPREDNISolone Sod Succinate 40 MG/1 ML INJ IV SCH ×2 (09:20→21:11)
--- NOTE | 2020-12-20 16:30 | Progress Note ---
Assessment and Plan Assessment and Plan --Acute hypoxemic respiratory failure Current Visit: Yes Status: Acute Plan to address problem: Present on admission due to cardiomyopathy Oxygen titrate O2 sats to more than 90% Supportive care Patient on 2L nasal cannula oxygen --Elevated D-dimers; evaluate for PE Current Visit: Yes Status: Acute Plan to address problem: VQ scan low probability for PE Check venous Doppler --Non-ST elevation [place]/probably type II Current Visit: Yes Status: Acute . Plan to address problem: Serial cardiac enzymes Consider cardiology evaluation if needed. --History of ICD Current Visit: Yes Status: Acute . Plan to address problem: Supportive care Cardiology consult for interrogation if needed -- Systemic inflammatory response syndrome Current Visit: Yes Status: Acute Plan to address problem: Follow clinically , adjust management needed --Acute kidney injury/vasomotor nephropathy Current Visit: Yes Status: Acute Plan to address problem: Present on admission, significantly improved Closely monitor renal function avoid nephrotoxins --Possible urinary tract infection Current Visit: Yes Status: Acute Plan to address problem: Empiric IV antibiotic therapy, CBC, urinalysis, supportive care. --DVT prophylaxis Current Visit: Yes Status: Acute Plan to address problem: SCD to bilateral lower extremities while in bed, patient is ambulatory --Advance care planning Current Visit: Yes Status: Acute Plan to address problem: Full CODE STATUS Plan of care reviewed with the patient and his nurse we will closely monitor the patient and adjust the management as needed Plan of care reviewed with the patient and the nurse Discharge planning issues Subjective Date of service: 12/20/20 Principal diagnosis: Acute respiratory failure with hypoxia Interval history: 70 YO Male Alf Facility Resident at [facility] with COPD, DM, HTN, CHF, HLD, BPH, SOPHIE, LUZ, CVA with RHP, Cardiomyopathy, Depression, Obesity Hypoventilation Syndrome, Coronavirus Infection in 11/2020 who recieved second dose of coronavirus vaccination on 12/15/19 presents to ED for evaluation. Pt states "I am not feeling well". The patient reports abdominal discomfort, malaise, weakness, body aches over the past 1 day with persistent symptoms over the same timeframe. Patient was found to have a pulse oximetry of 81% on room air as per [facility] facility staff. EMS was notified and upon arrival the patient was found to be in distress and subsequently transported to [facility] for further care and evaluation of the aforementioned symptoms. The patient was seen and evaluated in the emergency department. All lab and imaging studies reviewed. The patient was found to have a pulse oximetry of 84% on room air which is consistent with acute hypoxemic respiratory failure. The patient was also found to have systemic inflammatory response syndrome, acute kidney injury, as well as suspected urinary tract infection. The patient was admitted to the medical floor and initiated on IV antibiotic therapy due to increased risk of worsening symptoms. Patient denies fever, chills, chest pain, palpitations, productive cough, skin rash. Prior admission on 08/27/2020 reviewed. All medication listed at time of admission has been reconciled. Advanced care planning conducted in ED. I have seen examined the patient this afternoon, patient's chart and medications reviewed Patient feels slightly better, still has some shortness of breath Denies chest pain, vital signs noted 12/19/2020 Patient on 6 L nasal cannula oxygen Trying to taper down Patient is debilitated We will get physical therapy 12/20/2020 Patient on 2 L nasal cannula oxygen Doing better Patient is ready for transfer to [facility] Objective - Constitutional Vitals: Vital Signs - 12hr 12/20/20 12/20/20 12/20/20 07:45 10:00 11:27 Temperature 96.9 F L 98.2 F Pulse Rate 49 L 48 L 51 L Respiratory 18 18 Rate Blood Pressure 104/42 110/61 O2 Sat by Pulse 91 94 Oximetry General appearance: Present: no acute distress, well-nourished - EENT Eyes: PERRL, EOM intact ENT: hearing intact, clear oral mucosa Ears: bilateral: normal - Neck Neck: supple, normal ROM - Respiratory Respiratory effort: normal Respiratory: bilateral: CTA - Breasts Breasts: normal - Cardiovascular Heart rate: 78 Rhythm: regular Heart Sounds: Present: S1 & S2. Absent: gallop, rub Extremities: pulses intact, No edema, normal color, Full ROM - Gastrointestinal General gastrointestinal: Present: soft, non-tender, non-distended, normal bowel sounds - Genitourinary Male genitourinary: normal - Integumentary Integumentary: clear, warm, dry - Musculoskeletal Musculoskeletal: 1, strength equal bilaterally - Neurologic Neurologic: moves all extremities - Psychiatric Psychiatric: memory intact, appropriate mood/affect, intact judgment & insight - Labs CBC & Chem 7: 12/17/20 06:49 12/18/20 04:34 Labs: Abnormal lab results 12/19/20 12/19/20 12/19/20 Range/Units 11:19 15:56 20:41 POC Glucose 173 H 208 H 181 H (70-105) mg/dL 12/20/20 12/20/20 12/20/20 Range/Units 07:45 11:29 15:59 POC Glucose 155 H 186 H 229 H (70-105) mg/dL HEART Score - HEART Score Troponin: Troponin T < 0.010 ng/mL (0.00-0.029) 12/18/20 04:34
[2020-12-21] MEDS: FUROSEMIDE 20 MG TAB PO SCH ×2 (05:28→18:21)
[2020-12-21] MEDS: INSULIN LISPRO 100 UNIT/ML SUB-Q SCH ×4 (08:00→21:27)
[2020-12-21] MEDS: methylPREDNISolone Sod Succinate 40 MG/1 ML INJ IV SCH ×2 (08:51→21:27)
[2020-12-21] MEDS: ASPIRIN 81 MG TAB CHEW PO SCH ×2 (08:51→09:28)
[2020-12-21] MEDS: GABAPENTIN 300 MG CAP PO SCH ×3 (08:51→21:27)
[2020-12-21] MEDS: DOCUSATE SODIUM 100 MG CAP PO PRN (21:31)
[2020-12-22] MEDS: FUROSEMIDE 20 MG TAB PO SCH ×2 (05:24→17:30)
--- NOTE | 2020-12-22 06:55 | Progress Note ---
Assessment and Plan Assessment and Plan --Acute hypoxemic respiratory failure Current Visit: Yes Status: Acute Plan to address problem: On 1 L oxygen Patient can be discharged to long term facility --Elevated D-dimers; evaluate for PE Current Visit: Yes Status: Acute Plan to address problem: VQ scan low probability for PE Check venous Doppler --Non-ST elevation [place]/probably type II Current Visit: Yes Status: Acute . Plan to address problem: Serial cardiac enzymes Consider cardiology evaluation if needed. --History of ICD Current Visit: Yes Status: Acute . Plan to address problem: Supportive care Cardiology consult for interrogation if needed -- Systemic inflammatory response syndrome Current Visit: Yes Status: Acute Plan to address problem: Follow clinically , adjust management needed --Acute kidney injury/vasomotor nephropathy Current Visit: Yes Status: Acute Plan to address problem: Present on admission, significantly improved Closely monitor renal function avoid nephrotoxins --Possible urinary tract infection Current Visit: Yes Status: Acute Plan to address problem: Empiric IV antibiotic therapy, CBC, urinalysis, supportive care. --DVT prophylaxis Current Visit: Yes Status: Acute Plan to address problem: SCD to bilateral lower extremities while in bed, patient is ambulatory --Advance care planning Current Visit: Yes Status: Acute Plan to address problem: Full CODE STATUS Plan of care reviewed with the patient and his nurse we will closely monitor the patient and adjust the management as needed Plan of care reviewed with the patient and the nurse Discharge planning issues Discussed with case management about SNF placement Subjective Date of service: 12/21/20 Principal diagnosis: Acute respiratory failure with hypoxia Interval history: 70 YO Male Senior Care Facility Resident at [facility] with COPD, DM, HTN, CHF, HLD, BPH, SOPHIE, LUZ, CVA with RHP, Cardiomyopathy, Depression, Obesity Hypoventilation Syndrome, Coronavirus Infection in 11/2020 who recieved second dose of coronavirus vaccination on 12/15/19 presents to ED for evaluation. Pt states "I am not feeling well". The patient reports abdominal discomfort, malaise, weakness, body aches over the past 1 day with persistent symptoms over the same timeframe. Patient was found to have a pulse oximetry of 81% on room air as per long term facility staff. EMS was notified and upon arrival the patient was found to be in distress and subsequently transported to [facility] for further care and evaluation of the aforementioned symptoms. The patient was seen and evaluated in the emergency department. All lab and imaging studies reviewed. The patient was found to have a pulse oximetry of 84% on room air which is consistent with acute hypoxemic respiratory failure. The patient was also found to have systemic inflammatory response syndrome, acute kidney injury, as well as suspected urinary tract infection. The patient was admitted to the medical floor and initiated on IV antibiotic therapy due to increased risk of worsening symptoms. Patient denies fever, chills, chest pain, palpitations, productive cough, skin rash. Prior admission on 08/27/2020 reviewed. All medication listed at time of admission has been reconciled. Advanced care planning conducted in ED. I have seen examined the patient this afternoon, patient's chart and medications reviewed Patient feels slightly better, still has some shortness of breath Denies chest pain, vital signs noted 12/19/2020 Patient on 6 L nasal cannula oxygen Trying to taper down Patient is debilitated We will get physical therapy 12/20/2020 Patient on 2 L nasal cannula oxygen Doing better Patient is ready for transfer to [facility] assisted 12/21/2020 Patient on very minimal oxygen Obese and confined to bed Physical therapy requested Ready for discharge Discussed with case management about placement Objective - Constitutional Vitals: Vital Signs - 12hr 12/21/20 12/21/20 12/21/20 19:43 20:30 22:00 Temperature 96.7 F L Pulse Rate 59 L 56 L Respiratory 16 Rate Blood Pressure 126/68 O2 Sat by Pulse 94 95 Oximetry 12/21/20 12/21/20 12/22/20 22:55 23:34 04:11 Temperature 95.9 F L 97.4 F L Pulse Rate 57 L 56 L 50 L Respiratory 18 16 20 Rate Blood Pressure 118/64 120/69 O2 Sat by Pulse 987 H 91 92 Oximetry General appearance: Present: no acute distress, well-nourished - EENT Eyes: PERRL, EOM intact ENT: hearing intact, clear oral mucosa Ears: bilateral: normal - Neck Neck: supple, normal ROM - Respiratory Respiratory effort: normal Respiratory: bilateral: CTA - Breasts Breasts: normal - Cardiovascular Heart rate: 78 Rhythm: regular Heart Sounds: Present: S1 & S2. Absent: gallop, rub Extremities: pulses intact, No edema, normal color, Full ROM - Gastrointestinal General gastrointestinal: Present: soft, non-tender, non-distended, normal bowel sounds - Genitourinary Male genitourinary: normal - Integumentary Integumentary: clear, warm, dry - Musculoskeletal Musculoskeletal: 1, strength equal bilaterally - Neurologic Neurologic: moves all extremities - Psychiatric Psychiatric: memory intact, appropriate mood/affect, intact judgment & insight - Labs CBC & Chem 7: 12/17/20 06:49 12/18/20 04:34 Labs: Abnormal lab results 12/21/20 12/21/20 12/21/20 Range/Units 07:48 11:24 15:49 POC Glucose 146 H 157 H 244 H (70-105) mg/dL 12/21/20 Range/Units 20:39 POC Glucose 202 H (70-105) mg/dL HEART Score - HEART Score Troponin: Troponin T < 0.010 ng/mL (0.00-0.029) 12/18/20 04:34
[2020-12-22] MEDS: ASPIRIN 81 MG TAB CHEW PO SCH (09:28)
[2020-12-22] MEDS: methylPREDNISolone Sod Succinate 40 MG/1 ML INJ IV SCH ×2 (09:29→17:32)
[2020-12-22] MEDS: GABAPENTIN 300 MG CAP PO SCH ×2 (09:31→22:05)
[2020-12-22] MEDS: INSULIN LISPRO 100 UNIT/ML SUB-Q SCH ×4 (09:58→22:06)
[2020-12-22 14:37] LABS: Calcium 8.6 mg/dL (8.4-10.2)
--- NOTE | 2020-12-22 16:25 | Progress Note ---
Assessment and Plan Assessment and plan: --Acute hypoxemic respiratory failure Current Visit: Yes Status: Acute Plan to address problem: Present on admission due to cardiomyopathy Oxygen titrate O2 sats to more than 90% Supportive care --Elevated D-dimers; evaluate for PE Current Visit: Yes Status: Acute Plan to address problem: VQ scan low probability for PE Check venous Doppler --Non-ST elevation PA/probably type II Current Visit: Yes Status: Acute . Plan to address problem: Serial cardiac enzymes Consider cardiology evaluation if needed. --History of ICD Current Visit: Yes Status: Acute . Plan to address problem: Supportive care Cardiology consult for interrogation if needed -- Systemic inflammatory response syndrome Current Visit: Yes Status: Acute Plan to address problem: Follow clinically , adjust management needed --Acute kidney injury/vasomotor nephropathy Current Visit: Yes Status: Acute Plan to address problem: Present on admission, significantly improved Closely monitor renal function avoid nephrotoxins --Possible urinary tract infection Current Visit: Yes Status: Acute Plan to address problem: Empiric IV antibiotic therapy, CBC, urinalysis, supportive care. --DVT prophylaxis Current Visit: Yes Status: Acute Plan to address problem: SCD to bilateral lower extremities while in bed, patient is ambulatory --Advance care planning Current Visit: Yes Status: Acute Plan to address problem: Full CODE STATUS Plan of care reviewed with the patient and his nurse we will closely monitor the patient and adjust the management as needed Plan of care reviewed with the patient and the nurse as well as the case management Patient is stable for discharge and transfer back to SNF DC planning per case management Case management asked me for peer to peer tomorrow. History Interval history: I have seen and examined the patient at the bedside Patient's chart and medications reviewed Patient feels slightly better Mild shortness of breath Vital signs noted Hospitalist Physical - Constitutional Vitals: Temp Pulse Resp BP Pulse Ox 98.1 F 52 L 18 113/57 95 12/22/20 12:15 12/22/20 12:15 12/22/20 12:15 12/22/20 12:15 12/22/20 12:15 General appearance: Present: no acute distress, well-nourished - EENT Eyes: Present: PERRL, EOM intact - Neck Neck: Present: supple, normal ROM - Respiratory Respiratory effort: normal Respiratory: bilateral: diminished, negative: rales, rhonchi, wheezing - Cardiovascular Rhythm: regular Heart Sounds: Present: S1 & S2 - Extremities Extremities: no ischemia, No edema - Abdominal General gastrointestinal: soft, non-tender, non-distended, normal bowel sounds - Integumentary Integumentary: Present: clear, warm - Psychiatric Psychiatric: appropriate mood/affect, cooperative - Neurologic Neurologic: CNII-XII intact, moves all extremities HEART Score - HEART Score Troponin: Troponin T < 0.010 ng/mL (0.00-0.029) 12/18/20 04:34 Results - Labs CBC & Chem 7: 12/17/20 06:49 12/22/20 14:03 Labs: Laboratory Last Values WBC 11.6 K/mm3 (4.5-11.0) H 12/17/20 06:49 RBC 4.20 M/mm3 (3.65-5.03) 12/17/20 06:49 Hgb 12.0 gm/dl (11.8-15.2) 12/17/20 06:49 Hct 35.5 % (35.5-45.6) 12/17/20 06:49 MCV 85 fl (84-94) 12/17/20 06:49 MCH 29 pg (28-32) 12/17/20 06:49 MCHC 34 % (32-34) 12/17/20 06:49 RDW 16.6 % (13.2-15.2) H 12/17/20 06:49 Plt Count 242 K/mm3 (140-440) 12/17/20 06:49 Lymph % (Auto) 11.4 % (13.4-35.0) L 12/17/20 06:49 Brooks % (Auto) 3.4 % (0.0-7.3) 12/17/20 06:49 Eos % (Auto) 0.1 % (0.0-4.3) 12/17/20 06:49 Baso % (Auto) 0.2 % (0.0-1.8) 12/17/20 06:49 Lymph # (Auto) 1.3 K/mm3 (1.2-5.4) 12/17/20 06:49 Brooks # (Auto) 0.4 K/mm3 (0.0-0.8) 12/17/20 06:49 Eos # (Auto) 0.0 K/mm3 (0.0-0.4) 12/17/20 06:49 Baso # (Auto) 0.0 K/mm3 (0.0-0.1) 12/17/20 06:49 Seg Neutrophils % 84.9 % (40.0-70.0) H 12/17/20 06:49 Seg Neutrophils # 9.9 K/mm3 (1.8-7.7) H 12/17/20 06:49 D-Dimer 1376.89 ng/mlDDU (0-234) H 12/16/20 14:08 ABG pH 7.407 pH Units (7.350-7.450) 12/16/20 13:50 ABG pCO2 45.9 mm Hg 12/16/20 13:50 ABG pO2 51.2 mm Hg (80.0-90.0) L 12/16/20 13:50 ABG HCO3 28.3 mmol/L (20.0-26.0) H 12/16/20 13:50 ABG O2 Saturation 88.0 % (95.0-99.0) L 12/16/20 13:50 ABG O2 Content 13.9 (0.0-44) 12/16/20 13:50 ABG Base Excess 3.1 mmol/L (-2.0-3.0) H 12/16/20 13:50 ABG Hemoglobin 11.5 gm/dl (14.0-18.0) L 12/16/20 13:50 ABG Carboxyhemoglobin 2.0 % (0.0-5.0) 12/16/20 13:50 ABG Methemoglobin 0.6 % (0.0-1.5) 12/16/20 13:50 Oxyhemoglobin 85.7 % (95.0-99.0) L 12/16/20 13:50 FiO2 21 % 12/16/20 13:50 Sodium 137 mmol/L (137-145) 12/22/20 14:03 Potassium 4.9 mmol/L (3.6-5.0) 12/22/20 14:03 Chloride 99.6 mmol/L (98-107) 12/22/20 14:03 Carbon Dioxide 28 mmol/L (22-30) 12/22/20 14:03 Anion Gap 14 mmol/L 12/22/20 14:03 BUN 58 mg/dL (9-20) H 12/22/20 14:03 Creatinine 1.4 mg/dL (0.8-1.3) H 12/22/20 14:03 Estimated GFR 50 ml/min 12/22/20 14:03 BUN/Creatinine Ratio 41 % 12/22/20 14:03 Glucose 219 mg/dL (75-100) H 12/22/20 14:03 POC Glucose 168 mg/dL (70-105) H 12/22/20 11:16 Calcium 8.6 mg/dL (8.4-10.2) 12/22/20 14:03 Magnesium 2.40 mg/dL (1.7-2.3) H 12/22/20 14:03 Total Bilirubin 0.50 mg/dL (0.1-1.2) 12/16/20 13:50 AST 22 units/L (5-40) 12/16/20 13:50 ALT 15 units/L (7-56) 12/16/20 13:50 Alkaline Phosphatase 89 units/L (35-129) 12/16/20 13:50 Total Creatine Kinase 80 units/L (55-170) 12/18/20 04:34 CK-MB (CK-2) 1.5 ng/mL (0.0-4.0) 12/18/20 04:34 CK-MB (CK-2) Rel Index 1.8 (0-4) 12/18/20 04:34 Troponin T < 0.010 ng/mL (0.00-0.029) 12/18/20 04:34 NT-Pro-B Natriuret Pep 71.52 pg/mL (0-900) 12/16/20 14:08 Total Protein 6.8 g/dL (6.3-8.2) 12/16/20 13:50 Albumin 4.1 g/dL (3.9-5) 12/16/20 13:50 Albumin/Globulin Ratio 1.5 % 12/16/20 13:50 Triglycerides 162 mg/dL (2-149) H 12/16/20 14:08 Cholesterol 120 mg/dL (50-199) 12/16/20 14:08 LDL Cholesterol Direct 70 mg/dL (50-130) 12/16/20 14:08 HDL Cholesterol 31 mg/dL (40-59) L 12/16/20 14:08 Cholesterol/HDL Ratio 3.87 % 12/16/20 14:08 Lipase 23 units/L (13-60) 12/16/20 13:50 Urine Color Yellow (Yellow) 12/16/20 18:38 Urine Turbidity Clear (Clear) 12/16/20 18:38 Urine pH 5.0 (5.0-7.0) 12/16/20 18:38 Ur Specific [place] 1.013 (1.003-1.030) 12/16/20 18:38 Urine Protein <15 mg/dl mg/dL (Negative) 12/16/20 18:38 Urine Glucose (UA) Neg mg/dL (Negative) 12/16/20 18:38 Urine Ketones Tr mg/dL (Negative) 12/16/20 18:38 Urine Blood Neg (Negative) 12/16/20 18:38 Urine Nitrite Neg (Negative) 12/16/20 18:38 Urine Bilirubin Neg (Negative) 12/16/20 18:38 Urine Urobilinogen < 2.0 mg/dL (<2.0) 12/16/20 18:38 Ur Leukocyte Esterase Neg (Negative) 12/16/20 18:38 Urine WBC (Auto) < 1.0 /HPF (0.0-6.0) 12/16/20 18:38 Urine RBC (Auto) 1.0 /HPF (0.0-6.0) 12/16/20 18:38 U Epithel Cells (Auto) < 1.0 /HPF (0-13.0) 12/16/20 18:38 Hyaline Casts 1 /LPF 12/16/20 18:38 Coronavirus (PCR) Negative (Negative) 12/21/20 Unknown [place]/IV: Voiding Method Urinal IV Catheter Type [Left Hand] INT / Saline Lock Active Medications - Current Medications Current Medications: Generic Name Dose Route Start Last Admin Trade Name Freq PRN Reason Stop Dose Admin Acetaminophen 650 mg 12/16/20 18:27 12/17/20 21:03 Acetaminophen 325 Mg Tab PO 650 mg Q4H PRN Administration Pain MILD(1-3)/Fever >100.5/SANCHEZ Albuterol 2.5 mg 12/16/20 18:27 Albuterol 2.5 Mg/3 Ml Nebu IH Q4HRT PRN Shortness Of Breath Aspirin 81 mg 12/18/20 10:00 12/22/20 09:28 Aspirin 81 Mg Tab Chew PO 81 mg DAILY YOLY Administration Atorvastatin Calcium 40 mg 12/17/20 22:00 12/21/20 21:27 Atorvastatin 40 Mg Tab PO 40 mg QHS YOLY Administration Docusate Sodium 100 mg 12/17/20 20:31 12/21/20 21:31 Docusate Sodium 100 Mg Cap PO 100 mg BID PRN Administration Constipation Furosemide 20 mg 12/17/20 21:00 12/22/20 05:24 Furosemide 20 Mg Tab PO 20 mg 0600,1800 YOLY Administration Gabapentin 300 mg 12/17/20 22:00 12/22/20 09:31 Gabapentin 300 Mg Cap PO 300 mg BID YOLY Administration Insulin Human Lispro 0 unit 12/17/20 22:00 12/22/20 12:31 Insulin Lispro 100 Unit/Ml SUB-Q 2 unit ACHS YOLY Administration Protocol Methylprednisolone Sodium Succinate 40 mg 12/16/20 20:00 12/22/20 09:29 Methylprednisolone Sod Succinate 40 Mg/1 Ml Inj IV 40 mg Q12H YOLY Administration Ondansetron HCl 4 mg 12/16/20 18:27 Ondansetron 4 Mg/2 Ml Inj IV Q8H PRN Nausea And Vomiting Sodium Chloride 10 ml 12/16/20 22:00 12/22/20 09:29 Sodium Chloride 0.9% 10 Ml Flush Syringe IV 10 ml BID YOLY Administration Sodium Chloride 10 ml 12/16/20 18:27 Sodium Chloride 0.9% 10 Ml Flush Syringe IV PRN PRN LINE FLUSH Tramadol HCl 50 mg 12/17/20 20:31 12/18/20 21:14 Tramadol 50 Mg Tab PO 50 mg Q6HR PRN Administration Pain, Moderate (4-6)
[2020-12-22] MEDS: DOCUSATE SODIUM 100 MG CAP PO PRN (22:05)
[2020-12-23] MEDS: methylPREDNISolone Sod Succinate 40 MG/1 ML INJ IV SCH (05:41)
[2020-12-23] MEDS: FUROSEMIDE 20 MG TAB PO SCH (05:41)
[2020-12-23] MEDS: INSULIN LISPRO 100 UNIT/ML SUB-Q SCH ×2 (08:00→12:05)
[2020-12-23] MEDS: ASPIRIN 81 MG TAB CHEW PO SCH (09:00)
[2020-12-23] MEDS: GABAPENTIN 300 MG CAP PO SCH (09:00)
--- NOTE | 2020-12-23 11:51 | Discharge Summary ---
Providers - Providers Date of Admission: 12/16/20 18:27 Date of discharge: 12/23/20 Attending physician: ASHER OLIVIA 12/19/20 15:07 Physical Therapy Evaluation and Treat [CONS] Routine Comment: Reason For Exam: Severe debility Primary care physician: APPLICATION INTEGRATION ARCHITECT Hospitalization Reason for admission: Acute hypoxemic respiratory failure. Metabolic encephalo marisol Condition: Stable Hospital course: 70 YO Male Residential Facility Resident at [facility] with COPD, DM, HTN, CHF, HLD, BPH, SOPHIE, LUZ, CVA with RHP, Cardiomyopathy, Depression, Obesity Hypoventilation Syndrome, Coronavirus Infection in 11/2020 who recieved second dose of coronavirus vaccination on 12/15/19 presents to ED for evaluation. Pt states "I am not feeling well". The patient reports abdominal discomfort, malaise, weakness, body aches over the past 1 day with persistent symptoms over the same timeframe. Patient was found to be hypoxic with O2 sats of 81% room air at the residential, patient was sent to [facility] for further evaluation management, evaluated by an ED noted to be in acute hypoxemic respiratory failure SIRS acute kidney injury and possible UTI.Patient was appropriately managed, had elevated D-dimers however V/Q scan negative for PE non-ST elevation ND probably type II Patient also has ICD received all symptomatic management, symptoms significantly improved Today patient is comfortable no new complaints vital signs stable physical examination prior to discharge no new changes Patient is hemodynamically and clinically stable for discharge, And transfer back to [facility] in stable condition. Discharge diagnosis; And management --Acute hypoxemic respiratory failure Current Visit: Yes Status: Acute Plan to address problem: Present on admission due to cardiomyopathy Oxygen titrate O2 sats to more than 90% --Elevated D-dimers; evaluate for PE Current Visit: Yes Status: Acute Plan to address problem: VQ scan low probability for PE --Non-ST elevation ND/probably type II Current Visit: Yes Status: Acute . Plan to address problem: Serial cardiac enzymes Consider cardiology evaluation if needed. --History of ICD Current Visit: Yes Status: Acute . Plan to address problem: Supportive care Cardiology consult for interrogation if needed -- Systemic inflammatory response syndrome Current Visit: Yes Status: Acute Plan to address problem: Follow clinically , adjust management needed --Acute kidney injury/vasomotor nephropathy Current Visit: Yes Status: Acute Plan to address problem: Present on admission, significantly improved Closely monitor renal function avoid nephrotoxins --Possible urinary tract infection Current Visit: Yes Status: Acute Plan to address problem: Empiric IV antibiotic therapy, CBC, urinalysis, supportive care. --DVT prophylaxis Current Visit: Yes Status: Acute Plan to address problem: SCD to bilateral lower extremities while in bed, patient is ambulatory --Advance care planning Current Visit: Yes Status: Acute Plan to address problem: Full CODE STATUS Plan of care reviewed with the patient and his nurse Disposition: DC/[place]-03 SNF [facility] Time spent for discharge: 35 min Core Measure Documentation - Palliative Care Palliative Care/ Comfort Measures: Not Applicable - Core Measures Any of the following diagnoses?: none Exam - Constitutional Vitals: Temp Pulse Resp BP Pulse Ox 98.2 F 57 L 17 110/48 95 12/23/20 11:44 12/23/20 11:45 12/23/20 11:44 12/23/20 11:45 12/23/20 11:45 General appearance: Present: no acute distress, well-nourished, obese - EENT Eyes: Present: PERRL, EOM intact - Neck Neck: Present: supple, normal ROM - Respiratory Respiratory effort: normal Respiratory: bilateral: diminished, negative: rales, rhonchi, wheezing - Cardiovascular Rhythm: regular Heart Sounds: Present: S1 & S2 - Extremities Extremities: no ischemia, No edema - Abdominal General gastrointestinal: Present: soft, non-tender, non-distended, normal bowel sounds - Integumentary Integumentary: Present: clear, warm - Musculoskeletal Musculoskeletal: strength equal bilaterally - Psychiatric Psychiatric: appropriate mood/affect, cooperative - Neurologic Neurologic: other (Residual weakness) Plan Activity: advance as tolerated, fall precautions Diet: diabetic, other (Cardiac diet) Additional Instructions: Fall precautions. Hold Metformin as patient has acute kidney injury. Patient did not need long-acting insulin Lantus during the hospital stay. Check blood sugars Follow up with: PRIMARY CARE, [Primary Care Provider] - 3-5 Days Prescriptions: predniSONE 10 mg PO QDAY #10 tab
[2020-12-23 16:09] VITALS: BP 122/64
== END 2020-12-23 16:27 | DRG 189 ==
LOC: ED 12:35 → 4A 18:27
PROVIDERS: ADMIT Internal Medicine; ATTEND Internal Medicine
PROC: 4A033R1 Measurement of Arterial Saturation, Peripheral, Percutaneous Approach (ICD-10-PCS; principal; 2020-12-16)
PROC: 5A09357 Assistance with Respiratory Ventilation, Less than 24 Consecutive Hours, Continuous Positive Airway Pressure (ICD-10-PCS; 2020-12-21)
DX: J96.01 Acute respiratory failure with hypoxia (principal); I21.A1 Myocardial infarction type 2; N17.0 Acute kidney failure with tubular necrosis; G93.41 Metabolic encephalopathy; J44.1 Chronic obstructive pulmonary disease with (acute) exacerbation; N39.0 Urinary tract infection, site not specified; R65.10 Systemic inflammatory response syndrome (SIRS) of non-infectious origin without acute organ dysfunction; I13.0 Hypertensive heart and chronic kidney disease with heart failure and stage 1 through stage 4 chronic kidney disease, or unspecified chronic kidney disease; Z68.41 Body mass index [BMI] 40.0-44.9, adult; I42.9 Cardiomyopathy, unspecified; E86.9 Volume depletion, unspecified; N18.1 Chronic kidney disease, stage 1; F41.9 Anxiety disorder, unspecified; F32.9 Major depressive disorder, single episode, unspecified; M19.90 Unspecified osteoarthritis, unspecified site; D72.829 Elevated white blood cell count, unspecified; E66.01 Morbid (severe) obesity due to excess calories; G47.33 Obstructive sleep apnea (adult) (pediatric); E78.5 Hyperlipidemia, unspecified; N40.0 Benign prostatic hyperplasia without lower urinary tract symptoms; Z20.822 Contact with and (suspected) exposure to COVID-19; I50.9 Heart failure, unspecified; Z79.899 Other long term (current) drug therapy; Z79.891 Long term (current) use of opiate analgesic; Z79.01 Long term (current) use of anticoagulants; Z86.73 Personal history of transient ischemic attack (TIA), and cerebral infarction without residual deficits; Z87.891 Personal history of nicotine dependence; Z79.84 Long term (current) use of oral hypoglycemic drugs; Z79.82 Long term (current) use of aspirin; Z86.16 Personal history of COVID-19; Z95.810 Presence of automatic (implantable) cardiac defibrillator
CPT/HCPCS: 36415; 71045; 74022; 78580; 80048; 80053; 80061; 81001; 82550; 82553; 82803; 82962; 83690; 83735; 83880; 84484; 85025; 85379; 87086; 93005; 94660; 94760; 96365; 96375; G0378; A9270-GY; A9540; J0696; J1815; J2920; U0003

== ENCOUNTER 2021-03-13 10:17 | Emergency (ER) | payer MEDICARE ==
[2021-03-13 11:05] VITALS: BP 148/84
--- NOTE | 2021-03-13 11:10 | Emergency Department Report ---
ED Fall HPI - General Stated Complaint: LEFT LEG PAIN Time Seen by Provider: 03/13/21 11:05 Source: patient Mode of arrival: Ambulatory Limitations: No Limitations - History of Present Illness Initial Comments: CC: knee pain, fall HPI: This is a 70 yo male with hx of COPD, severe obesity, CKD, HTN, DM, diastolic heart failure who presents from SNF with bilateral knee pain after fall. Patient was being lifted up from floor with assistance device. Patient was accidentally dropped from hoist after patient had fallen from wheelchair. He landed on right knee. He has severe pain on left knee. Patient is nonambulatory. He uses wheelchair. Hx of left knee replacement. MD Complaint: fall -: Sudden, This morning Fall From: wheelchair, from height (distance) (3 feet) Fall Witnessed: yes, by living facility s Place Fall Occurred: [facility] Loss of Consciousness: none Prolonged Down Time?: no Symptoms Prior to Fall: none Location - Extremities: Left: Knee, Right: Knee Severity: moderate Severity scale (0 -10): 7 Quality: aching Context: tripped/slipped Associated Symptoms: denies - Related Data Home Medications Medication Instructions Recorded Confirmed Last Taken Ascorbic Acid [Vitamin C] 500 mg PO DAILY 11/13/17 12/20/20 Unknown Ferrous Sulfate [Feosol 325 MG tab] 325 mg PO BID 11/13/17 12/20/20 Unknown Sertraline [Zoloft] 100 mg PO DAILY 11/13/17 12/20/20 Unknown Acetaminophen [Mapap] 2 tab PO Q12H PRN 12/13/19 12/20/20 Unknown Albuterol Sulfate [Proair 90 mcg IH Q4H PRN 12/13/19 12/20/20 Unknown Respiclick] Aspirin [Aspirin BABY CHEW TAB] 81 mg PO DAILY 12/13/19 12/20/20 Unknown AtorvaSTATin [Lipitor] 40 mg PO QHS 12/13/19 12/20/20 Unknown Cholecalciferol Vit D3 [Vitamin D3 1,000 unit PO QDAY 12/13/19 12/20/20 Unknown 1,000 UNIT TAB] Docusate Sodium [Colace CAP] 100 mg PO BID PRN 12/13/19 12/20/20 Unknown Fluticasone Propionate [Flovent 50 mcg IH Q24H PRN 12/13/19 12/20/20 Unknown Diskus] Furosemide [Lasix TAB] 20 mg PO BID 12/13/19 12/20/20 Unknown Gabapentin 300 mg PO BID 12/13/19 12/20/20 Unknown Insulin Glargine [Lantus VIAL] 10 unit SUB-Q QHS 12/13/19 12/20/20 Unknown Insulin Lispro [Humalog 100 0 units SQ AC 12/13/19 12/20/20 Unknown UNITS/ML Kwikpen] Ipratropium [Atrovent NEB] 0.5 mg IH Q6HRT PRN 12/13/19 12/20/20 Unknown Sennosides [Senna] 8.6 mg PO HS PRN 12/13/19 12/20/20 Unknown clonazePAM [clonazePAM Rapdis] 0.5 mg PO HS 12/13/19 12/20/20 Unknown guaiFENesin [Robitussin] 100 mg PO Q6H PRN 12/13/19 12/20/20 Unknown polyethylene glycoL 3350 [Miralax 17 gm PO Q24H PRN 12/13/19 12/20/20 Unknown 3350] traMADoL [Ultram 50 MG tab] 50 mg PO Q6HR PRN 12/13/19 12/20/20 Unknown Previous Rx's Medication Instructions Recorded Last Taken Type Spironolactone [Aldactone] 25 mg PO QDAY #30 tablet 11/28/18 Unknown Rx amLODIPine 5 mg PO DAILY #30 tab 12/16/19 Unknown Rx Lispro Insulin [HumaLOG] 0 unit SUB-Q ACHS units 03/20/20 Unknown Rx predniSONE 10 mg PO QDAY #10 tab 12/23/20 Unknown Rx Allergies Allergy/AdvReac Type Severity Reaction Status Date / Time No Known Allergies Allergy Unverified 11/13/17 00:30 ED Review of Systems ROS: Stated complaint: LEFT LEG PAIN Other details as noted in HPI Comment: All other systems reviewed and negative Constitutional: denies: fever, malaise Respiratory: denies: cough Cardiovascular: denies: chest pain Gastrointestinal: denies: abdominal pain, nausea, vomiting ED Past Medical Hx - Past Medical History Previous Medical History?: Yes Hx Hypertension: Yes Hx CVA: Yes Hx Congestive Heart Failure: Yes Hx Diabetes: Yes Hx Arthritis: Yes Hx Psychiatric Treatment: Yes (anxiety, depression) Hx COPD: Yes Additional medical history: Sleep apnea, Kidney disease, Prostate disease, right side paraplegic, Defibrillator - Surgical History Past Surgical History?: Yes Hx Internal Defibrillator: Yes Additional Surgical History: left knee replacement - Social History Smoking Status: Former Smoker - Medications Home Medications: Home Medications Medication Instructions Recorded Confirmed Last Taken Type Ascorbic Acid [Vitamin C] 500 mg PO DAILY 11/13/17 12/20/20 Unknown History Ferrous Sulfate [Feosol 325 MG tab] 325 mg PO BID 11/13/17 12/20/20 Unknown History Sertraline [Zoloft] 100 mg PO DAILY 11/13/17 12/20/20 Unknown History Spironolactone [Aldactone] 25 mg PO QDAY #30 tablet 11/28/18 12/20/20 Unknown Rx Acetaminophen [Mapap] 2 tab PO Q12H PRN 12/13/19 12/20/20 Unknown History Albuterol Sulfate [Proair 90 mcg IH Q4H PRN 12/13/19 12/20/20 Unknown History Respiclick] Aspirin [Aspirin BABY CHEW TAB] 81 mg PO DAILY 12/13/19 12/20/20 Unknown History AtorvaSTATin [Lipitor] 40 mg PO QHS 12/13/19 12/20/20 Unknown History Cholecalciferol Vit D3 [Vitamin D3 1,000 unit PO QDAY 12/13/19 12/20/20 Unknown History 1,000 UNIT TAB] Docusate Sodium [Colace CAP] 100 mg PO BID PRN 12/13/19 12/20/20 Unknown History Fluticasone Propionate [Flovent 50 mcg IH Q24H PRN 12/13/19 12/20/20 Unknown History Diskus] Furosemide [Lasix TAB] 20 mg PO BID 12/13/19 12/20/20 Unknown History Gabapentin 300 mg PO BID 12/13/19 12/20/20 Unknown History Insulin Glargine [Lantus VIAL] 10 unit SUB-Q QHS 12/13/19 12/20/20 Unknown History Insulin Lispro [Humalog 100 0 units SQ AC 12/13/19 12/20/20 Unknown History UNITS/ML Kwikpen] Ipratropium [Atrovent NEB] 0.5 mg IH Q6HRT PRN 12/13/19 12/20/20 Unknown History Sennosides [Senna] 8.6 mg PO HS PRN 12/13/19 12/20/20 Unknown History clonazePAM [clonazePAM Rapdis] 0.5 mg PO HS 12/13/19 12/20/20 Unknown History guaiFENesin [Robitussin] 100 mg PO Q6H PRN 12/13/19 12/20/20 Unknown History polyethylene glycoL 3350 [Miralax 17 gm PO Q24H PRN 12/13/19 12/20/20 Unknown History 3350] traMADoL [Ultram 50 MG tab] 50 mg PO Q6HR PRN 12/13/19 12/20/20 Unknown History amLODIPine 5 mg PO DAILY #30 tab 12/16/19 12/20/20 Unknown Rx Lispro Insulin [HumaLOG] 0 unit SUB-Q ACHS units 03/20/20 12/20/20 Unknown Rx predniSONE 10 mg PO QDAY #10 tab 12/23/20 Unknown Rx ED Physical Exam - General Limitations: No Limitations General appearance: alert, in no apparent distress - Head Head exam: Present: atraumatic, normocephalic - Eye Eye exam: Present: normal appearance - ENT ENT exam: Present: mucous membranes moist - Neck Neck exam: Present: normal inspection, full ROM - Respiratory Respiratory exam: Present: normal lung sounds bilaterally. Absent: respiratory distress, wheezes - Cardiovascular Cardiovascular Exam: Present: regular rate, normal rhythm, normal heart sounds. Absent: systolic murmur, diastolic murmur, rubs, gallop - GI/Abdominal GI/Abdominal exam: Present: soft, normal bowel sounds. Absent: distended, tenderness, guarding - Rectal Rectal exam: Present: deferred - Extremities Exam Extremities exam: Present: normal inspection - Expanded Lower Extremity Exam Left Hip exam: Present: normal inspection, full ROM Upper Leg exam: Present: normal inspection, full ROM Knee exam: Present: normal inspection, tenderness. Absent: swelling, abrasion, laceration, ecchymosis, deformity Lower Leg exam: Present: normal inspection, full ROM Right Hip exam: Present: normal inspection, full ROM Upper Leg exam: Present: normal inspection, full ROM Knee exam: Present: normal inspection, full ROM. Absent: tenderness, swelling Lower Leg exam: Present: normal inspection, full ROM - Back Exam Back exam: Present: normal inspection - Neurological Exam Neurological exam: Present: alert, oriented X3 - Psychiatric Psychiatric exam: Present: normal affect, normal mood - Skin Skin exam: Present: warm, dry, intact, normal color. Absent: rash ED Course Vital Signs 03/13/21 11:04 Temperature 98.7 F Pulse Rate 82 Respiratory 20 Rate Blood Pressure 148/84 [Left] O2 Sat by Pulse 98 Oximetry ED Medical Decision Making - Radiology Data Radiology results: report reviewed Patient Name: LILLY TEMPLE Gender: Male Date of : 1950 Referring Provider: HUBERT CHO Organization: [facility] Accession Number: [id number] Requested Date: March 13, 2021 11:06 Report Status: Final Requested Procedure: 1 Procedure Description: XR knee BILAT 4+V Modality: XR Findings Reporting MD: Christo Womack Dictation Time: March 13, 2021 11:13 Regional Tanker Truck Driver: Not available Analysis Director Date: BOTH KNEES 8 VIEWS INDICATION / CLINICAL INFORMATION: fall bilateral knee pain. COMPARISON: None available. FINDINGS: Left knee prosthesis. Advanced degenerative change in the right kidney. Suprapatellar bursa of the left knee is slightly distended, suggesting effusion or possibly hemarthrosis. However, I see no evidence of acute fracture. Signer Name: Christo Womack MD Signed: 03/13/2021 11:13 AM Workstation Name: [id number] - Medical Decision Making Fall: Right knee contusion, left knee sprain, Max wrap was applied to the left knee under my supervision. After application the extremity was neurovascularly intact with acceptable alignment. Referred to orthopedic surgeon as necessary Critical care attestation.: If time is entered above; I have spent that time in minutes in the direct care of this critically ill patient, excluding procedure time. ED Disposition Clinical Impression: Fall, Left knee sprain, Contusion of right knee Disposition: DC/TX-70 ANOTHER TYPE [facility]TH[facility]ARE Is pt being admited?: No Does the pt Need Aspirin: No Condition: Stable Instructions: Knee Sprain, Adult, [id number] Referrals: NE HADLEY MD [Primary Care Provider] - 3-5 Days SHARITA ZALDIVAR MD [Staff Physician] - 3-5 Days
--- NOTE | 2021-03-13 12:17 | XRay Report ---
BOTH KNEES 8 VIEWS INDICATION / CLINICAL INFORMATION: fall bilateral knee pain. COMPARISON: None available. FINDINGS: Left knee prosthesis. Advanced degenerative change in the right kidney. Suprapatellar bursa of the le ft knee is slightly distended, suggesting effusion or possibly hemarthrosis. However, I see no eviden ce of acute fracture. Signer Name: Christo Womack MD Signed: 03/13/2021 12:13 PM Workstation Name: [id number]
[2021-03-13] MEDS ORDERED: ACETAMINOPHEN 500 MG TAB PO ONE (12:23)
== END 2021-03-13 17:30 | disposition other institution (70) ==
LOC: ED 10:17
DX: S83.92XA Sprain of unspecified site of left knee, initial encounter (principal); I11.0 Hypertensive heart disease with heart failure; I50.9 Heart failure, unspecified; E11.9 Type 2 diabetes mellitus without complications; M19.91 Primary osteoarthritis, unspecified site; F41.9 Anxiety disorder, unspecified; F32.9 Major depressive disorder, single episode, unspecified; J44.9 Chronic obstructive pulmonary disease, unspecified; Z98.890 Other specified postprocedural states; Z87.891 Personal history of nicotine dependence; Z79.4 Long term (current) use of insulin; Z79.899 Other long term (current) drug therapy; W05.0XXA Fall from non-moving wheelchair, initial encounter; Y93.89 Activity, other specified; Y92.89 Other specified places as the place of occurrence of the external cause; Y99.8 Other external cause status
CPT/HCPCS: 99284